=== PATIENT | female | born 1940 | race Caucasian/White ===

== ENCOUNTER 2017-08-14 06:21 | Emergency (ER) | payer MEDICARE, BC ==
[2017-08-14] MEDS ORDERED: Sodium Chloride 0.9% 10 ML Syringe FLUSH PRN (06:28)
[2017-08-14] MEDS ORDERED: Furosemide 40 MG/4 ML VIAL IVPUSH ONE (06:41)
[2017-08-14] MEDS ORDERED: methylPREDNISolone Sodium Succinate 125 MG/2 ML SDV IVPUSH ONE (06:59)
--- NOTE | 2017-08-14 07:00 | EDM.PDOC ---
ED HPI GENERAL MEDICAL PROBLEM - General Chief Complaint: Respiratory Problem Stated Complaint: [facility] Time Seen by Provider: 08/14/17 06:28 Source of Information: Reports: Patient, RN Notes Reviewed History Limitations: Reports: No Limitations - History of Present Illness INITIAL COMMENTS - FREE TEXT/NARRATIVE: The patient states that she was diagnosed with left lung cancer in February 2017, confirmed by a CT-guided percutaneous lung biopsy in March. The patient does not know whether it is small cell or non-small cell lung cancer, however, she underwent 3 radiation treatments over 3 days in May, and was told that it would if her about 5 years of additional life. She states that surgery was not recommended due to her underlying COPD, and that chemotherapy was not needed. The patient states that she has had shortness of breath ever since the radiation therapy, worse with exertion. This morning it was very severe, when she got up to get to go to the bathroom. She states that she thought she was going to pass out. She denies wheezing. She states that she coughed quite a bit following the radiation therapy, but that it has since diminished, and now is slight, productive of a clear sputum. No recent fever. No recent nausea, vomiting, constipation, or diarrhea. No recent chest pain or palpitations. The patient reports left lower extremity edema since she had a left total hip arthroplasty in February 2017, and right lower extremity edema for the past few weeks., The patient states that she saw her PCP, Dr. North, yesterday, and that he started her on Eliquis, metoprolol, and potassium chloride. She believes that the Eliquis and metoprolol are for atrial fibrillation, and the potassium for low potassium on a blood draw about one week ago. The patient states that she is on Lasix, to treat her Mnire's disease. The patient states that she is ordinarily on home oxygen 2 L per nasal cannula at night, but that it was increased to 3 L continuously a few weeks ago due to low oxygen saturation and increased shortness of breath. 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, IV/IO - Related Data Allergies Allergy/AdvReac Type Severity Reaction Status Date / Time morphine Allergy Intermediate Hives Verified 08/14/17 09:05 shellfish derived Allergy Intermediate Hives Verified 08/14/17 09:05 codeine AdvReac Mild Nausea Verified 11/15/17 09:05 Home Meds: Home Meds Albuterol Sulfate [Proair Hfa] 1 puff IH Q6HR PRN 06/20/16 [History] Aspirin [Halfprin] 81 mg PO DAILY 06/20/16 [History] Diltiazem HCl [Diltiazem HCl] 1 tab PO BID 06/20/16 [History] Furosemide [Furosemide] 1 tab PO DAILY 06/20/16 [History] Losartan [Cozaar] 1 tab PO DAILY 06/20/16 [History] Lutein/Minerals/Vit A,C & E [Ocuvite] 1 tab PO DAILY 06/20/16 [History] [place]-3 Fatty Acids [Fish Oil] 300 mg PO DAILY 06/20/16 [History] Omeprazole 20 mg PO DAILY 06/20/16 [History] Tiotropium [Spiriva Handihaler] 1 puff INH DAILY 06/20/16 [History] Acetaminophen 650 mg PO Q6HR 08/14/17 [History] Albuterol Sulfate 2.5 mg IH QID PRN 08/14/17 [History] Apixaban [Eliquis] 5 mg PO BID 08/14/17 [History] Meclizine [Antivert] 25 mg PO DAILY 08/14/17 [History] Metoprolol Tartrate [Lopressor] 25 mg PO Q12HR 08/14/17 [History] Potassium Chloride 20 meq PO BID 08/14/17 [History] Pravastatin Sodium 10 mg PO DAILY 08/14/17 [History] Past Medical History HEENT History: Reports: Hard of Hearing (Mnire disease), Impaired Vision Cardiovascular History: Reports: Afib, High Cholesterol, Hypertension, PVD Respiratory History: Reports: COPD (home O2 3L continuously) Gastrointestinal History: Reports: GERD Genitourinary History: Reports: Urinary Incontinence Musculoskeletal History: Reports: Osteoarthritis Oncologic (Cancer) History: Reports: Lung (left, s/p 3 RTs May 2017) - Past Surgical History HEENT Surgical History: Reports: Cataract Surgery (bilateral), Tonsillectomy Cardiovascular Surgical History: Reports: Vascular Surgery (bilateral iliac arteries) GI Surgical History: Reports: Cholecystectomy Musculoskeletal Surgical History: Reports: Hip Replacement (left) Social & Family History - Family History Family Medical History: Noncontributory - Tobacco Use Smoking Status *Q: Former Smoker Years of Tobacco use: 57 Packs/Tins Daily: 0.5 Month Tobacco Last Used: Quit 2014 Second Hand Smoke Exposure: No - Caffeine Use Caffeine Use: Reports: None - Alcohol Use Alcohol Use History: Yes Alcohol Use Frequency: Rarely - Recreational Drug Use Recreational Drug Use: No - Living Situation & Occupation Living situation: Reports: , Alone Occupation: Retired ED ROS GENERAL - Review of Systems Review Of Systems: See Below Constitutional: Reports: No Symptoms HEENT: Reports: No Symptoms Respiratory: Reports: Shortness of Breath (as per the HPI), Cough (as per the HPI), Sputum (clear, as per the HPI) Cardiovascular: Reports: Dyspnea on Exertion (as per the HPI), Edema (BLE, as per the HPI) Endocrine: Reports: No Symptoms GI/Abdominal: Reports: No Symptoms : Reports: No Symptoms Musculoskeletal: Reports: No Symptoms Skin: Reports: No Symptoms Neurological: Reports: No Symptoms Psychiatric: Reports: No Symptoms Hematologic/Lymphatic: Reports: No Symptoms Immunologic: Reports: No Symptoms ED EXAM, GENERAL - Physical Exam Exam: See Below Exam Limited By: No Limitations General Appearance: Alert, WD/WN, No Apparent Distress Eye Exam: Bilateral Eye: Normal Inspection Ears: Normal External Exam, Hearing Loss Nose: Normal Inspection, No Blood Throat/Mouth: Normal Inspection, Normal Lips, Normal Voice, No Airway Compromise Head: Atraumatic, Normocephalic Neck: Normal Inspection, Full Range of Motion Respiratory/Chest: Decreased Breath Sounds, Wheezing (faint throughout), Prolonged Expiration. No: Crackles, Rhonchi Cardiovascular: Normal Peripheral Pulses, Regular Rate, Rhythm, No Gallop, No JVD, No Murmur, No Rub Peripheral Pulses: 4+: Radial (L), Radial (R) GI/Abdominal: Normal Bowel Sounds, Soft, Non-Tender, No Organomegaly, No Distention, No Abnormal Bruit, No Mass (Female) Exam: Deferred Rectal (Female) Exam: Deferred Back Exam: Normal Inspection, Full Range of Motion, NT Extremities: Normal Inspection, Normal Range of Motion, Normal Capillary Refill , Other (2+ pitting edema bilaterally) Neurological: Alert, Oriented, Normal Cognition, No Motor/Sensory Deficits Psychiatric: Normal Affect Skin Exam: Warm, Dry, Intact, Normal Color, No Rash EKG INTERPRETATION EKG Date: 08/14/17 Time: 06:44 Rhythm: A-Fib Rate (Beats/Min): 130 [place]: Normal P-Wave: Absent QRS: LBBB QT: Prolonged (QTc 509 ms) Comparison: NA - No Prior EKG Course - Vital Signs Last Recorded V/S: Last Vital Signs Temp 36.4 C 08/14/17 06:25 Pulse 67 08/14/17 06:25 Resp 24 H 08/14/17 06:25 BP 118/104 H 08/14/17 06:25 Pulse Ox 78 L 08/14/17 07:55 - Orders/Labs/Meds Orders: Active Orders 24 hr Category Date Time Status EKG 12 Lead [EKG Documentation Completion] [RC] STAT Care 08/14/17 06:29 Active Oxygen Therapy [RC] ASDIRECTED Care 08/14/17 06:29 Active Peripheral IV Care [RC] . DIRECTED Care 08/14/17 06:30 Active RT Aerosol Therapy [RC] ASDIRECTED Care 08/14/17 07:30 Active MAGNESIUM [CHEM] Stat Lab 08/14/17 06:45 Received Diltiazem 125 mg Med 08/14/17 07:45 Active Sodium Chloride 0.9% [Normal Saline] 100 ml IV TITRATE Sodium Chloride 0.9% [Normal Saline] 1,000 ml Med 08/14/17 08:30 Active IV ASDIRECTED Sodium Chloride 0.9% [Normal Saline] 100 ml Med 08/14/17 08:30 Active IV ASDIRECTED Sodium Chloride 0.9% [Saline Flush] Med 08/14/17 06:28 Active 10 ml FLUSH ASDIRECTED PRN Sodium Chloride 0.9% [Saline Flush] Med 08/14/17 08:26 Active 10 ml FLUSH ONETIME PRN Peripheral IV Insertion Adult [OM.PC] Stat Oth 08/14/17 06:29 Ordered Medication Orders Diltiazem HCl 125 mg/ Sodium (Chloride) 125 mls @ 10 mls/hr IV TITRATE JACKIE; 10 MG/HR PRN Reason: Protocol Last Titration: 08/14/17 08:55 Dose: 20 mg/hr, 20 mls/hr Titration: 08/14/17 08:48 Dose: 15 mg/hr, 15 mls/hr Admin: 08/14/17 08:11 Dose: 10 mg/hr, 10 mls/hr Sodium Chloride (Normal Saline) 1,000 mls @ 100 mls/hr IV ASDIRECTED JACKIE Last Admin: 08/14/17 08:58 Dose: 100 mls/hr Sodium Chloride (Normal Saline) 100 mls @ 80 mls/hr IV ASDIRECTED JACKIE Last Admin: 08/14/17 09:14 Dose: 80 mls/hr Sodium Chloride (Saline Flush) 10 ml FLUSH ASDIRECTED PRN PRN Reason: Keep Vein Open Last Admin: 08/14/17 08:52 Dose: 10 ml Sodium Chloride (Saline Flush) 10 ml FLUSH ONETIME PRN PRN Reason: IV FLUSH Last Admin: 08/14/17 09:13 Dose: 10 ml Admin: 08/14/17 08:52 Dose: 10 ml Labs: Laboratory Tests 08/14/17 08/14/17 08/14/17 Range/Units 06:45 06:45 06:45 WBC 7.65 (3.98-10.04) K/mm3 RBC 3.99 (3.98-5.22) M/mm3 Hgb 11.5 (11.2-15.7) gm/L Hct 36.9 (34.1-44.9) % MCV 92.5 (79.4-94.8) fl MCH 28.8 (25.6-32.2) pg MCHC 31.2 L (32.2-35.5) g/dl RDW Std Deviation 52.1 H (36.4-46.3) fL Plt Count 284 (182-369) K/mm3 MPV 10.7 (9.4-12.3) fl Neut % (Auto) 82.1 H (34.0-71.1) % Lymph % (Auto) 10.1 L (19.3-51.7) % Ashley % (Auto) 6.3 (4.7-12.5) % Eos % (Auto) 1.0 (0.7-5.8) Baso % (Auto) 0.4 (0.1-1.2) % Neut # (Auto) 6.28 H (1.56-6.13) K/mm3 Lymph # (Auto) 0.77 L (1.18-3.74) K/mm3 Ashley # (Auto) 0.48 H (0.24-0.36) K/mm3 Eos # (Auto) 0.08 (0.04-0.36) K/mm3 Baso # (Auto) 0.03 (0.01-0.08) K/mm3 PT (8.0-13.0) SECONDS INR APTT (22-36) SECONDS D-Dimer, Quantitative (0.19-0.59) mg/L Puncture Site ABG pH (7.35-7.45) ABG pCO2 (35.0-45.0) mmHg ABG pO2 (80.0-100.0) mmHg ABG HCO3 (22.0-26.0) meq/L ABG O2 Saturation (96.0-97.0) % ABG Base Excess (-2-2.0) Zeferino Test A-a Gradient mmHg O2 Delivery Device FiO2 (21.00-100.00) % Sodium 144 (136-145) mEq/L Potassium 3.2 L (3.5-5.1) mEq/L Chloride 99 (98-107) mEq/L Carbon Dioxide 37 H (21-32) mEq/L Anion Gap 11.2 (5-15) BUN 15 (7-18) mg/dL Creatinine 0.8 (0.55-1.02) mg/dL Est Cr Clr Drug Dosing TNP Estimated GFR (MDRD) > 60 (>60) mL/min BUN/Creatinine Ratio 18.8 H (14-18) Glucose 134 H (83-115) mg/dL Calcium 9.0 (8.5-10.1) mg/dL Total Bilirubin 0.4 (0.2-1.0) mg/dL AST 20 (15-37) U/L ALT 26 (14-59) U/L Alkaline Phosphatase 108 (46-116) U/L Troponin I < 0.017 (0.00-0.056) ng/mL C-Reactive Protein 0.9 (<1.0) mg/dL NT-Pro-B Natriuret Pep 5126 H (0-450) pg/mL Total Protein 6.9 (6.4-8.2) g/dl Albumin 3.5 (3.4-5.0) g/dl Globulin 3.4 gm/dL Albumin/Globulin Ratio 1.0 (1-2) 08/14/17 08/14/17 Range/Units 06:45 07:58 WBC (3.98-10.04) K/mm3 RBC (3.98-5.22) M/mm3 Hgb (11.2-15.7) gm/L Hct (34.1-44.9) % MCV (79.4-94.8) fl MCH (25.6-32.2) pg MCHC (32.2-35.5) g/dl RDW Std Deviation (36.4-46.3) fL Plt Count (182-369) K/mm3 MPV (9.4-12.3) fl Neut % (Auto) (34.0-71.1) % Lymph % (Auto) (19.3-51.7) % Ashley % (Auto) (4.7-12.5) % Eos % (Auto) (0.7-5.8) Baso % (Auto) (0.1-1.2) % Neut # (Auto) (1.56-6.13) K/mm3 Lymph # (Auto) (1.18-3.74) K/mm3 Ashley # (Auto) (0.24-0.36) K/mm3 Eos # (Auto) (0.04-0.36) K/mm3 Baso # (Auto) (0.01-0.08) K/mm3 PT 11.2 (8.0-13.0) SECONDS INR 1.03 APTT 34 (22-36) SECONDS D-Dimer, Quantitative 1.66 H (0.19-0.59) mg/L Puncture Site Lt radial ABG pH 7.44 (7.35-7.45) ABG pCO2 56.0 H (35.0-45.0) mmHg ABG pO2 44.0 L (80.0-100.0) mmHg ABG HCO3 37.2 H (22.0-26.0) meq/L ABG O2 Saturation 74.8 L (96.0-97.0) % ABG Base Excess 11.4 H (-2-2.0) Zeferino Test Positive A-a Gradient 21 mmHg O2 Delivery Device Room air FiO2 21.00 (21.00-100.00) % Sodium (136-145) mEq/L Potassium (3.5-5.1) mEq/L Chloride (98-107) mEq/L Carbon Dioxide (21-32) mEq/L Anion Gap (5-15) BUN (7-18) mg/dL Creatinine (0.55-1.02) mg/dL Est Cr Clr Drug Dosing Estimated GFR (MDRD) (>60) mL/min BUN/Creatinine Ratio (14-18) Glucose (83-115) mg/dL Calcium (8.5-10.1) mg/dL Total Bilirubin (0.2-1.0) mg/dL AST (15-37) U/L ALT (14-59) U/L Alkaline Phosphatase (46-116) U/L Troponin I (0.00-0.056) ng/mL C-Reactive Protein (<1.0) mg/dL NT-Pro-B Natriuret Pep (0-450) pg/mL Total Protein (6.4-8.2) g/dl Albumin (3.4-5.0) g/dl Globulin gm/dL Albumin/Globulin Ratio (1-2) Meds: Medications Generic Name Dose Route Start Last Admin Trade Name Freq PRN Reason Stop Dose Admin Diltiazem HCl 125 mg/ Sodium 125 mls @ 10 mls/hr 08/14/17 07:45 08/14/17 08: 55 Chloride IV 20 mg/hr TITRATE JACKIE 20 mls/hr Protocol Titration 10 MG/HR Sodium Chloride 1,000 mls @ 100 mls/hr 08/14/17 08:30 08/14/17 08:58 Normal Saline IV 100 mls/hr ASDIRECTED JACKIE Administration Sodium Chloride 100 mls @ 80 mls/hr 08/14/17 08:30 08/14/17 09:14 Normal Saline IV 80 mls/hr ASDIRECTED JACKIE Administration Sodium Chloride 10 ml 08/14/17 06:28 08/14/17 08:52 Saline Flush FLUSH 10 ml ASDIRECTED PRN Administration Keep Vein Open Sodium Chloride 10 ml 08/14/17 08:26 08/14/17 09:13 Saline Flush FLUSH 10 ml ONETIME PRN Administration IV FLUSH Discontinued Medications Generic Name Dose Route Start Last Admin Trade Name Freq PRN Reason Stop Dose Admin Albuterol/Ipratropium 3 ml 08/14/17 07:30 08/14/17 07:55 Duoneb 3.0-0.5 Mg/3 Ml NEB 08/14/17 07:31 3 ml ONETIME ONE Administration Diltiazem HCl 10 mg 08/14/17 07:36 08/14/17 07:58 Diltiazem IVPUSH 08/14/17 07:37 10 mg ONETIME STA Administration Diltiazem HCl Confirm 08/14/17 08:02 08/14/17 08:13 Diltiazem Administered 08/14/17 08:03 Not Given Dose 25 mg .ROUTE .STK-MED ONE Diphenhydramine HCl 50 mg 08/14/17 08:40 08/14/17 08:51 Benadryl IVPUSH 08/14/17 08:41 50 mg ONETIME ONE Administration Furosemide 40 mg 08/14/17 06:41 08/14/17 07:29 Lasix IVPUSH 08/14/17 06:42 40 mg NOW ONE Administration Iopamidol 100 ml 08/14/17 08:26 08/14/17 09:13 Isovue-370 (76%) IVPUSH 08/14/17 08:27 100 ml ONETIME ONE Administration Methylprednisolone Sodium Succinate 125 mg 08/14/17 06:59 08/14/17 07:29 Solu-Medrol IVPUSH 08/14/17 07:00 125 mg ONETIME ONE Administration Potassium Chloride 40 meq 08/14/17 12:17 Klor-Con M20 PO 08/14/17 12:18 ONETIME ONE - Re-Assessments/Exams Free Text/Narrative Re-Assessment/Exam: 08/14/17 07:32 Portable chest radiograph is read by Dr. Sue as: Heart size and mediastinum are within normal limits. Lung markings are mildly increased which are most likely chronic. Blunting of the costophrenic angles are seen which I suspect is most likely chronic. Bony structures are osteopenic. 08/14/17 07:40 I am interpreting the patient's ECG as atrial fibrillation with an underlying bundle branch block. Unfortunately, we do not have a prior ECG for comparative purposes. I have ordered a Cardizem bolus and Cardizem drip. Dr. Mata ordered IV Lasix and IV Solu-Medrol - I believe he was unaware that the patient takes Lasix not for CHF, but for Mnire disease. The Solu-Medrol was ordered to treat a presumed COPD exacerbation. Based on the patient's physical examination, I suspect that she is in fact suffering a COPD exacerbation, and have therefore ordered a DuoNeb. 08/14/17 08:03 The ABG, obtained on room air, indicates a mixed respiratory acidosis and metabolic alkalosis, along with hypoxemia. The patient's oxygen was returned to 2 L per nasal cannula after the ABG was obtained. 08/14/17 08:19 The patient's D-dimer has returned elevated at 1.66. Along with her lower extremity edema, I'm concerned about a pulmonary embolus as the possible cause of her atrial fibrillation. Unfortunately, we do not have any information on the patient's atrial fibrillation, and she has not been to this facility previously. The patient is not certain that she has atrial fibrillation, but believes that's why she was prescribed Eliquis and metoprolol yesterday. My interpretation of her ECG is atrial fibrillation superimposed on a left bundle branch block, however, the computer interprets it as a rapid wide complex tachycardia. The patient has taken only one dose of Eliquis - yesterday - none today. Should the patient have a pulmonary embolus, this would be the treatment , however, I believe it would be valuable to know the underlying cause. I have therefore ordered a CT angiogram of the chest to evaluate for a PE. The patient's BNP has returned elevated at 5126, however, her chest radiograph does not show pulmonary vascular congestion, and she does not have a known history of CHF - again, she takes Lasix for her Mnire disease, not CHF. I have therefore also ordered normal saline 100 mL per hour to accompany the CT angiogram. 08/14/17 08:41 The patient states that she developed whole-body redness and hives after she had the angiogram for her iliac artery surgery, however, she underwent a CT scan of the chest with IV contrast just a few months ago, for which she was pretreated with Benadryl and prednisone, and she had no problem whatsoever. The patient received IV Solu-Medrol earlier today. I have ordered IV Benadryl, and then we will proceed with the CT angiogram. 08/14/17 10:30 CT angiogram of the chest is read by Dr. Sue as: 1. 1.7 cm mass within the left upper chest suspicious for neoplasm. 2. Emphysematous change is seen. 3. Small bilateral pleural effusions with bibasilar atelectasis. 4. No findings of pulmonary embolism. Other incidental findings. 08/14/17 10:46 Test results discussed with the patient. No adverse reaction to the iodinated contrast. She states that she feels somewhat better following the Solu-Medrol DuoNeb, and reduction of her heart rate with the Cardizem drip, early at 20 mg/ hr, with a heart rate just below 100 bpm. I do not feel that the patient is fit for discharge home, as she still has significant dyspnea, and we have not determined the cause. Since her heart rate is under 100, and she still has some dyspnea, the elevated heart rate is not likely the cause. I believe the patient would be better served if she were to be evaluated by a automotive worker to evaluate her atrial fibrillation, and a paper testing supervisor to evaluate her dyspnea. Neither of those services are available at this facility, therefore I am recommending that we transfer her to [place]. The patient is strongly against that. She would reluctantly be admitted to this facility, but does not want to be transferred to [place]. I explained we do not seem to have much of a choice , however. She would like to call her sister to discuss this before making a decision. 08/14/17 11:29 The patient has still not made a decision about transferring to [place]. 08/14/17 11:58 The patient has decided on [facility]. 08/14/17 12:[address] Hardwick, Hospitalist at [facility], at 12:10. He accepts the patient for transfer to their facility. Departure - Departure Time of Disposition: 12:17 Disposition: DC/Tfer to Acute Hospital 02 Condition: Fair Clinical Impression: Atrial fibrillation with rapid ventricular response, Hypoxemia, Dyspnea - Discharge Information Referrals: Ismael North MD [Primary Care Provider] - Forms: ED Department Discharge - My Orders Last 24 Hours: My Active Orders 08/14/17 06:45 MAGNESIUM [CHEM] Stat 08/14/17 07:30 RT Aerosol Therapy [RC] ASDIRECTED 08/14/17 07:45 Diltiazem 125 mg Sodium Chloride 0.9% [Normal Saline] 100 ml IV TITRATE 08/14/17 08:26 Sodium Chloride 0.9% [Saline Flush] 10 ml FLUSH ONETIME PRN 08/14/17 08:30 Sodium Chloride 0.9% [Normal Saline] 1,000 ml IV ASDIRECTED Sodium Chloride 0.9% [Normal Saline] 100 ml IV ASDIRECTED - Assessment/Plan Last 24 Hours: My Active Orders 08/14/17 06:45 MAGNESIUM [CHEM] Stat 08/14/17 07:30 RT Aerosol Therapy [RC] ASDIRECTED 08/14/17 07:45 Diltiazem 125 mg Sodium Chloride 0.9% [Normal Saline] 100 ml IV TITRATE 08/14/17 08:26 Sodium Chloride 0.9% [Saline Flush] 10 ml FLUSH ONETIME PRN 08/14/17 08:30 Sodium Chloride 0.9% [Normal Saline] 1,000 ml IV ASDIRECTED Sodium Chloride 0.9% [Normal Saline] 100 ml IV ASDIRECTED
--- NOTE | 2017-08-14 07:27 | CR ---
Chest: Portable view of the chest was obtained. Comparison: No prior chest x-ray. Heart size and mediastinum are within normal limits. Lung markings are mildly increased which are most likely chronic. Blunting of the costophrenic angles are seen which I suspect is most likely chronic. Bony structures are osteopenic. Impression: 1. Findings as noted above which I suspect are mostly chronic, although old chest x-ray would be needed to confirm. Diagnostic code #2
[2017-08-14] MEDS ORDERED: Albuterol/Ipratropium 3.0-0.5 MG/3 ML Neb Soln NEB ONE (07:30)
[2017-08-14] MEDS ORDERED: Diltiazem 25 MG/5 ML SDV IVPUSH STA (07:36)
[2017-08-14] MEDS ORDERED: Diltiazem 125 MG in Sodium Chloride 0.9% 100 ML IV SCH (07:45)
[2017-08-14] MEDS ORDERED: Diltiazem 25 MG/5 ML SDV ONE (08:02)
[2017-08-14] MEDS ORDERED: Iopamidol 755 Mg/ML 100 ML Bottle IVPUSH ONE (08:26)
[2017-08-14] MEDS ORDERED: Sodium Chloride 0.9% 1,000 ML IV SCH (08:30)
[2017-08-14] MEDS ORDERED: Sodium Chloride 0.9% 100 ML IV SCH (08:30)
[2017-08-14] MEDS ORDERED: diphenhydrAMINE 50 MG/ML SDV IVPUSH ONE (08:40)
[2017-08-14] MEDS: Sodium Chloride 0.9% 10 ML Syringe FLUSH PRN ×2 (08:52→09:13)
--- NOTE | 2017-08-14 11:43 | CT ---
CT chest Technique: Multiple axial sections through the chest were obtained. Intravenous contrast was utilized. Comparison: Previous chest x-ray of 08/14/17. Findings: Small bilateral pleural effusions are seen. Mild bibasilar atelectasis is noted. Emphysematous changes are seen. Incidental azygos lobe is noted. There is a mass lesion within the left upper chest showing irregular margins. This finding measures approximately 1.7 cm. Neoplasm is a strong possibility. Heart is mildly enlarged. Atherosclerotic calcification is seen within the thoracic aorta as well as coronary artery calcification. Mediastinum and hilar regions show no adenopathy or mass. No pulmonary emboli are seen. Bone window settings show scattered degenerative change within the spine. Impression: 1. 1.7 cm mass within the left upper chest suspicious for neoplasm. 2. Emphysematous change is seen. 3. Small bilateral pleural effusions with bibasilar atelectasis. 4. No findings of pulmonary embolism. Other incidental findings. Diagnostic code #9
[2017-08-14] MEDS ORDERED: Potassium Chloride 20 MEQ Tab.ER PO ONE (12:17)
[2017-08-14 14:25] VITALS: BP 149/71
== END 2017-08-14 13:39 ==
LOC: JD.ED 06:21
DX: I48.91 Unspecified atrial fibrillation (principal); R09.02 Hypoxemia; R06.00 Dyspnea, unspecified; I10 Essential (primary) hypertension; Z88.5 Allergy status to narcotic agent; Z91.013 Allergy to seafood; Z79.82 Long term (current) use of aspirin; Z79.899 Other long term (current) drug therapy; Z87.891 Personal history of nicotine dependence
CPT/HCPCS: 36415; 36600; 71010; 71275; 80053; 82803; 83735; 83880; 84484; 85025; 85379; 85610; 85730; 86140; 93005; 94640; 96365; 96366; 96375; 96376; 99285; A9270; J1200; J1940; J2930; J3490; J7030; J7040; J7050; Q9967; 93010

== ENCOUNTER 2018-01-07 08:28 | Day surgery (SDC) | payer MEDICARE, BC ==
[~2018-01-07 08:28] MED LIST: Lactated Ringers 1,000 ML IV SCH; Lidocaine 1% 4 ML ONE; Lidocaine 1%/Sod Bicarbonate in NS 8.4% 1 ML Syringe IDERM PRN; Propofol 200 MG/20 ML SDV ONE; Sodium Chloride 0.9% 10 ML Syringe FLUSH PRN; fentaNYL 100 MCG/2 ML SDV ONE
--- NOTE | 2018-01-07 08:52 | PCM.PREANE ---
Preanesthetic Assessment - Procedure Proposed Procedure: Diagnostic EGD/ Colonoscopy - Anesthesia/Transfusion/Family Hx Anesthesia History: Prior Anesthesia Without Reaction Type of Anesthesia Reaction: Excessive Somnolence Family History of Anesthesia Reaction: No Transfusion History: No Prior Transfusion(s) Type of Transfusion Reactions: Reports: Unknown - Review of Systems Pulmonary: Shortness of Breath, Other (COPD, lung CA- radiation, 2L O2 at night) Cardiovascular: Dyspnea on Exertion, Other (htn, afib (eliquis), carotid artery stenosis, ) Gastrointestinal: Other (GERD) Neurological: No Symptoms Other: Reports: Easy Bleeding (on eliquis), Easy Bruising, Depression - Physical Assessment NPO Status Date: 01/06/18 NPO Status Time: 22:30 Pulse: 80 O2 Sat by Pulse Oximetry: 94 Respiratory Rate: 18 Blood Pressure: 133/40 Temperature: 37.7 C Height: 1.63 m Weight: 62.596 kg ASA Class: 3 Mental Status: Alert & Oriented x3 Airway Class: Mallampati = 2 Dentition: Reports: Dentures (upper and lower ) Thyro-Mental Finger Breadths: 3 Mouth Opening Finger Breadths: 3 ROM/Head Extension: Full Lungs: Clear to Auscultation, Normal Respiratory Effort Cardiovascular: Regular Rate, Regular Rhythm - Allergies Allergies/Adverse Reactions: Allergies Allergy/AdvReac Type Severity Reaction Status Date / Time morphine Allergy Intermediate Hives Verified 01/06/18 15:08 shellfish derived Allergy Intermediate Hives Verified 01/06/18 15:08 codeine AdvReac Mild Nausea Verified 01/06/18 15:08 - Blood Blood Available: No Product(s) Available: None - Anesthesia Plan Pre-Op Medication Ordered: None - Acknowledgements Anesthesia Type Planned: MAC Pt an Appropriate Candidate for the Planned Anesthesia: Yes Alternatives and Risks of Anesthesia Discussed w Pt/Guardian: Yes Pt/Guardian Understands and Agrees with Anesthesia Plan: Yes PreAnesthesia Questionnaire HEENT History: Reports: Hard of Hearing, Impaired Vision, Other (See Below) Other HEENT History: meniere's disease, glasses, hearing aids, dentures Cardiovascular History: Reports: Afib, High Cholesterol, Hypertension, PVD Other Cardiovascular History: edema, carotid artery stenosis, Left bundle branch block, mitral valve regurgitation Respiratory History: Reports: Bronchitis, Recurrent, COPD, SOB Other Respiratory History: chronic oxygen use, lung cancer, bronchitits, acute on chronic respiratory failure with hypoxia Gastrointestinal History: Reports: GERD, Hemorrhoids Genitourinary History: Reports: Urinary Incontinence BUSINESS BROKER History: Reports: None Musculoskeletal History: Reports: Osteoarthritis Neurological History: Reports: Other (See Below) Other Neuro History: lumbar degenerative disc disease, lumbar facet arthropathy , radicular lumbar pain Psychiatric History: Reports: None Endocrine/Metabolic History: Reports: None, Other (See Below) Other Endocrine/Metabolic History: Meniere's disease Hematologic History: Reports: Anemia Immunologic History: Reports: Immunosuppression, Other (See Below) Other Immunologic History: hx radiation in may 2017 Oncologic (Cancer) History: Reports: Lung Dermatologic History: Reports: None - Past Surgical History HEENT Surgical History: Reports: Cataract Surgery, Tonsillectomy Cardiovascular Surgical History: Reports: Vascular Surgery Respiratory Surgical History: Reports: None GI Surgical History: Reports: Cholecystectomy, Colonoscopy, Small Bowel Female Surgical History: Reports: None Male Surgical History: Reports: None Endocrine Surgical History: Reports: None Musculoskeletal Surgical History: Reports: Hip Replacement Oncologic Surgical History: Reports: None Dermatological Surgical History: Reports: None - SUBSTANCE USE Smoking Status *Q: Former Smoker Tobacco Use Within Last Twelve Months: Cigarettes Second Hand Smoke Exposure: No Recreational Drug Use History: No - HOME MEDS Home Medications: Home Meds Furosemide 40 mg PO DAILY 06/20/16 [History] Losartan [Cozaar] 1 tab PO DAILY 06/20/16 [History] Lutein/Minerals/Vit A,C & E [Ocuvite] 1 tab PO DAILY 06/20/16 [History] [place]-3 Fatty Acids [Fish Oil] 300 mg PO DAILY 06/20/16 [History] Omeprazole 20 mg PO DAILY 06/20/16 [History] Meclizine [Antivert] 25 mg PO DAILY 08/14/17 [History] Potassium Chloride 20 meq PO DAILY 08/14/17 [History] Pravastatin Sodium 10 mg PO DAILY 08/14/17 [History] Acetaminophen [Tylenol Arthritis] 650 mg PO QID PRN 01/06/18 [History] Albuterol [Proventil Neb Soln] 1 dose INH BID 01/06/18 [History] Apixaban [Eliquis] 2.5 mg PO BID 01/06/18 [History] Digoxin [Digox] 125 mcg PO Q48H PRN 01/06/18 [History] Digoxin [Lanoxin] 250 mcg PO Q48H 01/06/18 [History] Diltiazem HCl [Cardizem Cd] 240 mg PO DAILY 01/06/18 [History] Sertraline [Zoloft] 25 mg PO DAILY 01/06/18 [History] traMADol HCl [Ultram] 50 mg PO QID PRN 01/06/18 [History] - CURRENT (IN HOUSE) MEDS Current Meds: Current Medications Lactated Ringer's (Ringers, Lactated) 1,000 mls @ 125 mls/hr IV ASDIRECTED JACKIE Stop: 01/07/18 23:00 Lidocaine/Sodium Bicarbonate (Buffered Lidocaine 1% In Ns 8.4%) 0.25 ml IDERM ONETIME PRN PRN Reason: Prior to IV Start Stop: 01/07/18 18:00 Sodium Chloride (Saline Flush) 10 ml FLUSH ASDIRECTED PRN PRN Reason: Keep Vein Open Stop: 01/07/18 18:00 Discontinued Medications Fentanyl (Sublimaze) Confirm Administered Dose 100 mcg .ROUTE .STK-MED ONE Stop: 01/07/18 07:05 Lidocaine HCl (Xylocaine-Mpf 1%) Confirm Administered Dose 4 mls @ as directed .ROUTE .STK-MED ONE Stop: 01/07/18 07:06 Propofol (Diprivan 20 Ml) Confirm Administered Dose 200 mg .ROUTE .STK-MED ONE Stop: 01/07/18 07:05
[2018-01-07] MEDS ORDERED: Propofol 200 MG/20 ML SDV ONE (11:02)
--- NOTE | 2018-01-07 11:26 | PCM48HPAN ---
Post Anesthesia Note - EVALUATION WITHIN 48HRS OF ANESTHETIC Vital Signs in Normal Range: Yes Patient Participated in Evaluation: Yes Respiratory Function Stable: Yes Airway Patent: Yes Cardiovascular Function Stable: Yes Hydration Status Stable: Yes Pain Control Satisfactory: Yes Nausea and Vomiting Control Satisfactory: Yes Mental Status Recovered: Yes
[2018-01-07 13:21] VITALS: BP 102/55
--- NOTE | 2018-01-08 08:05 | OR ---
DATE OF OPERATION: 01/07/2018 SURGEON: Jerman Chun MD PREOPERATIVE DIAGNOSIS: Anemia. POSTOPERATIVE DIAGNOSIS: Anemia. OPERATION PERFORMED: Colonoscopy to cecum with biopsy. FINDINGS: Flat lesion, unknown type, in the ascending colon, which measured approximately 1 cm across. Narrow-band imaging did not suggest any undue abnormality, it was only biopsied. There was also occasional diverticulum in the sigmoid colon and enlarged internal hemorrhoids. There were no large tumor masses, ulcerations, or obvious polyps noted. ANESTHESIA: Done under IV sedation. DESCRIPTION OF PROCEDURE: The patient having been taken to the endoscopy room and connected to monitoring equipment for upper GI endoscopy, and having IV sedation for this, this was continued for colonoscopy. She was placed in left lateral position. Perianal area was inspected and it was normal. Rectal exam showed good sphincter tone. A video Olympus colonoscope was then introduced into the rectum and threaded up without problem to the cecum, where the pills were covering the appendicular orifice, but the ileocecal valve was noted. Prep was excellent. [place] cleansing score grade A. The scope was slowly withdrawn showing the cecum, ascending colon, transverse colon, descending colon, sigmoid colon, and rectum. Retroflexed view was done. Flat lesion was noted in the ascending colon and narrow-band imaging was inconclusive. It was biopsied only. This specimen was sent to pathology in a labeled container. The patient tolerated the procedure, was sent to recovery room in a stable condition, and will be followed up in the clinic. ESTIMATED BLOOD LOSS: MMODAL /[id number]
--- NOTE | 2018-01-08 08:05 | OR ---
DATE OF OPERATION: 01/07/2018 SURGEON: Jerman Chun MD PREOPERATIVE DIAGNOSIS: Anemia. POSTOPERATIVE DIAGNOSIS: Anemia. OPERATION PERFORMED: EGD with biopsy. 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 The second portion of the duodenum, duodenal bulb, pyloric channel, antrum, body, and cardia of the stomach were unremarkable. J-maneuver showed us intact hiatus with a small sliding hiatal hernia. The rest of the esophagus did not show any pathology or acute pathology. ANESTHESIA: Done under IV sedation. DESCRIPTION OF PROCEDURE: The patient was taken to the endoscopy room, placed in a supine position, connected to monitoring equipment, and given IV sedation. She was placed in the left lateral position. Bite block was inserted. Video Olympus gastroscope was placed in the posterior oropharynx, under direct vision, threaded past the cricopharyngeus, down the esophagus, and into the stomach. The stomach was insufflated, and the scope passed through the pylorus to the second portion of the duodenum. It was slowly withdrawn showing normal second portion of the duodenum, duodenal bulb, and pyloric channel. Antrum, body, and cardia of the stomach were reviewed and J-maneuver was done showing no acute pathology. GE junction showed a small sliding hiatal hernia, otherwise intact. Scope was withdrawn to the GE junction, showed some advancement of the gastric mucosa for a very short distance, probably about 2 cm beyond the GE junction, and this was biopsied. Rest of the esophagus was viewed as the scope withdrawn was unremarkable. The patient tolerated the procedure and IV sedation continued for further endoscopy and colonoscopy. ESTIMATED BLOOD LOSS: MMODAL /[id number]
== END 2018-01-07 12:45 | disposition home or self-care (01) ==
LOC: JD.SDS 08:28
PROVIDERS: ATTEND Surgery
DX: D12.2 Benign neoplasm of ascending colon (principal); K57.30 Diverticulosis of large intestine without perforation or abscess without bleeding; K64.8 Other hemorrhoids; K20.9 Esophagitis, unspecified; K44.9 Diaphragmatic hernia without obstruction or gangrene; D64.9 Anemia, unspecified; K21.9 Gastro-esophageal reflux disease without esophagitis; I48.1 Persistent atrial fibrillation; I48.0 Paroxysmal atrial fibrillation; I34.0 Nonrheumatic mitral (valve) insufficiency; I07.1 Rheumatic tricuspid insufficiency; I65.29 Occlusion and stenosis of unspecified carotid artery; I10 Essential (primary) hypertension; I44.7 Left bundle-branch block, unspecified; M16.10 Unilateral primary osteoarthritis, unspecified hip; M51.36 Other intervertebral disc degeneration, lumbar region; J44.1 Chronic obstructive pulmonary disease with (acute) exacerbation; J96.21 Acute and chronic respiratory failure with hypoxia; Z79.899 Other long term (current) drug therapy; Z88.5 Allergy status to narcotic agent; Z91.013 Allergy to seafood; Z90.49 Acquired absence of other specified parts of digestive tract; Z90.89 Acquired absence of other organs; Z96.642 Presence of left artificial hip joint; Z98.41 Cataract extraction status, right eye; Z98.42 Cataract extraction status, left eye; Z98.890 Other specified postprocedural states; Z92.3 Personal history of irradiation; Z85.01 Personal history of malignant neoplasm of esophagus; Z87.891 Personal history of nicotine dependence; Z80.0 Family history of malignant neoplasm of digestive organs
CPT/HCPCS: 43239; 45380; J3010; J7120; 00813; 88305; J2704

== ENCOUNTER 2019-11-25 12:17 | Emergency (ER) | payer MEDICARE, BC ==
[2019-11-25 12:32] VITALS: BP 123/87; PULSE 91
[2019-11-25] MEDS ORDERED: Sodium Chloride 0.9% 10 ML Syringe FLUSH PRN (13:03)
[2019-11-25] MEDS ORDERED: Albuterol/Ipratropium 3.0-0.5 MG/3 ML Neb Soln NEB ONE ×2 (13:04→15:06)
[2019-11-25] MEDS ORDERED: methylPREDNISolone Sodium Succinate 125 MG/2 ML SDV IVPUSH ONE (13:05)
--- NOTE | 2019-11-25 13:40 | CR ---
Chest: Two views of the chest were obtained. Comparison: Prior chest x-ray of 08/14/17. Thick area of increased density within left upper chest is seen. This may represent change from previously treated lung cancer. Please correlate. Azygos lobe seen within the right upper chest. Lung markings are increased on the right side suspicious for diffuse bronchitis. No alveolar type densities are seen. Lungs are hyperinflated compatible with emphysematous change. Heart size is normal. Tortuous thoracic aorta is seen. Impression: 1. Thick area of increased density of left upper chest possibility representing change from previously treated lung cancer. Please correlate if this is correct by clinical history. 2. Increased lung markings on the right side raising the possibility of bronchitis. 3. Emphysematous change. Diagnostic code #3 This report was dictated in [place] Standard Time
--- NOTE | 2019-11-25 15:16 | EDM.PDOC ---
ED HPI GENERAL MEDICAL PROBLEM - General Chief Complaint: Respiratory Problem Stated Complaint: ON OXYGEN AND SOB LUNG CANCER PT Time Seen by Provider: 11/25/19 12:57 Source of Information: Reports: Patient History Limitations: Reports: No Limitations - History of Present Illness INITIAL COMMENTS - FREE TEXT/NARRATIVE: The patient presents with shortness of breath and cough. She currently has lung cancer. Treatments are on hold right now because her renal function is not good. She has a history of COPD and she is on oxygen at home. She had to increase her home oxygen. She says she cannot cough up anything. She does not think she has any fever. She has no chest pain. She has no abdominal pain, nausea or vomiting. Onset: Gradual Duration: Day(s): Severity: Mild Improves with: Reports: None Worsens with: Reports: None Associated Symptoms: Reports: Cough, Shortness of Breath. Denies: Chest Pain, Fever/Chills, Headaches, Nausea/Vomiting - Related Data Allergies Allergy/AdvReac Type Severity Reaction Status Date / Time morphine Allergy Intermediate Hives Verified 11/25/19 12:32 shellfish derived Allergy Intermediate Hives Verified 11/25/19 12:32 codeine AdvReac Mild Nausea Verified 11/25/19 12:32 Home Meds: Home Meds Furosemide 40 mg PO DAILY 06/20/16 [History] Losartan [Cozaar] 1 tab PO DAILY 06/20/16 [History] Lutein/Minerals/Vit A,C & E [Ocuvite] 1 tab PO DAILY 06/20/16 [History] Omeprazole 20 mg PO DAILY 06/20/16 [History] Meclizine [Antivert] 25 mg PO DAILY 08/14/17 [History] Pravastatin Sodium 10 mg PO DAILY 08/14/17 [History] Albuterol [Proventil Neb Soln] 1 dose INH BID 01/06/18 [History] Digoxin [Digox] 125 mcg PO DAILY 01/06/18 [History] Diltiazem HCl [Cardizem Cd] 240 mg PO BID 01/06/18 [History] Albuterol [Ventolin HFA] 1 puff INH DAILY 11/25/19 [History] Aspirin 325 mg PO DAILY 11/25/19 [History] Azithromycin [Zithromax] 250 mg PO DAILY #6 tab 11/25/19 [Rx] Benzonatate [Tessalon Perle] 100 mg PO TID PRN #20 capsule 11/25/19 [Rx] Past Medical History HEENT History: Reports: Hard of Hearing, Impaired Vision, Other (See Below) Other HEENT History: meniere's disease, glasses, hearing aids, dentures Cardiovascular History: Reports: Afib, High Cholesterol, Hypertension, PVD Other Cardiovascular History: edema, carotid artery stenosis, Left bundle branch block, mitral valve regurgitation Respiratory History: Reports: Bronchitis, Recurrent, COPD, SOB Other Respiratory History: chronic oxygen use, lung cancer, bronchitits, acute on chronic respiratory failure with hypoxia Gastrointestinal History: Reports: GERD, Hemorrhoids Genitourinary History: Reports: Urinary Incontinence [employer] SE[employer]ENDER History: Reports: None Musculoskeletal History: Reports: Osteoarthritis Neurological History: Reports: Other (See Below) Other Neuro History: lumbar degenerative disc disease, lumbar facet arthropathy , radicular lumbar pain Psychiatric History: Reports: None Endocrine/Metabolic History: Reports: None, Other (See Below) Other Endocrine/Metabolic History: Meniere's disease Hematologic History: Reports: Anemia Immunologic History: Reports: Immunosuppression, Other (See Below) Other Immunologic History: hx radiation in may 2017 Oncologic (Cancer) History: Reports: Lung Dermatologic History: Reports: None - Infectious Disease History Infectious Disease History: Reports: None - Past Surgical History HEENT Surgical History: Reports: Cataract Surgery, Tonsillectomy Cardiovascular Surgical History: Reports: Vascular Surgery Respiratory Surgical History: Reports: None GI Surgical History: Reports: Cholecystectomy, Colonoscopy, Small Bowel Female Surgical History: Reports: None Endocrine Surgical History: Reports: None Musculoskeletal Surgical History: Reports: Hip Replacement Oncologic Surgical History: Reports: None Dermatological Surgical History: Reports: None Social & Family History - Family History Family Medical History: Noncontributory - Tobacco Use Smoking Status *Q: Former Smoker Used Tobacco, but Quit: Yes Month/Year Tobacco Last Used: 2016 - Caffeine Use Caffeine Use: Reports: Coffee - Recreational Drug Use Recreational Drug Use: No - Living Situation & Occupation Living situation: Reports: , Alone Occupation: Retired ED ROS GENERAL - Review of Systems Review Of Systems: See Below Constitutional: Reports: No Symptoms HEENT: Reports: No Symptoms Respiratory: Reports: Shortness of Breath, Cough Cardiovascular: Reports: No Symptoms Endocrine: Reports: No Symptoms GI/Abdominal: Reports: No Symptoms : Reports: No Symptoms Musculoskeletal: Reports: No Symptoms ED EXAM, GENERAL - Physical Exam Exam: See Below Exam Limited By: No Limitations General Appearance: Alert, No Apparent Distress Ears: Normal External Exam Nose: Normal Inspection Head: Atraumatic, Normocephalic Neck: Normal Inspection Respiratory/Chest: No Respiratory Distress, Decreased Breath Sounds Cardiovascular: Regular Rate, Rhythm, No Edema, No Murmur GI/Abdominal: Soft, Non-Tender, No Organomegaly, No Mass Back Exam: Normal Inspection Extremities: Normal Inspection Neurological: Alert, Oriented, No Motor/Sensory Deficits Course - Vital Signs Last Recorded V/S: Last Vital Signs Temp 97.3 F 11/25/19 12:28 Pulse 91 11/25/19 12:28 Resp 20 11/25/19 12:28 BP 123/87 11/25/19 12:28 Pulse Ox 88 L 11/25/19 13:04 - Orders/Labs/Meds Orders: Active Orders 24 hr Category Date Time Status Cardiac Monitoring [RC] . DIRECTED Care 11/25/19 13:03 Active Oxygen Therapy [RC] PRN Care 11/25/19 13:03 Active Peripheral IV Care [RC] . DIRECTED Care 11/25/19 13:04 Active RT Aerosol Therapy [RC] ASDIRECTED Care 11/25/19 13:04 Active RT Aerosol Therapy [RC] ASDIRECTED Care 11/25/19 15:07 Active Sodium Chloride 0.9% [Saline Flush] Med 11/25/19 13:03 Active 10 ml FLUSH ASDIRECTED PRN Peripheral IV Insertion Adult [OM.PC] Stat Oth 11/25/19 13:03 Ordered Medication Orders Sodium Chloride (Saline Flush) 10 ml FLUSH ASDIRECTED PRN PRN Reason: Keep Vein Open Last Admin: 11/25/19 13:49 Dose: 10 ml Labs: Laboratory Tests 11/25/19 11/25/19 Range/Units 13:24 13:24 WBC 8.14 (3.98-10.04) K/mm3 RBC 4.08 (3.98-5.22) M/mm3 Hgb 11.7 (11.2-15.7) gm/dl Hct 37.0 (34.1-44.9) % MCV 90.7 (79.4-94.8) fl MCH 28.7 (25.6-32.2) pg MCHC 31.6 L (32.2-35.5) g/dl RDW Std Deviation 58.3 H (36.4-46.3) fL Plt Count 283 (182-369) K/mm3 MPV 10.0 (9.4-12.3) fl Neut % (Auto) 91.4 H (34.0-71.1) % Lymph % (Auto) 4.7 L (19.3-51.7) % Cobb % (Auto) 2.8 L (4.7-12.5) % Eos % (Auto) 0 L (0.7-5.8) Baso % (Auto) 0.1 (0.1-1.2) % Neut # (Auto) 7.44 H (1.56-6.13) K/mm3 Lymph # (Auto) 0.38 L (1.18-3.74) K/mm3 Cobb # (Auto) 0.23 L (0.24-0.36) K/mm3 Eos # (Auto) 0.00 L (0.04-0.36) K/mm3 Baso # (Auto) 0.01 (0.01-0.08) K/mm3 Manual Slide Review Abnormal smear Sodium 140 (136-145) mEq/L Potassium 4.5 (3.5-5.1) mEq/L Chloride 100 (98-107) mEq/L Carbon Dioxide 32 (21-32) mEq/L Anion Gap 12.5 (5-15) BUN 24 H (7-18) mg/dL Creatinine 1.2 H (0.55-1.02) mg/dL Est Cr Clr Drug Dosing 30.41 mL/min Estimated GFR (MDRD) 43 (>60) mL/min BUN/Creatinine Ratio 20.0 H (14-18) Glucose 148 H (83-115) mg/dL Calcium 8.2 L (8.5-10.1) mg/dL Total Bilirubin 0.5 (0.2-1.0) mg/dL AST 22 (15-37) U/L ALT 23 (14-59) U/L Alkaline Phosphatase 61 (46-116) U/L Total Protein 6.7 (6.4-8.2) g/dl Albumin 3.1 L (3.4-5.0) g/dl Globulin 3.6 gm/dL Albumin/Globulin Ratio 0.9 L (1-2) Meds: Medications Generic Name Dose Route Start Last Admin Trade Name Freq PRN Reason Stop Dose Admin Sodium Chloride 10 ml 11/25/19 13:03 11/25/19 13:49 Saline Flush FLUSH 10 ml ASDIRECTED PRN Administration Keep Vein Open Discontinued Medications Generic Name Dose Route Start Last Admin Trade Name Freq PRN Reason Stop Dose Admin Albuterol/Ipratropium 3 ml 11/25/19 13:04 11/25/19 13:53 Duoneb 3.0-0.5 Mg/3 Ml NEB 11/25/19 13:05 3 ml ONETIME ONE Administration Albuterol/Ipratropium 3 ml 11/25/19 15:06 Duoneb 3.0-0.5 Mg/3 Ml NEB 11/25/19 15:07 ONETIME ONE Methylprednisolone Sodium Succinate 125 mg 11/25/19 13:05 11/25/19 13:49 Solu-Medrol IVPUSH 11/25/19 13:06 125 mg ONETIME ONE Administration - Re-Assessments/Exams Free Text/Narrative Re-Assessment/Exam: 11/25/19 15:12 I ordered an IV saline lock, CXR, labs, duo-neb and solu-medrol 125mg IV. Her CBC looks good. Her creatinine is elevated at 1.2. Her CXR was read by Dr Sue and it shows thick area of increased density of left upper chest possibility representing change from previously treated lung cancer. Please correlate if this is correct by clinical history. Increased lung markings on the right side raising the possibility of bronchitis. Emphysematous change. She is moving more air. I will give her another duoneb and then get her on zithromax and phenergan with codeine. Departure - Departure Time of Disposition: 15:30 Disposition: Home, Self-Care 01 Condition: Good Clinical Impression: Bronchitis - Discharge Information *PRESCRIPTION DRUG MONITORING PROGRAM REVIEWED*: Not Applicable *COPY OF PRESCRIPTION DRUG MONITORING REPORT IN PATIENT APPLE: Not Applicable Prescriptions: Azithromycin [Zithromax] 250 mg PO DAILY #6 tab Benzonatate [Tessalon Perle] 100 mg PO TID PRN #20 capsule PRN Reason: Cough Referrals: Ismael North MD [Primary Care Provider] - Additional Instructions: Take your medication as prescribed. Take the zithromax 2 pills on day 1 and 1 pill on day 2 through 5. Use the tessalon pearles every 8 hours as needed for cough. Keep taking your albuterol. Please return if you are worse. Sepsis Event Note - Evaluation Sepsis Screening Result: No Definite Risk - Focused Exam Vital Signs: Vital Signs Temp Pulse Resp BP Pulse Ox Pulse Ox 11/25/19 13:04 88 L 11/25/19 12:28 97.3 F 91 20 123/87 89 L Date Exam was Performed: 11/25/19 Time Exam was Performed: 15:08 - My Orders Last 24 Hours: My Active Orders 11/25/19 13:03 Cardiac Monitoring [RC] . DIRECTED Oxygen Therapy [RC] PRN Sodium Chloride 0.9% [Saline Flush] 10 ml FLUSH ASDIRECTED PRN Peripheral IV Insertion Adult [OM.PC] Stat 11/25/19 13:04 Peripheral IV Care [RC] . DIRECTED RT Aerosol Therapy [RC] ASDIRECTED 11/25/19 15:07 RT Aerosol Therapy [RC] ASDIRECTED - Assessment/Plan Last 24 Hours: My Active Orders 11/25/19 13:03 Cardiac Monitoring [RC] . DIRECTED Oxygen Therapy [RC] PRN Sodium Chloride 0.9% [Saline Flush] 10 ml FLUSH ASDIRECTED PRN Peripheral IV Insertion Adult [OM.PC] Stat 11/25/19 13:04 Peripheral IV Care [RC] . DIRECTED RT Aerosol Therapy [RC] ASDIRECTED 11/25/19 15:07 RT Aerosol Therapy [RC] ASDIRECTED
== END 2019-11-25 15:34 | disposition home or self-care (01) ==
LOC: JD.ED 12:17
DX: J40 Bronchitis, not specified as acute or chronic (principal); I10 Essential (primary) hypertension; I48.91 Unspecified atrial fibrillation; K21.9 Gastro-esophageal reflux disease without esophagitis; E78.00 Pure hypercholesterolemia, unspecified; J44.9 Chronic obstructive pulmonary disease, unspecified; Z87.891 Personal history of nicotine dependence; Z88.5 Allergy status to narcotic agent; Z91.013 Allergy to seafood; Z79.899 Other long term (current) drug therapy
CPT/HCPCS: 36415; 71046; 80053; 85025; 94640; 96374; 99285; J2930; 99283; J7620-GY

== ENCOUNTER 2020-08-22 11:35 | Inpatient (IN) | payer MEDICARE, BC ==
[2020-08-22] MEDS ORDERED: Sodium Chloride 0.9% 10 ML Syringe FLUSH PRN ×4 (11:55→17:03)
[2020-08-22] MEDS ORDERED: Sodium Chloride 0.9% 1,000 ML IV SCH (12:00)
[2020-08-22] MEDS ORDERED: Diltiazem 50 MG/10 ML SDV IVPUSH ONE (12:16)
[2020-08-22] MEDS ORDERED: Diltiazem 100 MG in Sodium Chloride 0.9% 100 ML IV SCH (12:30)
--- NOTE | 2020-08-22 12:40 | CR ---
PROCEDURE INFORMATION: Exam: XR Chest, 1 View Exam date and time: 08/22/2020 11:52 AM Age: 80 years old Clinical indication: Chest pain TECHNIQUE: Imaging protocol: XR of the chest Views: 1 view. COMPARISON: OT Chest 2V 11/25/2019 1:08 PM FINDINGS: Lungs: Progression of coarse interstitial pattern in the bilateral lower lungs with focal atelectasis or consolidation in lower lung laterally. Findings could be due to progression of fibrosis, edema or new infiltrate. Stable focal scarring in the both upper lungs. Pleural space: Unremarkable. No pleural effusion. No pneumothorax. Heart/Mediastinum: Unremarkable. No cardiomegaly. Vasculature: Aortic calcifications. Bones/joints: Unremarkable. IMPRESSION: Coarse interstitial prominence in both lung bases could be new infiltrate or edema or progression of fibrosis. Thank you for allowing us to participate in the care of your patient. Dictated and Authenticated by: Nikole De Leon MD 08/22/2020 1:33 PM Central Time ([place] & [place]) [place]
[2020-08-22] MEDS ORDERED: Iopamidol 755 Mg/ML 100 ML Bottle IVPUSH ONE ×2 (13:35→14:03)
[2020-08-22] MEDS ORDERED: Sodium Chloride 0.9% 45 ML IV SCH (13:45)
--- NOTE | 2020-08-22 14:38 | CT ---
PROCEDURE INFORMATION: Exam: CT Angiography Chest With Contrast Exam date and time: 08/22/2020 1:34 PM Age: 80 years old Clinical indication: Abnormal findings; Abnormal diagnostic tests; Elevated d- dimer TECHNIQUE: Imaging protocol: Computed tomographic angiography of the chest with intravenous contrast. 3D rendering (Not supervised by radiologist): MIP and/or 3D reconstructed images were created by the technologist. Contrast material: [id number]; Contrast volume: 80 ml; Contrast route: INTRAVENOUS (IV); COMPARISON: CT Ang Chest 08/14/2017 9:10 AM FINDINGS: Pulmonary arteries: Excellent opacification of pulmonary arteries. No filling defects are identified in the pulmonary arteries to suggest the presence a pulmonary embolism. Aorta: Unremarkable. No aortic aneurysm. No aortic dissection. Lungs: Marked changes of emphysema appear progressed. Focal scarring and volume loss in left upper lobe anteriorly. Azygos lobe. Peripheral fibrosis in lung bases, worse on the right. This appears progressed since 08/14/2017. There are areas of honeycombing in both lung bases, right worse than. Progression of interstitial thickening and ground-glass attenuation in both lower lungs, right worse than left could be due to a edema or worsening of interstitial fibrosis. The presence of the small right effusion suggests there is an edematous or infectious component to this likely in the setting worsening fibrosis. Focal area of peripheral ground-glass and interstitial thickening in the right middle lobe anteriorly. No discrete pulmonary nodules are identified. Pleural space: Tiny right pleural effusion. Heart: Diffuse vascular calcifications including very dense aortic and coronary artery calcifications. Mild cardiac enlargement. Lymph nodes: Unremarkable. No enlarged lymph nodes. Bones/joints: Degenerate arthritis in the spine. No worrisome bone lesions are identified. Bones are demineralized. Soft tissues: Unremarkable. IMPRESSION: 1. No pulmonary embolism identified. 2. Progression of pulmonary interstitial fibrosis and emphysema since 08/14/2017 3. Findings suggestive of new or progression of interstitial edema versus infiltrate in the lung bases. Imaging features can be seen with COVID-19 pneumonia, though are nonspecific and can occur with a variety of infectious and noninfectious processes. (Reference: August) References: anabell Randolph al., [employer] Society of [place] Expert Consensus Statement on Reporting Chest CT Findings Related to COVID-19. Endorsed by the Society of Thoracic Radiology, the [employer] [place] [employer], and RSNA. Published December 23, 2019. Thank you for allowing us to participate in the care of your patient. Dictated and Authenticated by: Nikole De Leon MD 08/22/2020 3:33 PM Central Time ([place] & [place]) MARQUITA
[2020-08-22] MEDS ORDERED: Dexamethasone 4 MG/ML SDV IVPUSH ONE (14:48)
--- NOTE | 2020-08-22 15:08 | EDM.PDOC ---
ED HPI GENERAL MEDICAL PROBLEM - General Chief Complaint: Cardiovascular Problem Stated Complaint: ABNORMAL HEART RATE Time Seen by Provider: 08/22/20 11:50 Source of Information: Reports: Patient, Provider History Limitations: Reports: No Limitations - History of Present Illness INITIAL COMMENTS - FREE TEXT/NARRATIVE: The patient presents from the clinic. She was seeing her doctor Dr North. She has been short of breath and weak. She also has a cough. She has no fever, chills, chest pain, nausea, vomiting, abdominal pain or diarrhea. She has a history of COPD and she is on home oxygen. She is using more oxygen the past couple of days. She also has a history of A-fib and she is in RVR at 150 at times. Onset: Gradual Duration: Day(s): Severity: Moderate Improves with: Reports: None Worsens with: Reports: None Associated Symptoms: Reports: Cough, Shortness of Breath. Denies: Chest Pain, Fever/Chills, Headaches, Nausea/Vomiting - Related Data Allergies Allergy/AdvReac Type Severity Reaction Status Date / Time morphine Allergy Intermediate Hives Verified 08/22/20 11:51 shellfish derived Allergy Intermediate Hives Verified 08/22/20 11:51 codeine AdvReac Mild Nausea Verified 08/22/20 11:51 Home Meds: Home Meds Furosemide 40 mg PO DAILY 06/20/16 [History] Losartan [Cozaar] 1 tab PO DAILY 06/20/16 [History] Lutein/Minerals/Vit A,C & E [Ocuvite] 1 tab PO DAILY 06/20/16 [History] Omeprazole 20 mg PO DAILY 06/20/16 [History] Meclizine [Antivert] 25 mg PO DAILY 08/14/17 [History] Pravastatin Sodium 10 mg PO DAILY 08/14/17 [History] Albuterol [Proventil Neb Soln] 1 dose INH BID 01/06/18 [History] Digoxin [Digox] 125 mcg PO DAILY 01/06/18 [History] dilTIAZem HCL [Cardizem Cd] 500 mg PO BID 01/06/18 [History] Albuterol [Ventolin HFA] 1 puff INH DAILY 11/25/19 [History] Aspirin 325 mg PO DAILY 11/25/19 [History] predniSONE [Prednisone] 2 tab PO DAILY 08/22/20 [History] Past Medical History HEENT History: Reports: Hard of Hearing, Impaired Vision, Other (See Below) Other HEENT History: meniere's disease, glasses, hearing aids, dentures Cardiovascular History: Reports: Afib, High Cholesterol, Hypertension, PVD Other Cardiovascular History: edema, carotid artery stenosis, Left bundle branch block, mitral valve regurgitation Respiratory History: Reports: Bronchitis, Recurrent, COPD, SOB Other Respiratory History: chronic oxygen use, lung cancer, bronchitits, acute on chronic respiratory failure with hypoxia Gastrointestinal History: Reports: GERD, Hemorrhoids Genitourinary History: Reports: Urinary Incontinence GRADES 1 THRU 6 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: Reports: None Musculoskeletal History: Reports: Osteoarthritis Neurological History: Reports: Other (See Below) Other Neuro History: lumbar degenerative disc disease, lumbar facet arthropathy, radicular lumbar pain Psychiatric History: Reports: None Endocrine/Metabolic History: Reports: Other (See Below) Other Endocrine/Metabolic History: Meniere's disease Hematologic History: Reports: Anemia Immunologic History: Reports: Immunosuppression, Other (See Below) Other Immunologic History: hx radiation in may 2017 Oncologic (Cancer) History: Reports: Lung Dermatologic History: Reports: None - Infectious Disease History Infectious Disease History: Reports: Novel Coronavirus - Past Surgical History HEENT Surgical History: Reports: Cataract Surgery, Tonsillectomy Cardiovascular Surgical History: Reports: Vascular Surgery Respiratory Surgical History: Reports: None GI Surgical History: Reports: Cholecystectomy, Colonoscopy, Small Bowel Female Surgical History: Reports: None Endocrine Surgical History: Reports: None Musculoskeletal Surgical History: Reports: Hip Replacement Oncologic Surgical History: Reports: None Dermatological Surgical History: Reports: None Social & Family History - Family History Family Medical History: No Pertinent Family History - Tobacco Use Tobacco Use Status *Q: Former Tobacco User Used Tobacco, but Quit: Yes Month/Year Tobacco Last Used: 2014 - Caffeine Use Caffeine Use: Reports: Coffee - Recreational Drug Use Recreational Drug Use: No - Living Situation & Occupation Living situation: Reports: , Alone Occupation: Retired ED ROS GENERAL - Review of Systems Review Of Systems: See Below Constitutional: Reports: Malaise, Weakness, Fatigue. Denies: Fever, Chills HEENT: Reports: No Symptoms Respiratory: Reports: Shortness of Breath, Cough Cardiovascular: Reports: No Symptoms Endocrine: Reports: No Symptoms GI/Abdominal: Reports: No Symptoms : Reports: No Symptoms Musculoskeletal: Reports: No Symptoms ED EXAM, GENERAL - Physical Exam Exam: See Below Exam Limited By: No Limitations General Appearance: Alert, No Apparent Distress Ears: Normal External Exam Nose: Normal Inspection Head: Atraumatic, Normocephalic Neck: Normal Inspection, Supple, Non-Tender Respiratory/Chest: No Respiratory Distress, Lungs Clear, Normal Breath Sounds Cardiovascular: No Edema, No Murmur, Tachycardia GI/Abdominal: Soft, Non-Tender, No Organomegaly, No Mass Back Exam: Normal Inspection Extremities: Normal Inspection #1 Interpretation EKG Date: 08/22/20 Time: 11:57 Rhythm: A-Fib Rate (Beats/Min): 123 [place]: Normal QRS: LBBB ST-T: Normal QT: Normal Course - Vital Signs Last Recorded V/S: Last Vital Signs Temp 97.9 F 08/22/20 11:48 Pulse 143 H 08/22/20 11:48 Resp 18 08/22/20 11:48 BP 138/89 08/22/20 11:48 Pulse Ox 96 08/22/20 12:10 - Orders/Labs/Meds Orders: Active Orders 24 hr Category Date Time Status Cardiac Monitoring [RC] . DIRECTED Care 08/22/20 11:55 Active EKG Documentation Completion [RC] STAT Care 08/22/20 11:58 Active Oxygen Therapy [RC] PRN Care 08/22/20 11:55 Active Peripheral IV Care [RC] . DIRECTED Care 08/22/20 11:58 Active Diltiazem [Cardizem] 100 mg Med 08/22/20 12:30 Active Sodium Chloride 0.9% [Normal Saline] 100 ml IV TITRATE Sodium Chloride 0.9% [Normal Saline] 1,000 ml Med 08/22/20 12:00 Active IV ASDIRECTED Sodium Chloride 0.9% [Normal Saline] 45 ml Med 08/22/20 13:45 Active IV ASDIRECTED Sodium Chloride 0.9% [Saline Flush] Med 08/22/20 11:55 Active 10 ml FLUSH ASDIRECTED PRN Sodium Chloride 0.9% [Saline Flush] Med 08/22/20 13:35 Active 10 ml FLUSH ONETIME PRN Sodium Chloride 0.9% [Saline Flush] Med 08/22/20 14:03 Active 10 ml FLUSH ONETIME PRN Peripheral IV Insertion Adult [OM.PC] Stat Oth 08/22/20 11:55 Ordered Medication Orders Sodium Chloride (Normal Saline) 1,000 mls @ 125 mls/hr IV ASDIRECTED JACKIE Last Admin: 08/22/20 12:42 Dose: 125 mls/hr Documented by: ELVIS Diltiazem HCl 100 mg/ Sodium (Chloride) 100 mls @ 10 mls/hr IV TITRATE JACKIE; Protocol Last Admin: 08/22/20 12:42 Dose: 10 mg/hr, 10 mls/hr Documented by: ELVIS Sodium Chloride (Normal Saline) 45 mls @ 40 mls/hr IV ASDIRECTED JACKIE Sodium Chloride (Saline Flush) 10 ml FLUSH ASDIRECTED PRN PRN Reason: Keep Vein Open Last Admin: 08/22/20 12:45 Dose: 10 ml Documented by: ELVIS Sodium Chloride (Saline Flush) 10 ml FLUSH ONETIME PRN PRN Reason: Keep Vein Open Sodium Chloride (Saline Flush) 10 ml FLUSH ONETIME PRN PRN Reason: Keep Vein Open Labs: Laboratory Tests 08/22/20 08/22/20 08/22/20 Range/Units 12:25 12:25 12:25 WBC 5.71 (3.98-10.04) K/mm3 RBC 3.87 L (3.98-5.22) M/mm3 Hgb 10.7 L (11.2-15.7) gm/dl Hct 35.0 (34.1-44.9) % MCV 90.4 (79.4-94.8) fl MCH 27.6 (25.6-32.2) pg MCHC 30.6 L (32.2-35.5) g/dl RDW Std Deviation 47.3 H (36.4-46.3) fL Plt Count 212 (182-369) K/mm3 MPV 11.8 (9.4-12.3) fl Neut % (Auto) 80.6 H (34.0-71.1) % Lymph % (Auto) 11.9 L (19.3-51.7) % [place] % (Auto) 6.8 (4.7-12.5) % Eos % (Auto) 0 L (0.7-5.8) Baso % (Auto) 0.2 (0.1-1.2) % Neut # (Auto) 4.60 (1.56-6.13) K/mm3 Lymph # (Auto) 0.68 L (1.18-3.74) K/mm3 [place] # (Auto) 0.39 H (0.24-0.36) K/mm3 Eos # (Auto) 0.00 L (0.04-0.36) K/mm3 Baso # (Auto) 0.01 (0.01-0.08) K/mm3 PT 10.6 (9.7-12.0) SECONDS INR 0.99 APTT 32.5 H (21.7-31.4) SECONDS D-Dimer, Quantitative 2.52 H (0.19-0.50) mg/L Sodium 133 L (136-145) mEq/L Potassium 3.7 (3.5-5.1) mEq/L Chloride 96 L (98-107) mEq/L Carbon Dioxide 30 (21-32) mEq/L Anion Gap 10.7 (5-15) BUN 31 H (7-18) mg/dL Creatinine 1.4 H (0.55-1.02) mg/dL Est Cr Clr Drug Dosing 26.75 mL/min Estimated GFR (MDRD) 36 (>60) mL/min BUN/Creatinine Ratio 22.1 H (14-18) Glucose 115 (83-115) mg/dL Lactic Acid (0.4-2.0) mmol/L Calcium 8.5 (8.5-10.1) mg/dL Magnesium 2.3 (1.8-2.4) mg/dl Total Bilirubin 0.4 (0.2-1.0) mg/dL AST 28 (15-37) U/L ALT 24 (14-59) U/L Alkaline Phosphatase 76 (46-116) U/L Troponin I 0.044 (0.00-0.056) ng/mL C-Reactive Protein 22.4 H* (<1.0) mg/dL Total Protein 6.9 (6.4-8.2) g/dl Albumin 2.9 L (3.4-5.0) g/dl Globulin 4.0 gm/dL Albumin/Globulin Ratio 0.7 L (1-2) TSH 3rd Generation 1.406 (0.358-3.74) uIU/mL SARS-CoV-2 RNA (JUANA) (NEGATIVE) 08/22/20 08/22/20 Range/Units 12:25 12:25 WBC (3.98-10.04) K/mm3 RBC (3.98-5.22) M/mm3 Hgb (11.2-15.7) gm/dl Hct (34.1-44.9) % MCV (79.4-94.8) fl MCH (25.6-32.2) pg MCHC (32.2-35.5) g/dl RDW Std Deviation (36.4-46.3) fL Plt Count (182-369) K/mm3 MPV (9.4-12.3) fl Neut % (Auto) (34.0-71.1) % Lymph % (Auto) (19.3-51.7) % [place] % (Auto) (4.7-12.5) % Eos % (Auto) (0.7-5.8) Baso % (Auto) (0.1-1.2) % Neut # (Auto) (1.56-6.13) K/mm3 Lymph # (Auto) (1.18-3.74) K/mm3 [place] # (Auto) (0.24-0.36) K/mm3 Eos # (Auto) (0.04-0.36) K/mm3 Baso # (Auto) (0.01-0.08) K/mm3 PT (9.7-12.0) SECONDS INR APTT (21.7-31.4) SECONDS D-Dimer, Quantitative (0.19-0.50) mg/L Sodium (136-145) mEq/L Potassium (3.5-5.1) mEq/L Chloride (98-107) mEq/L Carbon Dioxide (21-32) mEq/L Anion Gap (5-15) BUN (7-18) mg/dL Creatinine (0.55-1.02) mg/dL Est Cr Clr Drug Dosing mL/min Estimated GFR (MDRD) (>60) mL/min BUN/Creatinine Ratio (14-18) Glucose (83-115) mg/dL Lactic Acid 1.2 (0.4-2.0) mmol/L Calcium (8.5-10.1) mg/dL Magnesium (1.8-2.4) mg/dl Total Bilirubin (0.2-1.0) mg/dL AST (15-37) U/L ALT (14-59) U/L Alkaline Phosphatase (46-116) U/L Troponin I (0.00-0.056) ng/mL C-Reactive Protein (<1.0) mg/dL Total Protein (6.4-8.2) g/dl Albumin (3.4-5.0) g/dl Globulin gm/dL Albumin/Globulin Ratio (1-2) TSH 3rd Generation (0.358-3.74) uIU/mL SARS-CoV-2 RNA (JUANA) Positive H (NEGATIVE) Meds: Medications Generic Name Dose Route Start Last Admin Trade Name Freq PRN Reason Stop Dose Admin Sodium Chloride 1,000 mls @ 125 mls/hr 08/22/20 12:00 08/22/20 12:42 Normal Saline IV 125 mls/hr ASDIRECTED JACKIE Administration Diltiazem HCl 100 mg/ Sodium 100 mls @ 10 mls/hr 08/22/20 12:30 08/22/20 12:42 Chloride IV 10 mg/hr TITRATE JACKEI 10 mls/hr Administration Protocol 10 MG/HR Sodium Chloride 45 mls @ 40 mls/hr 08/22/20 13:45 Normal Saline IV ASDIRECTED JACKIE Sodium Chloride 10 ml 08/22/20 11:55 08/22/20 12:45 Saline Flush FLUSH 10 ml ASDIRECTED PRN Administration Keep Vein Open Sodium Chloride 10 ml 08/22/20 13:35 Saline Flush FLUSH ONETIME PRN Keep Vein Open Sodium Chloride 10 ml 08/22/20 14:03 Saline Flush FLUSH ONETIME PRN Keep Vein Open Discontinued Medications Generic Name Dose Route Start Last Admin Trade Name Freq PRN Reason Stop Dose Admin Dexamethasone 6 mg 08/22/20 14:48 Decadron IVPUSH 08/22/20 14:49 ONETIME ONE Diltiazem HCl 10 mg 08/22/20 12:16 08/22/20 12:42 Cardizem IVPUSH 08/22/20 12:17 10 mg ONETIME ONE Administration Iopamidol 100 ml 08/22/20 13:35 Isovue-370 (76%) IVPUSH 08/22/20 13:36 ONETIME ONE Iopamidol 100 ml 08/22/20 14:03 Isovue-370 (76%) IVPUSH 08/22/20 14:04 ONETIME ONE - Re-Assessments/Exams Free Text/Narrative Re-Assessment/Exam: 08/22/20 15:02 I ordered an IV NS at 125ml/hr, oxygen, cardizem 10mg IV bolus and a cardizem drip at 10mg/hr, EKG, labs, and CXR. Her EKG shows atrial fibrillation with RVR. Her CXR shows coarse interstitial prominence in both lung bases could be new infiltrate or edema or progression of fibrosis. Her CBC looks good. Her D- dimer is elevated at 2.52. Her Na is low at 133. Her creatinine is elevated at 1.4. Her lactic acid is normal. Her troponin is negative. Her CRP is elevated at 22.4. Her TSH is normal. Her COVID 19 is positive. Her D-dimer was more elevated than what I would expect from COVID so I ordered a CT angio and that showed no PE. Progression of pulmonary interstitial fibrosis and emphysema since 08/14/17. Findings suggestive of new or progression of interstitial edema versus infiltrate in the lung bases. She has COVID pneumonia and A-fib with RVR. I called Dr Kennedy and he agreed to the admission. Departure - Departure Time of Disposition: 15:10 Disposition: Admitted As Inpatient 64 Condition: Serious Clinical Impression: Hypoxemia, Atrial fibrillation with rapid ventricular response, COVID-19, Pneumonia due to COVID-19 virus COPD (chronic obstructive pulmonary disease) Qualifiers: COPD type: unspecified COPD Qualified Code(s): J44.9 - Chronic obstructive pulmonary disease, unspecified Referrals: Ismael North MD [Primary Care Provider] - Sepsis Event Note (ED) - Evaluation Sepsis Screening Result: No Definite Risk - Focused Exam Vital Signs: Vital Signs Temp Pulse Resp BP Pulse Ox Pulse Ox 08/22/20 12:10 96 08/22/20 11:48 97.9 F 143 H 18 138/89 94 L - My Orders Last 24 Hours: My Active Orders 08/22/20 11:55 Cardiac Monitoring [RC] . DIRECTED Oxygen Therapy [RC] PRN Sodium Chloride 0.9% [Saline Flush] 10 ml FLUSH ASDIRECTED PRN Peripheral IV Insertion Adult [OM.PC] Stat 08/22/20 11:58 EKG Documentation Completion [RC] STAT Peripheral IV Care [RC] . DIRECTED 08/22/20 12:00 Sodium Chloride 0.9% [Normal Saline] 1,000 ml IV ASDIRECTED 08/22/20 12:30 Diltiazem [Cardizem] 100 mg Sodium Chloride 0.9% [Normal Saline] 100 ml IV TITRATE 08/22/20 13:35 Sodium Chloride 0.9% [Saline Flush] 10 ml FLUSH ONETIME PRN 08/22/20 13:45 Sodium Chloride 0.9% [Normal Saline] 45 ml IV ASDIRECTED 08/22/20 14:03 Sodium Chloride 0.9% [Saline Flush] 10 ml FLUSH ONETIME PRN - Assessment/Plan Last 24 Hours: My Active Orders 08/22/20 11:55 Cardiac Monitoring [RC] . DIRECTED Oxygen Therapy [RC] PRN Sodium Chloride 0.9% [Saline Flush] 10 ml FLUSH ASDIRECTED PRN Peripheral IV Insertion Adult [OM.PC] Stat 08/22/20 11:58 EKG Documentation Completion [RC] STAT Peripheral IV Care [RC] . DIRECTED 08/22/20 12:00 Sodium Chloride 0.9% [Normal Saline] 1,000 ml IV ASDIRECTED 08/22/20 12:30 Diltiazem [Cardizem] 100 mg Sodium Chloride 0.9% [Normal Saline] 100 ml IV TITRATE 08/22/20 13:35 Sodium Chloride 0.9% [Saline Flush] 10 ml FLUSH ONETIME PRN 08/22/20 13:45 Sodium Chloride 0.9% [Normal Saline] 45 ml IV ASDIRECTED 08/22/20 14:03 Sodium Chloride 0.9% [Saline Flush] 10 ml FLUSH ONETIME PRN
[2020-08-22] MEDS ORDERED: Zolpidem 5 MG Tab PO PRN (17:03)
[2020-08-22] MEDS ORDERED: Ondansetron 4 MG Tab.DIS PO PRN (17:03)
[2020-08-22] MEDS ORDERED: Acetaminophen 325 MG Tab PO PRN (17:03)
[2020-08-22] MEDS ORDERED: Docusate Sodium 100 MG Cap PO PRN (17:03)
[2020-08-22] MEDS ORDERED: Enoxaparin 30 MG/0.3 ML Syringe SUBCUT SCH (17:15)
[2020-08-22] MEDS ORDERED: REMDESIVIR 200 MG in Sodium Chloride 0.9% 250 ML IV ONE (17:16)
[2020-08-22] MEDS ORDERED: Albuterol 6.7 GM Inhaler INH SCH (17:30)
[2020-08-22] MEDS: Aspirin 325 MG Tab.EC PO SCH (18:44)
[2020-08-22] MEDS: Albuterol 6.7 GM Inhaler INH SCH ×2 (19:55→20:01)
[2020-08-22] MEDS: Diltiazem 240 MG Cap.ER PO SCH (21:06)
[2020-08-22] MEDS: Azithromycin 500 MG in Sodium Chloride 0.9% 250 ML IV SCH (21:11)
[2020-08-22] MEDS ORDERED: cefTRIAXone 1 GM in Sodium Chloride 0.9% 100 ML IV SCH (22:00)
[2020-08-22] MEDS ORDERED: cefTRIAXone 2 GM in Sodium Chloride 0.9% 100 ML IV SCH (22:00)
[2020-08-22] MEDS: cefTRIAXone 1 GM in Sodium Chloride 0.9% 100 ML IV SCH (23:22)
[2020-08-23] MEDS: Albuterol 6.7 GM Inhaler INH SCH ×4 (03:27→20:53)
[2020-08-23] MEDS: Pantoprazole 40 MG Tab.CR PO SCH (05:54)
[2020-08-23] MEDS: Aspirin 325 MG Tab.EC PO SCH (08:47)
[2020-08-23] MEDS: Multivitamins with Minerals/Folic Acid/Lutein/Zeaxanth Tab PO SCH (08:47)
[2020-08-23] MEDS: Simvastatin 10 MG Tab PO SCH (08:47)
[2020-08-23] MEDS: Diltiazem 240 MG Cap.ER PO SCH ×2 (08:47→21:07)
[2020-08-23] MEDS: Furosemide 20 MG Tab PO SCH (08:47)
[2020-08-23] MEDS ORDERED: REMDESIVIR 200 MG in Sodium Chloride 0.9% 250 ML IV ONE (09:00)
[2020-08-23] MEDS ORDERED: Furosemide 40 MG/4 ML VIAL IVPUSH ONE (12:00)
[2020-08-23] MEDS ORDERED: Sodium Chloride 0.9% 250 ML IV SCH (12:30)
[2020-08-23] MEDS ORDERED: Sodium Chloride 0.9% 250 ML ONE (12:31)
[2020-08-23] MEDS: Digoxin 125 MCG Tab PO SCH (12:48)
--- NOTE | 2020-08-23 13:06 | PCM.HP.2 ---
H&P History of Present Illness - General Date of Service: 08/22/20 Admit Problem/Dx: Admission Diagnosis/Problem Admission Diagnosis/Problem Atrial fibrillation Source of Information: Provider History Limitations: Reports: No Limitations - History of Present Illness Initial Comments - Free Text/Narative: The patient presents from the clinic. She was seeing her doctor Dr [place]. She has been short of breath and weak. She also has a cough. She has no fever, chills, chest pain, nausea, vomiting, abdominal pain or diarrhea. She has a history of COPD and she is on home oxygen. She is using more oxygen the past couple of days. She also has a history of A-fib and she is in RVR at 150 at times. Patient reports that she started feeling short of breath on Saturday, and she was needing to wear her home oxygen at 2 L continuously. Prior to that she has only worn her oxygen for sleep. She also states over the course of the last week she has developed a cough, fatigue, and general malaise. She also has noted some diarrhea. Onset of Symptoms: Reports: Gradual - Related Data Allergies/Adverse Reactions: Allergies Allergy/AdvReac Type Severity Reaction Status Date / Time morphine Allergy Intermediate Hives Verified 08/22/20 16:46 shellfish derived Allergy Intermediate Hives Verified 08/22/20 16:46 codeine AdvReac Mild Nausea Verified 08/22/20 16:46 Home Medications: Home Meds Furosemide 40 mg PO DAILY 06/20/16 [History] Losartan [Cozaar] 50 mg PO DAILY 06/20/16 [History] Lutein/Minerals/Vit A,C & E [Ocuvite] 1 tab PO DAILY 06/20/16 [History] Omeprazole 20 mg PO DAILY 06/20/16 [History] Meclizine [Antivert] 25 mg PO DAILY 08/14/17 [History] Pravastatin Sodium 10 mg PO DAILY 08/14/17 [History] Albuterol [Proventil Neb Soln] 1 dose INH BID 01/06/18 [History] Digoxin [Digox] 125 mcg PO DAILY 01/06/18 [History] dilTIAZem HCL [Cardizem Cd] 240 mg PO BID 01/06/18 [History] Albuterol [Ventolin HFA] 1 puff INH DAILY 11/25/19 [History] Aspirin 325 mg PO DAILY 11/25/19 [History] Cyanocobalamin (Vitamin B-12) [B-12] 500 mcg PO ASDIRECTED 08/22/20 [History] Non-Formulary Medication [NF Drug] 1 inh INH DAILY 08/22/20 [History] predniSONE [Prednisone] 40 mg PO DAILY 08/22/20 [History] Past Medical History HEENT History: Reports: Cataract, Hard of Hearing, Impaired Vision, Other (See Below) Other HEENT History: meniere's disease, glasses, hearing aids, upper/lower dentu res Cardiovascular History: Reports: Afib, High Cholesterol, Hypertension, PVD Other Cardiovascular History: edema, carotid artery stenosis, Left bundle branch block, mitral valve regurgitation Respiratory History: Reports: Bronchitis, Recurrent, COPD, SOB Other Respiratory History: chronic oxygen use, lung cancer, bronchitits, acute on chronic respiratory failure with hypoxia-wears 2L O2 via [place] all the time at home Gastrointestinal History: Reports: GERD, Hemorrhoids Genitourinary History: Reports: Urinary Incontinence 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: Musculoskeletal History: Reports: Osteoarthritis Neurological History: Reports: Other (See Below) Other Neuro History: lumbar degenerative disc disease, lumbar facet arthropathy, radicular lumbar pain Psychiatric History: Reports: None Endocrine/Metabolic History: Reports: Other (See Below) Other Endocrine/Metabolic History: Meniere's disease Hematologic History: Reports: Anemia, Other (See Below) Other Hematologic History: pt doesn't state she has history of anemia Immunologic History: Reports: Immunosuppression, Other (See Below) Other Immunologic History: hx radiation in may 2017 Oncologic (Cancer) History: Reports: Lung Dermatologic History: Reports: None - Infectious Disease History Infectious Disease History: Reports: Chicken Pox, Measles, Mumps, Novel Coronavirus - Past Surgical History HEENT Surgical History: Reports: Cataract Surgery, Tonsillectomy Cardiovascular Surgical History: Reports: Vascular Surgery Respiratory Surgical History: Reports: None GI Surgical History: Reports: Cholecystectomy, Colonoscopy, EGD Female Surgical History: Reports: None Endocrine Surgical History: Reports: None Musculoskeletal Surgical History: Reports: Hip Replacement Oncologic Surgical History: Reports: None Dermatological Surgical History: Reports: None Social & Family History - Family History Family Medical History: No Pertinent Family History - Tobacco Use Tobacco Use Status *Q: Former Tobacco User Used Tobacco, but Quit: Yes Month/Year Tobacco Last Used: 2016 - Caffeine Use Caffeine Use: Reports: Coffee - Recreational Drug Use Recreational Drug Use: No - Living Situation & Occupation Living situation: Reports: , Alone Occupation: Retired H&P Review of Systems - Review of Systems: Review Of Systems: See Below General: Reports: Malaise, Fatigue HEENT: Reports: No Symptoms Pulmonary: Reports: Shortness of Breath, Cough. Denies: Sputum Cardiovascular: Reports: Dyspnea on Exertion. Denies: Edema Gastrointestinal: Reports: Diarrhea. Denies: Nausea, Vomiting Genitourinary: Reports: No Symptoms Musculoskeletal: Reports: No Symptoms Skin: Reports: No Symptoms Psychiatric: Reports: No Symptoms Neurological: Reports: No Symptoms Hematologic/Lymphatic: Reports: No Symptoms Immunologic: Reports: No Symptoms Exam - Exam Exam: See Below - Vital Signs Vital Signs: Last Vital Signs Temp 97.5 F 08/23/20 11:57 Pulse 81 08/23/20 12:48 Resp 18 08/23/20 11:57 BP 133/75 08/23/20 11:57 Pulse Ox 94 L 08/23/20 11:57 Weight: 135 lb 6.4 oz - Exam Quality Assessment: Supplemental Oxygen (6 L per nasal cannula.), DVT Prophylaxis (Lovenox) General: Alert, Oriented, Cooperative, Mild Distress HEENT: Conjunctiva Clear, EACs Clear, Pupils Equal, Pupils Reactive Neck: Supple, Trachea Midline. No: Lymphadenopathy Lungs: Normal Respiratory Effort, Decreased Breath Sounds, Crackles Cardiovascular: Regular Rate, Irregular Rhythm GI/Abdominal Exam: Normal Bowel Sounds, Soft, Non-Tender, No Distention (Female) Exam: Deferred Rectal (Female) Exam: Deferred Back Exam: Normal Inspection, Full Range of Motion Extremities: Normal Inspection, Normal Range of Motion, Non-Tender, No Pedal Edema, Normal Capillary Refill Peripheral Pulses: 2+: Radial (L), Radial (R), Dorsalis Pedis (L), Dorsalis Pedis (R) Skin: Warm, Dry, Intact Neuro Extensive - Mental Status: Alert, Oriented x3, Normal Mood/Affect, Normal Cognition, Memory Intact Psychiatric: Alert, Normal Affect, Normal Mood - Patient Data Lab Results Last 24 hrs: Laboratory Results - last 24 hr 08/22/20 08/22/20 08/22/20 Range/Units 12:25 12:25 12:25 WBC (3.98-10.04) K/mm3 RBC (3.98-5.22) M/mm3 Hgb (11.2-15.7) gm/dl Hct (34.1-44.9) % MCV (79.4-94.8) fl MCH (25.6-32.2) pg MCHC (32.2-35.5) g/dl RDW Std Deviation (36.4-46.3) fL Plt Count (182-369) K/mm3 MPV (9.4-12.3) fl Neut % (Auto) (34.0-71.1) % Lymph % (Auto) (19.3-51.7) % Esmeralda % (Auto) (4.7-12.5) % Eos % (Auto) (0.7-5.8) Baso % (Auto) (0.1-1.2) % Neut # (Auto) (1.56-6.13) K/mm3 Lymph # (Auto) (1.18-3.74) K/mm3 Esmeralda # (Auto) (0.24-0.36) K/mm3 Eos # (Auto) (0.04-0.36) K/mm3 Baso # (Auto) (0.01-0.08) K/mm3 PT 10.6 (9.7-12.0) SECONDS INR 0.99 APTT 32.5 H (21.7-31.4) SECONDS D-Dimer, Quantitative 2.52 H (0.19-0.50) mg/L Sodium 133 L (136-145) mEq/L Potassium 3.7 (3.5-5.1) mEq/L Chloride 96 L (98-107) mEq/L Carbon Dioxide 30 (21-32) mEq/L Anion Gap 10.7 (5-15) BUN 31 H (7-18) mg/dL Creatinine 1.4 H (0.55-1.02) mg/dL Est Cr Clr Drug Dosing 26.75 mL/min Estimated GFR (MDRD) 36 (>60) mL/min BUN/Creatinine Ratio 22.1 H (14-18) Glucose 115 (83-115) mg/dL POC Glucose (83-110) mg/dL Lactic Acid 1.2 (0.4-2.0) mmol/L Calcium 8.5 (8.5-10.1) mg/dL Magnesium 2.3 (1.8-2.4) mg/dl Iron (50-170) ug/dL Total Bilirubin 0.4 (0.2-1.0) mg/dL Direct Bilirubin (0.0-0.2) mg/dl Indirect Bilirubin (0.1-1.0) mg/dL AST 28 (15-37) U/L ALT 24 (14-59) U/L Alkaline Phosphatase 76 (46-116) U/L Troponin I 0.044 (0.00-0.056) ng/mL C-Reactive Protein 22.4 H* (<1.0) mg/dL NT-Pro-B Natriuret Pep (0-450) pg/mL Total Protein 6.9 (6.4-8.2) g/dl Albumin 2.9 L (3.4-5.0) g/dl Globulin 4.0 gm/dL Albumin/Globulin Ratio 0.7 L (1-2) TSH 3rd Generation 1.406 (0.358-3.74) uIU/mL Digoxin (0.9-2.0) ng/mL SARS-CoV-2 RNA (JUANA) (NEGATIVE) Blood Type 08/22/20 08/22/20 08/22/20 Range/Units 12:25 12:25 23:12 WBC (3.98-10.04) K/mm3 RBC (3.98-5.22) M/mm3 Hgb (11.2-15.7) gm/dl Hct (34.1-44.9) % MCV (79.4-94.8) fl MCH (25.6-32.2) pg MCHC (32.2-35.5) g/dl RDW Std Deviation (36.4-46.3) fL Plt Count (182-369) K/mm3 MPV (9.4-12.3) fl Neut % (Auto) (34.0-71.1) % Lymph % (Auto) (19.3-51.7) % Esmeralda % (Auto) (4.7-12.5) % Eos % (Auto) (0.7-5.8) Baso % (Auto) (0.1-1.2) % Neut # (Auto) (1.56-6.13) K/mm3 Lymph # (Auto) (1.18-3.74) K/mm3 Esmeralda # (Auto) (0.24-0.36) K/mm3 Eos # (Auto) (0.04-0.36) K/mm3 Baso # (Auto) (0.01-0.08) K/mm3 PT (9.7-12.0) SECONDS INR APTT (21.7-31.4) SECONDS D-Dimer, Quantitative (0.19-0.50) mg/L Sodium (136-145) mEq/L Potassium (3.5-5.1) mEq/L Chloride (98-107) mEq/L Carbon Dioxide (21-32) mEq/L Anion Gap (5-15) BUN (7-18) mg/dL Creatinine (0.55-1.02) mg/dL Est Cr Clr Drug Dosing mL/min Estimated GFR (MDRD) (>60) mL/min BUN/Creatinine Ratio (14-18) Glucose (83-115) mg/dL POC Glucose 159 H (83-110) mg/dL Lactic Acid (0.4-2.0) mmol/L Calcium (8.5-10.1) mg/dL Magnesium (1.8-2.4) mg/dl Iron (50-170) ug/dL Total Bilirubin (0.2-1.0) mg/dL Direct Bilirubin (0.0-0.2) mg/dl Indirect Bilirubin (0.1-1.0) mg/dL AST (15-37) U/L ALT (14-59) U/L Alkaline Phosphatase (46-116) U/L Troponin I (0.00-0.056) ng/mL C-Reactive Protein (<1.0) mg/dL NT-Pro-B Natriuret Pep (0-450) pg/mL Total Protein (6.4-8.2) g/dl Albumin (3.4-5.0) g/dl Globulin gm/dL Albumin/Globulin Ratio (1-2) TSH 3rd Generation (0.358-3.74) uIU/mL Digoxin (0.9-2.0) ng/mL SARS-CoV-2 RNA (JUANA) Positive H (NEGATIVE) Blood Type O POSITIVE 11/08/23/20 08/23/20 Range/Units 04:10 04:10 04:10 WBC 3.59 L (3.98-10.04) K/mm3 RBC 3.53 L (3.98-5.22) M/mm3 Hgb 10.0 L (11.2-15.7) gm/dl Hct 31.9 L (34.1-44.9) % MCV 90.4 (79.4-94.8) fl MCH 28.3 (25.6-32.2) pg MCHC 31.3 L (32.2-35.5) g/dl RDW Std Deviation 47.2 H (36.4-46.3) fL Plt Count 201 (182-369) K/mm3 MPV 12.5 H (9.4-12.3) fl Neut % (Auto) 83.8 H (34.0-71.1) % Lymph % (Auto) 12.0 L (19.3-51.7) % Esmeralda % (Auto) 4.2 L (4.7-12.5) % Eos % (Auto) 0 L (0.7-5.8) Baso % (Auto) 0.0 L (0.1-1.2) % Neut # (Auto) 3.01 (1.56-6.13) K/mm3 Lymph # (Auto) 0.43 L (1.18-3.74) K/mm3 Esmeralda # (Auto) 0.15 L (0.24-0.36) K/mm3 Eos # (Auto) 0.00 L (0.04-0.36) K/mm3 Baso # (Auto) 0.00 L (0.01-0.08) K/mm3 PT (9.7-12.0) SECONDS INR APTT (21.7-31.4) SECONDS D-Dimer, Quantitative 2.24 H (0.19-0.50) mg/L Sodium (136-145) mEq/L Potassium (3.5-5.1) mEq/L Chloride (98-107) mEq/L Carbon Dioxide (21-32) mEq/L Anion Gap (5-15) BUN (7-18) mg/dL Creatinine (0.55-1.02) mg/dL Est Cr Clr Drug Dosing mL/min Estimated GFR (MDRD) (>60) mL/min BUN/Creatinine Ratio (14-18) Glucose (83-115) mg/dL POC Glucose (83-110) mg/dL Lactic Acid (0.4-2.0) mmol/L Calcium (8.5-10.1) mg/dL Magnesium 2.3 (1.8-2.4) mg/dl Iron (50-170) ug/dL Total Bilirubin 0.2 (0.2-1.0) mg/dL Direct Bilirubin 0.10 (0.0-0.2) mg/dl Indirect Bilirubin 0.1 (0.1-1.0) mg/dL AST 22 (15-37) U/L ALT 22 (14-59) U/L Alkaline Phosphatase 62 (46-116) U/L Troponin I 0.052 (0.00-0.056) ng/mL C-Reactive Protein 17.5 H* (<1.0) mg/dL NT-Pro-B Natriuret Pep (0-450) pg/mL Total Protein 6.0 L (6.4-8.2) g/dl Albumin 2.4 L (3.4-5.0) g/dl Globulin 3.6 gm/dL Albumin/Globulin Ratio 0.7 L (1-2) TSH 3rd Generation (0.358-3.74) uIU/mL Digoxin 0.7 L (0.9-2.0) ng/mL SARS-CoV-2 RNA (JUANA) (NEGATIVE) Blood Type 08/23/20 08/23/20 Range/Units 04:10 08:06 WBC (3.98-10.04) K/mm3 RBC (3.98-5.22) M/mm3 Hgb (11.2-15.7) gm/dl Hct (34.1-44.9) % MCV (79.4-94.8) fl MCH (25.6-32.2) pg MCHC (32.2-35.5) g/dl RDW Std Deviation (36.4-46.3) fL Plt Count (182-369) K/mm3 MPV (9.4-12.3) fl Neut % (Auto) (34.0-71.1) % Lymph % (Auto) (19.3-51.7) % Esmeralda % (Auto) (4.7-12.5) % Eos % (Auto) (0.7-5.8) Baso % (Auto) (0.1-1.2) % Neut # (Auto) (1.56-6.13) K/mm3 Lymph # (Auto) (1.18-3.74) K/mm3 Esmeralda # (Auto) (0.24-0.36) K/mm3 Eos # (Auto) (0.04-0.36) K/mm3 Baso # (Auto) (0.01-0.08) K/mm3 PT (9.7-12.0) SECONDS INR APTT (21.7-31.4) SECONDS D-Dimer, Quantitative (0.19-0.50) mg/L Sodium (136-145) mEq/L Potassium (3.5-5.1) mEq/L Chloride (98-107) mEq/L Carbon Dioxide (21-32) mEq/L Anion Gap (5-15) BUN (7-18) mg/dL Creatinine (0.55-1.02) mg/dL Est Cr Clr Drug Dosing mL/min Estimated GFR (MDRD) (>60) mL/min BUN/Creatinine Ratio (14-18) Glucose (83-115) mg/dL POC Glucose (83-110) mg/dL Lactic Acid (0.4-2.0) mmol/L Calcium (8.5-10.1) mg/dL Magnesium (1.8-2.4) mg/dl Iron 17 L (50-170) ug/dL Total Bilirubin (0.2-1.0) mg/dL Direct Bilirubin (0.0-0.2) mg/dl Indirect Bilirubin (0.1-1.0) mg/dL AST (15-37) U/L ALT (14-59) U/L Alkaline Phosphatase (46-116) U/L Troponin I (0.00-0.056) ng/mL C-Reactive Protein (<1.0) mg/dL NT-Pro-B Natriuret Pep 8231 H (0-450) pg/mL Total Protein (6.4-8.2) g/dl Albumin (3.4-5.0) g/dl Globulin gm/dL Albumin/Globulin Ratio (1-2) TSH 3rd Generation (0.358-3.74) uIU/mL Digoxin (0.9-2.0) ng/mL SARS-CoV-2 RNA (JUANA) (NEGATIVE) Blood Type Result Diagrams: 08/23/20 04:10 08/22/20 12:25 Sepsis Event Note - Evaluation Sepsis Screening Result: No Definite Risk - Focused Exam Vital Signs: Vital Signs Temp Pulse Resp BP Pulse Ox Pulse Ox 08/23/20 12:48 81 08/23/20 11:57 97.5 F 66 18 133/75 94 L 08/23/20 08:15 93 L 08/23/20 07:15 76 22 H 115/78 98 08/23/20 06:20 94 L 08/23/20 05:52 86 22 H 127/55 L 96 08/23/20 03:27 99 - Problem List (1) Atrial fibrillation with rapid ventricular response SNOMED Code(s): 075049626287385 ICD Code: I48.91 - UNSPECIFIED ATRIAL FIBRILLATION Status: Acute Priority: High Current Visit: Yes (2) COPD (chronic obstructive pulmonary disease) SNOMED Code(s): 71610943 ICD Code: J44.9 - CHRONIC OBSTRUCTIVE PULMONARY DISEASE, UNSPECIFIED Status: Chronic Priority: High Current Visit: Yes Qualifiers: COPD type: unspecified COPD Qualified Code(s): J44.9 - Chronic obstructive pulmonary disease, unspecified (3) COVID-19 SNOMED Code(s): 066919125 ICD Code: U07.1 - COVID-19 Status: Acute Priority: High Current Visit: Yes (4) Dyspnea SNOMED Code(s): 091816186 ICD Code: R06.00 - DYSPNEA, UNSPECIFIED Status: Acute Priority: High Current Visit: Yes Qualifiers: Dyspnea type: unspecified Qualified Code(s): R06.00 - Dyspnea, unspecified (5) Hypoxemia SNOMED Code(s): 536215754 ICD Code: R09.02 - HYPOXEMIA Status: Acute Priority: High Current Visit: Yes (6) Pneumonia due to COVID-19 virus SNOMED Code(s): 337136815427146589 ICD Code: U07.1 - COVID-19; J12.89 - OTHER VIRAL PNEUMONIA Status: Acute Priority: High Current Visit: Yes Problem List Initiated/Reviewed/Updated: Yes Orders Last 24hrs: Active Orders 24 hr Category Date Time Status Patient Status [ADT] Routine ADT 08/22/20 15:29 Active Blood Glucose Check, Bedside [RC] 11,17 Care 08/22/20 17:03 Active Cardiac Monitoring [RC] CONTINUOUS Care 08/22/20 17:04 Active Height and Weight [RC] 04 Care 08/22/20 17:03 Active Intake and Output [RC] 04,16 Care 08/22/20 17:04 Active Oxygen Therapy [RC] PRN Care 08/22/20 17:03 Active Pulse Oximetry [RC] CONTINUOUS Care 08/22/20 17:04 Active RT Chest Physiotherapy [RC] ASDIRECTED Care 08/22/20 18:53 Active RT Incentive Spirometry [RC] Q1HWA Care 08/22/20 18:54 Active RT Post Treatment Assessment [RC] Click to Edit Care 08/22/20 17:25 Active RT Pre-Treatment Assessment [RC] Click to Edit Care 08/22/20 17:25 Active Up With Assistance [RC] ASDIRECTED Care 08/22/20 17:03 Active Up to Chair [RC] ASDIRECTED Care 08/22/20 17:03 Active VTE/DVT Education [RC] PER UNIT ROUTINE Care 08/22/20 17:03 Active Verify Patient Consent Obtain [RC] ASDIRECTED Care 08/22/20 17:19 Active Vital Signs [RC] Q4HR Care 08/22/20 17:03 Active Consult to Spiritual Care [CONS] Routine Cons 08/23/20 07:34 Active OT Evaluation and Treatment [CONS] Routine Cons 08/23/20 07:34 Active PT Evaluation and Treatment [CONS] Routine Cons 08/23/20 07:34 Active Regular Diet [DIET] Diet 08/22/20 Dinner Active ABO/RH TYPE [BBK] Routine Lab 08/22/20 12:25 Results CBC WITH AUTO DIFF [HEME] DAILY Lab 08/24/20 05:11 Ordered CBC WITH AUTO DIFF [HEME] DAILY Lab 08/25/20 05:11 Ordered CBC WITH AUTO DIFF [HEME] DAILY Lab 08/26/20 05:11 Ordered CBC WITH AUTO DIFF [HEME] DAILY Lab 08/27/20 05:11 Ordered CBC WITH AUTO DIFF [HEME] DAILY Lab 08/28/20 05:11 Ordered COMPREHENSIVE METABOLIC PN,CMP [CHEM] DAILY Lab 08/24/20 05:11 Ordered COMPREHENSIVE METABOLIC PN,CMP [CHEM] DAILY Lab 08/25/20 05:11 Ordered COMPREHENSIVE METABOLIC PN,CMP [CHEM] DAILY Lab 08/26/20 05:11 Ordered COMPREHENSIVE METABOLIC PN,CMP [CHEM] DAILY Lab 08/27/20 05:11 Ordered COMPREHENSIVE METABOLIC PN,CMP [CHEM] DAILY Lab 08/28/20 05:11 Ordered CRP [C-REACTIVE PROTEIN] [CHEM] Q48H Lab 08/24/20 05:11 Ordered CRP [C-REACTIVE PROTEIN] [CHEM] Q48H Lab 08/26/20 05:11 Ordered CRP [C-REACTIVE PROTEIN] [CHEM] Q48H Lab 08/28/20 05:11 Ordered CRP [C-REACTIVE PROTEIN] [CHEM] Q48H Lab 08/30/20 05:11 Ordered CRP [C-REACTIVE PROTEIN] [CHEM] Q48H Lab 09/01/20 05:11 Ordered D-DIMER QUANTITATIVE [COAG] Q48H Lab 08/24/20 05:11 Ordered D-DIMER QUANTITATIVE [COAG] Q48H Lab 08/26/20 05:11 Ordered D-DIMER QUANTITATIVE [COAG] Q48H Lab 08/28/20 05:11 Ordered D-DIMER QUANTITATIVE [COAG] Q48H Lab 08/30/20 05:11 Ordered D-DIMER QUANTITATIVE [COAG] Q48H Lab 09/01/20 05:11 Ordered FRESH FROZEN PLASMA [BBK] Routine Lab 08/22/20 12:25 Results MAGNESIUM [CHEM] DAILY Lab 08/24/20 05:11 Ordered MAGNESIUM [CHEM] DAILY Lab 08/25/20 05:11 Ordered MAGNESIUM [CHEM] DAILY Lab 08/26/20 05:11 Ordered MAGNESIUM [CHEM] DAILY Lab 08/27/20 05:11 Ordered MAGNESIUM [CHEM] DAILY Lab 08/28/20 05:11 Ordered PHOSPHORUS [CHEM] DAILY Lab 08/24/20 05:11 Ordered PHOSPHORUS [CHEM] DAILY Lab 08/25/20 05:11 Ordered PHOSPHORUS [CHEM] DAILY Lab 08/26/20 05:11 Ordered PHOSPHORUS [CHEM] DAILY Lab 08/27/20 05:11 Ordered PHOSPHORUS [CHEM] DAILY Lab 08/28/20 05:11 Ordered Acetaminophen [TylenoL] Med 08/22/20 17:03 Active 650 mg PO Q4H PRN Albuterol [Proventil HFA] Med 08/22/20 21:00 Active See Dose Instructions INH Q6H Aspirin [Ecotrin] Med 08/22/20 17:15 Active 325 mg PO DAILY Azithromycin [Zithromax] 500 mg Med 08/22/20 21:00 Active Sodium Chloride 0.9% [Normal Saline (AdvBag)] 250 ml IV Q24H Digoxin [Lanoxin] Med 08/23/20 12:00 Active 125 mcg PO DAILY@1200 Diltiazem [Dilacor XR] Med 08/22/20 21:00 Active 240 mg PO BID Docusate Sodium [Colace] Med 08/22/20 17:03 Active 100 mg PO BID PRN Enoxaparin [Lovenox] Med 08/23/20 21:00 Active 30 mg SUBCUT Q24H Furosemide [Lasix] Med 08/23/20 09:00 Active 20 mg PO DAILY Multivitamins/Min/FA/Lut/Zeax [ICaps MV] Med 08/23/20 09:00 Active 1 tab PO DAILY Ondansetron [Zofran ODT] Med 08/22/20 17:03 Active 8 mg PO Q6H PRN Pantoprazole [ProTONIX] Med 08/23/20 06:00 Active 40 mg PO ACBRK Remdesivir 100 mg Med 08/24/20 09:00 Active Sodium Chloride 0.9% [Normal Saline] 100 ml IV Q24H Simvastatin [Zocor] Med 08/23/20 09:00 Active 5 mg PO DAILY Sodium Chloride 0.9% [Normal Saline] 250 ml Med 08/23/20 12:30 Active IV ASDIRECTED Sodium Chloride 0.9% [Saline Flush] Med 08/22/20 17:03 Active 10 ml FLUSH ASDIRECTED PRN Zolpidem [Ambien] Med 08/22/20 17:03 Active 5 mg PO BEDTIME PRN cefTRIAXone [Rocephin] 1 gm Med 08/22/20 23:30 Active Sodium Chloride 0.9% [Normal Saline] 100 ml IV Q24H dexAMETHasone Med 08/23/20 21:00 Active 6 mg PO Q24H Convert IV to Saline Lock [OM.PC] Routine Oth 08/22/20 17:03 Ordered Transfuse Fresh Frozen Plasma [COMM] Routine Oth 08/22/20 17:19 Ordered Resuscitation Status Routine Resus Stat 08/22/20 17:03 Ordered Medication Orders Acetaminophen (Tylenol) 650 mg PO Q4H PRN PRN Reason: Pain (Mild 1-3)/fever Albuterol (Proventil Hfa) 0 gm INH Q6H [facility] Last Admin: 08/23/20 08:15 Dose: 2 inhalation Documented by: Admin: 08/23/20 03:27 Dose: 2 inhalation Documented by: Admin: 08/22/20 20:01 Dose: Not Given Documented by: Admin: 08/22/20 19:55 Dose: 2 inhalation Documented by: JOSELINE Aspirin (Ecotrin) 325 mg PO DAILY [facility] Last Admin: 08/23/20 08:47 Dose: 325 mg Documented by: Admin: 08/22/20 18:44 Dose: 325 mg Documented by: SHREYSA Dexamethasone (Dexamethasone) 6 mg PO Q24H [facility] Stop: 08/31/20 21:01 Digoxin (Lanoxin) 125 mcg PO DAILY@1200 [facility] Last Admin: 08/23/20 12:48 Dose: 125 mcg Documented by: ELSY Diltiazem HCl (Dilacor Xr) 240 mg PO BID [facility] Last Admin: 08/23/20 08:47 Dose: 240 mg Documented by: Admin: 08/22/20 21:06 Dose: 240 mg Documented by: AUREA Docusate Sodium (Colace) 100 mg PO BID PRN PRN Reason: Constipation Enoxaparin Sodium (Lovenox) 30 mg SUBCUT Q24H [facility] Furosemide (Lasix) 20 mg PO DAILY [facility] Last Admin: 08/23/20 08:47 Dose: 20 mg Documented by: ELSY Azithromycin 500 mg/ Sodium (Chloride) 250 mls @ 250 mls/hr IV Q24H [facility] Stop: 08/24/20 21:59 Last Admin: 08/22/20 21:11 Dose: 250 mls/hr Documented by: AUREA Remdesivir 100 mg/ Sodium (Chloride) 100 mls @ 100 mls/hr IV Q24H [facility] Stop: 08/27/20 09:59 Ceftriaxone Sodium 1 gm/ (Sodium Chloride) 100 mls @ 200 mls/hr IV Q24H [facility] Stop: 08/26/20 23:59 Last Admin: 08/22/20 23:22 Dose: 200 mls/hr Documented by: AUREA Sodium Chloride (Normal Saline) 250 mls @ 25 mls/hr IV ASDIRECTED [facility] Ondansetron HCl (Zofran Odt) 8 mg PO Q6H PRN PRN Reason: Nausea/Vomiting Pantoprazole Sodium (Protonix) 40 mg PO ACBRK [facility] Last Admin: 08/23/20 05:54 Dose: 40 mg Documented by: AUREA Simvastatin (Zocor) 5 mg PO DAILY [facility] Last Admin: 08/23/20 08:47 Dose: 5 mg Documented by: PROEACHANTELLE Sodium Chloride (Saline Flush) 10 ml FLUSH ASDIRECTED PRN PRN Reason: Keep Vein Open Vit A/Vit C/Vit E/Selen/Cu/Zn/Lutei (Icaps Mv) 1 tab PO DAILY [facility] Last Admin: 08/23/20 08:47 Dose: 1 tab Documented by: PROEAMA Zolpidem Tartrate (Ambien) 5 mg PO BEDTIME PRN PRN Reason: Sleep Assessment/Plan Comment:: 08/23/20 * 80-year-old female with a history of COPD and atrial fib with a gradual onset of increased shortness of breath and cough over the course of the past 7 days. * Patient does have home O2 however she only wears this at nighttime for sleep. Over the past 7 days she has required O2 at 2 L per nasal cannula 22/04. * Vitals in the ED reveal a temp of 97.9, pulse 143, respiratory rate 18, blood pressure 138/89, pulse ox 96% on 2 L of oxygen per nasal cannula * In the emergency room the patient did receive Cardizem 10 mg IV bolus and was started on a Cardizem drip at 10 mg/h. * Her chest x-ray showed coarse interstitial prominence in both lung bases could be new infiltrate or edema or progression of fibrosis. * Labs in the ED reveal a CBC which is unremarkable, D-dimer 2.52, sodium 133, creatinine 1.4, lactic acid unremarkable, troponin unremarkable, CRP 22.4, TSH normal, her Covid is positive. * CT angiogram showed no PE. Progression of pulmonary interstitial fibrosis and emphysema since 08/14/2017. Findings suggestive of new or progression of interstitial edema versus infiltrate in the lung bases. PLAN: * [facility]metry and continuous pulse oximetry Atrial fibrillation with rapid ventricular response * Telemetry * Resume oral Cardizem, digoxin * Resume aspirin COPD (chronic obstructive pulmonary disease), Pneumonia due to COVID-19 virus, Dyspnea, Hypoxemia * Remdesivir and convalescent plasma have been ordered on this patient, however she is not willing to receive this treatment until we are able to certify that her insurance will cover this treatment 100%. * Dexamethasone 6 mg daily x10 days * Albuterol nebulizers every 2 hours as needed for shortness of breath or wheezing * Incentive spirometer and flutter valve every 1 hour while awake * Respiratory therapy to consult regarding titration of oxygen * Rocephin 2 g IV daily x5 days, azithromycin 500 mg daily x3 days * Continuous pulse oximetry * Strict intake and output, and daily weights * Recheck lab work in the a.m. * Obtain old echocardiogram * PT/OT to eval and treat * Spiritual care consult * Dietitian to consult regarding caloric needs * dining services director and case management for discharge planning Patient is a DNR/DNI Lovenox for DVT prophylaxis Patient will be here greater than 96 hours due to the standard treatment of Covid. - Mortality Measure Prognosis:: Good
[2020-08-23] MEDS: Cyanocobalamin (Vitamin B12) 1,000 MCG Tab PO SCH (17:16)
[2020-08-23] MEDS ORDERED: Dexamethasone 4 MG/ML 5 ML MDV IV SCH (17:30)
[2020-08-23] MEDS ORDERED: REMDESIVIR 100 MG in Sodium Chloride 0.9% 100 ML IV SCH (17:30)
[2020-08-23] MEDS ORDERED: Dexamethasone 10 MG/ML SDV IV SCH (21:00)
[2020-08-23] MEDS: Dexamethasone 4 MG Tab PO SCH (21:07)
[2020-08-23] MEDS: Azithromycin 500 MG in Sodium Chloride 0.9% 250 ML IV SCH (21:08)
[2020-08-23] MEDS: Enoxaparin 30 MG/0.3 ML Syringe SUBCUT SCH (21:08)
[2020-08-23] MEDS: cefTRIAXone 1 GM in Sodium Chloride 0.9% 100 ML IV SCH (22:54)
[2020-08-24] MEDS: Albuterol 6.7 GM Inhaler INH SCH ×4 (02:40→20:38)
[2020-08-24] MEDS: Pantoprazole 40 MG Tab.CR PO SCH (06:28)
--- NOTE | 2020-08-24 08:56 | CR ---
PROCEDURE INFORMATION: Exam: XR Chest, 1 View Exam date and time: 08/24/2020 8:22 AM Age: 80 years old Clinical indication: Shortness of breath TECHNIQUE: Imaging protocol: XR of the chest Views: 1 view. COMPARISON: CR Chest 1V Frontal 08/22/2020 11:52 AM FINDINGS: Lungs: Stable coarse interstitial infiltrates in the lower lungs, right worse than left. Bilateral apically scarring Stable focal scarring in lung laterally. Emphysema. Pleural space: Unremarkable. No pleural effusion. No pneumothorax. Heart/Mediastinum: Unremarkable. No cardiomegaly. Vasculature: Aortic calcifications. Bones/joints: Unremarkable. IMPRESSION: 1. No change since 08/22/2020. 2. Coarse interstitial infiltrates in the lower lungs, right worse than left and scarring and emphysema in the lung apices Thank you for allowing us to participate in the care of your patient. Dictated and Authenticated by: Nikole De Leon MD 08/24/2020 9:55 AM Central Time ([place] & [place]) MARQUITA
[2020-08-24] MEDS: REMDESIVIR 100 MG in Sodium Chloride 0.9% 100 ML IV SCH (09:18)
[2020-08-24] MEDS: Multivitamins with Minerals/Folic Acid/Lutein/Zeaxanth Tab PO SCH (09:20)
[2020-08-24] MEDS: Aspirin 325 MG Tab.EC PO SCH (09:21)
[2020-08-24] MEDS: Furosemide 20 MG Tab PO SCH (09:21)
[2020-08-24] MEDS: Diltiazem 240 MG Cap.ER PO SCH ×2 (09:21→22:49)
[2020-08-24] MEDS: Simvastatin 10 MG Tab PO SCH (09:21)
[2020-08-24] MEDS ORDERED: Furosemide 40 MG/4 ML VIAL IVPUSH ONE (09:57)
[2020-08-24] MEDS: Tiotropium Bromide 4 GM Inhalation Spray (2.5mcg/1 dose; 10 doses) INH SCH (10:37)
[2020-08-24] MEDS: Digoxin 125 MCG Tab PO SCH (13:17)
--- NOTE | 2020-08-24 14:27 | PCM.PN ---
- General Info Date of Service: 08/24/20 Admission Dx/Problem (Free Text): Admission Diagnosis/Problem Admission Diagnosis/Problem Atrial fibrillation Subjective Update: Feeling better today. Continues on 4 L of oxygen per nasal cannula. Functional Status: Reports: Pain Controlled, Tolerating Diet, Ambulating (With physical therapy), Incentive Spirometry - Review of Systems General: Reports: No Symptoms HEENT: Reports: Glasses Pulmonary: Reports: Shortness of Breath, Cough. Denies: Pleuritic Chest Pain, Sputum, Wheezing Cardiovascular: Reports: Dyspnea on Exertion. Denies: Chest Pain, Palpitations, Edema Gastrointestinal: Reports: No Symptoms Genitourinary: Reports: No Symptoms Musculoskeletal: Reports: No Symptoms Skin: Reports: No Symptoms Neurological: Reports: No Symptoms Psychiatric: Reports: No Symptoms - Patient Data Vitals - Most Recent: Last Vital Signs Temp 98.8 F 08/24/20 10:51 Pulse 77 08/24/20 13:17 Resp 16 08/24/20 10:51 BP 136/55 L 08/24/20 10:51 Pulse Ox 94 L 08/24/20 10:51 Weight - Most Recent: 137 lb 1.6 oz I&O - Last 24 Hours: Intake & Output 08/23/20 08/24/20 08/24/20 22:59 06:59 14:59 Intake Total 1510 1050 920 Output Total 500 400 Balance 1010 650 920 Lab Results Last 24 Hours: Laboratory Results - last 24 hr 08/22/20 08/23/20 08/23/20 Range/Units 12:25 17:15 21:13 WBC (3.98-10.04) K/mm3 RBC (3.98-5.22) M/mm3 Hgb (11.2-15.7) gm/dl Hct (34.1-44.9) % MCV (79.4-94.8) fl MCH (25.6-32.2) pg MCHC (32.2-35.5) g/dl RDW Std Deviation (36.4-46.3) fL Plt Count (182-369) K/mm3 MPV (9.4-12.3) fl Neut % (Auto) (34.0-71.1) % Lymph % (Auto) (19.3-51.7) % [place] % (Auto) (4.7-12.5) % Eos % (Auto) (0.7-5.8) Baso % (Auto) (0.1-1.2) % Neut # (Auto) (1.56-6.13) K/mm3 Lymph # (Auto) (1.18-3.74) K/mm3 [place] # (Auto) (0.24-0.36) K/mm3 Eos # (Auto) (0.04-0.36) K/mm3 Baso # (Auto) (0.01-0.08) K/mm3 Manual Slide Review D-Dimer, Quantitative (0.19-0.50) mg/L Sodium (136-145) mEq/L Potassium (3.5-5.1) mEq/L Chloride (98-107) mEq/L Carbon Dioxide (21-32) mEq/L Anion Gap (5-15) BUN (7-18) mg/dL Creatinine (0.55-1.02) mg/dL Est Cr Clr Drug Dosing mL/min Estimated GFR (MDRD) (>60) mL/min BUN/Creatinine Ratio (14-18) Glucose (83-115) mg/dL POC Glucose 128 H 132 H (83-110) mg/dL Calcium (8.5-10.1) mg/dL Phosphorus (2.6-4.7) mg/dL Magnesium (1.8-2.4) mg/dl Total Bilirubin (0.2-1.0) mg/dL AST (15-37) U/L ALT (14-59) U/L Alkaline Phosphatase (46-116) U/L C-Reactive Protein (<1.0) mg/dL NT-Pro-B Natriuret Pep (0-450) pg/mL Total Protein (6.4-8.2) g/dl Albumin (3.4-5.0) g/dl Globulin gm/dL Albumin/Globulin Ratio (1-2) Blood Type O POSITIVE 08/24/20 08/24/20 08/24/20 Range/Units 05:19 05:19 05:19 WBC 4.43 (3.98-10.04) K/mm3 RBC 3.21 L (3.98-5.22) M/mm3 Hgb 9.1 L (11.2-15.7) gm/dl Hct 28.3 L (34.1-44.9) % MCV 88.2 (79.4-94.8) fl MCH 28.3 (25.6-32.2) pg MCHC 32.2 (32.2-35.5) g/dl RDW Std Deviation 46.6 H (36.4-46.3) fL Plt Count 250 (182-369) K/mm3 MPV 12.2 (9.4-12.3) fl Neut % (Auto) 90.3 H (34.0-71.1) % Lymph % (Auto) 8.1 L (19.3-51.7) % Catron % (Auto) 1.4 L (4.7-12.5) % Eos % (Auto) 0 L (0.7-5.8) Baso % (Auto) 0.2 (0.1-1.2) % Neut # (Auto) 4.00 (1.56-6.13) K/mm3 Lymph # (Auto) 0.36 L (1.18-3.74) K/mm3 Catron # (Auto) 0.06 L (0.24-0.36) K/mm3 Eos # (Auto) 0.00 L (0.04-0.36) K/mm3 Baso # (Auto) 0.01 (0.01-0.08) K/mm3 Manual Slide Review Normal smear D-Dimer, Quantitative 2.02 H (0.19-0.50) mg/L Sodium 137 (136-145) mEq/L Potassium 4.1 (3.5-5.1) mEq/L Chloride 102 (98-107) mEq/L Carbon Dioxide 29 (21-32) mEq/L Anion Gap 10.1 (5-15) BUN 40 H (7-18) mg/dL Creatinine 1.3 H (0.55-1.02) mg/dL Est Cr Clr Drug Dosing 27.60 mL/min Estimated GFR (MDRD) 39 (>60) mL/min BUN/Creatinine Ratio 30.8 H (14-18) Glucose 218 H (83-115) mg/dL POC Glucose (83-110) mg/dL Calcium 7.5 L (8.5-10.1) mg/dL Phosphorus 3.6 (2.6-4.7) mg/dL Magnesium 2.2 (1.8-2.4) mg/dl Total Bilirubin 0.2 (0.2-1.0) mg/dL AST 17 (15-37) U/L ALT 20 (14-59) U/L Alkaline Phosphatase 64 (46-116) U/L C-Reactive Protein 9.3 H* (<1.0) mg/dL NT-Pro-B Natriuret Pep (0-450) pg/mL Total Protein 5.9 L (6.4-8.2) g/dl Albumin 2.5 L (3.4-5.0) g/dl Globulin 3.4 gm/dL Albumin/Globulin Ratio 0.7 L (1-2) Blood Type 08/24/20 08/24/20 Range/Units 09:10 10:48 WBC (3.98-10.04) K/mm3 RBC (3.98-5.22) M/mm3 Hgb (11.2-15.7) gm/dl Hct (34.1-44.9) % MCV (79.4-94.8) fl MCH (25.6-32.2) pg MCHC (32.2-35.5) g/dl RDW Std Deviation (36.4-46.3) fL Plt Count (182-369) K/mm3 MPV (9.4-12.3) fl Neut % (Auto) (34.0-71.1) % Lymph % (Auto) (19.3-51.7) % Catron % (Auto) (4.7-12.5) % Eos % (Auto) (0.7-5.8) Baso % (Auto) (0.1-1.2) % Neut # (Auto) (1.56-6.13) K/mm3 Lymph # (Auto) (1.18-3.74) K/mm3 [place] # (Auto) (0.24-0.36) K/mm3 Eos # (Auto) (0.04-0.36) K/mm3 Baso # (Auto) (0.01-0.08) K/mm3 Manual Slide Review D-Dimer, Quantitative (0.19-0.50) mg/L Sodium (136-145) mEq/L Potassium (3.5-5.1) mEq/L Chloride (98-107) mEq/L Carbon Dioxide (21-32) mEq/L Anion Gap (5-15) BUN (7-18) mg/dL Creatinine (0.55-1.02) mg/dL Est Cr Clr Drug Dosing mL/min Estimated GFR (MDRD) (>60) mL/min BUN/Creatinine Ratio (14-18) Glucose (83-115) mg/dL POC Glucose 139 H (83-110) mg/dL Calcium (8.5-10.1) mg/dL Phosphorus (2.6-4.7) mg/dL Magnesium (1.8-2.4) mg/dl Total Bilirubin (0.2-1.0) mg/dL AST (15-37) U/L ALT (14-59) U/L Alkaline Phosphatase (46-116) U/L C-Reactive Protein (<1.0) mg/dL NT-Pro-B Natriuret Pep 4220 H (0-450) pg/mL Total Protein (6.4-8.2) g/dl Albumin (3.4-5.0) g/dl Globulin gm/dL Albumin/Globulin Ratio (1-2) Blood Type Med Orders - Current: Current Medications Acetaminophen (Tylenol) 650 mg PO Q4H PRN PRN Reason: Pain (Mild 1-3)/fever Albuterol (Proventil Hfa) 0 gm INH Q6H [facility] Last Admin: 08/24/20 08:07 Dose: 2 inhalation Documented by: Aspirin (Ecotrin) 325 mg PO DAILY [facility] Last Admin: 08/24/20 09:21 Dose: 325 mg Documented by: Cyanocobalamin (Vitamin B12) 500 mcg PO TuFr@0900 [facility] Last Admin: 08/23/20 17:16 Dose: 500 mcg Documented by: Dexamethasone (Dexamethasone) 6 mg PO Q24H [facility] Stop: 08/31/20 21:01 Last Admin: 08/23/20 21:07 Dose: 6 mg Documented by: Digoxin (Lanoxin) 125 mcg PO DAILY@1200 [facility] Last Admin: 08/24/20 13:17 Dose: 125 mcg Documented by: Diltiazem HCl (Dilacor Xr) 240 mg PO BID [facility] Last Admin: 08/24/20 09:21 Dose: 240 mg Documented by: Docusate Sodium (Colace) 100 mg PO BID PRN PRN Reason: Constipation Enoxaparin Sodium (Lovenox) 30 mg SUBCUT Q24H [facility] Last Admin: 08/23/20 21:08 Dose: 30 mg Documented by: Furosemide (Lasix) 20 mg PO DAILY [facility] Last Admin: 08/24/20 09:21 Dose: 20 mg Documented by: Azithromycin 500 mg/ Sodium (Chloride) 250 mls @ 250 mls/hr IV Q24H [facility] Stop: 08/24/20 21:59 Last Admin: 08/23/20 21:08 Dose: 250 mls/hr Documented by: Remdesivir 100 mg/ Sodium (Chloride) 100 mls @ 100 mls/hr IV Q24H [facility] Stop: 08/27/20 09:59 Last Admin: 08/24/20 09:18 Dose: 100 mls/hr Documented by: Ceftriaxone Sodium 1 gm/ (Sodium Chloride) 100 mls @ 200 mls/hr IV Q24H [facility] Stop: 08/26/20 23:59 Last Admin: 08/23/20 22:54 Dose: 200 mls/hr Documented by: Ondansetron HCl (Zofran Odt) 8 mg PO Q6H PRN PRN Reason: Nausea/Vomiting Pantoprazole Sodium (Protonix) 40 mg PO ACBRK [facility] Last Admin: 08/24/20 06:28 Dose: 40 mg Documented by: Simvastatin (Zocor) 5 mg PO DAILY [facility] Last Admin: 08/24/20 09:21 Dose: 5 mg Documented by: Sodium Chloride (Saline Flush) 10 ml FLUSH ASDIRECTED PRN PRN Reason: Keep Vein Open Tiotropium [place] (Spiriva Respimat) 0 gm INH DAILY [facility] Last Admin: 08/24/20 10:37 Dose: Not Given Documented by: Vit A/Vit C/Vit E/Selen/Cu/Zn/Lutei (Icaps Mv) 1 tab PO DAILY [facility] Last Admin: 08/24/20 09:20 Dose: 1 tab Documented by: Zolpidem Tartrate (Ambien) 5 mg PO BEDTIME PRN PRN Reason: Sleep Discontinued Medications Albuterol (Proventil Hfa) 0 gm INH Q6H [facility] Last Admin: 08/22/20 20:10 Dose: Not Given Documented by: Dexamethasone (Decadron) 6 mg IVPUSH ONETIME ONE Stop: 08/22/20 14:49 Last Admin: 08/22/20 15:15 Dose: 6 mg Documented by: Dexamethasone (Dexamethasone) 6 mg IV Q24H [facility] Dexamethasone (Decadron) 6 mg IV Q24H [facility] Stop: 08/31/20 21:01 Diltiazem HCl (Cardizem) 10 mg IVPUSH ONETIME ONE Stop: 08/22/20 12:17 Last Admin: 08/22/20 12:42 Dose: 10 mg Documented by: Enoxaparin Sodium (Lovenox) 30 mg SUBCUT DAILY [facility] Last Admin: 08/22/20 18:44 Dose: 30 mg Documented by: Furosemide (Lasix) 40 mg IVPUSH NOW ONE Stop: 08/23/20 12:01 Last Admin: 08/23/20 12:45 Dose: 40 mg Documented by: Furosemide (Lasix) 20 mg IVPUSH NOW ONE Stop: 08/24/20 09:58 Last Admin: 08/24/20 10:28 Dose: 20 mg Documented by: Sodium Chloride (Normal Saline) 1,000 mls @ 125 mls/hr IV ASDIRECTED [facility] Last Admin: 08/22/20 12:42 Dose: 125 mls/hr Documented by: Diltiazem HCl 100 mg/ Sodium (Chloride) 100 mls @ 10 mls/hr IV TITRATE [facility]; Protocol Last Titration: 08/22/20 15:15 Dose: 0 mg/hr, 0 mls/hr Documented by: Sodium Chloride (Normal Saline) 45 mls @ 40 mls/hr IV ASDIRECTED [facility] Remdesivir 200 mg/ Sodium (Chloride) 250 mls @ 250 mls/hr IV ONETIME ONE Stop: 08/22/20 17:17 Last Admin: 08/22/20 20:02 Dose: Not Given Documented by: Remdesivir 100 mg/ Sodium (Chloride) 100 mls @ 100 mls/hr IV Q24H [facility] Stop: 08/26/20 18:29 Ceftriaxone Sodium 2 gm/ (Sodium Chloride) 100 mls @ 200 mls/hr IV Q24H [facility] Stop: 08/26/20 22:29 Remdesivir 200 mg/ Sodium (Chloride) 250 mls @ 250 mls/hr IV ONETIME ONE Stop: 08/23/20 09:59 Last Admin: 08/23/20 08:47 Dose: 250 mls/hr Documented by: Sodium Chloride (Normal Saline) 250 mls @ 25 mls/hr IV ASDIRECTED [facility] Sodium Chloride (Normal Saline) Confirm Administered Dose 250 mls @ as directed .ROUTE .STK-MED ONE Stop: 08/23/20 12:32 Last Admin: 08/23/20 13:26 Dose: 100 mls/hr Documented by: Ferric Sodium Gluconate Complex 125 mg/ Sodium Chloride 110 mls @ 100 mls/hr IV ONETIME ONE Stop: 08/24/20 12:20 Last Admin: 08/24/20 11:17 Dose: 100 mls/hr Documented by: Iopamidol (Isovue-370 (76%)) 100 ml IVPUSH ONETIME ONE Stop: 08/22/20 13:36 Last Admin: 08/22/20 20:01 Dose: Not Given Documented by: Iopamidol (Isovue-370 (76%)) 100 ml IVPUSH ONETIME ONE Stop: 08/22/20 14:04 Last Admin: 08/22/20 20:01 Dose: Not Given Documented by: Sodium Chloride (Saline Flush) 10 ml FLUSH ASDIRECTED PRN PRN Reason: Keep Vein Open Last Admin: 08/22/20 12:45 Dose: 10 ml Documented by: Sodium Chloride (Saline Flush) 10 ml FLUSH ONETIME PRN PRN Reason: Keep Vein Open Sodium Chloride (Saline Flush) 10 ml FLUSH ONETIME PRN PRN Reason: Keep Vein Open - Exam Quality Assessment: Supplemental Oxygen (4 L per nasal cannula), DVT Prophylaxis (Lovenox) General: Alert, Oriented, Cooperative, No Acute Distress HEENT: Pupils Equal, Pupils Reactive, Mucous Membr. Moist/[place] Neck: Supple, Trachea Midline. No: Lymphadenopathy Lungs: Normal Respiratory Effort, Decreased Breath Sounds, Crackles (Right middle and bilateral lower lobes). No: Wheezing Cardiovascular: Regular Rate, Irregular Rhythm, Murmurs (Grade 2 diastolic murmur) GI/Abdominal Exam: Normal Bowel Sounds, Soft, Non-Tender, No Distention (Female) Exam: Deferred Back Exam: Normal Inspection, Full Range of Motion Extremities: Normal Inspection, Normal Range of Motion, Non-Tender, No Pedal Edema, Normal Capillary Refill Peripheral Pulses: 2+: Radial (L), Radial (R), Dorsalis Pedis (L), Dorsalis Pedis (R) Skin: Warm, Dry, Intact Neurological: No New Focal Deficit Psy/Mental Status: Alert, Normal Affect, Normal Mood Sepsis Event Note - Evaluation Sepsis Screening Result: No Definite Risk - Focused Exam Vital Signs: Vital Signs Temp Pulse Resp BP Pulse Ox Pulse Ox 08/24/20 13:17 77 08/24/20 10:51 98.8 F 77 16 136/55 L 94 L 08/24/20 08:01 97.5 F 57 L 18 128/44 L 95 08/24/20 03:17 98.2 F 70 22 H 127/49 L 93 L 08/24/20 02:40 93 L - Problem List & Annotations (1) Atrial fibrillation with rapid ventricular response SNOMED Code(s): 807106665183536 Code(s): I48.91 - UNSPECIFIED ATRIAL FIBRILLATION Status: Acute Priority: High Current Visit: Yes (2) COPD (chronic obstructive pulmonary disease) SNOMED Code(s): 65528611 Code(s): J44.9 - CHRONIC OBSTRUCTIVE PULMONARY DISEASE, UNSPECIFIED Status: Chronic Priority: High Current Visit: Yes Qualifiers: COPD type: unspecified COPD Qualified Code(s): J44.9 - Chronic obstructive pulmonary disease, unspecified (3) COVID-19 SNOMED Code(s): 696108288 Code(s): U07.1 - COVID-19 Status: Acute Priority: High Current Visit: Yes (4) Dyspnea SNOMED Code(s): 803366961 Code(s): R06.00 - DYSPNEA, UNSPECIFIED Status: Acute Priority: High Current Visit: Yes Qualifiers: Dyspnea type: unspecified Qualified Code(s): R06.00 - Dyspnea, unspecified (5) Hypoxemia SNOMED Code(s): 417342008 Code(s): R09.02 - HYPOXEMIA Status: Acute Priority: High Current Visit: Yes (6) Pneumonia due to COVID-19 virus SNOMED Code(s): 799869010187837402 Code(s): U07.1 - COVID-19; J12.89 - OTHER VIRAL PNEUMONIA Status: Acute Priority: High Current Visit: Yes (7) Anemia SNOMED Code(s): 169361082 Code(s): D64.9 - ANEMIA, UNSPECIFIED Status: Acute Current Visit: Yes Qualifiers: Anemia type: iron deficiency Iron deficiency anemia type: unspecified iron deficiency Qualified Code(s): D50.9 - Iron deficiency anemia, unspecified - Problem List Review Problem List Initiated/Reviewed/Updated: Yes - My Orders Last 24 Hours: My Active Orders 08/23/20 21:00 Enoxaparin [Lovenox] 30 mg SUBCUT Q24H 08/25/20 05:11 CBC WITH AUTO DIFF [HEME] DAILY COMPREHENSIVE METABOLIC PN,CMP [CHEM] DAILY MAGNESIUM [CHEM] DAILY PHOSPHORUS [CHEM] DAILY 08/26/20 05:11 CBC WITH AUTO DIFF [HEME] DAILY COMPREHENSIVE METABOLIC PN,CMP [CHEM] DAILY CRP [C-REACTIVE PROTEIN] [CHEM] Q48H D-DIMER QUANTITATIVE [COAG] Q48H MAGNESIUM [CHEM] DAILY PHOSPHORUS [CHEM] DAILY 08/27/20 05:11 CBC WITH AUTO DIFF [HEME] DAILY COMPREHENSIVE METABOLIC PN,CMP [CHEM] DAILY MAGNESIUM [CHEM] DAILY PHOSPHORUS [CHEM] DAILY 08/28/20 05:11 CBC WITH AUTO DIFF [HEME] DAILY COMPREHENSIVE METABOLIC PN,CMP [CHEM] DAILY CRP [C-REACTIVE PROTEIN] [CHEM] Q48H D-DIMER QUANTITATIVE [COAG] Q48H MAGNESIUM [CHEM] DAILY PHOSPHORUS [CHEM] DAILY 08/30/20 05:11 CRP [C-REACTIVE PROTEIN] [CHEM] Q48H D-DIMER QUANTITATIVE [COAG] Q48H 09/01/20 05:11 CRP [C-REACTIVE PROTEIN] [CHEM] Q48H D-DIMER QUANTITATIVE [COAG] Q48H - Assessment Assessment:: 08/23/20 * 80-year-old female with a history of COPD and atrial fib with a gradual onset of increased shortness of breath and cough over the course of the past 7 days. * Patient does have home O2 however she only wears this at nighttime for sleep. Over the past 7 days she has required O2 at 2 L per nasal cannula 22/04. * Vitals in the ED reveal a temp of 97.9, pulse 143, respiratory rate 18, blood pressure 138/89, pulse ox 96% on 2 L of oxygen per nasal cannula * In the emergency room the patient did receive Cardizem 10 mg IV bolus and was started on a Cardizem drip at 10 mg/h. * Her chest x-ray showed coarse interstitial prominence in both lung bases could be new infiltrate or edema or progression of fibrosis. * Labs in the ED reveal a CBC which is unremarkable, D-dimer 2.52, sodium 133, creatinine 1.4, lactic acid unremarkable, troponin unremarkable, CRP 22.4, TSH normal, her Covid is positive. * CT angiogram showed no PE. Progression of pulmonary interstitial fibrosis and emphysema since 08/14/2017. Findings suggestive of new or progression of interstitial edema versus infiltrate in the lung bases. 08/24/20 * Chest x-ray from 08/24/2020: No change since 08/22/2020. Coarse interstitial infiltrates in the lower lungs, right worse than left and scarring and emphysema in the lung apices * Labs reveal: WBC 9.1 down from 10.0, D-dimer 2.02, BUN 40, creatinine 1.3, GFR 39, C-reactive protein 9.3, D-dimer 4220, iron level is 17 * Patient does have some swelling to her left upper inner arm due to an IV that had been infiltrated while receiving convalescent plasma last evening. * Vital signs remained stable and patient has been afebrile the past 24 hours. * Day 2 of remdesivir * Day 3 of dexamethasone * Day 3 of Rocephin and Zithromax * She has received 2 units of convalescent plasma - Plan Plan:: 08/23/20 * 80-year-old female with a history of COPD and atrial fib with a gradual onset of increased shortness of breath and cough over the course of the past 7 days. * Patient does have home O2 however she only wears this at nighttime for sleep. Over the past 7 days she has required O2 at 2 L per nasal cannula 22/04. * Vitals in the ED reveal a temp of 97.9, pulse 143, respiratory rate 18, blood pressure 138/89, pulse ox 96% on 2 L of oxygen per nasal cannula * In the emergency room the patient did receive Cardizem 10 mg IV bolus and was started on a Cardizem drip at 10 mg/h. * Her chest x-ray showed coarse interstitial prominence in both lung bases could be new infiltrate or edema or progression of fibrosis. * Labs in the ED reveal a CBC which is unremarkable, D-dimer 2.52, sodium 133, creatinine 1.4, lactic acid unremarkable, troponin unremarkable, CRP 22.4, TSH normal, her Covid is positive. * CT angiogram showed no PE. Progression of pulmonary interstitial fibrosis and emphysema since 08/14/2017. Findings suggestive of new or progression of interstitial edema versus infiltrate in the lung bases. PLAN: * Admit to [facility] with telemetry and continuous pulse oximetry Atrial fibrillation with rapid ventricular response * Telemetry * Resume oral Cardizem, digoxin * Resume aspirin COPD (chronic obstructive pulmonary disease), Pneumonia due to COVID-19 virus, Dyspnea, Hypoxemia * Remdesivir and convalescent plasma have been ordered on this patient, however she is not willing to receive this treatment until we are able to certify that her insurance will cover this treatment 100%. * Dexamethasone 6 mg daily x10 days * Albuterol nebulizers every 2 hours as needed for shortness of breath or wheezing * Incentive spirometer and flutter valve every 1 hour while awake * Respiratory therapy to consult regarding titration of oxygen * Rocephin 2 g IV daily x5 days, azithromycin 500 mg daily x3 days * Continuous pulse oximetry * Strict intake and output, and daily weights * Recheck lab work in the a.m. * Obtain old echocardiogram * PT/OT to eval and treat * Spiritual care consult * Dietitian to consult regarding caloric needs * manager creative services and case management for discharge planning Patient is a DNR/DNI Lovenox for DVT prophylaxis Patient will be here greater than 96 hours due to the standard treatment of Covid. 08/24/20 * Patient will receive 20 mg of IV Lasix today in addition to her oral dose. * Renally dose medications * Incentive spirometer and flutter valve every 1 hour while awake * Respiratory therapy to titrate oxygen to keep sats greater than 90% * PT/OT * Repeat labs in the a.m. * Iron infusion today * Continue Rocephin and Zithromax * Continue remdesivir and dexamethasone * Lovenox for DVT prophylaxis * Ander wrap left upper arm
[2020-08-24] MEDS ORDERED: diphenhydrAMINE 50 MG/ML SDV IVPUSH ONE (14:39)
[2020-08-24] MEDS ORDERED: Famotidine 20 MG/2 ML SDV IVPUSH ONE (14:44)
[2020-08-24] MEDS: cefTRIAXone 1 GM in Sodium Chloride 0.9% 100 ML IV SCH (22:43)
[2020-08-24] MEDS: Dexamethasone 4 MG Tab PO SCH (22:49)
[2020-08-24] MEDS: Enoxaparin 30 MG/0.3 ML Syringe SUBCUT SCH (22:49)
[2020-08-25] MEDS: Albuterol 6.7 GM Inhaler INH SCH ×4 (02:32→20:52)
[2020-08-25] MEDS: Pantoprazole 40 MG Tab.CR PO SCH (05:21)
[2020-08-25] MEDS: REMDESIVIR 100 MG in Sodium Chloride 0.9% 100 ML IV SCH (08:33)
[2020-08-25] MEDS: Aspirin 325 MG Tab.EC PO SCH (08:36)
[2020-08-25] MEDS: Diltiazem 240 MG Cap.ER PO SCH ×2 (08:36→21:17)
[2020-08-25] MEDS: Simvastatin 10 MG Tab PO SCH (08:36)
[2020-08-25] MEDS: Multivitamins with Minerals/Folic Acid/Lutein/Zeaxanth Tab PO SCH (08:37)
[2020-08-25] MEDS: Furosemide 20 MG Tab PO SCH (08:37)
[2020-08-25] MEDS: Tiotropium Bromide 4 GM Inhalation Spray (2.5mcg/1 dose; 10 doses) INH SCH (09:01)
--- NOTE | 2020-08-25 12:33 | PCM.PN ---
- General Info Date of Service: 08/25/20 Admission Dx/Problem (Free Text): Admission Diagnosis/Problem Admission Diagnosis/Problem Atrial fibrillation Subjective Update: Patient is doing well. No runs of rapid ventricular response. She is currently on 4 L nasal cannula. Functional Status: Reports: Pain Controlled - Review of Systems General: Reports: No Symptoms HEENT: Reports: No Symptoms Pulmonary: Reports: Shortness of Breath Cardiovascular: Reports: No Symptoms Gastrointestinal: Reports: No Symptoms Musculoskeletal: Reports: No Symptoms Skin: Reports: No Symptoms Psychiatric: Reports: No Symptoms - Patient Data Vitals - Most Recent: Last Vital Signs Temp 97.7 F 08/25/20 11:31 Pulse 77 08/25/20 11:31 Resp 16 08/25/20 11:31 BP 148/43 H 08/25/20 11:31 Pulse Ox 90 L 08/25/20 11:31 Weight - Most Recent: 136 lb I&O - Last 24 Hours: Intake & Output 08/24/20 08/25/20 08/25/20 22:59 06:59 14:59 Intake Total 860 400 320 Output Total 950 900 Balance -90 -500 320 Lab Results Last 24 Hours: Laboratory Results - last 24 hr 08/24/20 08/25/20 08/25/20 Range/Units 16:24 04:10 04:10 WBC 6.19 (3.98-10.04) K/mm3 RBC 3.19 L (3.98-5.22) M/mm3 Hgb 9.1 L (11.2-15.7) gm/dl Hct 28.5 L (34.1-44.9) % MCV 89.3 (79.4-94.8) fl MCH 28.5 (25.6-32.2) pg MCHC 31.9 L (32.2-35.5) g/dl RDW Std Deviation 46.9 H (36.4-46.3) fL Plt Count 255 (182-369) K/mm3 MPV 12.5 H (9.4-12.3) fl Neut % (Auto) 91.9 H (34.0-71.1) % Lymph % (Auto) 6.3 L (19.3-51.7) % [place] % (Auto) 1.6 L (4.7-12.5) % Eos % (Auto) 0 L (0.7-5.8) Baso % (Auto) 0.2 (0.1-1.2) % Neut # (Auto) 5.69 (1.56-6.13) K/mm3 Lymph # (Auto) 0.39 L (1.18-3.74) K/mm3 [place] # (Auto) 0.10 L (0.24-0.36) K/mm3 Eos # (Auto) 0.00 L (0.04-0.36) K/mm3 Baso # (Auto) 0.01 (0.01-0.08) K/mm3 Manual Slide Review Abnormal smear Sodium 139 (136-145) mEq/L Potassium 3.6 (3.5-5.1) mEq/L Chloride 102 (98-107) mEq/L Carbon Dioxide 31 (21-32) mEq/L Anion Gap 9.6 (5-15) BUN 39 H (7-18) mg/dL Creatinine 1.1 H (0.55-1.02) mg/dL Est Cr Clr Drug Dosing 32.62 mL/min Estimated GFR (MDRD) 48 (>60) mL/min BUN/Creatinine Ratio 35.5 H (14-18) Glucose 156 H (83-115) mg/dL POC Glucose 145 H (83-110) mg/dL Calcium 8.0 L (8.5-10.1) mg/dL Phosphorus 3.3 (2.6-4.7) mg/dL Magnesium 2.2 (1.8-2.4) mg/dl Total Bilirubin 0.2 (0.2-1.0) mg/dL AST 13 L (15-37) U/L ALT 19 (14-59) U/L Alkaline Phosphatase 62 (46-116) U/L Total Protein 5.9 L (6.4-8.2) g/dl Albumin 2.6 L (3.4-5.0) g/dl Globulin 3.3 gm/dL Albumin/Globulin Ratio 0.8 L (1-2) 08/25/20 Range/Units 11:29 WBC (3.98-10.04) K/mm3 RBC (3.98-5.22) M/mm3 Hgb (11.2-15.7) gm/dl Hct (34.1-44.9) % MCV (79.4-94.8) fl MCH (25.6-32.2) pg MCHC (32.2-35.5) g/dl RDW Std Deviation (36.4-46.3) fL Plt Count (182-369) K/mm3 MPV (9.4-12.3) fl Neut % (Auto) (34.0-71.1) % Lymph % (Auto) (19.3-51.7) % [place] % (Auto) (4.7-12.5) % Eos % (Auto) (0.7-5.8) Baso % (Auto) (0.1-1.2) % Neut # (Auto) (1.56-6.13) K/mm3 Lymph # (Auto) (1.18-3.74) K/mm3 [place] # (Auto) (0.24-0.36) K/mm3 Eos # (Auto) (0.04-0.36) K/mm3 Baso # (Auto) (0.01-0.08) K/mm3 Manual Slide Review Sodium (136-145) mEq/L Potassium (3.5-5.1) mEq/L Chloride (98-107) mEq/L Carbon Dioxide (21-32) mEq/L Anion Gap (5-15) BUN (7-18) mg/dL Creatinine (0.55-1.02) mg/dL Est Cr Clr Drug Dosing mL/min Estimated GFR (MDRD) (>60) mL/min BUN/Creatinine Ratio (14-18) Glucose (83-115) mg/dL POC Glucose 192 H (83-110) mg/dL Calcium (8.5-10.1) mg/dL Phosphorus (2.6-4.7) mg/dL Magnesium (1.8-2.4) mg/dl Total Bilirubin (0.2-1.0) mg/dL AST (15-37) U/L ALT (14-59) U/L Alkaline Phosphatase (46-116) U/L Total Protein (6.4-8.2) g/dl Albumin (3.4-5.0) g/dl Globulin gm/dL Albumin/Globulin Ratio (1-2) Med Orders - Current: Current Medications Acetaminophen (Tylenol) 650 mg PO Q4H PRN PRN Reason: Pain (Mild 1-3)/fever Albuterol (Proventil Hfa) 0 gm INH Q6H [facility] Last Admin: 08/25/20 09:00 Dose: 2 inhalation Documented by: Aspirin (Ecotrin) 325 mg PO DAILY [facility] Last Admin: 08/25/20 08:36 Dose: 325 mg Documented by: Cyanocobalamin (Vitamin B12) 500 mcg PO TuFr@0900 [facility] Last Admin: 08/23/20 17:16 Dose: 500 mcg Documented by: Dexamethasone (Dexamethasone) 6 mg PO Q24H [facility] Stop: 08/31/20 21:01 Last Admin: 08/24/20 22:49 Dose: 6 mg Documented by: Digoxin (Lanoxin) 125 mcg PO DAILY@1200 [facility] Last Admin: 08/24/20 13:17 Dose: 125 mcg Documented by: Diltiazem HCl (Dilacor Xr) 240 mg PO BID [facility] Last Admin: 08/25/20 08:36 Dose: 240 mg Documented by: Docusate Sodium (Colace) 100 mg PO BID PRN PRN Reason: Constipation Enoxaparin Sodium (Lovenox) 30 mg SUBCUT Q24H [facility] Last Admin: 08/24/20 22:49 Dose: 30 mg Documented by: Furosemide (Lasix) 20 mg PO DAILY [facility] Last Admin: 08/25/20 08:37 Dose: 20 mg Documented by: Remdesivir 100 mg/ Sodium (Chloride) 100 mls @ 100 mls/hr IV Q24H [facility] Stop: 08/27/20 09:59 Last Admin: 08/25/20 08:33 Dose: 100 mls/hr Documented by: Ceftriaxone Sodium 1 gm/ (Sodium Chloride) 100 mls @ 200 mls/hr IV Q24H [facility] Stop: 08/26/20 23:59 Last Admin: 08/24/20 22:43 Dose: 200 mls/hr Documented by: Ondansetron HCl (Zofran Odt) 8 mg PO Q6H PRN PRN Reason: Nausea/Vomiting Pantoprazole Sodium (Protonix) 40 mg PO ACBRK [facility] Last Admin: 08/25/20 05:21 Dose: 40 mg Documented by: Simvastatin (Zocor) 5 mg PO DAILY [facility] Last Admin: 08/25/20 08:36 Dose: 5 mg Documented by: Sodium Chloride (Saline Flush) 10 ml FLUSH ASDIRECTED PRN PRN Reason: Keep Vein Open Tiotropium [place] (Spiriva Respimat) 0 gm INH DAILY [facility] Last Admin: 08/25/20 09:01 Dose: 4 gm Documented by: Vit A/Vit C/Vit E/Selen/Cu/Zn/Lutei (Icaps Mv) 1 tab PO DAILY [facility] Last Admin: 08/25/20 08:37 Dose: 1 tab Documented by: Zolpidem Tartrate (Ambien) 5 mg PO BEDTIME PRN PRN Reason: Sleep Discontinued Medications Albuterol (Proventil Hfa) 0 gm INH Q6H [facility] Last Admin: 08/22/20 20:10 Dose: Not Given Documented by: Dexamethasone (Decadron) 6 mg IVPUSH ONETIME ONE Stop: 08/22/20 14:49 Last Admin: 08/22/20 15:15 Dose: 6 mg Documented by: Dexamethasone (Dexamethasone) 6 mg IV Q24H [facility] Dexamethasone (Decadron) 6 mg IV Q24H [facility] Stop: 08/31/20 21:01 Diltiazem HCl (Cardizem) 10 mg IVPUSH ONETIME ONE Stop: 08/22/20 12:17 Last Admin: 08/22/20 12:42 Dose: 10 mg Documented by: Diphenhydramine HCl (Benadryl) 25 mg IVPUSH ONETIME ONE Stop: 08/24/20 14:40 Last Admin: 08/24/20 15:54 Dose: Not Given Documented by: Enoxaparin Sodium (Lovenox) 30 mg SUBCUT DAILY [facility] Last Admin: 08/22/20 18:44 Dose: 30 mg Documented by: Famotidine (Pepcid) 20 mg IVPUSH ONETIME ONE Stop: 08/24/20 14:45 Last Admin: 08/24/20 15:54 Dose: Not Given Documented by: Furosemide (Lasix) 40 mg IVPUSH NOW ONE Stop: 08/23/20 12:01 Last Admin: 08/23/20 12:45 Dose: 40 mg Documented by: Furosemide (Lasix) 20 mg IVPUSH NOW ONE Stop: 08/24/20 09:58 Last Admin: 08/24/20 10:28 Dose: 20 mg Documented by: Sodium Chloride (Normal Saline) 1,000 mls @ 125 mls/hr IV ASDIRECTED [facility] Last Admin: 08/22/20 12:42 Dose: 125 mls/hr Documented by: Diltiazem HCl 100 mg/ Sodium (Chloride) 100 mls @ 10 mls/hr IV TITRATE JACKIE; Protocol Last Titration: 08/22/20 15:15 Dose: 0 mg/hr, 0 mls/hr Documented by: Sodium Chloride (Normal Saline) 45 mls @ 40 mls/hr IV ASDIRECTED [facility] Remdesivir 200 mg/ Sodium (Chloride) 250 mls @ 250 mls/hr IV ONETIME ONE Stop: 08/22/20 17:17 Last Admin: 08/22/20 20:02 Dose: Not Given Documented by: Remdesivir 100 mg/ Sodium (Chloride) 100 mls @ 100 mls/hr IV Q24H [facility] Stop: 08/26/20 18:29 Azithromycin 500 mg/ Sodium (Chloride) 250 mls @ 250 mls/hr IV Q24H [facility] Stop: 08/24/20 21:59 Last Admin: 08/23/20 21:08 Dose: 250 mls/hr Documented by: Ceftriaxone Sodium 2 gm/ (Sodium Chloride) 100 mls @ 200 mls/hr IV Q24H [facility] Stop: 08/26/20 22:29 Remdesivir 200 mg/ Sodium (Chloride) 250 mls @ 250 mls/hr IV ONETIME ONE Stop: 08/23/20 09:59 Last Admin: 08/23/20 08:47 Dose: 250 mls/hr Documented by: Sodium Chloride (Normal Saline) 250 mls @ 25 mls/hr IV ASDIRECTED [facility] Sodium Chloride (Normal Saline) Confirm Administered Dose 250 mls @ as directed .ROUTE .STK-MED ONE Stop: 08/23/20 12:32 Last Admin: 08/23/20 13:26 Dose: 100 mls/hr Documented by: Ferric Sodium Gluconate Complex 125 mg/ Sodium Chloride 110 mls @ 100 mls/hr IV ONETIME ONE Stop: 08/24/20 12:20 Last Admin: 08/24/20 11:17 Dose: 100 mls/hr Documented by: Iopamidol (Isovue-370 (76%)) 100 ml IVPUSH ONETIME ONE Stop: 08/22/20 13:36 Last Admin: 08/22/20 20:01 Dose: Not Given Documented by: Iopamidol (Isovue-370 (76%)) 100 ml IVPUSH ONETIME ONE Stop: 08/22/20 14:04 Last Admin: 08/22/20 20:01 Dose: Not Given Documented by: Sodium Chloride (Saline Flush) 10 ml FLUSH ASDIRECTED PRN PRN Reason: Keep Vein Open Last Admin: 08/22/20 12:45 Dose: 10 ml Documented by: Sodium Chloride (Saline Flush) 10 ml FLUSH ONETIME PRN PRN Reason: Keep Vein Open Sodium Chloride (Saline Flush) 10 ml FLUSH ONETIME PRN PRN Reason: Keep Vein Open - Exam Quality Assessment: Supplemental Oxygen General: Alert, Oriented HEENT: Pupils Equal, Mucous Membr. Moist/[place] Neck: Supple Lungs: Rales (Bibasilar). No: Normal Respiratory Effort (Mildly increased respiratory rate) Cardiovascular: Irregular Rhythm GI/Abdominal Exam: Normal Bowel Sounds, Soft, Non-Tender, No Distention, No Abnormal Bruit Extremities: Normal Inspection, Normal Capillary Refill Skin: Warm, Dry, Intact Psy/Mental Status: Alert, Normal Affect, Normal Mood Sepsis Event Note - Evaluation Sepsis Screening Result: No Definite Risk - Focused Exam Vital Signs: Vital Signs Temp Temp Pulse Pulse Resp BP BP 08/25/20 11:31 97.7 F 77 16 148/43 H 08/25/20 09:04 08/25/20 07:20 97.5 F 79 16 127/88 08/25/20 06:00 08/25/20 05:26 97.5 F 76 16 127/65 08/25/20 02:32 Pulse Ox Pulse Ox 08/25/20 11:31 90 L 08/25/20 09:04 93 L 08/25/20 07:20 93 L 08/25/20 06:00 95 08/25/20 05:26 95 08/25/20 02:32 94 L - Problem List & Annotations (1) Atrial fibrillation with rapid ventricular response SNOMED Code(s): 962674066408590 Code(s): I48.91 - UNSPECIFIED ATRIAL FIBRILLATION Status: Acute Priority: High Current Visit: Yes (2) COVID-19 SNOMED Code(s): 112735389 Code(s): U07.1 - COVID-19 Status: Acute Priority: High Current Visit: Yes (3) Hypoxemia SNOMED Code(s): 304830075 Code(s): R09.02 - HYPOXEMIA Status: Acute Priority: High Current Visit: Yes (4) Pneumonia due to COVID-19 virus SNOMED Code(s): 481202775476653198 Code(s): U07.1 - COVID-19; J12.89 - OTHER VIRAL PNEUMONIA Status: Acute Priority: High Current Visit: Yes (5) COPD (chronic obstructive pulmonary disease) SNOMED Code(s): 69604700 Code(s): J44.9 - CHRONIC OBSTRUCTIVE PULMONARY DISEASE, UNSPECIFIED Status: Chronic Priority: High Current Visit: Yes Qualifiers: COPD type: unspecified COPD Qualified Code(s): J44.9 - Chronic obstructive pulmonary disease, unspecified - Problem List Review Problem List Initiated/Reviewed/Updated: Yes - Assessment Assessment:: 08/23/20 * 80-year-old female with a history of COPD and atrial fib with a gradual onset of increased shortness of breath and cough over the course of the past 7 days. * Patient does have home O2 however she only wears this at nighttime for sleep. Over the past 7 days she has required O2 at 2 L per nasal cannula 22/04. * Vitals in the ED reveal a temp of 97.9, pulse 143, respiratory rate 18, blood pressure 138/89, pulse ox 96% on 2 L of oxygen per nasal cannula * In the emergency room the patient did receive Cardizem 10 mg IV bolus and was started on a Cardizem drip at 10 mg/h. * Her chest x-ray showed coarse interstitial prominence in both lung bases could be new infiltrate or edema or progression of fibrosis. * Labs in the ED reveal a CBC which is unremarkable, D-dimer 2.52, sodium 133, creatinine 1.4, lactic acid unremarkable, troponin unremarkable, CRP 22.4, TSH normal, her Covid is positive. * CT angiogram showed no PE. Progression of pulmonary interstitial fibrosis and emphysema since 08/14/2017. Findings suggestive of new or progression of interstitial edema versus infiltrate in the lung bases. 08/24/20 * Chest x-ray from 08/24/2020: No change since 08/22/2020. Coarse interstitial infiltrates in the lower lungs, right worse than left and scarring and emphysema in the lung apices * Labs reveal: WBC 9.1 down from 10.0, D-dimer 2.02, BUN 40, creatinine 1.3, GFR 39, C-reactive protein 9.3, D-dimer 4220, iron level is 17 * Patient does have some swelling to her left upper inner arm due to an IV that had been infiltrated while receiving convalescent plasma last evening. * Vital signs remained stable and patient has been afebrile the past 24 hours. * Day 2 of remdesivir * Day 3 of dexamethasone * Day 3 of Rocephin and Zithromax * She has received 2 units of convalescent plasma 08/25/2020 * Continued and stable on 4 L nasal cannula. * Labs are stable without any significant change. * Day 3 of remdesivir, day 4 of dexamethasone, day 4 of Rocephin, completed Zithromax * Received 2 units of convalescent plasma. - Plan Plan:: 08/23/20 * 80-year-old female with a history of COPD and atrial fib with a gradual onset of increased shortness of breath and cough over the course of the past 7 days. * Patient does have home O2 however she only wears this at nighttime for sleep. Over the past 7 days she has required O2 at 2 L per nasal cannula 22/04. * Vitals in the ED reveal a temp of 97.9, pulse 143, respiratory rate 18, blood pressure 138/89, pulse ox 96% on 2 L of oxygen per nasal cannula * In the emergency room the patient did receive Cardizem 10 mg IV bolus and was started on a Cardizem drip at 10 mg/h. * Her chest x-ray showed coarse interstitial prominence in both lung bases could be new infiltrate or edema or progression of fibrosis. * Labs in the ED reveal a CBC which is unremarkable, D-dimer 2.52, sodium 133, creatinine 1.4, lactic acid unremarkable, troponin unremarkable, CRP 22.4, TSH normal, her Covid is positive. * CT angiogram showed no PE. Progression of pulmonary interstitial fibrosis and emphysema since 08/14/2017. Findings suggestive of new or progression of interstitial edema versus infiltrate in the lung bases. PLAN: * Admit to [facility] with telemetry and continuous pulse oximetry Atrial fibrillation with rapid ventricular response * Telemetry * Resume oral Cardizem, digoxin * Resume aspirin COPD (chronic obstructive pulmonary disease), Pneumonia due to COVID-19 virus, Dyspnea, Hypoxemia * Remdesivir and convalescent plasma have been ordered on this patient, however she is not willing to receive this treatment until we are able to certify that her insurance will cover this treatment 100%. * Dexamethasone 6 mg daily x10 days * Albuterol nebulizers every 2 hours as needed for shortness of breath or wheezing * Incentive spirometer and flutter valve every 1 hour while awake * Respiratory therapy to consult regarding titration of oxygen * Rocephin 2 g IV daily x5 days, azithromycin 500 mg daily x3 days * Continuous pulse oximetry * Strict intake and output, and daily weights * Recheck lab work in the a.m. * Obtain old echocardiogram * PT/OT to eval and treat * Spiritual care consult * Dietitian to consult regarding caloric needs * clinical services consultant and case management for discharge planning Patient is a DNR/DNI Lovenox for DVT prophylaxis Patient will be here greater than 96 hours due to the standard treatment of Covid. 08/24/20 * Patient will receive 20 mg of IV Lasix today in addition to her oral dose. * Renally dose medications * Incentive spirometer and flutter valve every 1 hour while awake * Respiratory therapy to titrate oxygen to keep sats greater than 90% * PT/OT * Repeat labs in the a.m. * Iron infusion today * Continue Rocephin and Zithromax * Continue remdesivir and dexamethasone * Lovenox for DVT prophylaxis * Ander wrap left upper arm 08/25/2020 * Continue incentive spirometer and flutter valve * Titrate FiO2 to keep SPO2 between 88 and 94% * Continue Rocephin, remdesivir, and dexamethasone * Follow labs in the morning
[2020-08-25] MEDS: Digoxin 125 MCG Tab PO SCH (13:34)
[2020-08-25] MEDS: Dexamethasone 4 MG Tab PO SCH (21:16)
[2020-08-25] MEDS: Enoxaparin 30 MG/0.3 ML Syringe SUBCUT SCH (21:18)
[2020-08-25] MEDS: cefTRIAXone 1 GM in Sodium Chloride 0.9% 100 ML IV SCH (22:34)
[2020-08-26] MEDS: Albuterol 6.7 GM Inhaler INH SCH ×4 (01:59→20:40)
[2020-08-26] MEDS: Pantoprazole 40 MG Tab.CR PO SCH (05:16)
[2020-08-26] MEDS: Tiotropium Bromide 4 GM Inhalation Spray (2.5mcg/1 dose; 10 doses) INH SCH (09:00)
[2020-08-26] MEDS: Furosemide 20 MG Tab PO SCH (09:18)
[2020-08-26] MEDS: Cyanocobalamin (Vitamin B12) 1,000 MCG Tab PO SCH (09:19)
[2020-08-26] MEDS: Multivitamins with Minerals/Folic Acid/Lutein/Zeaxanth Tab PO SCH (09:19)
[2020-08-26] MEDS: Aspirin 325 MG Tab.EC PO SCH (09:19)
[2020-08-26] MEDS: Diltiazem 240 MG Cap.ER PO SCH ×2 (09:20→23:24)
[2020-08-26] MEDS: Simvastatin 10 MG Tab PO SCH (09:20)
[2020-08-26] MEDS: REMDESIVIR 100 MG in Sodium Chloride 0.9% 100 ML IV SCH (09:23)
--- NOTE | 2020-08-26 10:29 | PCM.PN ---
- General Info Date of Service: 08/26/20 Admission Dx/Problem (Free Text): Admission Diagnosis/Problem Admission Diagnosis/Problem Atrial fibrillation Subjective Update: States that she feels well. O2 still at 6 liters per nasal cannula. Eating well. Functional Status: Reports: Pain Controlled, Tolerating Diet, Ambulating, Urinating, Incentive Spirometry - Review of Systems General: Reports: No Symptoms HEENT: Reports: Glasses Pulmonary: Reports: Cough. Denies: Sputum Cardiovascular: Reports: Dyspnea on Exertion. Denies: Chest Pain, Palpitations, Edema Gastrointestinal: Reports: No Symptoms. Denies: Diarrhea, Nausea Genitourinary: Reports: No Symptoms Musculoskeletal: Reports: No Symptoms Skin: Reports: No Symptoms Neurological: Reports: No Symptoms Psychiatric: Reports: No Symptoms - Patient Data Vitals - Most Recent: Last Vital Signs Temp 97.7 F 08/26/20 07:51 Pulse 75 08/26/20 07:51 Resp 22 H 08/26/20 07:51 BP 150/54 H 08/26/20 07:51 Pulse Ox 91 L 08/26/20 09:02 Weight - Most Recent: 142 lb 3.2 oz I&O - Last 24 Hours: Intake & Output 08/25/20 08/26/20 08/26/20 22:59 06:59 14:59 Intake Total 920 900 360 Output Total 750 400 Balance 170 500 360 Lab Results Last 24 Hours: Laboratory Results - last 24 hr 08/25/20 08/25/20 08/26/20 Range/Units 11:29 16:22 06:00 WBC 9.60 (3.98-10.04) K/mm3 RBC 3.39 L (3.98-5.22) M/mm3 Hgb 9.7 L (11.2-15.7) gm/dl Hct 30.2 L (34.1-44.9) % MCV 89.1 (79.4-94.8) fl MCH 28.6 (25.6-32.2) pg MCHC 32.1 L (32.2-35.5) g/dl RDW Std Deviation 47.2 H (36.4-46.3) fL Plt Count 333 D (182-369) K/mm3 MPV 11.7 (9.4-12.3) fl Neut % (Auto) 90.7 H (34.0-71.1) % Lymph % (Auto) 7.3 L (19.3-51.7) % Hale % (Auto) 1.8 L (4.7-12.5) % Eos % (Auto) 0 L (0.7-5.8) Baso % (Auto) 0.2 (0.1-1.2) % Neut # (Auto) 8.71 H (1.56-6.13) K/mm3 Lymph # (Auto) 0.70 L (1.18-3.74) K/mm3 Hale # (Auto) 0.17 L (0.24-0.36) K/mm3 Eos # (Auto) 0.00 L (0.04-0.36) K/mm3 Baso # (Auto) 0.02 (0.01-0.08) K/mm3 Manual Slide Review Abnormal smear D-Dimer, Quantitative (0.19-0.50) mg/L Sodium (136-145) mEq/L Potassium (3.5-5.1) mEq/L Chloride (98-107) mEq/L Carbon Dioxide (21-32) mEq/L Anion Gap (5-15) BUN (7-18) mg/dL Creatinine (0.55-1.02) mg/dL Est Cr Clr Drug Dosing mL/min Estimated GFR (MDRD) (>60) mL/min BUN/Creatinine Ratio (14-18) Glucose (83-115) mg/dL POC Glucose 192 H 214 H (83-110) mg/dL Calcium (8.5-10.1) mg/dL Phosphorus (2.6-4.7) mg/dL Magnesium (1.8-2.4) mg/dl Total Bilirubin (0.2-1.0) mg/dL AST (15-37) U/L ALT (14-59) U/L Alkaline Phosphatase (46-116) U/L C-Reactive Protein (<1.0) mg/dL Total Protein (6.4-8.2) g/dl Albumin (3.4-5.0) g/dl Globulin gm/dL Albumin/Globulin Ratio (1-2) 08/26/20 08/26/20 Range/Units 06:00 06:00 WBC (3.98-10.04) K/mm3 RBC (3.98-5.22) M/mm3 Hgb (11.2-15.7) gm/dl Hct (34.1-44.9) % MCV (79.4-94.8) fl MCH (25.6-32.2) pg MCHC (32.2-35.5) g/dl RDW Std Deviation (36.4-46.3) fL Plt Count (182-369) K/mm3 MPV (9.4-12.3) fl Neut % (Auto) (34.0-71.1) % Lymph % (Auto) (19.3-51.7) % Hale % (Auto) (4.7-12.5) % Eos % (Auto) (0.7-5.8) Baso % (Auto) (0.1-1.2) % Neut # (Auto) (1.56-6.13) K/mm3 Lymph # (Auto) (1.18-3.74) K/mm3 Hale # (Auto) (0.24-0.36) K/mm3 Eos # (Auto) (0.04-0.36) K/mm3 Baso # (Auto) (0.01-0.08) K/mm3 Manual Slide Review D-Dimer, Quantitative 4.40 H (0.19-0.50) mg/L Sodium 138 (136-145) mEq/L Potassium 3.8 (3.5-5.1) mEq/L Chloride 102 (98-107) mEq/L Carbon Dioxide 31 (21-32) mEq/L Anion Gap 8.8 (5-15) BUN 36 H (7-18) mg/dL Creatinine 1.0 (0.55-1.02) mg/dL Est Cr Clr Drug Dosing 35.88 mL/min Estimated GFR (MDRD) 53 (>60) mL/min BUN/Creatinine Ratio 36.0 H (14-18) Glucose 168 H (83-115) mg/dL POC Glucose (83-110) mg/dL Calcium 8.4 L (8.5-10.1) mg/dL Phosphorus 3.7 (2.6-4.7) mg/dL Magnesium 2.1 (1.8-2.4) mg/dl Total Bilirubin 0.2 (0.2-1.0) mg/dL AST 19 (15-37) U/L ALT 22 (14-59) U/L Alkaline Phosphatase 66 (46-116) U/L C-Reactive Protein 3.8 H* (<1.0) mg/dL Total Protein 5.9 L (6.4-8.2) g/dl Albumin 2.6 L (3.4-5.0) g/dl Globulin 3.3 gm/dL Albumin/Globulin Ratio 0.8 L (1-2) Med Orders - Current: Current Medications Acetaminophen (Tylenol) 650 mg PO Q4H PRN PRN Reason: Pain (Mild 1-3)/fever Albuterol (Proventil Hfa) 0 gm INH Q6H [facility] Last Admin: 08/26/20 09:00 Dose: 2 inhalation Documented by: Aspirin (Ecotrin) 325 mg PO DAILY [facility] Last Admin: 08/26/20 09:19 Dose: 325 mg Documented by: Cyanocobalamin (Vitamin B12) 500 mcg PO TuFr@0900 [facility] Last Admin: 08/26/20 09:19 Dose: 500 mcg Documented by: Dexamethasone (Dexamethasone) 6 mg PO Q24H [facility] Stop: 08/31/20 21:01 Last Admin: 08/25/20 21:16 Dose: 6 mg Documented by: Digoxin (Lanoxin) 125 mcg PO DAILY@1200 [facility] Last Admin: 08/25/20 13:34 Dose: 125 mcg Documented by: Diltiazem HCl (Dilacor Xr) 240 mg PO BID [facility] Last Admin: 08/26/20 09:20 Dose: 240 mg Documented by: Docusate Sodium (Colace) 100 mg PO BID PRN PRN Reason: Constipation Enoxaparin Sodium (Lovenox) 30 mg SUBCUT Q24H [facility] Last Admin: 08/25/20 21:18 Dose: 30 mg Documented by: Furosemide (Lasix) 20 mg PO DAILY [facility] Last Admin: 08/26/20 09:18 Dose: 20 mg Documented by: Remdesivir 100 mg/ Sodium (Chloride) 100 mls @ 100 mls/hr IV Q24H [facility] Stop: 08/27/20 09:59 Last Admin: 08/26/20 09:23 Dose: 100 mls/hr Documented by: Ceftriaxone Sodium 1 gm/ (Sodium Chloride) 100 mls @ 200 mls/hr IV Q24H [facility] Stop: 08/26/20 23:59 Last Admin: 08/25/20 22:34 Dose: 200 mls/hr Documented by: Ondansetron HCl (Zofran Odt) 8 mg PO Q6H PRN PRN Reason: Nausea/Vomiting Pantoprazole Sodium (Protonix) 40 mg PO ACBRK [facility] Last Admin: 08/26/20 05:16 Dose: 40 mg Documented by: Simvastatin (Zocor) 5 mg PO DAILY [facility] Last Admin: 08/26/20 09:20 Dose: 5 mg Documented by: Sodium Chloride (Saline Flush) 10 ml FLUSH ASDIRECTED PRN PRN Reason: Keep Vein Open Tiotropium [place] (Spiriva Respimat) 0 gm INH DAILY [facility] Last Admin: 08/26/20 09:00 Dose: 4 gm Documented by: Vit A/Vit C/Vit E/Selen/Cu/Zn/Lutei (Icaps Mv) 1 tab PO DAILY [facility] Last Admin: 08/26/20 09:19 Dose: 1 tab Documented by: Zolpidem Tartrate (Ambien) 5 mg PO BEDTIME PRN PRN Reason: Sleep Discontinued Medications Albuterol (Proventil Hfa) 0 gm INH Q6H [facility] Last Admin: 08/22/20 20:10 Dose: Not Given Documented by: Dexamethasone (Decadron) 6 mg IVPUSH ONETIME ONE Stop: 08/22/20 14:49 Last Admin: 08/22/20 15:15 Dose: 6 mg Documented by: Dexamethasone (Dexamethasone) 6 mg IV Q24H [facility] Dexamethasone (Decadron) 6 mg IV Q24H [facility] Stop: 08/31/20 21:01 Diltiazem HCl (Cardizem) 10 mg IVPUSH ONETIME ONE Stop: 08/22/20 12:17 Last Admin: 08/22/20 12:42 Dose: 10 mg Documented by: Diphenhydramine HCl (Benadryl) 25 mg IVPUSH ONETIME ONE Stop: 08/24/20 14:40 Last Admin: 08/24/20 15:54 Dose: Not Given Documented by: Enoxaparin Sodium (Lovenox) 30 mg SUBCUT DAILY [facility] Last Admin: 08/22/20 18:44 Dose: 30 mg Documented by: Famotidine (Pepcid) 20 mg IVPUSH ONETIME ONE Stop: 08/24/20 14:45 Last Admin: 08/24/20 15:54 Dose: Not Given Documented by: Furosemide (Lasix) 40 mg IVPUSH NOW ONE Stop: 08/23/20 12:01 Last Admin: 08/23/20 12:45 Dose: 40 mg Documented by: Furosemide (Lasix) 20 mg IVPUSH NOW ONE Stop: 08/24/20 09:58 Last Admin: 08/24/20 10:28 Dose: 20 mg Documented by: Sodium Chloride (Normal Saline) 1,000 mls @ 125 mls/hr IV ASDIRECTED [facility] Last Admin: 08/22/20 12:42 Dose: 125 mls/hr Documented by: Diltiazem HCl 100 mg/ Sodium (Chloride) 100 mls @ 10 mls/hr IV TITRATE [facility]ACK[facility]; Protocol Last Titration: 08/22/20 15:15 Dose: 0 mg/hr, 0 mls/hr Documented by: Sodium Chloride (Normal Saline) 45 mls @ 40 mls/hr IV ASDIRECTED [facility]ACKIE Remdesivir 200 mg/ Sodium (Chloride) 250 mls @ 250 mls/hr IV ONETIME ONE Stop: 08/22/20 17:17 Last Admin: 08/22/20 20:02 Dose: Not Given Documented by: Remdesivir 100 mg/ Sodium (Chloride) 100 mls @ 100 mls/hr IV Q24H [facility] Stop: 08/26/20 18:29 Azithromycin 500 mg/ Sodium (Chloride) 250 mls @ 250 mls/hr IV Q24H [facility] Stop: 08/24/20 21:59 Last Admin: 08/23/20 21:08 Dose: 250 mls/hr Documented by: Ceftriaxone Sodium 2 gm/ (Sodium Chloride) 100 mls @ 200 mls/hr IV Q24H [facility] Stop: 08/26/20 22:29 Remdesivir 200 mg/ Sodium (Chloride) 250 mls @ 250 mls/hr IV ONETIME ONE Stop: 08/23/20 09:59 Last Admin: 08/23/20 08:47 Dose: 250 mls/hr Documented by: Sodium Chloride (Normal Saline) 250 mls @ 25 mls/hr IV ASDIRECTED [facility] Sodium Chloride (Normal Saline) Confirm Administered Dose 250 mls @ as directed .ROUTE .STK-MED ONE Stop: 08/23/20 12:32 Last Admin: 08/23/20 13:26 Dose: 100 mls/hr Documented by: Ferric Sodium Gluconate Complex 125 mg/ Sodium Chloride 110 mls @ 100 mls/hr IV ONETIME ONE Stop: 08/24/20 12:20 Last Admin: 08/24/20 11:17 Dose: 100 mls/hr Documented by: Iopamidol (Isovue-370 (76%)) 100 ml IVPUSH ONETIME ONE Stop: 08/22/20 13:36 Last Admin: 08/22/20 20:01 Dose: Not Given Documented by: Iopamidol (Isovue-370 (76%)) 100 ml IVPUSH ONETIME ONE Stop: 08/22/20 14:04 Last Admin: 08/22/20 20:01 Dose: Not Given Documented by: Sodium Chloride (Saline Flush) 10 ml FLUSH ASDIRECTED PRN PRN Reason: Keep Vein Open Last Admin: 08/22/20 12:45 Dose: 10 ml Documented by: Sodium Chloride (Saline Flush) 10 ml FLUSH ONETIME PRN PRN Reason: Keep Vein Open Sodium Chloride (Saline Flush) 10 ml FLUSH ONETIME PRN PRN Reason: Keep Vein Open - Exam Quality Assessment: Supplemental Oxygen (5 L per nasal cannula), DVT Prophylaxis (5 L per nasal cannula) General: Alert, Oriented, Cooperative, Mild Distress HEENT: Pupils Equal, Pupils Reactive, Mucous Membr. Moist/[place] Neck: Supple, Trachea Midline. No: Lymphadenopathy Lungs: Decreased Breath Sounds, Crackles Cardiovascular: Regular Rate. No: No Murmurs (5 L per nasal cannula) GI/Abdominal Exam: Normal Bowel Sounds, Soft, Non-Tender, No Distention (Female) Exam: Deferred Back Exam: Normal Inspection, Full Range of Motion Extremities: Normal Inspection, Normal Range of Motion, Non-Tender, No Pedal Edema, Normal Capillary Refill Peripheral Pulses: 2+: Radial (L), Radial (R), Dorsalis Pedis (L), Dorsalis Pedis (R) Skin: Warm, Dry, Intact Neurological: No New Focal Deficit Psy/Mental Status: Alert, Normal Affect, Normal Mood Sepsis Event Note - Evaluation Sepsis Screening Result: No Definite Risk - Focused Exam Vital Signs: Vital Signs Temp Pulse Resp BP Pulse Ox Pulse Ox 08/26/20 09:02 91 L 08/26/20 07:51 97.7 F 75 22 H 150/54 H 95 08/26/20 05:20 97.7 F 64 18 142/64 H 92 L 08/26/20 02:00 90 L 08/26/20 01:41 97.5 F 74 20 144/49 H 92 L - Problem List & Annotations (1) Atrial fibrillation with rapid ventricular response SNOMED Code(s): 677456486105553 Code(s): I48.91 - UNSPECIFIED ATRIAL FIBRILLATION Status: Acute Priority: High Current Visit: Yes (2) COPD (chronic obstructive pulmonary disease) SNOMED Code(s): 93688293 Code(s): J44.9 - CHRONIC OBSTRUCTIVE PULMONARY DISEASE, UNSPECIFIED Status: Chronic Priority: High Current Visit: Yes Qualifiers: COPD type: unspecified COPD Qualified Code(s): J44.9 - Chronic obstructive pulmonary disease, unspecified (3) COVID-19 SNOMED Code(s): 632560146 Code(s): U07.1 - COVID-19 Status: Acute Priority: High Current Visit: Yes (4) Dyspnea SNOMED Code(s): 138425652 Code(s): R06.00 - DYSPNEA, UNSPECIFIED Status: Acute Priority: High Current Visit: Yes Qualifiers: Dyspnea type: unspecified Qualified Code(s): R06.00 - Dyspnea, unspecified (5) Hypoxemia SNOMED Code(s): 173380858 Code(s): R09.02 - HYPOXEMIA Status: Acute Priority: High Current Visit: Yes (6) Pneumonia due to COVID-19 virus SNOMED Code(s): 467560071619962985 Code(s): U07.1 - COVID-19; J12.89 - OTHER VIRAL PNEUMONIA Status: Acute Priority: High Current Visit: Yes (7) Anemia SNOMED Code(s): 128760921 Code(s): D64.9 - ANEMIA, UNSPECIFIED Status: Acute Current Visit: Yes Qualifiers: Anemia type: iron deficiency Iron deficiency anemia type: unspecified iron deficiency Qualified Code(s): D50.9 - Iron deficiency anemia, unspecified - Problem List Review Problem List Initiated/Reviewed/Updated: Yes - My Orders Last 24 Hours: My Active Orders 08/27/20 05:11 CBC WITH AUTO DIFF [HEME] DAILY COMPREHENSIVE METABOLIC PN,CMP [CHEM] DAILY MAGNESIUM [CHEM] DAILY PHOSPHORUS [CHEM] DAILY 08/28/20 05:11 CBC WITH AUTO DIFF [HEME] DAILY COMPREHENSIVE METABOLIC PN,CMP [CHEM] DAILY CRP [C-REACTIVE PROTEIN] [CHEM] Q48H D-DIMER QUANTITATIVE [COAG] Q48H MAGNESIUM [CHEM] DAILY PHOSPHORUS [CHEM] DAILY 08/30/20 05:11 CRP [C-REACTIVE PROTEIN] [CHEM] Q48H D-DIMER QUANTITATIVE [COAG] Q48H 09/01/20 05:11 CRP [C-REACTIVE PROTEIN] [CHEM] Q48H D-DIMER QUANTITATIVE [COAG] Q48H - Assessment Assessment:: 08/23/20 * 80-year-old female with a history of COPD and atrial fib with a gradual onset of increased shortness of breath and cough over the course of the past 7 days. * Patient does have home O2 however she only wears this at nighttime for sleep. Over the past 7 days she has required O2 at 2 L per nasal cannula 22/04. * Vitals in the ED reveal a temp of 97.9, pulse 143, respiratory rate 18, blood pressure 138/89, pulse ox 96% on 2 L of oxygen per nasal cannula * In the emergency room the patient did receive Cardizem 10 mg IV bolus and was started on a Cardizem drip at 10 mg/h. * Her chest x-ray showed coarse interstitial prominence in both lung bases could be new infiltrate or edema or progression of fibrosis. * Labs in the ED reveal a CBC which is unremarkable, D-dimer 2.52, sodium 133, creatinine 1.4, lactic acid unremarkable, troponin unremarkable, CRP 22.4, TSH normal, her Covid is positive. * CT angiogram showed no PE. Progression of pulmonary interstitial fibrosis and emphysema since 08/14/2017. Findings suggestive of new or progression of interstitial edema versus infiltrate in the lung bases. 08/24/20 * Chest x-ray from 08/24/2020: No change since 08/22/2020. Coarse interstitial infiltrates in the lower lungs, right worse than left and scarring and emphysema in the lung apices * Labs reveal: WBC 9.1 down from 10.0, D-dimer 2.02, BUN 40, creatinine 1.3, GFR 39, C-reactive protein 9.3, D-dimer 4220, iron level is 17 * Patient does have some swelling to her left upper inner arm due to an IV that had been infiltrated while receiving convalescent plasma last evening. * Vital signs remained stable and patient has been afebrile the past 24 hours. * Day 2 of remdesivir * Day 3 of dexamethasone * Day 3 of Rocephin and Zithromax * She has received 2 units of convalescent plasma 08/25/2020 * Continued and stable on 4 L nasal cannula. * Labs are stable without any significant change. * Day 3 of remdesivir, day 4 of dexamethasone, day 4 of Rocephin, completed Zithromax * Received 2 units of convalescent plasma. 08/26/20 * 5 L per nasal cannula * Vital signs remained stable and patient has been afebrile in the past 24 hours. * Continues on remdesivir, Rocephin, and dexamethasone. * Labs remained stable without significant change * Patient reports that she plans on going to the long term, [facility] upon discharge. - Plan Plan:: 08/23/20 * 80-year-old female with a history of COPD and atrial fib with a gradual onset of increased shortness of breath and cough over the course of the past 7 days. * Patient does have home O2 however she only wears this at nighttime for sleep. Over the past 7 days she has required O2 at 2 L per nasal cannula 22/04. * Vitals in the ED reveal a temp of 97.9, pulse 143, respiratory rate 18, blood pressure 138/89, pulse ox 96% on 2 L of oxygen per nasal cannula * In the emergency room the patient did receive Cardizem 10 mg IV bolus and was started on a Cardizem drip at 10 mg/h. * Her chest x-ray showed coarse interstitial prominence in both lung bases could be new infiltrate or edema or progression of fibrosis. * Labs in the ED reveal a CBC which is unremarkable, D-dimer 2.52, sodium 133, creatinine 1.4, lactic acid unremarkable, troponin unremarkable, CRP 22.4, TSH normal, her Covid is positive. * CT angiogram showed no PE. Progression of pulmonary interstitial fibrosis and emphysema since 08/14/2017. Findings suggestive of new or progression of interstitial edema versus infiltrate in the lung bases. PLAN: * Admit to [facility] with telemetry and continuous pulse oximetry Atrial fibrillation with rapid ventricular response * Telemetry * Resume oral Cardizem, digoxin * Resume aspirin COPD (chronic obstructive pulmonary disease), Pneumonia due to COVID-19 virus, Dyspnea, Hypoxemia * Remdesivir and convalescent plasma have been ordered on this patient, however she is not willing to receive this treatment until we are able to certify that her insurance will cover this treatment 100%. * Dexamethasone 6 mg daily x10 days * Albuterol nebulizers every 2 hours as needed for shortness of breath or wheezing * Incentive spirometer and flutter valve every 1 hour while awake * Respiratory therapy to consult regarding titration of oxygen * Rocephin 2 g IV daily x5 days, azithromycin 500 mg daily x3 days * Continuous pulse oximetry * Strict intake and output, and daily weights * Recheck lab work in the a.m. * Obtain old echocardiogram * PT/OT to eval and treat * Spiritual care consult * Dietitian to consult regarding caloric needs * equipment services associate and case management for discharge planning Patient is a DNR/DNI Lovenox for DVT prophylaxis Patient will be here greater than 96 hours due to the standard treatment of Covid. 08/24/20 * Patient will receive 20 mg of IV Lasix today in addition to her oral dose. * Renally dose medications * Incentive spirometer and flutter valve every 1 hour while awake * Respiratory therapy to titrate oxygen to keep sats greater than 90% * PT/OT * Repeat labs in the a.m. * Iron infusion today * Continue Rocephin and Zithromax * Continue remdesivir and dexamethasone * Lovenox for DVT prophylaxis * Ander wrap left upper arm 08/25/2020 * Continue incentive spirometer and flutter valve * Titrate FiO2 to keep SPO2 between 88 and 94% * Continue Rocephin, remdesivir, and dexamethasone * Follow labs in the morning 08/26/20 * Continue Rocephin, remdesivir, and dexamethasone. * Respiratory therapy to continue titrating oxygen for sats greater than 88%. Patient does wear oxygen 2 L per nasal cannula at home at nighttime. * Continue incentive spirometer and flutter valve * Repeat labs in the a.m. * Lovenox for DVT prophylaxis * equipment services associate to assist with discharge planning as patient requests to go to the long term upon discharge. * Plan for discharge to long term on August 29 * Patient will be here greater than 96 hours due to treatment of Covid and long term placement.
[2020-08-26] MEDS ORDERED: Magnesium Hydroxide 400 MG/5 ML Susp 30 ML Cup PO PRN (10:54)
[2020-08-26 12:02] LABS: HEMOGLOBIN A1C 6.2 % (4.50-6.20)
[2020-08-26] MEDS: Digoxin 125 MCG Tab PO SCH (13:05)
[2020-08-26] MEDS: Insulin Lispro 100 Units/ML 3 ML Vial SUBCUT SCH ×2 (17:11→23:24)
[2020-08-26] MEDS: cefTRIAXone 1 GM in Sodium Chloride 0.9% 100 ML IV SCH (23:16)
[2020-08-26] MEDS: Dexamethasone 4 MG Tab PO SCH (23:23)
[2020-08-26] MEDS: Enoxaparin 40 MG/0.4 ML Syringe SUBCUT SCH (23:24)
[2020-08-27] MEDS: Albuterol 6.7 GM Inhaler INH SCH ×4 (03:34→20:26)
[2020-08-27] MEDS: Insulin Lispro 100 Units/ML 3 ML Vial SUBCUT SCH ×2 (06:42→13:35)
[2020-08-27] MEDS: Pantoprazole 40 MG Tab.CR PO SCH (06:44)
[2020-08-27] MEDS: Tiotropium Bromide 4 GM Inhalation Spray (2.5mcg/1 dose; 10 doses) INH SCH (10:16)
[2020-08-27] MEDS: Simvastatin 10 MG Tab PO SCH (10:23)
[2020-08-27] MEDS: REMDESIVIR 100 MG in Sodium Chloride 0.9% 100 ML IV SCH (10:23)
[2020-08-27] MEDS: Furosemide 20 MG Tab PO SCH (10:24)
[2020-08-27] MEDS: Multivitamins with Minerals/Folic Acid/Lutein/Zeaxanth Tab PO SCH (10:24)
[2020-08-27] MEDS: Diltiazem 240 MG Cap.ER PO SCH ×2 (10:24→20:39)
[2020-08-27] MEDS: Aspirin 325 MG Tab.EC PO SCH (10:24)
[2020-08-27] MEDS: Digoxin 125 MCG Tab PO SCH (11:31)
[2020-08-27] MEDS ORDERED: Bisacodyl 10 MG Supp RECTAL ONE (13:40)
--- NOTE | 2020-08-27 15:23 | PCM.PN ---
- General Info Date of Service: 08/27/20 Admission Dx/Problem (Free Text): Admission Diagnosis/Problem Admission Diagnosis/Problem Atrial fibrillation Subjective Update: No overnight or acute issues. She feels better this morning. She has refused insulin because she is not diabetic. She is eating and drinking fine. Still short of breath with exertion and hypoxic with activities. She is now on 2L NC. Functional Status: Reports: Pain Controlled - Review of Systems General: Denies: Fever, Chills HEENT: Denies: Headaches Pulmonary: Reports: Shortness of Breath, Cough Cardiovascular: Denies: Chest Pain Gastrointestinal: Denies: Abdominal Pain, Nausea, Vomiting Genitourinary: Reports: Retention. Denies: Burning Musculoskeletal: Denies: Joint Pain Skin: Denies: Rash Neurological: Denies: Weakness Psychiatric: Denies: Depression, Anxiety - Patient Data Vitals - Most Recent: Last Vital Signs Temp 36.7 C 08/27/20 11:31 Pulse 64 08/27/20 11:31 Resp 18 08/27/20 11:31 BP 147/54 H 08/27/20 11:31 Pulse Ox 92 L 08/27/20 15:11 Weight - Most Recent: 62.868 kg I&O - Last 24 Hours: Intake & Output 08/27/20 08/27/20 08/27/20 06:59 14:59 22:59 Intake Total 700 300 Output Total 825 Balance -125 300 Lab Results Last 24 Hours: Laboratory Results - last 24 hr 08/26/20 08/26/20 08/27/20 Range/Units 17:07 23:22 06:17 WBC 10.44 H (3.98-10.04) K/mm3 RBC 3.39 L (3.98-5.22) M/mm3 Hgb 9.7 L (11.2-15.7) gm/dl Hct 30.6 L (34.1-44.9) % MCV 90.3 (79.4-94.8) fl MCH 28.6 (25.6-32.2) pg MCHC 31.7 L (32.2-35.5) g/dl RDW Std Deviation 47.3 H (36.4-46.3) fL Plt Count 327 (182-369) K/mm3 MPV 11.5 (9.4-12.3) fl Neut % (Auto) 91.3 H (34.0-71.1) % Lymph % (Auto) 5.5 L (19.3-51.7) % Donley % (Auto) 2.9 L (4.7-12.5) % Eos % (Auto) 0.1 L (0.7-5.8) Baso % (Auto) 0.2 (0.1-1.2) % Neut # (Auto) 9.54 H (1.56-6.13) K/mm3 Lymph # (Auto) 0.57 L (1.18-3.74) K/mm3 Donley # (Auto) 0.30 (0.24-0.36) K/mm3 Eos # (Auto) 0.01 L (0.04-0.36) K/mm3 Baso # (Auto) 0.02 (0.01-0.08) K/mm3 Manual Slide Review Abnormal smear Sodium (136-145) mEq/L Potassium (3.5-5.1) mEq/L Chloride (98-107) mEq/L Carbon Dioxide (21-32) mEq/L Anion Gap (5-15) BUN (7-18) mg/dL Creatinine (0.55-1.02) mg/dL Est Cr Clr Drug Dosing mL/min Estimated GFR (MDRD) (>60) mL/min BUN/Creatinine Ratio (14-18) Glucose (83-115) mg/dL POC Glucose 165 H 144 H (83-110) mg/dL Calcium (8.5-10.1) mg/dL Phosphorus (2.6-4.7) mg/dL Magnesium (1.8-2.4) mg/dl Total Bilirubin (0.2-1.0) mg/dL AST (15-37) U/L ALT (14-59) U/L Alkaline Phosphatase (46-116) U/L Total Protein (6.4-8.2) g/dl Albumin (3.4-5.0) g/dl Globulin gm/dL Albumin/Globulin Ratio (1-2) 08/27/20 08/27/20 Range/Units 06:17 06:40 WBC (3.98-10.04) K/mm3 RBC (3.98-5.22) M/mm3 Hgb (11.2-15.7) gm/dl Hct (34.1-44.9) % MCV (79.4-94.8) fl MCH (25.6-32.2) pg MCHC (32.2-35.5) g/dl RDW Std Deviation (36.4-46.3) fL Plt Count (182-369) K/mm3 MPV (9.4-12.3) fl Neut % (Auto) (34.0-71.1) % Lymph % (Auto) (19.3-51.7) % Donley % (Auto) (4.7-12.5) % Eos % (Auto) (0.7-5.8) Baso % (Auto) (0.1-1.2) % Neut # (Auto) (1.56-6.13) K/mm3 Lymph # (Auto) (1.18-3.74) K/mm3 Donley # (Auto) (0.24-0.36) K/mm3 Eos # (Auto) (0.04-0.36) K/mm3 Baso # (Auto) (0.01-0.08) K/mm3 Manual Slide Review Sodium 138 (136-145) mEq/L Potassium 4.9 (3.5-5.1) mEq/L Chloride 102 (98-107) mEq/L Carbon Dioxide 33 H (21-32) mEq/L Anion Gap 7.9 (5-15) BUN 38 H (7-18) mg/dL Creatinine 1.1 H (0.55-1.02) mg/dL Est Cr Clr Drug Dosing 32.62 mL/min Estimated GFR (MDRD) 48 (>60) mL/min BUN/Creatinine Ratio 34.5 H (14-18) Glucose 170 H (83-115) mg/dL POC Glucose 154 H (83-110) mg/dL Calcium 8.3 L (8.5-10.1) mg/dL Phosphorus 3.7 (2.6-4.7) mg/dL Magnesium 2.3 (1.8-2.4) mg/dl Total Bilirubin 0.3 (0.2-1.0) mg/dL AST 16 (15-37) U/L ALT 25 (14-59) U/L Alkaline Phosphatase 64 (46-116) U/L Total Protein 5.6 L (6.4-8.2) g/dl Albumin 2.5 L (3.4-5.0) g/dl Globulin 3.1 gm/dL Albumin/Globulin Ratio 0.8 L (1-2) Med Orders - Current: Current Medications Acetaminophen (Tylenol) 650 mg PO Q4H PRN PRN Reason: Pain (Mild 1-3)/fever Albuterol (Proventil Hfa) 0 gm INH Q6H [facility] Last Admin: 08/27/20 15:10 Dose: 2 inhalation Documented by: Aspirin (Ecotrin) 325 mg PO DAILY [facility] Last Admin: 08/27/20 10:24 Dose: 325 mg Documented by: Cyanocobalamin (Vitamin B12) 500 mcg PO TuFr@0900 [facility] Last Admin: 08/26/20 09:19 Dose: 500 mcg Documented by: Dexamethasone (Dexamethasone) 6 mg PO Q24H [facility] Stop: 08/31/20 21:01 Last Admin: 08/26/20 23:23 Dose: 6 mg Documented by: Digoxin (Lanoxin) 125 mcg PO DAILY@1200 [facility] Last Admin: 08/27/20 11:31 Dose: 125 mcg Documented by: Diltiazem HCl (Dilacor Xr) 240 mg PO BID [facility] Last Admin: 08/27/20 10:24 Dose: 240 mg Documented by: Docusate Sodium (Colace) 100 mg PO BID PRN PRN Reason: Constipation Enoxaparin Sodium (Lovenox) 40 mg SUBCUT Q24H [facility] Last Admin: 08/26/20 23:24 Dose: 40 mg Documented by: Furosemide (Lasix) 20 mg PO DAILY [facility] Last Admin: 08/27/20 10:24 Dose: 20 mg Documented by: Magnesium Hydroxide (Milk Of Magnesia) 30 ml PO Q4H PRN PRN Reason: Constipation Last Admin: 08/26/20 13:05 Dose: 30 ml Documented by: Ondansetron HCl (Zofran Odt) 8 mg PO Q6H PRN PRN Reason: Nausea/Vomiting Pantoprazole Sodium (Protonix) 40 mg PO ACBRK [facility] Last Admin: 08/27/20 06:44 Dose: 40 mg Documented by: Simvastatin (Zocor) 5 mg PO DAILY [facility] Last Admin: 08/27/20 10:23 Dose: 5 mg Documented by: Sodium Chloride (Saline Flush) 10 ml FLUSH ASDIRECTED PRN PRN Reason: Keep Vein Open Tiotropium [place] (Spiriva Respimat) 0 gm INH DAILY [facility] Last Admin: 08/27/20 10:16 Dose: 4 gm Documented by: Vit A/Vit C/Vit E/Selen/Cu/Zn/Lutei (Icaps Mv) 1 tab PO DAILY [facility] Last Admin: 08/27/20 10:24 Dose: 1 tab Documented by: Zolpidem Tartrate (Ambien) 5 mg PO BEDTIME PRN PRN Reason: Sleep Discontinued Medications Albuterol (Proventil Hfa) 0 gm INH Q6H [facility] Last Admin: 08/22/20 20:10 Dose: Not Given Documented by: Bisacodyl (Dulcolax) 10 mg RECTAL ONETIME ONE Stop: 08/27/20 13:41 Last Admin: 08/27/20 13:55 Dose: 10 mg Documented by: Dexamethasone (Decadron) 6 mg IVPUSH ONETIME ONE Stop: 08/22/20 14:49 Last Admin: 08/22/20 15:15 Dose: 6 mg Documented by: Dexamethasone (Dexamethasone) 6 mg IV Q24H [facility] Dexamethasone (Decadron) 6 mg IV Q24H [facility] Stop: 08/31/20 21:01 Diltiazem HCl (Cardizem) 10 mg IVPUSH ONETIME ONE Stop: 08/22/20 12:17 Last Admin: 08/22/20 12:42 Dose: 10 mg Documented by: Diphenhydramine HCl (Benadryl) 25 mg IVPUSH ONETIME ONE Stop: 08/24/20 14:40 Last Admin: 08/24/20 15:54 Dose: Not Given Documented by: Enoxaparin Sodium (Lovenox) 30 mg SUBCUT DAILY [facility] Last Admin: 08/22/20 18:44 Dose: 30 mg Documented by: Enoxaparin Sodium (Lovenox) 30 mg SUBCUT Q24H [facility] Last Admin: 08/25/20 21:18 Dose: 30 mg Documented by: Famotidine (Pepcid) 20 mg IVPUSH ONETIME ONE Stop: 08/24/20 14:45 Last Admin: 08/24/20 15:54 Dose: Not Given Documented by: Furosemide (Lasix) 40 mg IVPUSH NOW ONE Stop: 08/23/20 12:01 Last Admin: 08/23/20 12:45 Dose: 40 mg Documented by: Furosemide (Lasix) 20 mg IVPUSH NOW ONE Stop: 08/24/20 09:58 Last Admin: 08/24/20 10:28 Dose: 20 mg Documented by: Sodium Chloride (Normal Saline) 1,000 mls @ 125 mls/hr IV ASDIRECTED [facility] Last Admin: 08/22/20 12:42 Dose: 125 mls/hr Documented by: Diltiazem HCl 100 mg/ Sodium (Chloride) 100 mls @ 10 mls/hr IV TITRATE [facility]; Protocol Last Titration: 08/22/20 15:15 Dose: 0 mg/hr, 0 mls/hr Documented by: Sodium Chloride (Normal Saline) 45 mls @ 40 mls/hr IV ASDIRECTED [facility] Remdesivir 200 mg/ Sodium (Chloride) 250 mls @ 250 mls/hr IV ONETIME ONE Stop: 08/22/20 17:17 Last Admin: 08/22/20 20:02 Dose: Not Given Documented by: Remdesivir 100 mg/ Sodium (Chloride) 100 mls @ 100 mls/hr IV Q24H [facility] Stop: 08/26/20 18:29 Azithromycin 500 mg/ Sodium (Chloride) 250 mls @ 250 mls/hr IV Q24H [facility] Stop: 08/24/20 21:59 Last Admin: 08/23/20 21:08 Dose: 250 mls/hr Documented by: Ceftriaxone Sodium 2 gm/ (Sodium Chloride) 100 mls @ 200 mls/hr IV Q24H [facility] Stop: 08/26/20 22:29 Remdesivir 200 mg/ Sodium (Chloride) 250 mls @ 250 mls/hr IV ONETIME ONE Stop: 08/23/20 09:59 Last Admin: 08/23/20 08:47 Dose: 250 mls/hr Documented by: Remdesivir 100 mg/ Sodium (Chloride) 100 mls @ 100 mls/hr IV Q24H [facility] Stop: 08/27/20 09:59 Last Admin: 08/27/20 10:23 Dose: 100 mls/hr Documented by: Ceftriaxone Sodium 1 gm/ (Sodium Chloride) 100 mls @ 200 mls/hr IV Q24H [facility] Stop: 08/26/20 23:59 Last Admin: 08/26/20 23:16 Dose: 200 mls/hr Documented by: Sodium Chloride (Normal Saline) 250 mls @ 25 mls/hr IV ASDIRECTED [facility] Sodium Chloride (Normal Saline) Confirm Administered Dose 250 mls @ as directed .ROUTE .STK-MED ONE Stop: 08/23/20 12:32 Last Admin: 08/23/20 13:26 Dose: 100 mls/hr Documented by: Ferric Sodium Gluconate Complex 125 mg/ Sodium Chloride 110 mls @ 100 mls/hr IV ONETIME ONE Stop: 08/24/20 12:20 Last Admin: 08/24/20 11:17 Dose: 100 mls/hr Documented by: Insulin Human Lispro (Humalog) 0 unit SUBCUT QIDACANDBED [facility]; Protocol Last Admin: 08/27/20 13:35 Dose: Not Given Documented by: Iopamidol (Isovue-370 (76%)) 100 ml IVPUSH ONETIME ONE Stop: 08/22/20 13:36 Last Admin: 08/22/20 20:01 Dose: Not Given Documented by: Iopamidol (Isovue-370 (76%)) 100 ml IVPUSH ONETIME ONE Stop: 08/22/20 14:04 Last Admin: 08/22/20 20:01 Dose: Not Given Documented by: Sodium Chloride (Saline Flush) 10 ml FLUSH ASDIRECTED PRN PRN Reason: Keep Vein Open Last Admin: 08/22/20 12:45 Dose: 10 ml Documented by: Sodium Chloride (Saline Flush) 10 ml FLUSH ONETIME PRN PRN Reason: Keep Vein Open Sodium Chloride (Saline Flush) 10 ml FLUSH ONETIME PRN PRN Reason: Keep Vein Open - Exam Quality Assessment: Supplemental Oxygen General: Alert, Oriented, Cooperative, No Acute Distress HEENT: Pupils Equal, Pupils Reactive, EOMI, Mucous Membr. Moist/Panther Burn Neck: Supple Lungs: Normal Respiratory Effort, Decreased Breath Sounds Cardiovascular: Regular Rate, Regular Rhythm GI/Abdominal Exam: Normal Bowel Sounds, Soft, Non-Tender, No Organomegaly, No Distention, No Abnormal Bruit (Female) Exam: Deferred Back Exam: Normal Inspection, Decreased Range of Motion Extremities: Normal Inspection, Normal Range of Motion, Non-Tender, No Pedal Edema, Normal Capillary Refill Peripheral Pulses: 1+: Dorsalis Pedis (L), Dorsalis Pedis (R) Skin: Warm, Dry, Intact Neurological: No New Focal Deficit Psy/Mental Status: Alert, Normal Affect, Normal Mood Sepsis Event Note - Evaluation Sepsis Screening Result: No Definite Risk - Focused Exam Vital Signs: Vital Signs Temp Pulse Resp BP Pulse Ox Pulse Ox 08/27/20 15:11 92 L 08/27/20 11:31 36.7 C 64 18 147/54 H 97 08/27/20 10:21 67 139/84 96 08/27/20 10:18 91 L 08/27/20 08:44 36.7 C 69 16 149/51 H 94 L 08/27/20 06:38 95 08/27/20 04:29 37.2 C 87 16 129/52 L 92 L - Problem List Review Problem List Initiated/Reviewed/Updated: Yes - Assessment Assessment:: Acute: COVID 19 infection Viral Pneumonitis/Atypical Pneumonia Acute on chronic respiratory failure Normocytic hypochromic Anemia with hgb of 9.7 Acute Kidney Injury Hyperglycemia Leukocytosis Hypoalbuminemia with Albumin of 2.5 Chronic: Impaired Hearing HTN HLD PVD Afib Carotid Stenosis LB3 COPD/SOB Pulmonary Fibrosis Chronic Respiratory Failure Hx/o Lung CA GERD Hemorrhoids Urinary Incontinence OA DDD Meniere's Disease Anemia Immunosuppression - Plan Plan:: 08/23/20 * 80-year-old female with a history of COPD and atrial fib with a gradual onset of increased shortness of breath and cough over the course of the past 7 days. * Patient does have home O2 however she only wears this at nighttime for sleep. Over the past 7 days she has required O2 at 2 L per nasal cannula 22/04. * Vitals in the ED reveal a temp of 97.9, pulse 143, respiratory rate 18, blood pressure 138/89, pulse ox 96% on 2 L of oxygen per nasal cannula * In the emergency room the patient did receive Cardizem 10 mg IV bolus and was started on a Cardizem drip at 10 mg/h. * Her chest x-ray showed coarse interstitial prominence in both lung bases could be new infiltrate or edema or progression of fibrosis. * Labs in the ED reveal a CBC which is unremarkable, D-dimer 2.52, sodium 133, creatinine 1.4, lactic acid unremarkable, troponin unremarkable, CRP 22.4, TSH normal, her Covid is positive. * CT angiogram showed no PE. Progression of pulmonary interstitial fibrosis and emphysema since 08/14/2017. Findings suggestive of new or progression of interstitial edema versus infiltrate in the lung bases. PLAN: * Admit to [facility] with telemetry and continuous pulse oximetry Atrial fibrillation with rapid ventricular response * Telemetry * Resume oral Cardizem, digoxin * Resume aspirin COPD (chronic obstructive pulmonary disease), Pneumonia due to COVID-19 virus, Dyspnea, Hypoxemia * Remdesivir and convalescent plasma have been ordered on this patient, however she is not willing to receive this treatment until we are able to certify that her insurance will cover this treatment 100%. * Dexamethasone 6 mg daily x10 days * Albuterol nebulizers every 2 hours as needed for shortness of breath or wheezing * Incentive spirometer and flutter valve every 1 hour while awake * Respiratory therapy to consult regarding titration of oxygen * Rocephin 2 g IV daily x5 days, azithromycin 500 mg daily x3 days * Continuous pulse oximetry * Strict intake and output, and daily weights * Recheck lab work in the a.m. * Obtain old echocardiogram * PT/OT to eval and treat * Spiritual care consult * Dietitian to consult regarding caloric needs * convention services manager and case management for discharge planning Patient is a DNR/DNI Lovenox for DVT prophylaxis Patient will be here greater than 96 hours due to the standard treatment of Covid. 08/24/20 * Patient will receive 20 mg of IV Lasix today in addition to her oral dose. * Renally dose medications * Incentive spirometer and flutter valve every 1 hour while awake * Respiratory therapy to titrate oxygen to keep sats greater than 90% * PT/OT * Repeat labs in the a.m. * Iron infusion today * Continue Rocephin and Zithromax * Continue remdesivir and dexamethasone * Lovenox for DVT prophylaxis * Ander wrap left upper arm 08/25/2020 * Continue incentive spirometer and flutter valve * Titrate FiO2 to keep SPO2 between 88 and 94% * Continue Rocephin, remdesivir, and dexamethasone * Follow labs in the morning 08/26/20 * Continue Rocephin, remdesivir, and dexamethasone. * Respiratory therapy to continue titrating oxygen for sats greater than 88%. Patient does wear oxygen 2 L per nasal cannula at home at nighttime. * Continue incentive spirometer and flutter valve * Repeat labs in the a.m. * Lovenox for DVT prophylaxis * convention services manager to assist with discharge planning as patient requests to go to the penitentiary upon discharge. * Plan for discharge to penitentiary on August 29 * Patient will be here greater than 96 hours due to treatment of Covid and penitentiary placement. 08/27/20 * Continue current treatment * Received 2 units of convalescent plasma * Rocephin and remdesivir completed * Dexa on 01/06 treatment day * IS and FV as directed * Resume insulin regimen * She is agreeable to it after explaining it to her why we need to control her sugar * Lovenox 40 mg SubQ for DVT prophylaxis * convention services manager to assist with discharge planning as patient requests to go to the penitentiary upon discharge * Plan for discharge to penitentiary on August 29 * Patient will be here greater than 96 hours due to treatment of Covid and penitentiary placement
[2020-08-27] MEDS: Insulin Glarg,Human.Rec.Analog 100 Unit/ML SUBCUT SCH (17:37)
[2020-08-27] MEDS: Insuln Aspart Prot/Insulin Aspart 100 Units/ML 3 ML FlexPen SUBCUT SCH (17:37)
[2020-08-27] MEDS: Dexamethasone 4 MG Tab PO SCH (20:38)
[2020-08-27] MEDS: Enoxaparin 40 MG/0.4 ML Syringe SUBCUT SCH (20:39)
[2020-08-28] MEDS: Albuterol 6.7 GM Inhaler INH SCH ×4 (03:10→20:26)
[2020-08-28] MEDS: Insulin Glarg,Human.Rec.Analog 100 Unit/ML SUBCUT SCH ×2 (06:29→17:05)
[2020-08-28] MEDS: Pantoprazole 40 MG Tab.CR PO SCH (06:30)
[2020-08-28] MEDS: Insuln Aspart Prot/Insulin Aspart 100 Units/ML 3 ML FlexPen SUBCUT SCH (07:41)
--- NOTE | 2020-08-28 07:42 | PCM.PN ---
- General Info Date of Service: 08/28/20 Admission Dx/Problem (Free Text): Admission Diagnosis/Problem Admission Diagnosis/Problem Atrial fibrillation Subjective Update: No overnight or acute issues. She feels better this morning. She is eating and drinking okay. Has loose stool. No fever or chills. No shortness of breath or chest pain. She is now back to her baseline of 2L NC. Repeat chest x-ray today shows chronic lung changes. Functional Status: Reports: Pain Controlled - Review of Systems General: Denies: Fever, Chills HEENT: Denies: Contact Lenses Pulmonary: Denies: Shortness of Breath Cardiovascular: Denies: Palpitations Gastrointestinal: Reports: Other (loose stools). Denies: Abdominal Pain, Nausea, Vomiting Genitourinary: Denies: Incontinence Musculoskeletal: Denies: Joint Pain Skin: Denies: Rash Neurological: Denies: Confusion, Seizure, Weakness Psychiatric: Denies: Depression, Anxiety - Patient Data Vitals - Most Recent: Last Vital Signs Temp 36.4 C 08/28/20 07:29 Pulse 63 08/28/20 07:29 Resp 16 08/28/20 07:29 BP 143/53 H 08/28/20 07:29 Pulse Ox 94 L 08/28/20 07:29 Weight - Most Recent: 63.14 kg I&O - Last 24 Hours: Intake & Output 08/27/20 08/28/20 08/28/20 22:59 06:59 14:59 Intake Total 620 600 Output Total 850 750 Balance -230 -150 Lab Results Last 24 Hours: Laboratory Results - last 24 hr 08/27/20 08/27/20 08/28/20 Range/Units 06:17 17:16 05:38 WBC 12.73 H (3.98-10.04) K/mm3 RBC 3.63 L (3.98-5.22) M/mm3 Hgb 10.2 L (11.2-15.7) gm/dl Hct 32.6 L (34.1-44.9) % MCV 89.8 (79.4-94.8) fl MCH 28.1 (25.6-32.2) pg MCHC 31.3 L (32.2-35.5) g/dl RDW Std Deviation 47.7 H (36.4-46.3) fL Plt Count 345 (182-369) K/mm3 MPV 11.6 (9.4-12.3) fl Neut % (Auto) 91.0 H (34.0-71.1) % Lymph % (Auto) 5.7 L (19.3-51.7) % [place] % (Auto) 3.1 L (4.7-12.5) % Eos % (Auto) 0 L (0.7-5.8) Baso % (Auto) 0.2 (0.1-1.2) % Neut # (Auto) 11.58 H (1.56-6.13) K/mm3 Lymph # (Auto) 0.72 L (1.18-3.74) K/mm3 [place] # (Auto) 0.40 H (0.24-0.36) K/mm3 Eos # (Auto) 0.00 L (0.04-0.36) K/mm3 Baso # (Auto) 0.03 (0.01-0.08) K/mm3 Manual Slide Review Abnormal smear D-Dimer, Quantitative (0.19-0.50) mg/L Sodium (136-145) mEq/L Potassium (3.5-5.1) mEq/L Chloride (98-107) mEq/L Carbon Dioxide (21-32) mEq/L Anion Gap (5-15) BUN (7-18) mg/dL Creatinine (0.55-1.02) mg/dL Est Cr Clr Drug Dosing mL/min Estimated GFR (MDRD) (>60) mL/min BUN/Creatinine Ratio (14-18) Glucose (83-115) mg/dL POC Glucose 159 H (83-110) mg/dL Calcium (8.5-10.1) mg/dL Phosphorus (2.6-4.7) mg/dL Magnesium (1.8-2.4) mg/dl Total Bilirubin (0.2-1.0) mg/dL AST (15-37) U/L ALT (14-59) U/L Alkaline Phosphatase (46-116) U/L C-Reactive Protein (<1.0) mg/dL Total Protein (6.4-8.2) g/dl Albumin (3.4-5.0) g/dl Globulin gm/dL Albumin/Globulin Ratio (1-2) 08/28/20 08/28/20 08/28/20 Range/Units 05:38 05:38 06:27 WBC (3.98-10.04) K/mm3 RBC (3.98-5.22) M/mm3 Hgb (11.2-15.7) gm/dl Hct (34.1-44.9) % MCV (79.4-94.8) fl MCH (25.6-32.2) pg MCHC (32.2-35.5) g/dl RDW Std Deviation (36.4-46.3) fL Plt Count (182-369) K/mm3 MPV (9.4-12.3) fl Neut % (Auto) (34.0-71.1) % Lymph % (Auto) (19.3-51.7) % [place] % (Auto) (4.7-12.5) % Eos % (Auto) (0.7-5.8) Baso % (Auto) (0.1-1.2) % Neut # (Auto) (1.56-6.13) K/mm3 Lymph # (Auto) (1.18-3.74) K/mm3 [place] # (Auto) (0.24-0.36) K/mm3 Eos # (Auto) (0.04-0.36) K/mm3 Baso # (Auto) (0.01-0.08) K/mm3 Manual Slide Review D-Dimer, Quantitative 5.86 H (0.19-0.50) mg/L Sodium 137 (136-145) mEq/L Potassium 4.3 (3.5-5.1) mEq/L Chloride 100 (98-107) mEq/L Carbon Dioxide 33 H (21-32) mEq/L Anion Gap 8.3 (5-15) BUN 41 H (7-18) mg/dL Creatinine 0.9 (0.55-1.02) mg/dL Est Cr Clr Drug Dosing 39.87 mL/min Estimated GFR (MDRD) 60 (>60) mL/min BUN/Creatinine Ratio 45.6 H (14-18) Glucose 165 H (83-115) mg/dL POC Glucose 158 H (83-110) mg/dL Calcium 8.4 L (8.5-10.1) mg/dL Phosphorus 4.5 (2.6-4.7) mg/dL Magnesium 2.1 (1.8-2.4) mg/dl Total Bilirubin 0.3 (0.2-1.0) mg/dL AST 13 L (15-37) U/L ALT 26 (14-59) U/L Alkaline Phosphatase 73 (46-116) U/L C-Reactive Protein 2.1 H* (<1.0) mg/dL Total Protein 5.7 L (6.4-8.2) g/dl Albumin 2.6 L (3.4-5.0) g/dl Globulin 3.1 gm/dL Albumin/Globulin Ratio 0.8 L (1-2) Med Orders - Current: Current Medications Acetaminophen (Tylenol) 650 mg PO Q4H PRN PRN Reason: Pain (Mild 1-3)/fever Albuterol (Proventil Hfa) 0 gm INH Q6H [facility] Last Admin: 08/28/20 03:10 Dose: 2 inhalation Documented by: Aspirin (Ecotrin) 325 mg PO DAILY [facility] Last Admin: 08/27/20 10:24 Dose: 325 mg Documented by: Cyanocobalamin (Vitamin B12) 500 mcg PO TuFr@0900 [facility] Last Admin: 08/26/20 09:19 Dose: 500 mcg Documented by: Dexamethasone (Dexamethasone) 6 mg PO Q24H [facility] Stop: 08/31/20 21:01 Last Admin: 08/27/20 20:38 Dose: 6 mg Documented by: Digoxin (Lanoxin) 125 mcg PO DAILY@1200 [facility] Last Admin: 08/27/20 11:31 Dose: 125 mcg Documented by: Diltiazem HCl (Dilacor Xr) 240 mg PO BID [facility] Last Admin: 08/27/20 20:39 Dose: 240 mg Documented by: Docusate Sodium (Colace) 100 mg PO BID PRN PRN Reason: Constipation Enoxaparin Sodium (Lovenox) 40 mg SUBCUT BID [facility] Furosemide (Lasix) 20 mg PO DAILY [facility] Insulin Glargine (Lantus) 5 unit SUBCUT BIDAC [facility] Last Admin: 08/28/20 06:29 Dose: 5 units Documented by: Insulin Human Lispro (Humalog) 0 unit SUBCUT TIDPC [facility]; Protocol Magnesium Hydroxide (Milk Of Magnesia) 30 ml PO Q4H PRN PRN Reason: Constipation Last Admin: 08/26/20 13:05 Dose: 30 ml Documented by: Ondansetron HCl (Zofran Odt) 8 mg PO Q6H PRN PRN Reason: Nausea/Vomiting Pantoprazole Sodium (Protonix) 40 mg PO ACBRK [facility] Last Admin: 08/28/20 06:30 Dose: 40 mg Documented by: Simvastatin (Zocor) 5 mg PO DAILY [facility] Last Admin: 08/27/20 10:23 Dose: 5 mg Documented by: Sodium Chloride (Saline Flush) 10 ml FLUSH ASDIRECTED PRN PRN Reason: Keep Vein Open Tiotropium Alta (Spiriva Respimat) 0 gm INH DAILY [facility] Last Admin: 08/27/20 10:16 Dose: 4 gm Documented by: Vit A/Vit C/Vit E/Selen/Cu/Zn/Lutei (Icaps Mv) 1 tab PO DAILY [facility] Last Admin: 08/27/20 10:24 Dose: 1 tab Documented by: Zinc Sulfate (Zincate) 220 mg PO DAILY [facility] Zolpidem Tartrate (Ambien) 5 mg PO BEDTIME PRN PRN Reason: Sleep Discontinued Medications Albuterol (Proventil Hfa) 0 gm INH Q6H [facility] Last Admin: 08/22/20 20:10 Dose: Not Given Documented by: Bisacodyl (Dulcolax) 10 mg RECTAL ONETIME ONE Stop: 08/27/20 13:41 Last Admin: 08/27/20 13:55 Dose: 10 mg Documented by: Dexamethasone (Decadron) 6 mg IVPUSH ONETIME ONE Stop: 08/22/20 14:49 Last Admin: 08/22/20 15:15 Dose: 6 mg Documented by: Dexamethasone (Dexamethasone) 6 mg IV Q24H [facility] Dexamethasone (Decadron) 6 mg IV Q24H [facility] Stop: 08/31/20 21:01 Diltiazem HCl (Cardizem) 10 mg IVPUSH ONETIME ONE Stop: 08/22/20 12:17 Last Admin: 08/22/20 12:42 Dose: 10 mg Documented by: Diphenhydramine HCl (Benadryl) 25 mg IVPUSH ONETIME ONE Stop: 08/24/20 14:40 Last Admin: 08/24/20 15:54 Dose: Not Given Documented by: Enoxaparin Sodium (Lovenox) 30 mg SUBCUT DAILY [facility] Last Admin: 08/22/20 18:44 Dose: 30 mg Documented by: Enoxaparin Sodium (Lovenox) 30 mg SUBCUT Q24H [facility]ACK[facility] Last Admin: 08/25/20 21:18 Dose: 30 mg Documented by: Enoxaparin Sodium (Lovenox) 40 mg SUBCUT Q24H JACKIE Last Admin: 08/27/20 20:39 Dose: 40 mg Documented by: Famotidine (Pepcid) 20 mg IVPUSH ONETIME ONE Stop: 08/24/20 14:45 Last Admin: 08/24/20 15:54 Dose: Not Given Documented by: Furosemide (Lasix) 20 mg PO DAILY [facility] Last Admin: 08/27/20 10:24 Dose: 20 mg Documented by: Furosemide (Lasix) 40 mg IVPUSH NOW ONE Stop: 08/23/20 12:01 Last Admin: 08/23/20 12:45 Dose: 40 mg Documented by: Furosemide (Lasix) 20 mg IVPUSH NOW ONE Stop: 08/24/20 09:58 Last Admin: 08/24/20 10:28 Dose: 20 mg Documented by: Sodium Chloride (Normal Saline) 1,000 mls @ 125 mls/hr IV ASDIRECTED [facility] Last Admin: 08/22/20 12:42 Dose: 125 mls/hr Documented by: Diltiazem HCl 100 mg/ Sodium (Chloride) 100 mls @ 10 mls/hr IV TITRATE JACKIE; Protocol Last Titration: 08/22/20 15:15 Dose: 0 mg/hr, 0 mls/hr Documented by: Sodium Chloride (Normal Saline) 45 mls @ 40 mls/hr IV ASDIRECTED JACKIE Remdesivir 200 mg/ Sodium (Chloride) 250 mls @ 250 mls/hr IV ONETIME ONE Stop: 08/22/20 17:17 Last Admin: 08/22/20 20:02 Dose: Not Given Documented by: Remdesivir 100 mg/ Sodium (Chloride) 100 mls @ 100 mls/hr IV Q24H JACKIE Stop: 08/26/20 18:29 Azithromycin 500 mg/ Sodium (Chloride) 250 mls @ 250 mls/hr IV Q24H JACKIE Stop: 08/24/20 21:59 Last Admin: 08/23/20 21:08 Dose: 250 mls/hr Documented by: Ceftriaxone Sodium 2 gm/ (Sodium Chloride) 100 mls @ 200 mls/hr IV Q24H [facility] Stop: 08/26/20 22:29 Remdesivir 200 mg/ Sodium (Chloride) 250 mls @ 250 mls/hr IV ONETIME ONE Stop: 08/23/20 09:59 Last Admin: 08/23/20 08:47 Dose: 250 mls/hr Documented by: Remdesivir 100 mg/ Sodium (Chloride) 100 mls @ 100 mls/hr IV Q24H JACKIE Stop: 08/27/20 09:59 Last Admin: 08/27/20 10:23 Dose: 100 mls/hr Documented by: Ceftriaxone Sodium 1 gm/ (Sodium Chloride) 100 mls @ 200 mls/hr IV Q24H [facility] Stop: 08/26/20 23:59 Last Admin: 08/26/20 23:16 Dose: 200 mls/hr Documented by: Sodium Chloride (Normal Saline) 250 mls @ 25 mls/hr IV ASDIRECTED [facility] Sodium Chloride (Normal Saline) Confirm Administered Dose 250 mls @ as directed .ROUTE .STK-MED ONE Stop: 08/23/20 12:32 Last Admin: 08/23/20 13:26 Dose: 100 mls/hr Documented by: Ferric Sodium Gluconate Complex 125 mg/ Sodium Chloride 110 mls @ 100 mls/hr IV ONETIME ONE Stop: 08/24/20 12:20 Last Admin: 08/24/20 11:17 Dose: 100 mls/hr Documented by: Insulin Aspart (Novolog Mix 70-30) 0 unit SUBCUT TIDMEALS [facility]; Protocol Last Admin: 08/28/20 07:41 Dose: Not Given Documented by: Insulin Human Lispro (Humalog) 0 unit SUBCUT QIDACANDBED [facility]; Protocol Last Admin: 08/27/20 13:35 Dose: Not Given Documented by: Iopamidol (Isovue-370 (76%)) 100 ml IVPUSH ONETIME ONE Stop: 08/22/20 13:36 Last Admin: 08/22/20 20:01 Dose: Not Given Documented by: Iopamidol (Isovue-370 (76%)) 100 ml IVPUSH ONETIME ONE Stop: 08/22/20 14:04 Last Admin: 08/22/20 20:01 Dose: Not Given Documented by: Sodium Chloride (Saline Flush) 10 ml FLUSH ASDIRECTED PRN PRN Reason: Keep Vein Open Last Admin: 08/22/20 12:45 Dose: 10 ml Documented by: Sodium Chloride (Saline Flush) 10 ml FLUSH ONETIME PRN PRN Reason: Keep Vein Open Sodium Chloride (Saline Flush) 10 ml FLUSH ONETIME PRN PRN Reason: Keep Vein Open - Exam Quality Assessment: Supplemental Oxygen General: Alert, Oriented, Cooperative, No Acute Distress HEENT: Pupils Equal, Pupils Reactive, EOMI, Mucous Membr. Moist/[place] Neck: Supple Lungs: Normal Respiratory Effort, Decreased Breath Sounds Cardiovascular: Regular Rate, Regular Rhythm GI/Abdominal Exam: Normal Bowel Sounds, Soft, Non-Tender, No Organomegaly, No Distention, No Abnormal Bruit (Female) Exam: Deferred Back Exam: Normal Inspection, Decreased Range of Motion Extremities: Normal Inspection, Normal Range of Motion, Non-Tender, No Pedal Edema, Normal Capillary Refill Peripheral Pulses: 2+: Dorsalis Pedis (L), Dorsalis Pedis (R) Skin: Warm, Dry, Intact Neurological: No New Focal Deficit Psy/Mental Status: Alert, Normal Affect, Normal Mood Sepsis Event Note - Evaluation Sepsis Screening Result: No Definite Risk - Focused Exam Vital Signs: Vital Signs Temp Pulse Resp BP Pulse Ox Pulse Ox 08/28/20 07:29 36.4 C 63 16 143/53 H 94 L 08/28/20 06:17 94 L 08/28/20 04:49 36.6 C 67 14 136/59 L 93 L 08/28/20 03:11 95 08/28/20 00:00 95 08/27/20 20:35 36.4 C 69 13 146/59 H 94 L 08/27/20 20:27 94 L - Problem List Review Problem List Initiated/Reviewed/Updated: Yes - My Orders Last 24 Hours: My Active Orders 08/27/20 15:50 Accu Check [Blood Glucose Check, Bedside] [RC] TIDAC 08/27/20 16:00 Insulin Glarg,Human.Rec.Analog [LantUS] 5 unit SUBCUT BIDAC 08/28/20 06:00 Chest 1V Frontal [CR] Routine 08/28/20 09:00 Enoxaparin [Lovenox] 40 mg SUBCUT BID Insulin Lispro [HumaLOG] See Protocol SUBCUT TIDPC Zinc Sulfate [Zincate] 220 mg PO DAILY 08/29/20 09:00 Furosemide [Lasix] 20 mg PO DAILY - Assessment Assessment:: Acute: COVID 19 infection Viral Pneumonitis/Atypical Pneumonia Acute on chronic respiratory failure, resolved back to baseline 2L NC Normocytic hypochromic Anemia with hgb of 9.7 Acute Kidney Injury, resolved CO2 Retention Hyperglycemia Leukocytosis Hypoalbuminemia with Albumin of 2.5 Chronic: Impaired Hearing HTN HLD PVD Afib Carotid Stenosis LB3 COPD/SOB Pulmonary Fibrosis Chronic Respiratory Failure Hx/o Lung CA GERD Hemorrhoids Urinary Incontinence OA DDD Meniere's Disease Anemia Immunosuppression - Plan Plan:: 08/23/20 * 80-year-old female with a history of COPD and atrial fib with a gradual onset of increased shortness of breath and cough over the course of the past 7 days. * Patient does have home O2 however she only wears this at nighttime for sleep. Over the past 7 days she has required O2 at 2 L per nasal cannula 22/04. * Vitals in the ED reveal a temp of 97.9, pulse 143, respiratory rate 18, blood pressure 138/89, pulse ox 96% on 2 L of oxygen per nasal cannula * In the emergency room the patient did receive Cardizem 10 mg IV bolus and was started on a Cardizem drip at 10 mg/h. * Her chest x-ray showed coarse interstitial prominence in both lung bases could be new infiltrate or edema or progression of fibrosis. * Labs in the ED reveal a CBC which is unremarkable, D-dimer 2.52, sodium 133, creatinine 1.4, lactic acid unremarkable, troponin unremarkable, CRP 22.4, TSH normal, her Covid is positive. * CT angiogram showed no PE. Progression of pulmonary interstitial fibrosis and emphysema since 08/14/2017. Findings suggestive of new or progression of interstitial edema versus infiltrate in the lung bases. PLAN: * Admit to [facility] with telemetry and continuous pulse oximetry Atrial fibrillation with rapid ventricular response * Telemetry * Resume oral Cardizem, digoxin * Resume aspirin COPD (chronic obstructive pulmonary disease), Pneumonia due to COVID-19 virus, Dyspnea, Hypoxemia * Remdesivir and convalescent plasma have been ordered on this patient, however she is not willing to receive this treatment until we are able to certify that her insurance will cover this treatment 100%. * Dexamethasone 6 mg daily x10 days * Albuterol nebulizers every 2 hours as needed for shortness of breath or wheezing * Incentive spirometer and flutter valve every 1 hour while awake * Respiratory therapy to consult regarding titration of oxygen * Rocephin 2 g IV daily x5 days, azithromycin 500 mg daily x3 days * Continuous pulse oximetry * Strict intake and output, and daily weights * Recheck lab work in the a.m. * Obtain old echocardiogram * PT/OT to eval and treat * Spiritual care consult * Dietitian to consult regarding caloric needs * director of women's services and case management for discharge planning Patient is a DNR/DNI Lovenox for DVT prophylaxis Patient will be here greater than 96 hours due to the standard treatment of Covid. 08/24/20 * Patient will receive 20 mg of IV Lasix today in addition to her oral dose. * Renally dose medications * Incentive spirometer and flutter valve every 1 hour while awake * Respiratory therapy to titrate oxygen to keep sats greater than 90% * PT/OT * Repeat labs in the a.m. * Iron infusion today * Continue Rocephin and Zithromax * Continue remdesivir and dexamethasone * Lovenox for DVT prophylaxis * Ander wrap left upper arm 08/25/2020 * Continue incentive spirometer and flutter valve * Titrate FiO2 to keep SPO2 between 88 and 94% * Continue Rocephin, remdesivir, and dexamethasone * Follow labs in the morning 08/26/20 * Continue Rocephin, remdesivir, and dexamethasone. * Respiratory therapy to continue titrating oxygen for sats greater than 88%. Patient does wear oxygen 2 L per nasal cannula at home at nighttime. * Continue incentive spirometer and flutter valve * Repeat labs in the a.m. * Lovenox for DVT prophylaxis * director of women's services to assist with discharge planning as [facility]. * [facility] * Patient will be here greater than 96 hours due to treatment of Covid and [facility] placement. 08/27/20 * Continue current treatment * Received 2 units of convalescent plasma * Rocephin and remdesivir completed * Dexa on 01/06 treatment day * IS and FV as directed * Resume insulin regimen * She is agreeable to it after explaining it to her why we need to control her sugar * Lovenox 40 mg SubQ for DVT prophylaxis * director of women's services to assist with discharge planning as patient requests to go to [facility] upon discharge * [facility] for [facility] to [facility] on August 29 * Patient will be here greater than 96 hours due to treatment of Covid and [facility] placement 08/28/20 * She is doing relatively well * No complaints except for loose stool * Now back to her baseline 2L NC * Now on 02/05 of Dexa * Lovenox 40 mg SubQ for DVT prophylaxis * director of women's services to assist with discharge planning as patient requests to go to [facility] upon discharge * Plan for [facility] to [facility] on August 29 * Patient will be here greater than 96 hours due to treatment of Covid and [facility] placement
[2020-08-28] MEDS: Simvastatin 10 MG Tab PO SCH (08:17)
[2020-08-28] MEDS: Zinc Sulfate 220 MG Cap PO SCH (08:17)
[2020-08-28] MEDS: Enoxaparin 40 MG/0.4 ML Syringe SUBCUT SCH ×2 (08:17→22:20)
[2020-08-28] MEDS: Multivitamins with Minerals/Folic Acid/Lutein/Zeaxanth Tab PO SCH (08:18)
[2020-08-28] MEDS: Aspirin 325 MG Tab.EC PO SCH (08:18)
[2020-08-28] MEDS: Diltiazem 240 MG Cap.ER PO SCH ×2 (08:18→22:20)
[2020-08-28] MEDS ORDERED: Insulin Lispro 100 Units/ML 3 ML Vial SUBCUT PRN (08:30)
[2020-08-28] MEDS ORDERED: Insulin Lispro 100 Units/ML 3 ML Vial SUBCUT SCH (09:00)
[2020-08-28] MEDS: Tiotropium Bromide 4 GM Inhalation Spray (2.5mcg/1 dose; 10 doses) INH SCH (09:34)
[2020-08-28] MEDS: Digoxin 125 MCG Tab PO SCH (11:13)
[2020-08-28] MEDS: Insulin Lispro 100 Units/ML 3 ML Vial SUBCUT SCH ×2 (11:16→17:04)
[2020-08-28] MEDS: Dexamethasone 4 MG Tab PO SCH (22:19)
[2020-08-29] MEDS: Albuterol 6.7 GM Inhaler INH SCH ×4 (06:52→20:18)
[2020-08-29] MEDS: Insulin Glarg,Human.Rec.Analog 100 Unit/ML SUBCUT SCH ×2 (07:31→18:30)
[2020-08-29] MEDS: Insulin Lispro 100 Units/ML 3 ML Vial SUBCUT SCH ×3 (07:32→18:32)
[2020-08-29] MEDS: Pantoprazole 40 MG Tab.CR PO SCH (07:34)
[2020-08-29] MEDS: Tiotropium Bromide 4 GM Inhalation Spray (2.5mcg/1 dose; 10 doses) INH SCH (08:11)
[2020-08-29] MEDS: Diltiazem 240 MG Cap.ER PO SCH ×2 (08:16→20:45)
[2020-08-29] MEDS: Zinc Sulfate 220 MG Cap PO SCH (08:16)
[2020-08-29] MEDS: Simvastatin 10 MG Tab PO SCH (08:16)
[2020-08-29] MEDS: Multivitamins with Minerals/Folic Acid/Lutein/Zeaxanth Tab PO SCH (08:16)
[2020-08-29] MEDS: Enoxaparin 40 MG/0.4 ML Syringe SUBCUT SCH ×2 (08:16→20:44)
[2020-08-29] MEDS: Aspirin 325 MG Tab.EC PO SCH (08:16)
[2020-08-29] MEDS: Furosemide 20 MG Tab PO SCH (08:17)
[2020-08-29] MEDS: Digoxin 125 MCG Tab PO SCH (11:47)
--- NOTE | 2020-08-29 12:18 | PCM.PN ---
- General Info Date of Service: 08/29/20 Admission Dx/Problem (Free Text): Admission Diagnosis/Problem Admission Diagnosis/Problem Atrial fibrillation Subjective Update: Patient states she feels well. Currently on 2 L of oxygen per nasal cannula which is what she uses at home. She has finished her 5-day course of remdesivir for the treatment of Covid. Awaiting correction placement. Functional Status: Reports: Pain Controlled, Tolerating Diet, Ambulating, Urinating, Incentive Spirometry - Review of Systems General: Reports: No Symptoms HEENT: Reports: Glasses Pulmonary: Reports: No Symptoms Cardiovascular: Reports: No Symptoms Gastrointestinal: Reports: No Symptoms Genitourinary: Reports: No Symptoms Musculoskeletal: Reports: No Symptoms Skin: Reports: No Symptoms Neurological: Reports: No Symptoms Psychiatric: Reports: No Symptoms - Patient Data Vitals - Most Recent: Last Vital Signs Temp 98.2 F 08/29/20 07:20 Pulse 71 08/29/20 11:47 Resp 20 08/29/20 07:20 BP 153/53 H 08/29/20 07:20 Pulse Ox 94 L 08/29/20 07:20 Weight - Most Recent: 138 lb 14.4 oz I&O - Last 24 Hours: Intake & Output 08/28/20 08/29/20 08/29/20 22:59 06:59 14:59 Intake Total 1120 500 300 Output Total 500 975 Balance 620 -475 300 Lab Results Last 24 Hours: Laboratory Results - last 24 hr 08/28/20 08/29/20 08/29/20 Range/Units 16:54 06:34 07:55 WBC 14.11 H (3.98-10.04) K/mm3 RBC 3.81 L (3.98-5.22) M/mm3 Hgb 11.0 L (11.2-15.7) gm/dl Hct 34.1 (34.1-44.9) % MCV 89.5 (79.4-94.8) fl MCH 28.9 (25.6-32.2) pg MCHC 32.3 (32.2-35.5) g/dl RDW Std Deviation 48.5 H (36.4-46.3) fL Plt Count 398 H (182-369) K/mm3 MPV 11.2 (9.4-12.3) fl Neut % (Auto) 89.0 H (34.0-71.1) % Lymph % (Auto) 8.0 L (19.3-51.7) % [place] % (Auto) 2.6 L (4.7-12.5) % Eos % (Auto) 0 L (0.7-5.8) Baso % (Auto) 0.4 (0.1-1.2) % Neut # (Auto) 12.56 H (1.56-6.13) K/mm3 Lymph # (Auto) 1.13 L (1.18-3.74) K/mm3 [place] # (Auto) 0.37 H (0.24-0.36) K/mm3 Eos # (Auto) 0.00 L (0.04-0.36) K/mm3 Baso # (Auto) 0.05 (0.01-0.08) K/mm3 Manual Slide Review Abnormal smear D-Dimer, Quantitative (0.19-0.50) mg/L Sodium (136-145) mEq/L Potassium (3.5-5.1) mEq/L Chloride (98-107) mEq/L Carbon Dioxide (21-32) mEq/L Anion Gap (5-15) BUN (7-18) mg/dL Creatinine (0.55-1.02) mg/dL Est Cr Clr Drug Dosing mL/min Estimated GFR (MDRD) (>60) mL/min BUN/Creatinine Ratio (14-18) Glucose (83-115) mg/dL POC Glucose 184 H 136 H (83-110) mg/dL Calcium (8.5-10.1) mg/dL Magnesium (1.8-2.4) mg/dl Total Bilirubin (0.2-1.0) mg/dL AST (15-37) U/L ALT (14-59) U/L Alkaline Phosphatase (46-116) U/L Total Protein (6.4-8.2) g/dl Albumin (3.4-5.0) g/dl Globulin gm/dL Albumin/Globulin Ratio (1-2) 08/29/20 08/29/20 08/29/20 Range/Units 07:55 07:55 10:50 WBC (3.98-10.04) K/mm3 RBC (3.98-5.22) M/mm3 Hgb (11.2-15.7) gm/dl Hct (34.1-44.9) % MCV (79.4-94.8) fl MCH (25.6-32.2) pg MCHC (32.2-35.5) g/dl RDW Std Deviation (36.4-46.3) fL Plt Count (182-369) K/mm3 MPV (9.4-12.3) fl Neut % (Auto) (34.0-71.1) % Lymph % (Auto) (19.3-51.7) % [place] % (Auto) (4.7-12.5) % Eos % (Auto) (0.7-5.8) Baso % (Auto) (0.1-1.2) % Neut # (Auto) (1.56-6.13) K/mm3 Lymph # (Auto) (1.18-3.74) K/mm3 [place] # (Auto) (0.24-0.36) K/mm3 Eos # (Auto) (0.04-0.36) K/mm3 Baso # (Auto) (0.01-0.08) K/mm3 Manual Slide Review D-Dimer, Quantitative 5.77 H (0.19-0.50) mg/L Sodium 137 (136-145) mEq/L Potassium 4.6 (3.5-5.1) mEq/L Chloride 100 (98-107) mEq/L Carbon Dioxide 32 (21-32) mEq/L Anion Gap 9.6 (5-15) BUN 42 H (7-18) mg/dL Creatinine 1.0 (0.55-1.02) mg/dL Est Cr Clr Drug Dosing 35.88 mL/min Estimated GFR (MDRD) 53 (>60) mL/min BUN/Creatinine Ratio 42.0 H (14-18) Glucose 138 H (83-115) mg/dL POC Glucose 224 H (83-110) mg/dL Calcium 8.6 (8.5-10.1) mg/dL Magnesium 2.1 (1.8-2.4) mg/dl Total Bilirubin 0.4 (0.2-1.0) mg/dL AST 12 L (15-37) U/L ALT 23 (14-59) U/L Alkaline Phosphatase 71 (46-116) U/L Total Protein 5.7 L (6.4-8.2) g/dl Albumin 2.7 L (3.4-5.0) g/dl Globulin 3.0 gm/dL Albumin/Globulin Ratio 0.9 L (1-2) Med Orders - Current: Current Medications Acetaminophen (Tylenol) 650 mg PO Q4H PRN PRN Reason: Pain (Mild 1-3)/fever Albuterol (Proventil Hfa) 0 gm INH Q6H [facility] Last Admin: 08/29/20 08:11 Dose: 2 inhalation Documented by: Aspirin (Ecotrin) 325 mg PO DAILY [facility] Last Admin: 08/29/20 08:16 Dose: 325 mg Documented by: Cyanocobalamin (Vitamin B12) 500 mcg PO TuFr@0900 [facility] Last Admin: 08/26/20 09:19 Dose: 500 mcg Documented by: Dexamethasone (Dexamethasone) 6 mg PO Q24H [facility] Stop: 08/31/20 21:01 Last Admin: 08/28/20 22:19 Dose: 6 mg Documented by: Digoxin (Lanoxin) 125 mcg PO DAILY@1200 [facility] Last Admin: 08/29/20 11:47 Dose: 125 mcg Documented by: Diltiazem HCl (Dilacor Xr) 240 mg PO BID [facility] Last Admin: 08/29/20 08:16 Dose: 240 mg Documented by: Docusate Sodium (Colace) 100 mg PO BID PRN PRN Reason: Constipation Enoxaparin Sodium (Lovenox) 40 mg SUBCUT BID [facility] Last Admin: 08/29/20 08:16 Dose: 40 mg Documented by: Furosemide (Lasix) 20 mg PO DAILY [facility] Last Admin: 08/29/20 08:17 Dose: 20 mg Documented by: Insulin Glargine (Lantus) 5 unit SUBCUT BIDAC [facility] Last Admin: 08/29/20 07:31 Dose: Not Given Documented by: Insulin Human Lispro (Humalog) 0 unit SUBCUT TIDAC [facility]; Protocol Last Admin: 08/29/20 11:47 Dose: 2 unit Documented by: Magnesium Hydroxide (Milk Of Magnesia) 30 ml PO Q4H PRN PRN Reason: Constipation Last Admin: 08/26/20 13:05 Dose: 30 ml Documented by: Ondansetron HCl (Zofran Odt) 8 mg PO Q6H PRN PRN Reason: Nausea/Vomiting Pantoprazole Sodium (Protonix) 40 mg PO ACBRK [facility] Last Admin: 08/29/20 07:34 Dose: 40 mg Documented by: Simvastatin (Zocor) 5 mg PO DAILY [facility] Last Admin: 08/29/20 08:16 Dose: 5 mg Documented by: Sodium Chloride (Saline Flush) 10 ml FLUSH ASDIRECTED PRN PRN Reason: Keep Vein Open Tiotropium [place] (Spiriva Respimat) 0 gm INH DAILY [facility] Last Admin: 08/29/20 08:11 Dose: 4 gm Documented by: Vit A/Vit C/Vit E/Selen/Cu/Zn/Lutei (Icaps Mv) 1 tab PO DAILY [facility] Last Admin: 08/29/20 08:16 Dose: 1 tab Documented by: Zinc Sulfate (Zincate) 220 mg PO DAILY [facility] Last Admin: 08/29/20 08:16 Dose: 220 mg Documented by: Zolpidem Tartrate (Ambien) 5 mg PO BEDTIME PRN PRN Reason: Sleep Discontinued Medications Albuterol (Proventil Hfa) 0 gm INH Q6H [facility] Last Admin: 08/22/20 20:10 Dose: Not Given Documented by: Bisacodyl (Dulcolax) 10 mg RECTAL ONETIME ONE Stop: 08/27/20 13:41 Last Admin: 08/27/20 13:55 Dose: 10 mg Documented by: Dexamethasone (Decadron) 6 mg IVPUSH ONETIME ONE Stop: 08/22/20 14:49 Last Admin: 08/22/20 15:15 Dose: 6 mg Documented by: Dexamethasone (Dexamethasone) 6 mg IV Q24H [facility] Dexamethasone (Decadron) 6 mg IV Q24H [facility] Stop: 08/31/20 21:01 Diltiazem HCl (Cardizem) 10 mg IVPUSH ONETIME ONE Stop: 08/22/20 12:17 Last Admin: 08/22/20 12:42 Dose: 10 mg Documented by: Diphenhydramine HCl (Benadryl) 25 mg IVPUSH ONETIME ONE Stop: 08/24/20 14:40 Last Admin: 08/24/20 15:54 Dose: Not Given Documented by: Enoxaparin Sodium (Lovenox) 30 mg SUBCUT DAILY [facility] Last Admin: 08/22/20 18:44 Dose: 30 mg Documented by: Enoxaparin Sodium (Lovenox) 30 mg SUBCUT Q24H [facility] Last Admin: 08/25/20 21:18 Dose: 30 mg Documented by: Enoxaparin Sodium (Lovenox) 40 mg SUBCUT Q24H [facility] Last Admin: 08/27/20 20:39 Dose: 40 mg Documented by: Famotidine (Pepcid) 20 mg IVPUSH ONETIME ONE Stop: 08/24/20 14:45 Last Admin: 08/24/20 15:54 Dose: Not Given Documented by: Furosemide (Lasix) 20 mg PO DAILY [facility] Last Admin: 08/27/20 10:24 Dose: 20 mg Documented by: Furosemide (Lasix) 40 mg IVPUSH NOW ONE Stop: 08/23/20 12:01 Last Admin: 08/23/20 12:45 Dose: 40 mg Documented by: Furosemide (Lasix) 20 mg IVPUSH NOW ONE Stop: 08/24/20 09:58 Last Admin: 08/24/20 10:28 Dose: 20 mg Documented by: Sodium Chloride (Normal Saline) 1,000 mls @ 125 mls/hr IV ASDIRECTED [facility] Last Admin: 08/22/20 12:42 Dose: 125 mls/hr Documented by: Diltiazem HCl 100 mg/ Sodium (Chloride) 100 mls @ 10 mls/hr IV TITRATE [facility]; Protocol Last Titration: 08/22/20 15:15 Dose: 0 mg/hr, 0 mls/hr Documented by: Sodium Chloride (Normal Saline) 45 mls @ 40 mls/hr IV ASDIRECTED [facility] Remdesivir 200 mg/ Sodium (Chloride) 250 mls @ 250 mls/hr IV ONETIME ONE Stop: 08/22/20 17:17 Last Admin: 08/22/20 20:02 Dose: Not Given Documented by: Remdesivir 100 mg/ Sodium (Chloride) 100 mls @ 100 mls/hr IV Q24H [facility] Stop: 08/26/20 18:29 Azithromycin 500 mg/ Sodium (Chloride) 250 mls @ 250 mls/hr IV Q24H [facility] Stop: 08/24/20 21:59 Last Admin: 08/23/20 21:08 Dose: 250 mls/hr Documented by: Ceftriaxone Sodium 2 gm/ (Sodium Chloride) 100 mls @ 200 mls/hr IV Q24H JACKIE Stop: 08/26/20 22:29 Remdesivir 200 mg/ Sodium (Chloride) 250 mls @ 250 mls/hr IV ONETIME ONE Stop: 08/23/20 09:59 Last Admin: 08/23/20 08:47 Dose: 250 mls/hr Documented by: Remdesivir 100 mg/ Sodium (Chloride) 100 mls @ 100 mls/hr IV Q24H JACKIE Stop: 08/27/20 09:59 Last Admin: 08/27/20 10:23 Dose: 100 mls/hr Documented by: Ceftriaxone Sodium 1 gm/ (Sodium Chloride) 100 mls @ 200 mls/hr IV Q24H JACKIE Stop: 08/26/20 23:59 Last Admin: 08/26/20 23:16 Dose: 200 mls/hr Documented by: Sodium Chloride (Normal Saline) 250 mls @ 25 mls/hr IV ASDIRECTED [facility] Sodium Chloride (Normal Saline) Confirm Administered Dose 250 mls @ as directed .ROUTE .STK-MED ONE Stop: 08/23/20 12:32 Last Admin: 08/23/20 13:26 Dose: 100 mls/hr Documented by: Ferric Sodium Gluconate Complex 125 mg/ Sodium Chloride 110 mls @ 100 mls/hr IV ONETIME ONE Stop: 08/24/20 12:20 Last Admin: 08/24/20 11:17 Dose: 100 mls/hr Documented by: Insulin Aspart (Novolog Mix 70-30) 0 unit SUBCUT TIDMEALS [facility]; Protocol Last Admin: 08/28/20 07:41 Dose: Not Given Documented by: Insulin Human Lispro (Humalog) 0 unit SUBCUT QIDACANDBED [facility]; Protocol Last Admin: 08/27/20 13:35 Dose: Not Given Documented by: Insulin Human Lispro (Humalog) 0 unit SUBCUT TIDPC [facility]; Protocol Last Admin: 08/28/20 08:16 Dose: 1 unit Documented by: Insulin Human Lispro (Humalog) 0 unit SUBCUT TIDPC PRN; Protocol PRN Reason: Hyperglycemia Iopamidol (Isovue-370 (76%)) 100 ml IVPUSH ONETIME ONE Stop: 08/22/20 13:36 Last Admin: 08/22/20 20:01 Dose: Not Given Documented by: Iopamidol (Isovue-370 (76%)) 100 ml IVPUSH ONETIME ONE Stop: 08/22/20 14:04 Last Admin: 08/22/20 20:01 Dose: Not Given Documented by: Sodium Chloride (Saline Flush) 10 ml FLUSH ASDIRECTED PRN PRN Reason: Keep Vein Open Last Admin: 08/22/20 12:45 Dose: 10 ml Documented by: Sodium Chloride (Saline Flush) 10 ml FLUSH ONETIME PRN PRN Reason: Keep Vein Open Sodium Chloride (Saline Flush) 10 ml FLUSH ONETIME PRN PRN Reason: Keep Vein Open - Exam Quality Assessment: Supplemental Oxygen General: Alert, Oriented, Cooperative HEENT: Pupils Equal, Pupils Reactive, Mucous Membr. Moist/[place] Neck: Supple, Trachea Midline. No: Lymphadenopathy Lungs: Decreased Breath Sounds, Crackles Cardiovascular: Regular Rate, Irregular Rhythm, Murmurs (Grade 2 systolic murmur). No: Regular Rhythm GI/Abdominal Exam: Normal Bowel Sounds, Soft, Non-Tender, No Distention (Female) Exam: Deferred Back Exam: Normal Inspection, Full Range of Motion Extremities: Normal Inspection, Normal Range of Motion, Non-Tender, No Pedal Edema, Normal Capillary Refill Peripheral Pulses: 2+: Radial (L), Radial (R), Dorsalis Pedis (L), Dorsalis Pedis (R) Skin: Warm, Dry, Intact Neurological: No New Focal Deficit Psy/Mental Status: Alert, Normal Affect, Normal Mood Sepsis Event Note - Evaluation Sepsis Screening Result: No Definite Risk - Focused Exam Vital Signs: Vital Signs Temp Pulse Resp BP Pulse Ox 08/29/20 11:47 71 08/29/20 07:20 98.2 F 64 20 153/53 H 94 L 08/29/20 05:16 97.7 F 65 16 142/74 H 92 L 08/29/20 00:16 98.2 F 83 24 H 146/71 H 91 L - Problem List & Annotations (1) Atrial fibrillation with rapid ventricular response SNOMED Code(s): 116640844616490 Code(s): I48.91 - UNSPECIFIED ATRIAL FIBRILLATION Status: Acute Priority: High Current Visit: Yes (2) COPD (chronic obstructive pulmonary disease) SNOMED Code(s): 15121373 Code(s): J44.9 - CHRONIC OBSTRUCTIVE PULMONARY DISEASE, UNSPECIFIED Status: Chronic Priority: High Current Visit: Yes Qualifiers: COPD type: unspecified COPD Qualified Code(s): J44.9 - Chronic obstructive pulmonary disease, unspecified (3) COVID-19 SNOMED Code(s): 171311978 Code(s): U07.1 - COVID-19 Status: Acute Priority: High Current Visit: Yes (4) Dyspnea SNOMED Code(s): 917826279 Code(s): R06.00 - DYSPNEA, UNSPECIFIED Status: Acute Priority: High Current Visit: Yes Qualifiers: Dyspnea type: unspecified Qualified Code(s): R06.00 - Dyspnea, unspecified (5) Hypoxemia SNOMED Code(s): 957974335 Code(s): R09.02 - HYPOXEMIA Status: Acute Priority: High Current Visit: Yes (6) Pneumonia due to COVID-19 virus SNOMED Code(s): 190236083102197448 Code(s): U07.1 - COVID-19; J12.89 - OTHER VIRAL PNEUMONIA Status: Acute Priority: High Current Visit: Yes (7) Anemia SNOMED Code(s): 723372092 Code(s): D64.9 - ANEMIA, UNSPECIFIED Status: Acute Current Visit: Yes Qualifiers: Anemia type: iron deficiency Iron deficiency anemia type: unspecified iron deficiency Qualified Code(s): D50.9 - Iron deficiency anemia, unspecified - Problem List Review Problem List Initiated/Reviewed/Updated: Yes - My Orders Last 24 Hours: My Active Orders 08/29/20 09:57 Chest 1V Frontal [CR] Routine 08/30/20 05:11 CRP [C-REACTIVE PROTEIN] [CHEM] Q48H D-DIMER QUANTITATIVE [COAG] Q48H 09/01/20 05:11 CRP [C-REACTIVE PROTEIN] [CHEM] Q48H D-DIMER QUANTITATIVE [COAG] Q48H - Assessment Assessment:: Acute: COVID 19 infection-resolving; has received 5 days of remdesivir and dexamethasone Viral Pneumonitis/Atypical Pneumonia-resolving; has received Rocephin and Azithromycin Acute on chronic respiratory failure, resolved back to baseline 2L NC Normocytic hypochromic Anemia with hgb of 9.7; received iron transfusion. Hemoglobin up to 11.0 Acute Kidney Injury, resolved CO2 Retention Hyperglycemia Leukocytosis WBC 14.11 Hypoalbuminemia with Albumin of 2.5 Chronic: Impaired Hearing HTN HLD PVD Afib Carotid Stenosis LB3 COPD/SOB Pulmonary Fibrosis Chronic Respiratory Failure Hx/o Lung CA GERD Hemorrhoids Urinary Incontinence OA DDD Meniere's Disease Anemia Immunosuppression - Plan Plan:: 08/23/20 * 80-year-old female with a history of COPD and atrial fib with a gradual onset of increased shortness of breath and cough over the course of the past 7 days. * Patient does have home O2 however she only wears this at nighttime for sleep. Over the past 7 days she has required O2 at 2 L per nasal cannula 22/04. * Vitals in the ED reveal a temp of 97.9, pulse 143, respiratory rate 18, blood pressure 138/89, pulse ox 96% on 2 L of oxygen per nasal cannula * In the emergency room the patient did receive Cardizem 10 mg IV bolus and was started on a Cardizem drip at 10 mg/h. * Her chest x-ray showed coarse interstitial prominence in both lung bases could be new infiltrate or edema or progression of fibrosis. * Labs in the ED reveal a CBC which is unremarkable, D-dimer 2.52, sodium 133, creatinine 1.4, lactic acid unremarkable, troponin unremarkable, CRP 22.4, TSH normal, her Covid is positive. * CT angiogram showed no PE. Progression of pulmonary interstitial fibrosis and emphysema since 08/14/2017. Findings suggestive of new or progression of interstitial edema versus infiltrate in the lung bases. PLAN: * Admit to [facility] with telemetry and continuous pulse oximetry Atrial fibrillation with rapid ventricular response * Telemetry * Resume oral Cardizem, digoxin * Resume aspirin COPD (chronic obstructive pulmonary disease), Pneumonia due to COVID-19 virus, Dyspnea, Hypoxemia * Remdesivir and convalescent plasma have been ordered on this patient, however she is not willing to receive this treatment until we are able to certify that her insurance will cover this treatment 100%. * Dexamethasone 6 mg daily x10 days * Albuterol nebulizers every 2 hours as needed for shortness of breath or wheezing * Incentive spirometer and flutter valve every 1 hour while awake * Respiratory therapy to consult regarding titration of oxygen * Rocephin 2 g IV daily x5 days, azithromycin 500 mg daily x3 days * Continuous pulse oximetry * Strict intake and output, and daily weights * Recheck lab work in the a.m. * Obtain old echocardiogram * PT/OT to eval and treat * Spiritual care consult * Dietitian to consult regarding caloric needs * marketing services coordinator and case management for discharge planning Patient is a DNR/DNI Lovenox for DVT prophylaxis Patient will be here greater than 96 hours due to the standard treatment of Covid. 08/24/20 * Patient will receive 20 mg of IV Lasix today in addition to her oral dose. * Renally dose medications * Incentive spirometer and flutter valve every 1 hour while awake * Respiratory therapy to titrate oxygen to keep sats greater than 90% * PT/OT * Repeat labs in the a.m. * Iron infusion today * Continue Rocephin and Zithromax * Continue remdesivir and dexamethasone * Lovenox for DVT prophylaxis * Ander wrap left upper arm 08/25/2020 * Continue incentive spirometer and flutter valve * Titrate FiO2 to keep SPO2 between 88 and 94% * Continue Rocephin, remdesivir, and dexamethasone * Follow labs in the morning 08/26/20 * Continue Rocephin, remdesivir, and dexamethasone. * Respiratory therapy to continue titrating oxygen for sats greater than 88%. Patient does wear oxygen 2 L per nasal cannula at home at nighttime. * Continue incentive spirometer and flutter valve * Repeat labs in the a.m. * Lovenox for DVT prophylaxis * marketing services coordinator to assist with discharge planning as patient requests to go to the correction upon discharge. * Plan for discharge to correction on August 29 * Patient will be here greater than 96 hours due to treatment of Covid and correction placement. 08/27/20 * Continue current treatment * Received 2 units of convalescent plasma * Rocephin and remdesivir completed * Dexa on 01/06 treatment day * IS and FV as directed * Resume insulin regimen * She is agreeable to it after explaining it to her why we need to control her sugar * Lovenox 40 mg SubQ for DVT prophylaxis * marketing services coordinator to assist with discharge planning as patient requests to go to the correction upon discharge * Plan for discharge to correction on August 29 * Patient will be here greater than 96 hours due to treatment of Covid and correction placement 08/28/20 * She is doing relatively well * No complaints except for loose stool * Now back to her baseline 2L NC * Now on 02/05 of Dexa * Lovenox 40 mg SubQ for DVT prophylaxis * marketing services coordinator to assist with discharge planning as patient requests to go to the correction upon discharge * Plan for discharge to correction on August 29 * Patient will be here greater than 96 hours due to treatment of Covid and correction placement 08/29/20 * White count is elevated to 14.11 today. Patient has been afebrile. And vital signs have otherwise been stable. * Repeat chest x-ray today * Currently on 2 L of oxygen per nasal cannula which is at her baseline. * Day 6 of dexamethasone * Lovenox for DVT prophylaxis * Plan for discharge to [facility] once a bed is available and they have accepted her.
--- NOTE | 2020-08-29 12:41 | CR ---
PROCEDURE INFORMATION: Exam: XR Chest, 1 View Exam date and time: 08/28/2020 6:55 AM Age: 80 years old Clinical indication: Other: Covid-19 positive TECHNIQUE: Imaging protocol: XR of the chest Views: 1 view. COMPARISON: CR Chest 1V Frontal 08/24/2020 8:22 AM FINDINGS: Lungs: There is mild increase in interstitial markings within the lungs. Scarring and/or atelectasis noted in the left upper lobe. This is nonspecific. No pneumonia or pulmonary edema is present. Pleural space: Unremarkable. No pleural effusion. No pneumothorax. Heart/Mediastinum: Unremarkable. No cardiomegaly. Bones/joints: Unremarkable. IMPRESSION: Chronic appearing interstitial change appears to be stable when compared to the previous examination. No definite pneumonia currently identified. Thank you for allowing us to participate in the care of your patient. Dictated and Authenticated by: Rashaun Alarcon MD 08/28/2020 10:08 AM Central Time ([place] & [place]) MARQUITA
--- NOTE | 2020-08-29 13:53 | CR ---
PROCEDURE INFORMATION: Exam: XR Chest, 1 View Exam date and time: 08/29/2020 9:51 AM Age: 80 years old Clinical indication: Shortness of breath; Patient HX: SOB TECHNIQUE: Imaging protocol: XR of the chest Views: 1 view. COMPARISON: CR Chest 1V Frontal 08/28/2020 6:55 AM FINDINGS: Lungs: There is mild increase in interstitial markings within the lungs. This is nonspecific. No pneumonia or pulmonary edema is present. Nodular scarring is present within the left upper lobe which appears to be stable. Pleural space: Unremarkable. No pleural effusion. No pneumothorax. Heart/Mediastinum: Unremarkable. No cardiomegaly. Bones/joints: Unremarkable. IMPRESSION: 1. Chronic appearing interstitial change with nodular scarring in the left upper lobe which appears to be stable. No acute cardiopulmonary disease identified. Thank you for allowing us to participate in the care of your patient. Dictated and Authenticated by: Rashaun Alarcon MD 08/29/2020 11:45 AM Central Time ([place] & [place]) MAR[place]ITA
[2020-08-29] MEDS: Dexamethasone 4 MG Tab PO SCH (20:44)
[2020-08-30] MEDS: Albuterol 6.7 GM Inhaler INH SCH ×2 (03:52→08:30)
[2020-08-30] MEDS: Insulin Glarg,Human.Rec.Analog 100 Unit/ML SUBCUT SCH (05:37)
[2020-08-30] MEDS: Pantoprazole 40 MG Tab.CR PO SCH (05:38)
[2020-08-30] MEDS: Insulin Lispro 100 Units/ML 3 ML Vial SUBCUT SCH ×2 (06:44→12:45)
[2020-08-30] MEDS: Cyanocobalamin (Vitamin B12) 1,000 MCG Tab PO SCH (08:30)
[2020-08-30] MEDS: Multivitamins with Minerals/Folic Acid/Lutein/Zeaxanth Tab PO SCH (08:30)
[2020-08-30] MEDS: Enoxaparin 40 MG/0.4 ML Syringe SUBCUT SCH (08:30)
[2020-08-30] MEDS: Tiotropium Bromide 4 GM Inhalation Spray (2.5mcg/1 dose; 10 doses) INH SCH (08:30)
[2020-08-30] MEDS: Diltiazem 240 MG Cap.ER PO SCH (08:32)
[2020-08-30] MEDS: Simvastatin 10 MG Tab PO SCH (08:32)
[2020-08-30] MEDS: Aspirin 325 MG Tab.EC PO SCH (08:32)
[2020-08-30] MEDS: Furosemide 20 MG Tab PO SCH (08:33)
[2020-08-30] MEDS: Zinc Sulfate 220 MG Cap PO SCH (08:33)
[2020-08-30 12:12] VITALS: BP 146/49; PULSE 64
[2020-08-30] MEDS: Digoxin 125 MCG Tab PO SCH (12:47)
--- NOTE | 2020-08-30 14:06 | PCM.DCSUM1 ---
Discharge Summary - Hospital Course HPI Initial Comments: The patient presents from the clinic. She was seeing her doctor Dr North. She has been short of breath and weak. She also has a cough. She has no fever, chills, chest pain, nausea, vomiting, abdominal pain or diarrhea. She has a history of COPD and she is on home oxygen. She is using more oxygen the past couple of days. She also has a history of A-fib and she is in RVR at 150 at times. Patient reports that she started feeling short of breath on Saturday, August 15 and she was needing to wear her home oxygen at 2 L continuously. Prior to that she has only worn her oxygen for sleep. She also states over the course of the last week she has developed a cough, fatigue, and general malaise. She also has noted some diarrhea. Diagnosis: Stroke: No - Discharge Data Discharge Date: 08/30/20 (Admit date: 08/22/20) Discharge Disposition: DC/Tfer to SNF 03 Condition: Good - Referral to Home Health Primary Care Physician: Ismael North MD - Discharge Diagnosis/Problem(s) (1) Atrial fibrillation with rapid ventricular response SNOMED Code(s): 206984572803377 ICD Code: I48.91 - UNSPECIFIED ATRIAL FIBRILLATION Status: Acute Priority: High (2) COPD (chronic obstructive pulmonary disease) SNOMED Code(s): 64128107 ICD Code: J44.9 - CHRONIC OBSTRUCTIVE PULMONARY DISEASE, UNSPECIFIED Status: Chronic Priority: High Qualifiers: COPD type: unspecified COPD Qualified Code(s): J44.9 - Chronic obstructive pulmonary disease, unspecified (3) COVID-19 SNOMED Code(s): 990274806 ICD Code: U07.1 - COVID-19 Status: Acute Priority: High (4) Dyspnea SNOMED Code(s): 176119156 ICD Code: R06.00 - DYSPNEA, UNSPECIFIED Status: Acute Priority: High Qualifiers: Dyspnea type: unspecified Qualified Code(s): R06.00 - Dyspnea, unspecified (5) Hypoxemia SNOMED Code(s): 928795689 ICD Code: R09.02 - HYPOXEMIA Status: Acute Priority: High (6) Pneumonia due to COVID-19 virus SNOMED Code(s): 777350726717836971 ICD Code: U07.1 - COVID-19; J12.89 - OTHER VIRAL PNEUMONIA Status: Acute Priority: High (7) Anemia SNOMED Code(s): 259014105 ICD Code: D64.9 - ANEMIA, UNSPECIFIED Status: Acute Qualifiers: Anemia type: iron deficiency Iron deficiency anemia type: unspecified iron deficiency Qualified Code(s): D50.9 - Iron deficiency anemia, unspecified - Patient Summary/Data Consults: Consultations 08/23/20 07:34 Consult to Spiritual Care [CONS] Routine OT Evaluation and Treatment [CONS] Routine PT Evaluation and Treatment [CONS] Routine Hospital Course: 08/23/20 * 80-year-old female with a history of COPD and atrial fib with a gradual onset of increased shortness of breath and cough over the course of the past 7 days. * Patient does have home O2 however she only wears this at nighttime for sleep. Over the past 7 days she has required O2 at 2 L per nasal cannula 22/04. * Vitals in the ED reveal a temp of 97.9, pulse 143, respiratory rate 18, blood pressure 138/89, pulse ox 96% on 2 L of oxygen per nasal cannula * In the emergency room the patient did receive Cardizem 10 mg IV bolus and was started on a Cardizem drip at 10 mg/h. * Her chest x-ray showed coarse interstitial prominence in both lung bases could be new infiltrate or edema or progression of fibrosis. * Labs in the ED reveal a CBC which is unremarkable, D-dimer 2.52, sodium 133, creatinine 1.4, lactic acid unremarkable, troponin unremarkable, CRP 22.4, TSH normal, her Covid is positive. * CT angiogram showed no PE. Progression of pulmonary interstitial fibrosis and emphysema since 08/14/2017. Findings suggestive of new or progression of interstitial edema versus infiltrate in the lung bases. PLAN: * Admit to [facility] with telemetry and continuous pulse oximetry Atrial fibrillation with rapid ventricular response * Telemetry * Resume oral Cardizem, digoxin * Resume aspirin COPD (chronic obstructive pulmonary disease), Pneumonia due to COVID-19 virus, Dyspnea, Hypoxemia * Remdesivir and convalescent plasma have been ordered on this patient, however she is not willing to receive this treatment until we are able to certify that her insurance will cover this treatment 100%. * Dexamethasone 6 mg daily x10 days * Albuterol nebulizers every 2 hours as needed for shortness of breath or wheezing * Incentive spirometer and flutter valve every 1 hour while awake * Respiratory therapy to consult regarding titration of oxygen * Rocephin 2 g IV daily x5 days, azithromycin 500 mg daily x3 days * Continuous pulse oximetry * Strict intake and output, and daily weights * Recheck lab work in the a.m. * Obtain old echocardiogram * PT/OT to eval and treat * Spiritual care consult * Dietitian to consult regarding caloric needs * donor services specialist and case management for discharge planning Patient is a DNR/DNI Lovenox for DVT prophylaxis Patient will be here greater than 96 hours due to the standard treatment of Covid. 08/24/20 * Chest x-ray from 08/24/2020: No change since 08/22/2020. Coarse interstitial infiltrates in the lower lungs, right worse than left and scarring and emphysema in the lung apices * Labs reveal: WBC 9.1 down from 10.0, D-dimer 2.02, BUN 40, creatinine 1.3, GFR 39, C-reactive protein 9.3, D-dimer 4220, iron level is 17 * Patient does have some swelling to her left upper inner arm due to an IV that had been infiltrated while receiving convalescent plasma last evening. * Vital signs remained stable and patient has been afebrile the past 24 hours. * Day 2 of remdesivir * Day 3 of dexamethasone * Day 3 of Rocephin and Zithromax * She has received 2 units of convalescent plasma 08/24/20 * Patient will receive 20 mg of IV Lasix today in addition to her oral dose. * Renally dose medications * Incentive spirometer and flutter valve every 1 hour while awake * Respiratory therapy to titrate oxygen to keep sats greater than 90% * PT/OT * Repeat labs in the a.m. * Iron infusion today * Continue Rocephin and Zithromax * Continue remdesivir and dexamethasone * Lovenox for DVT prophylaxis * Ander wrap left upper arm 08/25/2020 * Continued and stable on 4 L nasal cannula. * Labs are stable without any significant change. * Day 3 of remdesivir, day 4 of dexamethasone, day 4 of Rocephin, completed Zithromax * Received 2 units of convalescent plasma. 08/25/2020 * Continue incentive spirometer and flutter valve * Titrate FiO2 to keep SPO2 between 88 and 94% * Continue Rocephin, remdesivir, and dexamethasone * Follow labs in the morning 08/26/20 * 5 L per nasal cannula * Vital signs remained stable and patient has been afebrile in the past 24 hours. * Continues on remdesivir, Rocephin, and dexamethasone. * Labs remained stable without significant change * Patient reports that she plans on going to the custodial, [facility] upon discharge. 08/26/20 * Continue Rocephin, remdesivir, and dexamethasone. * Respiratory therapy to continue titrating oxygen for sats greater than 88%. Patient does wear oxygen 2 L per nasal cannula at home at nighttime. * Continue incentive spirometer and flutter valve * Repeat labs in the a.m. * Lovenox for DVT prophylaxis * donor services specialist to assist with discharge planning as patient requests to go to the custodial upon discharge. * Plan for discharge to custodial on August 29 * Patient will be here greater than 96 hours due to treatment of Covid and custodial placement. 08/27/20 Assessment:: Acute: COVID 19 infection Viral Pneumonitis/Atypical Pneumonia Acute on chronic respiratory failure Normocytic hypochromic Anemia with hgb of 9.7 Acute Kidney Injury Hyperglycemia Leukocytosis Hypoalbuminemia with Albumin of 2.5 Chronic: Impaired Hearing HTN HLD PVD Afib Carotid Stenosis LB3 COPD/SOB Pulmonary Fibrosis Chronic Respiratory Failure Hx/o Lung CA GERD Hemorrhoids Urinary Incontinence OA DDD Meniere's Disease Anemia Immunosuppression 08/27/20 * Continue current treatment * Received 2 units of convalescent plasma * Rocephin and remdesivir completed * Dexa on 01/06 treatment day * IS and FV as directed * Resume insulin regimen * She is agreeable to it after explaining it to her why we need to control her sugar * Lovenox 40 mg SubQ for DVT prophylaxis * donor services specialist to assist with discharge planning as patient requests to go to the custodial upon discharge * Plan for discharge to custodial on August 29 * Patient will be here greater than 96 hours due to treatment of Covid and custodial placement 08/28/20 Assessment:: Acute: COVID 19 infection Viral Pneumonitis/Atypical Pneumonia Acute on chronic respiratory failure, resolved back to baseline 2L NC Normocytic hypochromic Anemia with hgb of 9.7 Acute Kidney Injury, resolved CO2 Retention Hyperglycemia Leukocytosis Hypoalbuminemia with Albumin of 2.5 Chronic: Impaired Hearing HTN HLD PVD Afib Carotid Stenosis LB3 COPD/SOB Pulmonary Fibrosis Chronic Respiratory Failure Hx/o Lung CA GERD Hemorrhoids Urinary Incontinence OA DDD Meniere's Disease Anemia Immunosuppression 08/28/20 * She is doing relatively well * No complaints except for loose stool * Now back to her baseline 2L NC * Now on 02/05 of Dexa * Lovenox 40 mg SubQ for DVT prophylaxis * donor services specialist to assist with discharge planning as patient requests to go to the custodial upon discharge * Plan for discharge to custodial on August 29 * Patient will be here greater than 96 hours due to treatment of Covid and custodial placement 08/29/20 * White count is elevated to 14.11 today. Patient has been afebrile. And vital signs have otherwise been stable. * Repeat chest x-ray today * Currently on 2 L of oxygen per nasal cannula which is at her baseline. * Day 6 of dexamethasone * Lovenox for DVT prophylaxis * Plan for discharge to [facility] once a bed is available and they have accepted her. 08/30/20 * WBC down to 12.5 today * UA is obtained and it was unremarkable for infection. * Patient will remain on 2 L of oxygen per nasal cannula. * Patient will resume home medications. * I suspect elevation in white count is due to the dexamethasone that the patient has been taking. * D-dimer remains elevated due to Covid at 4.47. Patient will be discharged on Xarelto 10 mg daily for 14 days for anticoagulation due to Covid. Her aspirin 325 mg will be stopped at this time and resumed once 14-day course of Xarelto has been completed. * She is to follow-up with Dr. North in 1 week. - Patient Instructions Diet: Usual Diet as Tolerated Activity: As Tolerated Other/Special Instructions: Discharge to [facility]. O2 @ 2 liters per nasal cannula. Xarelto 10 mg per day for two weeks then resume aspirin. Hold aspirin while taking Xarelto. Follow up with Dr. North in two weeks. If your condition worsens or changes, follow up with Dr. North or return to the emergency department. - Discharge Plan *PRESCRIPTION DRUG MONITORING PROGRAM REVIEWED*: Not Applicable *COPY OF PRESCRIPTION DRUG MONITORING REPORT IN PATIENT APPLE: Not Applicable Prescriptions/Med Rec: Rivaroxaban [Xarelto] 10 mg PO DAILY #14 tab Home Medications: Home Meds Furosemide 40 mg PO DAILY 06/20/16 [History] Losartan [Cozaar] 50 mg PO DAILY 06/20/16 [History] Lutein/Minerals/Vit A,C & E [Ocuvite] 1 tab PO DAILY 06/20/16 [History] Omeprazole 20 mg PO DAILY 06/20/16 [History] Meclizine [Antivert] 25 mg PO DAILY 08/14/17 [History] Pravastatin Sodium 10 mg PO DAILY 08/14/17 [History] Albuterol [Proventil Neb Soln] 1 dose INH BID 01/06/18 [History] Digoxin [Digox] 125 mcg PO DAILY 01/06/18 [History] dilTIAZem HCL [Cardizem Cd] 240 mg PO BID 01/06/18 [History] Albuterol [Ventolin HFA] 1 puff INH DAILY 11/25/19 [History] Cyanocobalamin (Vitamin B-12) [B-12] 500 mcg PO ASDIRECTED 08/22/20 [History] Non-Formulary Medication [NF Drug] 1 inh INH DAILY 08/22/20 [History] predniSONE [Prednisone] 40 mg PO DAILY 08/22/20 [History] Rivaroxaban [Xarelto] 10 mg PO DAILY #14 tab 08/30/20 [Rx] Oxygen Therapy Mode: Nasal Cannula Oxygen Flow Rate (L/min): 2 Patient Handouts: COVID-19, Sepsis, Diagnosis, Adult, Home Oxygen Use, Adult, Atrial Fibrillation, [id number] Forms: ED Department Discharge Referrals: Ismael North MD [Primary Care Provider] - 09/07/20 8:30 am (please attend the scheduled follow up appointment as listed) - Discharge Summary/Plan Comment DC Time >30 min.: No - General Info Date of Service: 08/30/20 Admission Dx/Problem (Free Text: Admission Diagnosis/Problem Admission Diagnosis/Problem Atrial fibrillation Functional Status: Reports: Pain Controlled, Tolerating Diet, Ambulating, Urinating, Incentive Spirometry - Review of Systems General: Reports: No Symptoms HEENT: Reports: No Symptoms, Glasses Pulmonary: Reports: No Symptoms. Denies: Cough, Sputum, Wheezing Cardiovascular: Reports: No Symptoms Gastrointestinal: Reports: Diarrhea. Denies: Nausea, Vomiting Genitourinary: Reports: No Symptoms Musculoskeletal: Reports: No Symptoms Skin: Reports: No Symptoms Neurological: Reports: No Symptoms Psychiatric: Reports: No Symptoms - Patient Data Vitals - Most Recent: Last Vital Signs Temp 97.5 F 08/30/20 11:14 Pulse 64 08/30/20 12:47 Resp 20 08/30/20 11:14 BP 146/49 H 08/30/20 11:14 Pulse Ox 97 08/30/20 11:14 Weight - Most Recent: 138 lb I&O - Last 24 hours: Intake & Output 08/29/20 08/30/20 08/30/20 22:59 06:59 14:59 Intake Total 1360 500 Output Total 950 550 Balance 410 -50 Lab Results - Last 24 hrs: Laboratory Results - last 24 hr 08/29/20 08/29/20 08/30/20 Range/Units 16:20 20:48 04:37 WBC (3.98-10.04) K/mm3 RBC (3.98-5.22) M/mm3 Hgb (11.2-15.7) gm/dl Hct (34.1-44.9) % MCV (79.4-94.8) fl MCH (25.6-32.2) pg MCHC (32.2-35.5) g/dl RDW Std Deviation (36.4-46.3) fL Plt Count (182-369) K/mm3 MPV (9.4-12.3) fl Neut % (Auto) (34.0-71.1) % Lymph % (Auto) (19.3-51.7) % Williamson % (Auto) (4.7-12.5) % Eos % (Auto) (0.7-5.8) Baso % (Auto) (0.1-1.2) % Neut # (Auto) (1.56-6.13) K/mm3 Lymph # (Auto) (1.18-3.74) K/mm3 Williamson # (Auto) (0.24-0.36) K/mm3 Eos # (Auto) (0.04-0.36) K/mm3 Baso # (Auto) (0.01-0.08) K/mm3 Manual Slide Review D-Dimer, Quantitative 4.47 H (0.19-0.50) mg/L Sodium (136-145) mEq/L Potassium (3.5-5.1) mEq/L Chloride (98-107) mEq/L Carbon Dioxide (21-32) mEq/L Anion Gap (5-15) BUN (7-18) mg/dL Creatinine (0.55-1.02) mg/dL Est Cr Clr Drug Dosing mL/min Estimated GFR (MDRD) (>60) mL/min BUN/Creatinine Ratio (14-18) Glucose (83-115) mg/dL POC Glucose 122 H 128 H (83-110) mg/dL Calcium (8.5-10.1) mg/dL Magnesium (1.8-2.4) mg/dl C-Reactive Protein (<1.0) mg/dL Urine Color (Yellow) Urine Appearance (Clear) Urine pH (5.0-8.0) Ur Specific [place] (1.005-1.030) Urine Protein (Negative) Urine Glucose (UA) (Negative) Urine Ketones (Negative) Urine Occult Blood (Negative) Urine Nitrite (Negative) Urine Bilirubin (Negative) Urine Urobilinogen (0.2-1.0) Ur Leukocyte Esterase (Negative) 08/30/20 08/30/20 08/30/20 Range/Units 04:37 04:37 04:37 WBC 12.50 H (3.98-10.04) K/mm3 RBC 3.73 L (3.98-5.22) M/mm3 Hgb 10.6 L (11.2-15.7) gm/dl Hct 34.1 (34.1-44.9) % MCV 91.4 (79.4-94.8) fl MCH 28.4 (25.6-32.2) pg MCHC 31.1 L (32.2-35.5) g/dl RDW Std Deviation 49.9 H (36.4-46.3) fL Plt Count 372 H (182-369) K/mm3 MPV 11.8 (9.4-12.3) fl Neut % (Auto) 85.2 H (34.0-71.1) % Lymph % (Auto) 7.8 L (19.3-51.7) % Williamson % (Auto) 4.3 L (4.7-12.5) % Eos % (Auto) 0.6 L (0.7-5.8) Baso % (Auto) 0.2 (0.1-1.2) % Neut # (Auto) 10.63 H (1.56-6.13) K/mm3 Lymph # (Auto) 0.98 L (1.18-3.74) K/mm3 Williamson # (Auto) 0.54 H (0.24-0.36) K/mm3 Eos # (Auto) 0.08 (0.04-0.36) K/mm3 Baso # (Auto) 0.03 (0.01-0.08) K/mm3 Manual Slide Review Abnormal smear D-Dimer, Quantitative (0.19-0.50) mg/L Sodium 136 (136-145) mEq/L Potassium 4.4 (3.5-5.1) mEq/L Chloride 98 (98-107) mEq/L Carbon Dioxide 31 (21-32) mEq/L Anion Gap 11.4 (5-15) BUN 46 H (7-18) mg/dL Creatinine 1.2 H (0.55-1.02) mg/dL Est Cr Clr Drug Dosing 29.90 mL/min Estimated GFR (MDRD) 43 (>60) mL/min BUN/Creatinine Ratio 38.3 H (14-18) Glucose 140 H (83-115) mg/dL POC Glucose (83-110) mg/dL Calcium 8.7 (8.5-10.1) mg/dL Magnesium (1.8-2.4) mg/dl C-Reactive Protein 1.1 H* (<1.0) mg/dL Urine Color (Yellow) Urine Appearance (Clear) Urine pH (5.0-8.0) Ur Specific [place] (1.005-1.030) Urine Protein (Negative) Urine Glucose (UA) (Negative) Urine Ketones (Negative) Urine Occult Blood (Negative) Urine Nitrite (Negative) Urine Bilirubin (Negative) Urine Urobilinogen (0.2-1.0) Ur Leukocyte Esterase (Negative) 08/30/20 08/30/20 08/30/20 Range/Units 04:37 06:26 09:50 WBC (3.98-10.04) K/mm3 RBC (3.98-5.22) M/mm3 Hgb (11.2-15.7) gm/dl Hct (34.1-44.9) % MCV (79.4-94.8) fl MCH (25.6-32.2) pg MCHC (32.2-35.5) g/dl RDW Std Deviation (36.4-46.3) fL Plt Count (182-369) K/mm3 MPV (9.4-12.3) fl Neut % (Auto) (34.0-71.1) % Lymph % (Auto) (19.3-51.7) % Williamson % (Auto) (4.7-12.5) % Eos % (Auto) (0.7-5.8) Baso % (Auto) (0.1-1.2) % Neut # (Auto) (1.56-6.13) K/mm3 Lymph # (Auto) (1.18-3.74) K/mm3 Williamson # (Auto) (0.24-0.36) K/mm3 Eos # (Auto) (0.04-0.36) K/mm3 Baso # (Auto) (0.01-0.08) K/mm3 Manual Slide Review D-Dimer, Quantitative (0.19-0.50) mg/L Sodium (136-145) mEq/L Potassium (3.5-5.1) mEq/L Chloride (98-107) mEq/L Carbon Dioxide (21-32) mEq/L Anion Gap (5-15) BUN (7-18) mg/dL Creatinine (0.55-1.02) mg/dL Est Cr Clr Drug Dosing mL/min Estimated GFR (MDRD) (>60) mL/min BUN/Creatinine Ratio (14-18) Glucose (83-115) mg/dL POC Glucose 136 H (83-110) mg/dL Calcium (8.5-10.1) mg/dL Magnesium 2.1 (1.8-2.4) mg/dl C-Reactive Protein (<1.0) mg/dL Urine Color Yellow (Yellow) Urine Appearance Clear (Clear) Urine pH 7.0 (5.0-8.0) Ur Specific [place] 1.020 (1.005-1.030) Urine Protein Negative (Negative) Urine Glucose (UA) Negative (Negative) Urine Ketones Negative (Negative) Urine Occult Blood Negative (Negative) Urine Nitrite Negative (Negative) Urine Bilirubin Negative (Negative) Urine Urobilinogen 0.2 (0.2-1.0) Ur Leukocyte Esterase Negative (Negative) 08/30/20 Range/Units 11:11 WBC (3.98-10.04) K/mm3 RBC (3.98-5.22) M/mm3 Hgb (11.2-15.7) gm/dl Hct (34.1-44.9) % MCV (79.4-94.8) fl MCH (25.6-32.2) pg MCHC (32.2-35.5) g/dl RDW Std Deviation (36.4-46.3) fL Plt Count (182-369) K/mm3 MPV (9.4-12.3) fl Neut % (Auto) (34.0-71.1) % Lymph % (Auto) (19.3-51.7) % Williamson % (Auto) (4.7-12.5) % Eos % (Auto) (0.7-5.8) Baso % (Auto) (0.1-1.2) % Neut # (Auto) (1.56-6.13) K/mm3 Lymph # (Auto) (1.18-3.74) K/mm3 Williamson # (Auto) (0.24-0.36) K/mm3 Eos # (Auto) (0.04-0.36) K/mm3 Baso # (Auto) (0.01-0.08) K/mm3 Manual Slide Review D-Dimer, Quantitative (0.19-0.50) mg/L Sodium (136-145) mEq/L Potassium (3.5-5.1) mEq/L Chloride (98-107) mEq/L Carbon Dioxide (21-32) mEq/L Anion Gap (5-15) BUN (7-18) mg/dL Creatinine (0.55-1.02) mg/dL Est Cr Clr Drug Dosing mL/min Estimated GFR (MDRD) (>60) mL/min BUN/Creatinine Ratio (14-18) Glucose (83-115) mg/dL POC Glucose 194 H (83-110) mg/dL Calcium (8.5-10.1) mg/dL Magnesium (1.8-2.4) mg/dl C-Reactive Protein (<1.0) mg/dL Urine Color (Yellow) Urine Appearance (Clear) Urine pH (5.0-8.0) Ur Specific [place] (1.005-1.030) Urine Protein (Negative) Urine Glucose (UA) (Negative) Urine Ketones (Negative) Urine Occult Blood (Negative) Urine Nitrite (Negative) Urine Bilirubin (Negative) Urine Urobilinogen (0.2-1.0) Ur Leukocyte Esterase (Negative) Med Orders - Current: Current Medications Acetaminophen (Tylenol) 650 mg PO Q4H PRN PRN Reason: Pain (Mild 1-3)/fever Albuterol (Proventil Hfa) 0 gm INH Q6H [facility] Last Admin: 08/30/20 08:30 Dose: 2 inhalation Documented by: Aspirin (Ecotrin) 325 mg PO DAILY [facility] Last Admin: 08/30/20 08:32 Dose: 325 mg Documented by: Cyanocobalamin (Vitamin B12) 500 mcg PO TuFr@0900 [facility] Last Admin: 08/30/20 08:30 Dose: 500 mcg Documented by: Dexamethasone (Dexamethasone) 6 mg PO Q24H [facility] Stop: 08/31/20 21:01 Last Admin: 08/29/20 20:44 Dose: 6 mg Documented by: Digoxin (Lanoxin) 125 mcg PO DAILY@1200 [facility] Last Admin: 08/30/20 12:47 Dose: 125 mcg Documented by: Diltiazem HCl (Dilacor Xr) 240 mg PO BID [facility] Last Admin: 08/30/20 08:32 Dose: 240 mg Documented by: Docusate Sodium (Colace) 100 mg PO BID PRN PRN Reason: Constipation Enoxaparin Sodium (Lovenox) 40 mg SUBCUT BID [facility] Last Admin: 08/30/20 08:30 Dose: 40 mg Documented by: Furosemide (Lasix) 20 mg PO DAILY [facility] Last Admin: 08/30/20 08:33 Dose: 20 mg Documented by: Insulin Glargine (Lantus) 5 unit SUBCUT BIDAC [facility] Last Admin: 08/30/20 05:37 Dose: 5 units Documented by: Insulin Human Lispro (Humalog) 0 unit SUBCUT TIDAC [facility]; Protocol Last Admin: 08/30/20 12:45 Dose: 1 unit Documented by: Magnesium Hydroxide (Milk Of Magnesia) 30 ml PO Q4H PRN PRN Reason: Constipation Last Admin: 08/26/20 13:05 Dose: 30 ml Documented by: Ondansetron HCl (Zofran Odt) 8 mg PO Q6H PRN PRN Reason: Nausea/Vomiting Pantoprazole Sodium (Protonix) 40 mg PO ACBRK [facility] Last Admin: 08/30/20 05:38 Dose: 40 mg Documented by: Simvastatin (Zocor) 5 mg PO DAILY [facility] Last Admin: 08/30/20 08:32 Dose: 5 mg Documented by: Sodium Chloride (Saline Flush) 10 ml FLUSH ASDIRECTED PRN PRN Reason: Keep Vein Open Tiotropium Bryson (Spiriva Respimat) 0 gm INH DAILY [facility] Last Admin: 08/30/20 08:30 Dose: 4 gm Documented by: Vit A/Vit C/Vit E/Selen/Cu/Zn/Lutei (Icaps Mv) 1 tab PO DAILY [facility] Last Admin: 08/30/20 08:30 Dose: 1 tab Documented by: Zinc Sulfate (Zincate) 220 mg PO DAILY [facility] Last Admin: 08/30/20 08:33 Dose: 220 mg Documented by: Zolpidem Tartrate (Ambien) 5 mg PO BEDTIME PRN PRN Reason: Sleep Discontinued Medications Albuterol (Proventil Hfa) 0 gm INH Q6H [facility] Last Admin: 08/22/20 20:10 Dose: Not Given Documented by: Bisacodyl (Dulcolax) 10 mg RECTAL ONETIME ONE Stop: 08/27/20 13:41 Last Admin: 08/27/20 13:55 Dose: 10 mg Documented by: Dexamethasone (Decadron) 6 mg IVPUSH ONETIME ONE Stop: 08/22/20 14:49 Last Admin: 08/22/20 15:15 Dose: 6 mg Documented by: Dexamethasone (Dexamethasone) 6 mg IV Q24H [facility] Dexamethasone (Decadron) 6 mg IV Q24H [facility] Stop: 08/31/20 21:01 Diltiazem HCl (Cardizem) 10 mg IVPUSH ONETIME ONE Stop: 08/22/20 12:17 Last Admin: 08/22/20 12:42 Dose: 10 mg Documented by: Diphenhydramine HCl (Benadryl) 25 mg IVPUSH ONETIME ONE Stop: 08/24/20 14:40 Last Admin: 08/24/20 15:54 Dose: Not Given Documented by: Enoxaparin Sodium (Lovenox) 30 mg SUBCUT DAILY [facility] Last Admin: 08/22/20 18:44 Dose: 30 mg Documented by: Enoxaparin Sodium (Lovenox) 30 mg SUBCUT Q24H [facility] Last Admin: 08/25/20 21:18 Dose: 30 mg Documented by: Enoxaparin Sodium (Lovenox) 40 mg SUBCUT Q24H [facility] Last Admin: 08/27/20 20:39 Dose: 40 mg Documented by: Famotidine (Pepcid) 20 mg IVPUSH ONETIME ONE Stop: 08/24/20 14:45 Last Admin: 08/24/20 15:54 Dose: Not Given Documented by: Furosemide (Lasix) 20 mg PO DAILY [facility] Last Admin: 08/27/20 10:24 Dose: 20 mg Documented by: Furosemide (Lasix) 40 mg IVPUSH NOW ONE Stop: 08/23/20 12:01 Last Admin: 08/23/20 12:45 Dose: 40 mg Documented by: Furosemide (Lasix) 20 mg IVPUSH NOW ONE Stop: 08/24/20 09:58 Last Admin: 08/24/20 10:28 Dose: 20 mg Documented by: Sodium Chloride (Normal Saline) 1,000 mls @ 125 mls/hr IV ASDIRECTED [facility] Last Admin: 08/22/20 12:42 Dose: 125 mls/hr Documented by: Diltiazem HCl 100 mg/ Sodium (Chloride) 100 mls @ 10 mls/hr IV TITRATE [facility]; Protocol Last Titration: 08/22/20 15:15 Dose: 0 mg/hr, 0 mls/hr Documented by: Sodium Chloride (Normal Saline) 45 mls @ 40 mls/hr IV ASDIRECTED [facility] Remdesivir 200 mg/ Sodium (Chloride) 250 mls @ 250 mls/hr IV ONETIME ONE Stop: 08/22/20 17:17 Last Admin: 08/22/20 20:02 Dose: Not Given Documented by: Remdesivir 100 mg/ Sodium (Chloride) 100 mls @ 100 mls/hr IV Q24H [facility] Stop: 08/26/20 18:29 Azithromycin 500 mg/ Sodium (Chloride) 250 mls @ 250 mls/hr IV Q24H [facility] Stop: 08/24/20 21:59 Last Admin: 08/23/20 21:08 Dose: 250 mls/hr Documented by: Ceftriaxone Sodium 2 gm/ (Sodium Chloride) 100 mls @ 200 mls/hr IV Q24H [facility] Stop: 08/26/20 22:29 Remdesivir 200 mg/ Sodium (Chloride) 250 mls @ 250 mls/hr IV ONETIME ONE Stop: 08/23/20 09:59 Last Admin: 08/23/20 08:47 Dose: 250 mls/hr Documented by: Remdesivir 100 mg/ Sodium (Chloride) 100 mls @ 100 mls/hr IV Q24H [facility] Stop: 08/27/20 09:59 Last Admin: 08/27/20 10:23 Dose: 100 mls/hr Documented by: Ceftriaxone Sodium 1 gm/ (Sodium Chloride) 100 mls @ 200 mls/hr IV Q24H [facility] Stop: 08/26/20 23:59 Last Admin: 08/26/20 23:16 Dose: 200 mls/hr Documented by: Sodium Chloride (Normal Saline) 250 mls @ 25 mls/hr IV ASDIRECTED [facility] Sodium Chloride (Normal Saline) Confirm Administered Dose 250 mls @ as directed .ROUTE .STK-MED ONE Stop: 08/23/20 12:32 Last Admin: 08/23/20 13:26 Dose: 100 mls/hr Documented by: Ferric Sodium Gluconate Complex 125 mg/ Sodium Chloride 110 mls @ 100 mls/hr IV ONETIME ONE Stop: 08/24/20 12:20 Last Admin: 08/24/20 11:17 Dose: 100 mls/hr Documented by: Insulin Aspart (Novolog Mix 70-30) 0 unit SUBCUT TIDMEALS [facility]; Protocol Last Admin: 08/28/20 07:41 Dose: Not Given Documented by: Insulin Human Lispro (Humalog) 0 unit SUBCUT QIDACANDBED [facility]; Protocol Last Admin: 08/27/20 13:35 Dose: Not Given Documented by: Insulin Human Lispro (Humalog) 0 unit SUBCUT [facility]; Protocol Last Admin: 08/28/20 08:16 Dose: 1 unit Documented by: Insulin Human Lispro (Humalog) 0 unit SUBCUT [facility] PRN; Protocol PRN Reason: Hyperglycemia Iopamidol (Isovue-370 (76%)) 100 ml IVPUSH ONETIME ONE Stop: 08/22/20 13:36 Last Admin: 08/22/20 20:01 Dose: Not Given Documented by: Iopamidol (Isovue-370 (76%)) 100 ml IVPUSH ONETIME ONE Stop: 08/22/20 14:04 Last Admin: 08/22/20 20:01 Dose: Not Given Documented by: Sodium Chloride (Saline Flush) 10 ml FLUSH ASDIRECTED PRN PRN Reason: Keep Vein Open Last Admin: 08/22/20 12:45 Dose: 10 ml Documented by: Sodium Chloride (Saline Flush) 10 ml FLUSH ONETIME PRN PRN Reason: Keep Vein Open Sodium Chloride (Saline Flush) 10 ml FLUSH ONETIME PRN PRN Reason: Keep Vein Open - Exam Quality Assessment: Reports: Supplemental Oxygen (2 L per nasal cannula), DVT Prophylaxis (Patient will be started on Xarelto due to elevated D-dimer due to Covid) General: Reports: Alert, Oriented, Cooperative, No Acute Distress HEENT: Reports: Pupils Equal, Pupils Reactive, Mucous Membr. Moist/[place] Neck: Reports: Supple, Trachea Midline. Denies: Lymphadenopathy Lungs: Reports: Decreased Breath Sounds, Crackles Cardiovascular: Reports: Regular Rate, Irregular Rhythm GI/Abdominal Exam: Normal Bowel Sounds, Soft, Non-Tender, No Distention (Female) Exam: Deferred Rectal (Female) Exam: Deferred Back Exam: Reports: Normal Inspection, Full Range of Motion Extremities: Normal Inspection, Normal Range of Motion, Non-Tender, No Pedal Edema, Normal Capillary Refill Skin: Reports: Warm, Dry, Intact Neurological: Reports: No New Focal Deficit Psy/Mental Status: Reports: Alert, Normal Affect, Normal Mood
== END 2020-08-30 13:00 | DRG 177 ==
LOC: JD.ED 11:35 → JD.MS 15:29
PROVIDERS: ADMIT Pediatrics; ATTEND Pediatrics
PROC: XW033E5 Introduction of Remdesivir Anti-infective into Peripheral Vein, Percutaneous Approach, New Technology Group 5 (ICD-10-PCS; principal; 2020-08-22)
PROC: XW033F5 Introduction of Other New Technology Therapeutic Substance into Peripheral Vein, Percutaneous Approach, New Technology Group 5 (ICD-10-PCS; 2020-08-22)
PROC: XW13325 Transfusion of Convalescent Plasma (Nonautologous) into Peripheral Vein, Percutaneous Approach, New Technology Group 5 (ICD-10-PCS; 2020-08-22)
DX: U07.1 COVID-19 (principal); J12.89 Other viral pneumonia; I48.91 Unspecified atrial fibrillation; J96.21 Acute and chronic respiratory failure with hypoxia; Z88.6 Allergy status to analgesic agent; Z88.5 Allergy status to narcotic agent; Z91.013 Allergy to seafood; Z79.82 Long term (current) use of aspirin; Z79.899 Other long term (current) drug therapy; H54.7 Unspecified visual loss; H91.93 Unspecified hearing loss, bilateral; E78.00 Pure hypercholesterolemia, unspecified; N17.9 Acute kidney failure, unspecified; J44.0 Chronic obstructive pulmonary disease with (acute) lower respiratory infection; I34.0 Nonrheumatic mitral (valve) insufficiency; Z99.81 Dependence on supplemental oxygen; R73.9 Hyperglycemia, unspecified; J96.11 Chronic respiratory failure with hypoxia; E88.09 Other disorders of plasma-protein metabolism, not elsewhere classified; I10 Essential (primary) hypertension; H91.90 Unspecified hearing loss, unspecified ear; D64.9 Anemia, unspecified; D84.9 Immunodeficiency, unspecified; C34.90 Malignant neoplasm of unspecified part of unspecified bronchus or lung; Z87.891 Personal history of nicotine dependence; I73.9 Peripheral vascular disease, unspecified; E78.5 Hyperlipidemia, unspecified; I65.29 Occlusion and stenosis of unspecified carotid artery; J84.10 Pulmonary fibrosis, unspecified; Z85.118 Personal history of other malignant neoplasm of bronchus and lung; K21.9 Gastro-esophageal reflux disease without esophagitis; M19.90 Unspecified osteoarthritis, unspecified site; H81.09 Meniere's disease, unspecified ear; D50.9 Iron deficiency anemia, unspecified; Z66 Do not resuscitate; R32 Unspecified urinary incontinence; Z98.42 Cataract extraction status, left eye; Z98.41 Cataract extraction status, right eye; Z90.49 Acquired absence of other specified parts of digestive tract; Z98.890 Other specified postprocedural states
CPT/HCPCS: 36415; 36430; 71045; 71045-26; 71275; 71275-26; 80048; 80053; 80076; 80162; 81003; 82962; 83036; 83540; 83605; 83735; 83880; 84100; 84443; 84484; 85025; 85379; 85610; 85730; 86140; 86900; 86901; 93005; 93010; 94640; 94667; 94668; 94761; 94762; 97110-GP; 97162-GP; 97165-GO; 97530-GO; 97535-GO; 99285; A9270-GY; J0456; J0696; J1100; J1650; J1815-GY; J1940; J2916; J3490; J7030; J7050; J8540; P9017; U0002

== ENCOUNTER 2021-03-23 17:07 | Inpatient (IN) | payer MEDICARE, BC ==
[2021-03-23] MEDS ORDERED: HYDROmorphone 0.5 MG/0.5 ML Syringe IVPUSH ONE (17:32)
[2021-03-23] MEDS ORDERED: Ondansetron 4 MG/2 ML SDV IVPUSH ONE (17:33)
--- NOTE | 2021-03-23 17:38 | EDM.PDOC ---
ED HPI GENERAL MEDICAL PROBLEM - General Chief Complaint: General Stated Complaint: FALL/ HURTS EVERYWHERE/EYEBROW LAC Time Seen by Provider: 03/23/21 17:30 Source of Information: Reports: Patient History Limitations: Reports: No Limitations - History of Present Illness INITIAL COMMENTS - FREE TEXT/NARRATIVE: 80-year-old female presents to the ED after fall at home this afternoon shortly after 1600 hrs. She states that she has Mnire's disease and intermittently loses her balance which can cause her to fall. She fell in her laundry room and not sure what she hit. She has suffered a linear superficial laceration superior to her left eyebrow. I do not believe this wound will require laceration repair. She has no cervical neck pain. No significant hematoma of the left forehead. Pain primarily in her right scapula and underlying ribs and mid thoracic spine on exam. Large hematoma half the size of a football over her right greater trochanteric process of hip. She has full range of motion of her hip however and unlikely to have a fracture. She states she had her son come and pick her up and help her get up from the floor. Onset: Today, Sudden Onset Date: 03/23/21 Onset Time: 16:10 Duration: Minutes: Location: Reports: Face (Above left eyebrow), Back (Left scapula and underlying ribs and mid thoracic spine), Lower Extremity, Right (Large hematoma of her right lateral hip over the greater trochanteric process) Quality: Reports: Ache, Throbbing Severity: Moderate Improves with: Reports: Rest Worsens with: Reports: Other (Back pain and pain in her right upper), Movement Context: Reports: Trauma (Fall at home.). Denies: Activity ( chest under her shoulder blade is worse with deep inspiration), Exercise, Lifting, Sick Contact Associated Symptoms: Reports: Malaise, Shortness of Breath, Weakness, Other (Off balance due to Mnire's disease.). Denies: No Other Symptoms, Confusion, Chest Pain, Cough, cough w sputum, Diaphoresis, Fever/Chills, Headaches, Loss of Appetite, Nausea/Vomiting, Rash, Seizure (Chronically), Syncope Treatments DIAMOND SIZER: Reports: Other (see below) Right Hip Pain Score (Numeric/FACES): 9 - Related Data Allergies Allergy/AdvReac Type Severity Reaction Status Date / Time morphine Allergy Severe Hives Verified 03/23/21 17:24 shellfish derived Allergy Severe Hives Verified 03/23/21 17:24 codeine AdvReac Severe Nausea Verified 03/23/21 17:24 Home Meds: Home Meds Furosemide 40 mg PO DAILY 06/20/16 [History] Losartan [Cozaar] 50 mg PO DAILY 06/20/16 [History] Lutein/Minerals/Vit A,C & E [Ocuvite] 1 tab PO DAILY 06/20/16 [History] Omeprazole 20 mg PO DAILY 06/20/16 [History] Meclizine [Antivert] 25 mg PO DAILY 08/14/17 [History] Pravastatin Sodium 10 mg PO DAILY 08/14/17 [History] Albuterol [Proventil Neb Soln] 1 dose INH BID 01/06/18 [History] Digoxin [Digox] 125 mcg PO DAILY 01/06/18 [History] dilTIAZem HCL [Cardizem Cd] 240 mg PO BID 01/06/18 [History] Albuterol [Ventolin HFA] 1 puff INH DAILY 11/25/19 [History] Cyanocobalamin (Vitamin B-12) [B-12] 500 mcg PO ASDIRECTED 08/22/20 [History] Aspirin 325 mg PO DAILY 03/23/21 [History] Past Medical History HEENT History: Reports: Cataract, Hard of Hearing, Impaired Vision, Other (See Below) Other HEENT History: meniere's disease, glasses, hearing aids, upper/lower dentures Cardiovascular History: Reports: Afib, High Cholesterol, Hypertension, PVD Other Cardiovascular History: edema, carotid artery stenosis, Left bundle branch block, mitral valve regurgitation Respiratory History: Reports: Bronchitis, Recurrent, COPD, SOB Other Respiratory History: chronic oxygen use, lung cancer, bronchitits, acute on chronic respiratory failure with hypoxia-wears 2L O2 via [place] all the time at home patient has primary lung cancer left lung diagnosed 4 years ago. Completed courses of immunotherapy for the first year and a half but had to quit due to elevated renal function. It is being watched by oncology with CT every 3 months. Gastrointestinal History: Reports: GERD, Hemorrhoids Genitourinary History: Reports: Urinary Incontinence [employer] History: Reports: Musculoskeletal History: Reports: Osteoarthritis Neurological History: Reports: Other (See Below) Other Neuro History: lumbar degenerative disc disease, lumbar facet arthropathy, radicular lumbar pain Psychiatric History: Reports: None Endocrine/Metabolic History: Reports: Other (See Below) Other Endocrine/Metabolic History: Meniere's disease Hematologic History: Reports: Anemia, Other (See Below) Other Hematologic History: pt doesn't state she has history of anemia Immunologic History: Reports: Immunosuppression, Other (See Below) Other Immunologic History: hx radiation in may 2017 Oncologic (Cancer) History: Reports: Lung Dermatologic History: Reports: None - Infectious Disease History Infectious Disease History: Reports: Chicken Pox, Measles, Mumps, Novel Coronavirus - Past Surgical History HEENT Surgical History: Reports: Cataract Surgery, Tonsillectomy Cardiovascular Surgical History: Reports: Vascular Surgery GI Surgical History: Reports: Cholecystectomy, Colonoscopy, EGD Musculoskeletal Surgical History: Reports: Hip Replacement Social & Family History - Family History Family Medical History: No Pertinent Family History - Tobacco Use Tobacco Use Status *Q: Former Tobacco User ([id number] history) Used Tobacco, but Quit: Yes Month/Year Tobacco Last Used: 09/2018 - Caffeine Use Caffeine Use: Reports: Coffee - Recreational Drug Use Recreational Drug Use: No - Living Situation & Occupation Living situation: Reports: , Alone Occupation: Retired ED ROS GENERAL - Review of Systems Review Of Systems: See Below Constitutional: Reports: Weakness, Fatigue, Decreased Appetite. Denies: Fever, Chills HEENT: Reports: Glasses Respiratory: Reports: Shortness of Breath, Cough. Denies: Wheezing, Pleuritic Chest Pain, Sputum, Hemoptysis (Mild nonproductive cough) Cardiovascular: Reports: Blood Pressure Problem, Dyspnea on Exertion, Lightheadedness, Palpitations. Denies: Chest Pain, Claudication, Edema, Orthopnea Endocrine: Reports: Fatigue GI/Abdominal: Reports: Constipation : Reports: Frequency, Incontinence (Primarily urge incontinence), Urgency Musculoskeletal: Reports: Neck Pain, Shoulder Pain, Back Pain, Joint Pain (Knees at times.), Other (Has had left total hip replacement) Skin: Reports: Bruising (Bruises easily. Is on aspirin daily) Neurological: Reports: Difficulty Walking (Loses balance easily due to Mnire's disease often uses a walker to aid her balance), Other Psychiatric: Reports: No Symptoms Hematologic/Lymphatic: Reports: No Symptoms Immunologic: Reports: No Symptoms ED EXAM, GENERAL - Physical Exam Exam: See Below Exam Limited By: No Limitations General Appearance: Alert, WD/WN, Anxious, Mild Distress, Other (Having a lot of pain right upper back under her shoulder blade. Vital signs show temperature of 35.7 degrees. Heart rate 84 and sinus. Respiratory is 20 with O2 sats of 95% room air BP is 128/73) Eye Exam: Bilateral Eye: Normal Inspection, PERRL (Minimal blepharal pallor. No scleral icterus.) Nose: Normal Inspection, Normal Mucosa Throat/Mouth: Normal Inspection, Normal Lips, Normal Oropharynx, Other (No dental or tongue injury.) Head: Atraumatic, Normocephalic (No outward signs of head trauma not identified.), Other (Linear very superficial laceration above her left eyebrow approximately 3 cm in length. It appears to be very superficial and will not need suture repair. No significant swelling in this area) Neck: Normal Inspection, Supple, Non-Tender, Full Range of Motion (Crepitus on lateral rotation. Perhaps loss of 5 degrees flexion and extension.). No: Lymphadenopathy (L), Lymphadenopathy (R) Respiratory/Chest: No Accessory Muscle Use, Respiratory Distress (Mild tachypnea.), Decreased Breath Sounds (Decreased hearing to the lower 30% on beaver bilaterally. Very occasional), Wheezing ( expiratory wheeze appreciated.). No: No Respiratory Distress, Lungs Clear, Normal Breath Sounds, Rales, Rhonchi Cardiovascular: Regular Rate, Rhythm, No Edema, No Gallop, No Rub, Systolic Murmur (Rate 2 out of 6 pansystolic ejection murmur heard best at the left lower sternal border rating up towards the right carotid artery. This is combined with aortic stenosis.) Peripheral Pulses: 1+: Posterior Tibial (L), Posterior Tibial (R), Dorsalis Pedis (L), Dorsalis Pedis (R), 2+: Carotid (L), Carotid (R) GI/Abdominal: Normal Bowel Sounds, Soft, No Organomegaly, Distended (Due to full urinary bladder), Other (The abdomen is firm. Bladder is easily palpable lower abdomen and is full.). No: Guarding, Rigid, Rebound, Tender Back Exam: Other (Examination of her back reveals no obvious hematomas abrasions or contusions. Tenderness is appreciated over the lower or inferior portion of the scapula on the right side and the surrounding ribs particularly inferior to the scapula. She also has pain on palpation of the spinous processes from th) Extremities: Arm Pain (Patient does have a hematoma over her lateral aspect of her right elbow. However she has full flexion extension and pronation supination at the elbow with no signs of bony injury.), Other (Patient has full unopposed range of motion of her left hip. She has a prosthetic left hip. On the right she can flex her hip with no problem and she has limited external and internal rotation in spite of having a very large hematoma half the size of a fo otball overlying her right greater trochante) Neurological: Alert, Oriented, CN II-XII Intact, Normal Cognition. No: Normal Gait (Not assessed) Psychiatric: Anxious Skin Exam: Warm, Dry, Intact, Normal Color, No Rash #1 Interpretation EKG Date: 03/23/21 Time: 17: Rhythm: NSR Rate (Beats/Min): 80 (Frequent PACs and occasional PVCs) [place]: Normal P-Wave: Present (Borderline first-degree AV block) QRS: Other ST-T: Other (T wave inversion in leads I and aVL) QT: Normal EKG Interpretation Comments: Abnormal ECG Course - Vital Signs Last Recorded V/S: Last Vital Signs Temp 35.7 C L 03/23/21 17:20 Pulse 78 03/23/21 19:08 Resp 24 H 03/23/21 19:08 BP 151/68 H 03/23/21 19:08 Pulse Ox 90 L 03/23/21 19:08 - Orders/Labs/Meds Orders: Active Orders 24 hr Category Date Time Status Oxygen Therapy, ED [RC] ASDIRECTED Care 03/23/21 17:30 Active Dextrose 5%-0.9% NaCl [Dextrose 5%-Normal Saline] 1,000 Med 03/23/21 17:45 Active ml IV ASDIRECTED Medication Orders Dextrose/Sodium Chloride (Dextrose 5%-Normal Saline) 1,000 mls @ 125 mls/hr IV ASDIRECTED JACKIE Last Admin: 03/23/21 17:45 Dose: 125 mls/hr Documented by: REJI Labs: Laboratory Tests 03/23/21 03/23/21 03/23/21 Range/Units 17:45 17:45 17:45 WBC 10.75 H (3.98-10.04) K/mm3 RBC 3.87 L (3.98-5.22) M/mm3 Hgb 9.4 L (11.2-15.7) gm/dl Hct 31.3 L (34.1-44.9) % MCV 80.9 D (79.4-94.8) fl MCH 24.3 L (25.6-32.2) pg MCHC 30.0 L (32.2-35.5) g/dl RDW Std Deviation 56.4 H (36.4-46.3) fL Plt Count 372 H (182-369) K/mm3 MPV 9.6 (9.4-12.3) fl Neutrophils % (Manual) 76 H (40-60) % Band Neutrophils % 2 (0-10) % Lymphocytes % (Manual) 17 L (20-40) % Atypical Lymphs % 0 % Monocytes % (Manual) 5 (2-10) % Eosinophils % (Manual) 0 L (0.7-5.8) % Basophils % (Manual) 0 L (0.1-1.2) Toxic Granulation Few Platelet Estimate Adequate Hypochromasia 1+ slight Anisocytosis 1+ slight Ovalocytes 1+ slight RBC Morph Comment Not Reportable PT 10.1 (9.7-12.0) SECONDS INR 0.94 APTT 28.5 (21.7-31.4) SECONDS Sodium 135 L (136-145) mEq/L Potassium 4.6 (3.5-5.1) mEq/L Chloride 96 L (98-107) mEq/L Carbon Dioxide 28 (21-32) mEq/L Anion Gap 15.6 H (5-15) BUN 20 H D (7-18) mg/dL Creatinine 1.4 H (0.55-1.02) mg/dL Est Cr Clr Drug Dosing 26.75 mL/min Estimated GFR (MDRD) 36 (>60) mL/min BUN/Creatinine Ratio 14.3 (14-18) Glucose 146 H (70-99) mg/dL Calcium 8.5 (8.5-10.1) mg/dL Magnesium 2.0 (1.8-2.4) mg/dL Total Bilirubin 0.2 (0.2-1.0) mg/dL AST 7 L (15-37) U/L ALT 17 (14-59) U/L Alkaline Phosphatase 78 (46-116) U/L C-Reactive Protein 1.1 H* (<1.0) mg/dL NT-Pro-B Natriuret Pep (0-450) pg/mL Total Protein 7.0 (6.4-8.2) g/dl Albumin 3.5 (3.4-5.0) g/dl Globulin 3.5 gm/dL Albumin/Globulin Ratio 1.0 (1-2) Urine Color (Yellow) Urine Appearance (Clear) Urine pH (5.0-8.0) Ur Specific [place] (1.005-1.030) Urine Protein (Negative) Urine Glucose (UA) (Negative) Urine Ketones (Negative) Urine Occult Blood (Negative) Urine Nitrite (Negative) Urine Bilirubin (Negative) Urine Urobilinogen (0.2-1.0) Ur Leukocyte Esterase (Negative) U Hyaline Cast (Auto) (0-5) /lpf Urine RBC (0-5) /hpf Urine WBC (0-5) /hpf Ur Squamous Epith Cells (0-5) /hpf Urine Bacteria (FEW) /hpf Urine Mucus (FEW) /hpf Digoxin (0.9-2.0) ng/mL 03/23/21 03/23/21 03/23/21 Range/Units 17:45 17:45 18:39 WBC (3.98-10.04) K/mm3 RBC (3.98-5.22) M/mm3 Hgb (11.2-15.7) gm/dl Hct (34.1-44.9) % MCV (79.4-94.8) fl MCH (25.6-32.2) pg MCHC (32.2-35.5) g/dl RDW Std Deviation (36.4-46.3) fL Plt Count (182-369) K/mm3 MPV (9.4-12.3) fl Neutrophils % (Manual) (40-60) % Band Neutrophils % (0-10) % Lymphocytes % (Manual) (20-40) % Atypical Lymphs % % Monocytes % (Manual) (2-10) % Eosinophils % (Manual) (0.7-5.8) % Basophils % (Manual) (0.1-1.2) Toxic Granulation Platelet Estimate Hypochromasia Anisocytosis Ovalocytes RBC Morph Comment PT (9.7-12.0) SECONDS INR APTT (21.7-31.4) SECONDS Sodium (136-145) mEq/L Potassium (3.5-5.1) mEq/L Chloride (98-107) mEq/L Carbon Dioxide (21-32) mEq/L Anion Gap (5-15) BUN (7-18) mg/dL Creatinine (0.55-1.02) mg/dL Est Cr Clr Drug Dosing mL/min Estimated GFR (MDRD) (>60) mL/min BUN/Creatinine Ratio (14-18) Glucose (70-99) mg/dL Calcium (8.5-10.1) mg/dL Magnesium (1.8-2.4) mg/dL Total Bilirubin (0.2-1.0) mg/dL AST (15-37) U/L ALT (14-59) U/L Alkaline Phosphatase (46-116) U/L C-Reactive Protein (<1.0) mg/dL NT-Pro-B Natriuret Pep 811 H (0-450) pg/mL Total Protein (6.4-8.2) g/dl Albumin (3.4-5.0) g/dl Globulin gm/dL Albumin/Globulin Ratio (1-2) Urine Color Yellow (Yellow) Urine Appearance Clear (Clear) Urine pH 6.0 (5.0-8.0) Ur Specific [place] 1.020 (1.005-1.030) Urine Protein Negative (Negative) Urine Glucose (UA) Negative (Negative) Urine Ketones Negative (Negative) Urine Occult Blood Negative (Negative) Urine Nitrite Negative (Negative) Urine Bilirubin Negative (Negative) Urine Urobilinogen 0.2 (0.2-1.0) Ur Leukocyte Esterase Negative (Negative) U Hyaline Cast (Auto) 40-50 H (0-5) /lpf Urine RBC Not seen (0-5) /hpf Urine WBC 0-5 (0-5) /hpf Ur Squamous Epith Cells Not seen (0-5) /hpf Urine Bacteria Rare (FEW) /hpf Urine Mucus Few (FEW) /hpf Digoxin 0.9 (0.9-2.0) ng/mL Meds: Medications Generic Name Dose Route Start Last Admin Trade Name Freq PRN Reason Stop Dose Admin Dextrose/Sodium Chloride 1,000 mls @ 125 mls/hr 06/24/21 17:45 03/23/21 17:45 Dextrose 5%-Normal Saline IV 125 mls/hr ASDIRECTED JACKIE Administration Discontinued Medications Generic Name Dose Route Start Last Admin Trade Name Jenny PRN Reason Stop Dose Admin Hydromorphone HCl 0.5 mg 03/23/21 17:32 03/23/21 17:46 Hydromorphone 0.5 Mg/0.5 Ml Syringe IVPUSH 03/23/21 17:33 0.5 mg ONETIME ONE Administration Ondansetron HCl 4 mg 03/23/21 17:33 03/23/21 17:45 Ondansetron 4 Mg/2 Ml Sdv IVPUSH 03/23/21 17:34 4 mg ONETIME ONE Administration - Radiology Interpretation Free Text/Narrative:: 80-year-old female presents to the ED after suffering a fall at her home shortly after 1600 hrs. today. Patient gives a history of Mnire's disease and states that she will often just lose her balance and fall. Today she fell in her laundry room and she is not sure what she struck. She has suffered a linear superficial laceration above her left eyebrow without any significant scalp hematoma. No other outward signs of head or facial trauma. No injury to the neck clinically. Pain underneath her right shoulder blade and ribs inferior to the shoulder blade and mid thoracic spine on exam. No abrasions or contusions identified. She has a very large hematoma over her right hip over the greater trochanteric process but has full range of motion of her hip with internal and external rotation being decreased due to arthritis but no pain with movement. Appears to be a hematoma only. Abdomen exam reveals bowel sounds to be active with a very full urinary bladder. Plan she will have CT chest and CT thoracic spine carried out due to inability to stand. Both will be done without contrast. She will then have 1 view of the pelvis carried out to make sure there is no problem with her pelvis or right hip - Re-Assessments/Exams Free Text/Narrative Re-Assessment/Exam: 03/23/21 18:35: CT scan of the chest performed without contrast. Findings reveal thoracic aorta and branch vessels show atherosclerotic calcification. There is minimal aneurysmal formation of the thoracic aorta. Mediastinum shows small lymph nodes which are within normal limits. No pericardial thickening is seen. Small portion of the upper abdominal structures show a small cyst within the right kidney. Several nonobstructing calculi are seen within the left and right kidneys. Mild vascular calcification is seen within both renal vessels. There is a large right-sided pneumothorax which is approximately 40 to 50%. Interstitial fibrosis is noted within the right lung base. Small nodule is noted within the right lung base presumably metastatic in nature. Several pleural-based nodules are seen within the posterior right lung base again most likely representing metastatic lung disease. Several nodules are scattered within the left lung most likely metastatic. There is increased density within the left upper chest which is slightly more prominent than on prior study due to recurrence of tumor or more focal area of increasing scarring. Bone window settings were reviewed which show scattered degenerative spurring within the spine. Rib fractures are seen within the right fifth and sixth ribs which are acute. Old partially healed fractures are seen within the left upper ribs I believe 3 4 and 5. Assessment is focal density within the left upper chest more prominent than on prior CT T of the chest which may represent worsening area of neoplasm versus worsening of area of scarring. CT of the thoracic spine reveals vertebral body heights and disc space to be fairly well-maintained. To space narrowing is noted within the lower cervical spine. Osteopenia is certainly present. Scattered endplate osteophytes are seen within the thoracic spine. No focal osteolytic or osteoblastic changes are identified. No acute fractures or subluxation identified. AP view of the pelvis was obtained. Severe joint space narrowing is noted overlying the right hip with [id number] situation. Left hip prosthesis is noted. Degenerative changes partially seen within the lumbar spine. Bony structures are very osteopenic. No discrete fracture or other bony abnormality is noted. No osteolytic or osteoblastic changes are identified. Visualized bowel gas pattern appears within normal limits. Soft tissue swelling is partially visualized overlying the right hip. 03/23/21 18:45: I have spoken with on-call surgeon Dr. Munoz and he will see the patient in the emergency room. She will require admission to the hospital. He will therefore perform thoracostomy tube drainage on the right side. Tovar catheter was left in as it is unlikely that she will be able to walk with a very large hematoma overlying her right hip. Her son was present and is aware of the rib fractures and the need for chest tube insertion due to a 40 to 50% pneumothorax on the right side. 03/23/21 19:30 White count is slightly elevated at 10.75 with 76% neutrophils and 2% bands cells reported. Hemoglobin is low at 9.4 with hematocrit of 31.3. MCV is 80.9. Platelet count 372,000. PT is 10.1 with an INR of 0.94. PTT is 28.5. Sodium 135 with a potassium of 4.6. Chloride 96 with a bicarb of 28. Anion gap is 15.6. BUN is 20 with a creatinine of 1.4 and a GFR of 36 a stage IIIb renal insufficiency. Glucose slightly elevated at 146. Calcium is 8.5. Magnesium is 2.0. Liver function is normal. C-reactive protein is 1.1. BNP is 811. Total protein 7.0 with an albumin fraction of 3.5 urinalysis is yellow with 40-50 hyaline casts present but no signs of infection. Serum digoxin level is therapeutic at 0.9 Departure - Departure Time of Disposition: 20:30 Disposition: Admitted As Inpatient 66 Condition: Poor Clinical Impression: Primary malignant neoplasm of left lung metastatic to other site Fall as cause of accidental injury at home as place of occurrence Qualifiers: Encounter type: initial encounter Qualified Code(s): W19.XXXA - Unspecified fall, initial encounter; Y92.009 - Unspecified place in unspecified non- institutional (private) residence as the place of occurrence of the external cause Rib fractures Qualifiers: Encounter type: initial encounter Fracture type: closed Laterality: right Qualified Code(s): S22.41XA - Multiple fractures of ribs, right side, initial encounter for closed fracture Traumatic hematoma of right hip Qualifiers: Encounter type: initial encounter Qualified Code(s): S70.01XA - Contusion of right hip, initial encounter - Discharge Information *PRESCRIPTION DRUG MONITORING PROGRAM REVIEWED*: Not Applicable *COPY OF PRESCRIPTION DRUG MONITORING REPORT IN PATIENT APPLE: Not Applicable Referrals: Ismael North MD [Primary Care Provider] - Forms: ED Department Discharge Sepsis Event Note (ED) - Evaluation Sepsis Screening Result: No Definite Risk - Focused Exam Vital Signs: Vital Signs Temp Pulse Resp BP Pulse Ox 03/23/21 19:08 78 24 H 151/68 H 90 L 03/23/21 17:20 35.7 C L 84 20 128/73 95 - My Orders Last 24 Hours: My Active Orders 03/23/21 17:30 Oxygen Therapy, ED [RC] ASDIRECTED 03/23/21 17:45 Dextrose 5%-0.9% NaCl [Dextrose 5%-Normal Saline] 1,000 ml IV ASDIRECTED - Assessment/Plan Last 24 Hours: My Active Orders 03/23/21 17:30 Oxygen Therapy, ED [RC] ASDIRECTED 03/23/21 17:45 Dextrose 5%-0.9% NaCl [Dextrose 5%-Normal Saline] 1,000 ml IV ASDIRECTED
[2021-03-23] MEDS ORDERED: Dextrose 5%-0.9% NaCl 1,000 ML IV SCH (17:45)
--- NOTE | 2021-03-23 18:51 | CT ---
CT chest Technique: Multiple axial sections through the chest were obtained. Intravenous contrast was not utilized. Reconstructed coronal and sagittal images were obtained. Comparison: Prior chest CT study of 08/22/20. Findings: Thoracic aorta and branch vessels show atherosclerotic calcification. No aneurysm is seen. Mediastinum shows small lymph nodes which are within normal limits. No pericardial thickening is seen. Small portion of the upper abdominal structures show a small cyst within the right kidney. Several nonobstructing calculi are seen within the left and right kidneys. Mild vascular calcification is seen within both renal vessels. Right-sided pneumothorax is seen which is moderate in size. Interstitial fibrosis is noted within the right lung base. Small nodule is noted within the right lung base presumably metastatic. Several pleural-based nodules are seen within the posterior right lung base most likely metastatic. Several nodules are scattered within the left lung most likely metastatic. There is increased density within the left upper chest which is slightly more prominent than on prior study either due to recurrence of tumor or more focal area of increased scarring. Bone window settings were reviewed which show scattered degenerative spurring within the spine. Rib fractures are seen within the fifth and sixth ribs which could possibly be acute. Old partially healed fractures are seen within the left ribs. Impression: 1. Moderate sized right-sided pneumothorax. 2. Focal density within left upper chest more prominent than on prior chest CT which may represent worsening area of neoplasm versus worsening area of scarring. Please correlate. 3. Multiple small pulmonary nodules are seen most likely metastatic. 4. Several partially healed left-sided rib fractures are noted. There may be two acute or subacute rib fractures on the right side. 5. Other findings believed to be incidental as described above. Diagnostic code #5
--- NOTE | 2021-03-23 18:53 | CR ---
Pelvis: AP view of the pelvis was obtained. Comparison: No prior pelvis exam is available. Severe joint space narrowing is noted overlying the right hip. Left hip prosthesis is noted. Degenerative change is partially seen with the lumbar spine. Bony structures are osteopenic. No discrete fracture or other bony abnormality is noted. No osteolytic or osteoblastic change is seen. Visualized bowel gas pattern appears within normal limits. Soft tissue swelling is partially visualized overlying the right hip. Impression: 1. Soft tissue swelling overlying the right hip. 2. Degenerative change and osteopenia with left hip prosthesis. 3. No acute osseous abnormality is seen. Diagnostic code #2
--- NOTE | 2021-03-23 18:53 | CT ---
CT thoracis spine Technique: Multiple axial sections through the thoracic spine were obtained. Reconstructed coronal and sagittal images were obtained. Findings: Vertebral body heights and disc spaces are fairly well preserved within the thoracic spine. Disc space narrowing is noted within the lower cervical spine. Osteopenia is present. Scattered endplate osteophytes are seen within the thoracic spine. No focal osteolytic or osteoblastic change is seen. No acute fracture or subluxation is seen. Impression: 1. Mild degenerative change. Osteopenia. 2. Nothing acute is seen on CT study of the thoracic spine. Diagnostic code #2
[2021-03-23] MEDS ORDERED: Lidocaine 1% 10 ML MDV ONE (19:25)
[2021-03-23] MEDS ORDERED: Ketamine 500 mg/10 ML MDV ONE (19:32)
--- NOTE | 2021-03-23 19:32 | PCM.PREANE ---
Preanesthetic Assessment - Procedure Proposed Procedure: chest tube - Anesthesia/Transfusion/Family Hx Anesthesia History: Prior Anesthesia Without Reaction Family History of Anesthesia Reaction: No Transfusion History: No Prior Transfusion(s) Type of Transfusion Reactions: Reports: Unknown - Review of Systems General: No Symptoms Pulmonary: Shortness of Breath Cardiovascular: Dyspnea on Exertion Gastrointestinal: No Symptoms Neurological: No Symptoms Other: Reports: None - Physical Assessment NPO Status Date: 03/23/21 NPO Status Time: 11:30 Vital Signs: Last Vital Signs Temp 96.2 F L 03/23/21 17:20 Pulse 78 03/23/21 19:08 Resp 24 H 03/23/21 19:08 BP 151/68 H 03/23/21 19:08 Pulse Ox 90 L 03/23/21 19:08 Height: 5 ft 4 in Weight: 63.957 kg ASA Class: 3E Mental Status: Alert & Oriented x3 Airway Class: Mallampati = 2 Dentition: Reports: Dentures Thyro-Mental Finger Breadths: 3 Mouth Opening Finger Breadths: 3 ROM/Head Extension: Full Lungs: Decreased Breath Sounds Cardiovascular: Irregular Rhythm - Lab Values: Laboratory Last Values WBC 10.75 K/mm3 (3.98-10.04) H 03/23/21 17:45 RBC 3.87 M/mm3 (3.98-5.22) L 03/23/21 17:45 Hgb 9.4 gm/dl (11.2-15.7) L 03/23/21 17:45 Hct 31.3 % (34.1-44.9) L 03/23/21 17:45 MCV 80.9 fl (79.4-94.8) D 03/23/21 17:45 MCH 24.3 pg (25.6-32.2) L 03/23/21 17:45 MCHC 30.0 g/dl (32.2-35.5) L 03/23/21 17:45 RDW Std Deviation 56.4 fL (36.4-46.3) H 03/23/21 17:45 Plt Count 372 K/mm3 (182-369) H 03/23/21 17:45 MPV 9.6 fl (9.4-12.3) 03/23/21 17:45 Neutrophils % (Manual) 76 % (40-60) H 03/23/21 17:45 Band Neutrophils % 2 % (0-10) 03/23/21 17:45 Lymphocytes % (Manual) 17 % (20-40) L 03/23/21 17:45 Atypical Lymphs % 0 % 03/23/21 17:45 Monocytes % (Manual) 5 % (2-10) 03/23/21 17:45 Eosinophils % (Manual) 0 % (0.7-5.8) L 03/23/21 17:45 Basophils % (Manual) 0 (0.1-1.2) L 03/23/21 17:45 Toxic Granulation Few 03/23/21 17:45 Platelet Estimate Adequate 03/23/21 17:45 Hypochromasia 1+ slight 03/23/21 17:45 Anisocytosis 1+ slight 03/23/21 17:45 Ovalocytes 1+ slight 03/23/21 17:45 RBC Morph Comment Not Reportable 03/23/21 17:45 PT 10.1 SECONDS (9.7-12.0) 03/23/21 17:45 INR 0.94 03/23/21 17:45 APTT 28.5 SECONDS (21.7-31.4) 03/23/21 17:45 Sodium 135 mEq/L (136-145) L 03/23/21 17:45 Potassium 4.6 mEq/L (3.5-5.1) 03/23/21 17:45 Chloride 96 mEq/L (98-107) L 03/23/21 17:45 Carbon Dioxide 28 mEq/L (21-32) 03/23/21 17:45 Anion Gap 15.6 (5-15) H 03/23/21 17:45 BUN 20 mg/dL (7-18) H D 03/23/21 17:45 Creatinine 1.4 mg/dL (0.55-1.02) H 03/23/21 17:45 Est Cr Clr Drug Dosing 26.75 mL/min 03/23/21 17:45 Estimated GFR (MDRD) 36 mL/min (>60) 03/23/21 17:45 BUN/Creatinine Ratio 14.3 (14-18) 03/23/21 17:45 Glucose 146 mg/dL (70-99) H 03/23/21 17:45 Calcium 8.5 mg/dL (8.5-10.1) 03/23/21 17:45 Magnesium 2.0 mg/dL (1.8-2.4) 03/23/21 17:45 Total Bilirubin 0.2 mg/dL (0.2-1.0) 03/23/21 17:45 AST 7 U/L (15-37) L 03/23/21 17:45 ALT 17 U/L (14-59) 03/23/21 17:45 Alkaline Phosphatase 78 U/L (46-116) 03/23/21 17:45 C-Reactive Protein 1.1 mg/dL (<1.0) H* 03/23/21 17:45 NT-Pro-B Natriuret Pep 811 pg/mL (0-450) H 03/23/21 17:45 Total Protein 7.0 g/dl (6.4-8.2) 03/23/21 17:45 Albumin 3.5 g/dl (3.4-5.0) 03/23/21 17:45 Globulin 3.5 gm/dL 03/23/21 17:45 Albumin/Globulin Ratio 1.0 (1-2) 03/23/21 17:45 Urine Color Yellow (Yellow) 03/23/21 18:39 Urine Appearance Clear (Clear) 03/23/21 18:39 Urine pH 6.0 (5.0-8.0) 03/23/21 18:39 Ur Specific [place] 1.020 (1.005-1.030) 03/23/21 18:39 Urine Protein Negative (Negative) 03/23/21 18:39 Urine Glucose (UA) Negative (Negative) 03/23/21 18:39 Urine Ketones Negative (Negative) 03/23/21 18:39 Urine Occult Blood Negative (Negative) 03/23/21 18:39 Urine Nitrite Negative (Negative) 03/23/21 18:39 Urine Bilirubin Negative (Negative) 03/23/21 18:39 Urine Urobilinogen 0.2 (0.2-1.0) 03/23/21 18:39 Ur Leukocyte Esterase Negative (Negative) 03/23/21 18:39 U Hyaline Cast (Auto) 40-50 /lpf (0-5) H 03/23/21 18:39 Urine RBC Not seen /hpf (0-5) 03/23/21 18:39 Urine WBC 0-5 /hpf (0-5) 03/23/21 18:39 Ur Squamous Epith Cells Not seen /hpf (0-5) 03/23/21 18:39 Urine Bacteria Rare /hpf (FEW) 03/23/21 18:39 Urine Mucus Few /hpf (FEW) 03/23/21 18:39 Digoxin 0.9 ng/mL (0.9-2.0) 03/23/21 17:45 - Allergies Allergies/Adverse Reactions: Allergies Allergy/AdvReac Type Severity Reaction Status Date / Time morphine Allergy Severe Hives Verified 03/23/21 17:24 shellfish derived Allergy Severe Hives Verified 03/23/21 17:24 codeine AdvReac Severe Nausea Verified 03/23/21 17:24 - Blood Blood Available: No - Acknowledgements Anesthesia Type Planned: MAC Pt an Appropriate Candidate for the Planned Anesthesia: Yes Alternatives and Risks of Anesthesia Discussed w Pt/Guardian: Yes Pt/Guardian Understands and Agrees with Anesthesia Plan: Yes PreAnesthesia Questionnaire HEENT History: Reports: Cataract, Hard of Hearing, Impaired Vision, Other (See Below) Other HEENT History: meniere's disease, glasses, hearing aids, upper/lower dentures Cardiovascular History: Reports: Afib, High Cholesterol, Hypertension, PVD Other Cardiovascular History: edema, carotid artery stenosis, Left bundle branch block, mitral valve regurgitation Respiratory History: Reports: Bronchitis, Recurrent, COPD, SOB Other Respiratory History: chronic oxygen use, lung cancer, bronchitits, acute on chronic respiratory failure with hypoxia-wears 2L O2 via [place] all the time at home patient has primary lung cancer left lung diagnosed 4 years ago. Completed courses of immunotherapy for the first year and a half but had to quit due to elevated renal function. It is being watched by oncology with CT every 3 months. Gastrointestinal History: Reports: GERD, Hemorrhoids Genitourinary History: Reports: Urinary Incontinence [employer] History: Reports: Musculoskeletal History: Reports: Osteoarthritis Neurological History: Reports: Other (See Below) Other Neuro History: lumbar degenerative disc disease, lumbar facet arthropathy, radicular lumbar pain Psychiatric History: Reports: None Endocrine/Metabolic History: Reports: Other (See Below) Other Endocrine/Metabolic History: Meniere's disease Hematologic History: Reports: Anemia, Other (See Below) Other Hematologic History: pt doesn't state she has history of anemia Immunologic History: Reports: Immunosuppression, Other (See Below) Other Immunologic History: hx radiation in may 2017 Oncologic (Cancer) History: Reports: Lung Dermatologic History: Reports: None - Infectious Disease History Infectious Disease History: Reports: Chicken Pox, Measles, Mumps, Novel Coronavirus - Past Surgical History HEENT Surgical History: Reports: Cataract Surgery, Tonsillectomy Cardiovascular Surgical History: Reports: Vascular Surgery GI Surgical History: Reports: Cholecystectomy, Colonoscopy, EGD Musculoskeletal Surgical History: Reports: Hip Replacement - SUBSTANCE USE Tobacco Use Status *Q: Former Tobacco User (55-xnlp-fgax history) Tobacco Use Within Last Twelve Months: No Recreational Drug Use History: No - HOME MEDS Home Medications: Home Meds Furosemide 40 mg PO DAILY 06/20/16 [History] Losartan [Cozaar] 50 mg PO DAILY 06/20/16 [History] Lutein/Minerals/Vit A,C & E [Ocuvite] 1 tab PO DAILY 06/20/16 [History] Omeprazole 20 mg PO DAILY 06/20/16 [History] Meclizine [Antivert] 25 mg PO DAILY 08/14/17 [History] Pravastatin Sodium 10 mg PO DAILY 08/14/17 [History] Albuterol [Proventil Neb Soln] 1 dose INH BID 01/06/18 [History] Digoxin [Digox] 125 mcg PO DAILY 01/06/18 [History] dilTIAZem HCL [Cardizem Cd] 240 mg PO BID 01/06/18 [History] Albuterol [Ventolin HFA] 1 puff INH DAILY 11/25/19 [History] Cyanocobalamin (Vitamin B-12) [B-12] 500 mcg PO ASDIRECTED 08/22/20 [History] Aspirin 325 mg PO DAILY 03/23/21 [History] - CURRENT (IN HOUSE) MEDS Current Meds: Current Medications Dextrose/Sodium Chloride (Dextrose 5%-Normal Saline) 1,000 mls @ 125 mls/hr IV ASDIRECTED [facility] Last Admin: 03/23/21 17:45 Dose: 125 mls/hr Documented by: Discontinued Medications Hydromorphone HCl (Hydromorphone 0.5 Mg/0.5 Ml Syringe) 0.5 mg IVPUSH ONETIME ONE Stop: 03/23/21 17:33 Last Admin: 03/23/21 17:46 Dose: 0.5 mg Documented by: Lidocaine HCl (Lidocaine 1% 10 Ml Mdv) Confirm Administered Dose 20 ml .ROUTE .STK-MED ONE Stop: 03/23/21 19:26 Ondansetron HCl (Ondansetron 4 Mg/2 Ml Sdv) 4 mg IVPUSH ONETIME ONE Stop: 03/23/21 17:34 Last Admin: 03/23/21 17:45 Dose: 4 mg Documented by:
--- NOTE | 2021-03-23 19:36 | PCM.HP.2 ---
H&P History of Present Illness - General Date of Service: 03/23/21 Source of Information: Patient History Limitations: Reports: No Limitations - History of Present Illness Initial Comments - Free Text/Narative: The patient fell from standing today around 1600 at home. She remembers the entire event. She has Meniere's disease. No LOC. She hit her right body and immediately started having acute pain on that side. has left sided lung cancer for the past 4 yrs. Has allergies to codeine and morphine as they make her "crazy". She is otherwise independent and was able to do most of her ADLs at home. Onset of Symptoms: Reports: Today Duration of Symptoms: Reports: Hour(s): (4) Location: Reports: Chest (right) Quality: Reports: Sharp Severity: Severe Improves with: Reports: Immobilization Worsens with: Reports: Breathing, Movement Context: Reports: Trauma Right Hip Pain Score (Numeric/FACES): 9 - Related Data Allergies/Adverse Reactions: Allergies Allergy/AdvReac Type Severity Reaction Status Date / Time morphine Allergy Severe Hives Verified 03/23/21 17:24 shellfish derived Allergy Severe Hives Verified 03/23/21 17:24 codeine AdvReac Severe Nausea Verified 03/23/21 17:24 Home Medications: Home Meds Furosemide 40 mg PO DAILY 06/20/16 [History] Losartan [Cozaar] 50 mg PO DAILY 06/20/16 [History] Lutein/Minerals/Vit A,C & E [Ocuvite] 1 tab PO DAILY 06/20/16 [History] Omeprazole 20 mg PO DAILY 06/20/16 [History] Meclizine [Antivert] 25 mg PO DAILY 08/14/17 [History] Pravastatin Sodium 10 mg PO DAILY 08/14/17 [History] Albuterol [Proventil Neb Soln] 1 dose INH BID 01/06/18 [History] Digoxin [Digox] 125 mcg PO DAILY 01/06/18 [History] dilTIAZem HCL [Cardizem Cd] 240 mg PO BID 01/06/18 [History] Albuterol [Ventolin HFA] 1 puff INH DAILY 11/25/19 [History] Cyanocobalamin (Vitamin B-12) [B-12] 500 mcg PO ASDIRECTED 08/22/20 [History] Aspirin 325 mg PO DAILY 03/23/21 [History] Past Medical History HEENT History: Reports: Cataract, Hard of Hearing, Impaired Vision, Other (See Below) Other HEENT History: meniere's disease, glasses, hearing aids, upper/lower dentures Cardiovascular History: Reports: Afib, High Cholesterol, Hypertension, PVD Other Cardiovascular History: edema, carotid artery stenosis, Left bundle branch block, mitral valve regurgitation Respiratory History: Reports: Bronchitis, Recurrent, COPD, SOB Other Respiratory History: chronic oxygen use, lung cancer, bronchitits, acute on chronic respiratory failure with hypoxia-wears 2L O2 via [place] all the time at home patient has primary lung cancer left lung diagnosed 4 years ago. Completed courses of immunotherapy for the first year and a half but had to quit due to elevated renal function. It is being watched by oncology with CT every 3 months. Gastrointestinal History: Reports: GERD, Hemorrhoids Genitourinary History: Reports: Urinary Incontinence [employer] HEARING History: Reports: Musculoskeletal History: Reports: Osteoarthritis Neurological History: Reports: Other (See Below) Other Neuro History: lumbar degenerative disc disease, lumbar facet arthropathy, radicular lumbar pain Psychiatric History: Reports: None Endocrine/Metabolic History: Reports: Other (See Below) Other Endocrine/Metabolic History: Meniere's disease Hematologic History: Reports: Anemia, Other (See Below) Other Hematologic History: pt doesn't state she has history of anemia Immunologic History: Reports: Immunosuppression, Other (See Below) Other Immunologic History: hx radiation in may 2017 Oncologic (Cancer) History: Reports: Lung Dermatologic History: Reports: None - Infectious Disease History Infectious Disease History: Reports: Chicken Pox, Measles, Mumps, Novel Coronavirus - Past Surgical History HEENT Surgical History: Reports: Cataract Surgery, Tonsillectomy Cardiovascular Surgical History: Reports: Vascular Surgery GI Surgical History: Reports: Cholecystectomy, Colonoscopy, EGD Musculoskeletal Surgical History: Reports: Hip Replacement Social & Family History - Family History Family Medical History: No Pertinent Family History - Tobacco Use Tobacco Use Status *Q: Former Tobacco User (40-rqbj-obim history) Used Tobacco, but Quit: Yes Month/Year Tobacco Last Used: 09/2018 - Caffeine Use Caffeine Use: Reports: Coffee - Recreational Drug Use Recreational Drug Use: No - Living Situation & Occupation Living situation: Reports: , Alone Occupation: Retired H&P Review of Systems - Review of Systems: Review Of Systems: See Below General: Reports: No Symptoms HEENT: Reports: No Symptoms Pulmonary: Reports: No Symptoms Cardiovascular: Reports: No Symptoms Gastrointestinal: Reports: No Symptoms Genitourinary: Reports: No Symptoms Musculoskeletal: Reports: No Symptoms Skin: Reports: No Symptoms Psychiatric: Reports: No Symptoms Neurological: Reports: Dizziness (due to Meniere's disease) Exam - Exam Exam: See Below - Vital Signs Vital Signs: Last Vital Signs Temp 96.2 F L 03/23/21 17:20 Pulse 78 03/23/21 19:08 Resp 24 H 03/23/21 19:08 BP 151/68 H 03/23/21 19:08 Pulse Ox 90 L 03/23/21 19:08 Weight: 63.957 kg - Exam Quality Assessment: Supplemental Oxygen General: Alert, Oriented, Cooperative HEENT: Conjunctiva Clear, EACs Clear, EOMI, Hearing Intact, Other (small bruise on the left supraorbital aspect) Neck: Supple, Trachea Midline Lungs: Normal Respiratory Effort, Decreased Breath Sounds (right) Cardiovascular: Regular Rate, Regular Rhythm, Normal S1, Normal S2 GI/Abdominal Exam: Normal Bowel Sounds, Soft, Non-Tender, No Organomegaly, No Distention Extremities: Normal Inspection, Normal Range of Motion, Non-Tender, Other (hematoma on the right hip) Peripheral Pulses: 1+: Dorsalis Pedis (L), Dorsalis Pedis (R) Skin: Warm, Dry, Intact Neurological: Cranial Nerves Intact Neuro Extensive - Mental Status: Alert, Oriented x3, Normal Mood/Affect - Patient Data Lab Results Last 24 hrs: Laboratory Results - last 24 hr 03/23/21 03/23/21 03/23/21 Range/Units 17:45 17:45 17:45 WBC 10.75 H (3.98-10.04) K/mm3 RBC 3.87 L (3.98-5.22) M/mm3 Hgb 9.4 L (11.2-15.7) gm/dl Hct 31.3 L (34.1-44.9) % MCV 80.9 D (79.4-94.8) fl MCH 24.3 L (25.6-32.2) pg MCHC 30.0 L (32.2-35.5) g/dl RDW Std Deviation 56.4 H (36.4-46.3) fL Plt Count 372 H (182-369) K/mm3 MPV 9.6 (9.4-12.3) fl Neutrophils % (Manual) 76 H (40-60) % Band Neutrophils % 2 (0-10) % Lymphocytes % (Manual) 17 L (20-40) % Atypical Lymphs % 0 % Monocytes % (Manual) 5 (2-10) % Eosinophils % (Manual) 0 L (0.7-5.8) % Basophils % (Manual) 0 L (0.1-1.2) Toxic Granulation Few Platelet Estimate Adequate Hypochromasia 1+ slight Anisocytosis 1+ slight Ovalocytes 1+ slight RBC Morph Comment Not Reportable PT 10.1 (9.7-12.0) SECONDS INR 0.94 APTT 28.5 (21.7-31.4) SECONDS Sodium 135 L (136-145) mEq/L Potassium 4.6 (3.5-5.1) mEq/L Chloride 96 L (98-107) mEq/L Carbon Dioxide 28 (21-32) mEq/L Anion Gap 15.6 H (5-15) BUN 20 H D (7-18) mg/dL Creatinine 1.4 H (0.55-1.02) mg/dL Est Cr Clr Drug Dosing 26.75 mL/min Estimated GFR (MDRD) 36 (>60) mL/min BUN/Creatinine Ratio 14.3 (14-18) Glucose 146 H (70-99) mg/dL Calcium 8.5 (8.5-10.1) mg/dL Magnesium 2.0 (1.8-2.4) mg/dL Total Bilirubin 0.2 (0.2-1.0) mg/dL AST 7 L (15-37) U/L ALT 17 (14-59) U/L Alkaline Phosphatase 78 (46-116) U/L C-Reactive Protein 1.1 H* (<1.0) mg/dL NT-Pro-B Natriuret Pep (0-450) pg/mL Total Protein 7.0 (6.4-8.2) g/dl Albumin 3.5 (3.4-5.0) g/dl Globulin 3.5 gm/dL Albumin/Globulin Ratio 1.0 (1-2) Urine Color (Yellow) Urine Appearance (Clear) Urine pH (5.0-8.0) Ur Specific [place] (1.005-1.030) Urine Protein (Negative) Urine Glucose (UA) (Negative) Urine Ketones (Negative) Urine Occult Blood (Negative) Urine Nitrite (Negative) Urine Bilirubin (Negative) Urine Urobilinogen (0.2-1.0) Ur Leukocyte Esterase (Negative) U Hyaline Cast (Auto) (0-5) /lpf Urine RBC (0-5) /hpf Urine WBC (0-5) /hpf Ur Squamous Epith Cells (0-5) /hpf Urine Bacteria (FEW) /hpf Urine Mucus (FEW) /hpf Digoxin (0.9-2.0) ng/mL 03/23/21 03/23/21 03/23/21 Range/Units 17:45 17:45 18:39 WBC (3.98-10.04) K/mm3 RBC (3.98-5.22) M/mm3 Hgb (11.2-15.7) gm/dl Hct (34.1-44.9) % MCV (79.4-94.8) fl MCH (25.6-32.2) pg MCHC (32.2-35.5) g/dl RDW Std Deviation (36.4-46.3) fL Plt Count (182-369) K/mm3 MPV (9.4-12.3) fl Neutrophils % (Manual) (40-60) % Band Neutrophils % (0-10) % Lymphocytes % (Manual) (20-40) % Atypical Lymphs % % Monocytes % (Manual) (2-10) % Eosinophils % (Manual) (0.7-5.8) % Basophils % (Manual) (0.1-1.2) Toxic Granulation Platelet Estimate Hypochromasia Anisocytosis Ovalocytes RBC Morph Comment PT (9.7-12.0) SECONDS INR APTT (21.7-31.4) SECONDS Sodium (136-145) mEq/L Potassium (3.5-5.1) mEq/L Chloride (98-107) mEq/L Carbon Dioxide (21-32) mEq/L Anion Gap (5-15) BUN (7-18) mg/dL Creatinine (0.55-1.02) mg/dL Est Cr Clr Drug Dosing mL/min Estimated GFR (MDRD) (>60) mL/min BUN/Creatinine Ratio (14-18) Glucose (70-99) mg/dL Calcium (8.5-10.1) mg/dL Magnesium (1.8-2.4) mg/dL Total Bilirubin (0.2-1.0) mg/dL AST (15-37) U/L ALT (14-59) U/L Alkaline Phosphatase (46-116) U/L C-Reactive Protein (<1.0) mg/dL NT-Pro-B Natriuret Pep 811 H (0-450) pg/mL Total Protein (6.4-8.2) g/dl Albumin (3.4-5.0) g/dl Globulin gm/dL Albumin/Globulin Ratio (1-2) Urine Color Yellow (Yellow) Urine Appearance Clear (Clear) Urine pH 6.0 (5.0-8.0) Ur Specific [place] 1.020 (1.005-1.030) Urine Protein Negative (Negative) Urine Glucose (UA) Negative (Negative) Urine Ketones Negative (Negative) Urine Occult Blood Negative (Negative) Urine Nitrite Negative (Negative) Urine Bilirubin Negative (Negative) Urine Urobilinogen 0.2 (0.2-1.0) Ur Leukocyte Esterase Negative (Negative) U Hyaline Cast (Auto) 40-50 H (0-5) /lpf Urine RBC Not seen (0-5) /hpf Urine WBC 0-5 (0-5) /hpf Ur Squamous Epith Cells Not seen (0-5) /hpf Urine Bacteria Rare (FEW) /hpf Urine Mucus Few (FEW) /hpf Digoxin 0.9 (0.9-2.0) ng/mL Result Diagrams: 03/23/21 17:45 03/23/21 17:45 Sepsis Event Note - Evaluation Sepsis Screening Result: No Definite Risk - Focused Exam Vital Signs: Vital Signs Temp Pulse Resp BP Pulse Ox 03/23/21 19:08 78 24 H 151/68 H 90 L 03/23/21 17:20 96.2 F L 84 20 128/73 95 Problem List Initiated/Reviewed/Updated: No Orders Last 24hrs: Active Orders 24 hr Category Date Time Status Insert Siegel Catheter [Insert Urinary Catheter] [OM.PC] Care 03/23/21 19:30 Ordered Q24H Oxygen Therapy, ED [RC] ASDIRECTED Care 03/23/21 17:30 Active Urinary Catheter Assessment [RC] ASDIRECTED Care 03/23/21 19:22 Active CORONAVIRUS COVID-19 JUANA [MOLEC] Stat Lab 03/23/21 18:45 Received Dextrose 5%-0.9% NaCl [Dextrose 5%-Normal Saline] 1,000 Med 03/23/21 17:45 Ac tive ml IV ASDIRECTED Medication Orders Dextrose/Sodium Chloride (Dextrose 5%-Normal Saline) 1,000 mls @ 125 mls/hr IV ASDIRECTED JACKIE Last Admin: 03/23/21 17:45 Dose: 125 mls/hr Documented by: REJI Assessment/Plan Comment:: Fall from standing. Right 5th and 6th rib fxs and right sided pneumothorax. 1. Right pneumothorax - chest tube placed - keep chest tube to suction at -20 cm H2O (continuous low wall suction) -Chest Xray in the AM 2. Right 5th and 6th rib fxs - pain control - Incentive spirometer - ambulation - PT/OT 3. Hematoma, right hip - expectant management, should resolve over time Other - clears for tonight - resume some home meds - keep siegel tonight - Mortality Measure Prognosis:: Good (no major injuries)
--- NOTE | 2021-03-23 20:04 | PCM48HPAN ---
Post Anesthesia Note - EVALUATION WITHIN 48HRS OF ANESTHETIC Vital Signs in Normal Range: Yes Patient Participated in Evaluation: Yes Respiratory Function Stable: Yes Airway Patent: Yes Cardiovascular Function Stable: Yes Hydration Status Stable: Yes Pain Control Satisfactory: Yes Nausea and Vomiting Control Satisfactory: Yes Mental Status Recovered: Yes (no complaints) Vital Signs: Last Vital Signs Temp 96.2 F L 03/23/21 17:20 Pulse 83 03/23/21 19:35 Resp 18 03/23/21 19:35 BP 149/87 H 03/23/21 19:35 Pulse Ox 88 L 03/23/21 19:35
[2021-03-23] MEDS ORDERED: Ketorolac 30 MG/ML SDV IM PRN (20:23)
[2021-03-23] MEDS ORDERED: Polyethylene Glycol 3350 Powder 17 GM Packet PO PRN (20:23)
[2021-03-23] MEDS ORDERED: Ondansetron 4 MG Tab.DIS PO PRN (20:23)
[2021-03-23] MEDS ORDERED: Lactated Ringers 1,000 ML IV SCH (20:30)
--- NOTE | 2021-03-23 20:52 | CR ---
Chest: Portable view of the chest was obtained. Comparison: Prior chest CT study performed earlier on the same day (6:01 PM) and chest x-ray of 08/22/20. Right-sided chest tube is seen. Tip lies within the right upper chest in satisfactory position. Very minimal pneumothorax is seen within the right lung apex. Patchy density is noted within the left upper chest which is slightly more dense than on prior chest x-ray but stable from chest CT. Heart size appears within normal limits for portable technique. Tortuous thoracic aorta is seen. Bony structures are grossly intact. Impression: 1. Right-sided chest tube in satisfactory position. Minimal apical pneumothorax is seen on the right side. 2. Other findings which are fairly stable from prior chest CT are noted. Diagnostic code #3
[2021-03-23] MEDS: Diltiazem 120 MG Cap.CD PO SCH (21:48)
[2021-03-23] MEDS: HYDROmorphone 0.5 MG/0.5 ML Syringe IVPUSH PRN (21:49)
[2021-03-23] MEDS: Albuterol 0.083% 2.5 MG/3 ML Neb Soln INH SCH (22:08)
[2021-03-24] MEDS: HYDROmorphone 0.5 MG/0.5 ML Syringe IVPUSH PRN ×2 (00:12→04:48)
[2021-03-24] MEDS: Sodium Chloride 0.9% 1,000 ML IV SCH ×2 (02:00→22:41)
[2021-03-24] MEDS: Ketorolac 15 MG/ML SDV IVPUSH SCH ×4 (07:38→23:43)
[2021-03-24] MEDS: Albuterol 0.083% 2.5 MG/3 ML Neb Soln INH SCH (08:07)
[2021-03-24] MEDS: Enoxaparin 40 MG/0.4 ML Syringe SUBCUT SCH (08:52)
[2021-03-24] MEDS: Pantoprazole 40 MG Tab.CR PO SCH (08:52)
[2021-03-24] MEDS: Meclizine 12.5 MG Tab PO SCH (08:53)
[2021-03-24] MEDS: Furosemide 40 MG Tab PO SCH (08:53)
[2021-03-24] MEDS: Losartan 50 MG Tab PO SCH (08:53)
[2021-03-24] MEDS: Diltiazem 120 MG Cap.CD PO SCH ×2 (08:54→20:01)
[2021-03-24] MEDS ORDERED: Albuterol 6.7 GM Inhaler INH SCH (09:00)
[2021-03-24] MEDS ORDERED: Digoxin 125 MCG Tab PO SCH (09:00)
[2021-03-24] MEDS ORDERED: Enoxaparin 30 MG/0.3 ML Syringe SUBCUT SCH (09:00)
--- NOTE | 2021-03-24 10:23 | CR ---
Chest: Portable view of the chest was obtained. Comparison: Prior chest x-ray of 03/23/21. Right-sided chest tube is seen. Very minimal apical pneumothorax is seen. Patchy density seen is seen within the left upper chest which is stable. Heart size and mediastinum are stable. No acute osseous abnormality is appreciated on this exam. Impression: 1. Right-sided chest tube with very minimal apical pleural air. 2. Other portions of the chest are stable. Diagnostic code #3
--- NOTE | 2021-03-24 12:30 | PCM.PN ---
- General Info Date of Service: 03/24/21 Admission Dx/Problem (Free Text): Trauma Subjective Update: patient still in a lot of pain. Splinting. Not asking for pain meds. not moving due to pain. Pain all located on the right lateral chest. Functional Status: Reports: Incentive Spirometry - Review of Systems General: Reports: No Symptoms HEENT: Reports: No Symptoms Pulmonary: Reports: Pleuritic Chest Pain Cardiovascular: Reports: Chest Pain (due to rib fractures) Gastrointestinal: Reports: No Symptoms Genitourinary: Reports: No Symptoms Musculoskeletal: Reports: No Symptoms Skin: Reports: No Symptoms, Bruising (right thigh, elbow) Neurological: Reports: No Symptoms Psychiatric: Reports: No Symptoms - Patient Data Vitals - Most Recent: Last Vital Signs Temp 98.1 F 03/24/21 11:29 Pulse 77 03/24/21 11:29 Resp 20 03/24/21 11:29 BP 138/92 H 03/24/21 11:29 Pulse Ox 96 03/24/21 11:29 Weight - Most Recent: 67.948 kg I&O - Last 24 Hours: Intake & Output 03/23/21 03/24/21 03/24/21 22:59 06:59 14:59 Intake Total 1024 Output Total 559 Balance 465 Lab Results Last 24 Hours: Laboratory Results - last 24 hr 03/23/21 03/23/21 03/23/21 Range/Units 17:45 17:45 17:45 WBC 10.75 H (3.98-10.04) K/mm3 RBC 3.87 L (3.98-5.22) M/mm3 Hgb 9.4 L (11.2-15.7) gm/dl Hct 31.3 L (34.1-44.9) % MCV 80.9 D (79.4-94.8) fl MCH 24.3 L (25.6-32.2) pg MCHC 30.0 L (32.2-35.5) g/dl RDW Std Deviation 56.4 H (36.4-46.3) fL Plt Count 372 H (182-369) K/mm3 MPV 9.6 (9.4-12.3) fl Neut % (Auto) (34.0-71.1) % Lymph % (Auto) (19.3-51.7) % Drew % (Auto) (4.7-12.5) % Eos % (Auto) (0.7-5.8) Baso % (Auto) (0.1-1.2) % Neut # (Auto) (1.56-6.13) K/mm3 Lymph # (Auto) (1.18-3.74) K/mm3 Drew # (Auto) (0.24-0.36) K/mm3 Eos # (Auto) (0.04-0.36) K/mm3 Baso # (Auto) (0.01-0.08) K/mm3 Neutrophils % (Manual) 76 H (40-60) % Band Neutrophils % 2 (0-10) % Lymphocytes % (Manual) 17 L (20-40) % Atypical Lymphs % 0 % Monocytes % (Manual) 5 (2-10) % Eosinophils % (Manual) 0 L (0.7-5.8) % Basophils % (Manual) 0 L (0.1-1.2) Manual Slide Review Toxic Granulation Few Platelet Estimate Adequate Hypochromasia 1+ slight Anisocytosis 1+ slight Ovalocytes 1+ slight RBC Morph Comment Not Reportable PT 10.1 (9.7-12.0) SECONDS INR 0.94 APTT 28.5 (21.7-31.4) SECONDS Sodium 135 L (136-145) mEq/L Potassium 4.6 (3.5-5.1) mEq/L Chloride 96 L (98-107) mEq/L Carbon Dioxide 28 (21-32) mEq/L Anion Gap 15.6 H (5-15) BUN 20 H D (7-18) mg/dL Creatinine 1.4 H (0.55-1.02) mg/dL Est Cr Clr Drug Dosing 26.75 mL/min Estimated GFR (MDRD) 36 (>60) mL/min BUN/Creatinine Ratio 14.3 (14-18) Glucose 146 H (70-99) mg/dL Calcium 8.5 (8.5-10.1) mg/dL Phosphorus (2.6-4.7) mg/dL Magnesium 2.0 (1.8-2.4) mg/dL Total Bilirubin 0.2 (0.2-1.0) mg/dL AST 7 L (15-37) U/L ALT 17 (14-59) U/L Alkaline Phosphatase 78 (46-116) U/L C-Reactive Protein 1.1 H* (<1.0) mg/dL NT-Pro-B Natriuret Pep (0-450) pg/mL Total Protein 7.0 (6.4-8.2) g/dl Albumin 3.5 (3.4-5.0) g/dl Globulin 3.5 gm/dL Albumin/Globulin Ratio 1.0 (1-2) Urine Color (Yellow) Urine Appearance (Clear) Urine pH (5.0-8.0) Ur Specific Rumely (1.005-1.030) Urine Protein (Negative) Urine Glucose (UA) (Negative) Urine Ketones (Negative) Urine Occult Blood (Negative) Urine Nitrite (Negative) Urine Bilirubin (Negative) Urine Urobilinogen (0.2-1.0) Ur Leukocyte Esterase (Negative) U Hyaline Cast (Auto) (0-5) /lpf Urine RBC (0-5) /hpf Urine WBC (0-5) /hpf Ur Squamous Epith Cells (0-5) /hpf Urine Bacteria (FEW) /hpf Urine Mucus (FEW) /hpf Digoxin (0.9-2.0) ng/mL SARS-CoV-2 RNA (JUANA) (NEGATIVE) 03/23/21 03/23/21 03/23/21 Range/Units 17:45 17:45 18:39 WBC (3.98-10.04) K/mm3 RBC (3.98-5.22) M/mm3 Hgb (11.2-15.7) gm/dl Hct (34.1-44.9) % MCV (79.4-94.8) fl MCH (25.6-32.2) pg MCHC (32.2-35.5) g/dl RDW Std Deviation (36.4-46.3) fL Plt Count (182-369) K/mm3 MPV (9.4-12.3) fl Neut % (Auto) (34.0-71.1) % Lymph % (Auto) (19.3-51.7) % Drew % (Auto) (4.7-12.5) % Eos % (Auto) (0.7-5.8) Baso % (Auto) (0.1-1.2) % Neut # (Auto) (1.56-6.13) K/mm3 Lymph # (Auto) (1.18-3.74) K/mm3 Drew # (Auto) (0.24-0.36) K/mm3 Eos # (Auto) (0.04-0.36) K/mm3 Baso # (Auto) (0.01-0.08) K/mm3 Neutrophils % (Manual) (40-60) % Band Neutrophils % (0-10) % Lymphocytes % (Manual) (20-40) % Atypical Lymphs % % Monocytes % (Manual) (2-10) % Eosinophils % (Manual) (0.7-5.8) % Basophils % (Manual) (0.1-1.2) Manual Slide Review Toxic Granulation Platelet Estimate Hypochromasia Anisocytosis Ovalocytes RBC Morph Comment PT (9.7-12.0) SECONDS INR APTT (21.7-31.4) SECONDS Sodium (136-145) mEq/L Potassium (3.5-5.1) mEq/L Chloride (98-107) mEq/L Carbon Dioxide (21-32) mEq/L Anion Gap (5-15) BUN (7-18) mg/dL Creatinine (0.55-1.02) mg/dL Est Cr Clr Drug Dosing mL/min Estimated GFR (MDRD) (>60) mL/min BUN/Creatinine Ratio (14-18) Glucose (70-99) mg/dL Calcium (8.5-10.1) mg/dL Phosphorus (2.6-4.7) mg/dL Magnesium (1.8-2.4) mg/dL Total Bilirubin (0.2-1.0) mg/dL AST (15-37) U/L ALT (14-59) U/L Alkaline Phosphatase (46-116) U/L C-Reactive Protein (<1.0) mg/dL NT-Pro-B Natriuret Pep 811 H (0-450) pg/mL Total Protein (6.4-8.2) g/dl Albumin (3.4-5.0) g/dl Globulin gm/dL Albumin/Globulin Ratio (1-2) Urine Color Yellow (Yellow) Urine Appearance Clear (Clear) Urine pH 6.0 (5.0-8.0) Ur Specific Rumely 1.020 (1.005-1.030) Urine Protein Negative (Negative) Urine Glucose (UA) Negative (Negative) Urine Ketones Negative (Negative) Urine Occult Blood Negative (Negative) Urine Nitrite Negative (Negative) Urine Bilirubin Negative (Negative) Urine Urobilinogen 0.2 (0.2-1.0) Ur Leukocyte Esterase Negative (Negative) U Hyaline Cast (Auto) 40-50 H (0-5) /lpf Urine RBC Not seen (0-5) /hpf Urine WBC 0-5 (0-5) /hpf Ur Squamous Epith Cells Not seen (0-5) /hpf Urine Bacteria Rare (FEW) /hpf Urine Mucus Few (FEW) /hpf Digoxin 0.9 (0.9-2.0) ng/mL SARS-CoV-2 RNA (JUANA) (NEGATIVE) 03/23/21 03/24/21 03/24/21 Range/Units 18:45 05:00 05:00 WBC 10.43 H (3.98-10.04) K/mm3 RBC 3.51 L (3.98-5.22) M/mm3 Hgb 8.5 L (11.2-15.7) gm/dl Hct 29.1 L (34.1-44.9) % MCV 82.9 (79.4-94.8) fl MCH 24.2 L (25.6-32.2) pg MCHC 29.2 L (32.2-35.5) g/dl RDW Std Deviation 56.6 H (36.4-46.3) fL Plt Count 323 (182-369) K/mm3 MPV 10.2 (9.4-12.3) fl Neut % (Auto) 85.8 H (34.0-71.1) % Lymph % (Auto) 8.7 L (19.3-51.7) % Drew % (Auto) 5.0 (4.7-12.5) % Eos % (Auto) 0 L (0.7-5.8) Baso % (Auto) 0.1 (0.1-1.2) % Neut # (Auto) 8.95 H (1.56-6.13) K/mm3 Lymph # (Auto) 0.91 L (1.18-3.74) K/mm3 Drew # (Auto) 0.52 H (0.24-0.36) K/mm3 Eos # (Auto) 0.00 L (0.04-0.36) K/mm3 Baso # (Auto) 0.01 (0.01-0.08) K/mm3 Neutrophils % (Manual) (40-60) % Band Neutrophils % (0-10) % Lymphocytes % (Manual) (20-40) % Atypical Lymphs % % Monocytes % (Manual) (2-10) % Eosinophils % (Manual) (0.7-5.8) % Basophils % (Manual) (0.1-1.2) Manual Slide Review Abnormal smear Toxic Granulation Platelet Estimate Hypochromasia Anisocytosis Ovalocytes RBC Morph Comment PT (9.7-12.0) SECONDS INR APTT (21.7-31.4) SECONDS Sodium 135 L (136-145) mEq/L Potassium 4.8 (3.5-5.1) mEq/L Chloride 100 (98-107) mEq/L Carbon Dioxide 29 (21-32) mEq/L Anion Gap 10.8 (5-15) BUN 17 (7-18) mg/dL Creatinine 1.0 (0.55-1.02) mg/dL Est Cr Clr Drug Dosing 37.45 mL/min Estimated GFR (MDRD) 53 (>60) mL/min BUN/Creatinine Ratio 17.0 (14-18) Glucose 117 H (70-99) mg/dL Calcium 8.1 L (8.5-10.1) mg/dL Phosphorus 4.6 (2.6-4.7) mg/dL Magnesium 2.1 (1.8-2.4) mg/dL Total Bilirubin (0.2-1.0) mg/dL AST (15-37) U/L ALT (14-59) U/L Alkaline Phosphatase (46-116) U/L C-Reactive Protein (<1.0) mg/dL NT-Pro-B Natriuret Pep (0-450) pg/mL Total Protein (6.4-8.2) g/dl Albumin (3.4-5.0) g/dl Globulin gm/dL Albumin/Globulin Ratio (1-2) Urine Color (Yellow) Urine Appearance (Clear) Urine pH (5.0-8.0) Ur Specific Rumely (1.005-1.030) Urine Protein (Negative) Urine Glucose (UA) (Negative) Urine Ketones (Negative) Urine Occult Blood (Negative) Urine Nitrite (Negative) Urine Bilirubin (Negative) Urine Urobilinogen (0.2-1.0) Ur Leukocyte Esterase (Negative) U Hyaline Cast (Auto) (0-5) /lpf Urine RBC (0-5) /hpf Urine WBC (0-5) /hpf Ur Squamous Epith Cells (0-5) /hpf Urine Bacteria (FEW) /hpf Urine Mucus (FEW) /hpf Digoxin (0.9-2.0) ng/mL SARS-CoV-2 RNA (JUANA) Negative (NEGATIVE) Med Orders - Current: Current Medications Hydrocodone Bitart/Acetaminophen (Acetaminophen/Hydrocodone 325-5 Mg Tab) 1 tab PO Q4H PRN PRN Reason: Pain (moderate 4-6) Albuterol (Albuterol 0.083% 2.5 Mg/3 Ml Neb Soln) 2.5 mg INH BID [facility] Last Admin: 03/24/21 08:07 Dose: 2.5 mg Documented by: Albuterol (Albuterol 6.7 Gm Inhaler) 0 gm INH DAILY [facility] Last Admin: 03/24/21 08:14 Dose: Not Given Documented by: Digoxin (Digoxin 125 Mcg Tab) 125 mcg PO DAILY [facility] Last Admin: 03/24/21 08:54 Dose: 125 mcg Documented by: Diltiazem HCl (Diltiazem 120 Mg Cap.Cd) 240 mg PO BID [facility] Last Admin: 03/24/21 08:54 Dose: 240 mg Documented by: Enoxaparin Sodium (Enoxaparin 40 Mg/0.4 Ml Syringe) 40 mg SUBCUT DAILY [facility] Last Admin: 03/24/21 08:52 Dose: 40 mg Documented by: Furosemide (Furosemide 40 Mg Tab) 40 mg PO DAILY [facility] Last Admin: 03/24/21 08:53 Dose: 40 mg Documented by: Hydromorphone HCl (Hydromorphone 0.5 Mg/0.5 Ml Syringe) 0.5 mg IVPUSH Q2H PRN PRN Reason: Pain (severe 7-10) Last Admin: 03/24/21 04:48 Dose: 0.5 mg Documented by: Sodium Chloride (Normal Saline) 1,000 mls @ 50 mls/hr IV ASDIRECTED [facility] Last Admin: 03/24/21 02:00 Dose: 50 mls/hr Documented by: Ketorolac Tromethamine (Ketorolac 15 Mg/Ml Sdv) 15 mg IVPUSH Q6H [facility] Last Admin: 03/24/21 07:38 Dose: 15 mg Documented by: Losartan Potassium (Losartan 50 Mg Tab) 50 mg PO DAILY [facility] Last Admin: 03/24/21 08:53 Dose: 50 mg Documented by: Meclizine HCl (Meclizine 12.5 Mg Tab) 25 mg PO DAILY [facility] Last Admin: 03/24/21 08:53 Dose: 25 mg Documented by: Ondansetron HCl (Ondansetron 4 Mg Tab.Dis) 4 mg PO Q4H PRN PRN Reason: nausea, able to take PO Pantoprazole Sodium (Pantoprazole 40 Mg Tab.Cr) 40 mg PO DAILY [facility] Last Admin: 03/24/21 08:52 Dose: 40 mg Documented by: Polyethylene Glycol (Polyethylene Glycol 3350 Powder 17 Gm Packet) 17 gm PO DAILY PRN PRN Reason: Constipation Discontinued Medications Enoxaparin Sodium (Enoxaparin 30 Mg/0.3 Ml Syringe) 30 mg SUBCUT DAILY [facility] Hydromorphone HCl (Hydromorphone 0.5 Mg/0.5 Ml Syringe) 0.5 mg IVPUSH ONETIME ONE Stop: 03/23/21 17:33 Last Admin: 03/23/21 17:46 Dose: 0.5 mg Documented by: Dextrose/Sodium Chloride (Dextrose 5%-Normal Saline) 1,000 mls @ 125 mls/hr IV ASDIRECTED [facility] Last Admin: 03/23/21 17:45 Dose: 125 mls/hr Documented by: Lactated Ringer's (Ringers, Lactated) 1,000 mls @ 50 mls/hr IV ASDIRECTED [facility] Ketamine HCl (Ketamine 500 Mg/10 Ml Mdv) Confirm Administered Dose 500 mg .ROUTE .STK-MED ONE Stop: 03/23/21 19:33 Ketorolac Tromethamine (Ketorolac 30 Mg/Ml Sdv) 30 mg IM Q8H PRN PRN Reason: Pain (severe 7-10) Lidocaine HCl (Lidocaine 1% 10 Ml Mdv) Confirm Administered Dose 20 ml .ROUTE .STK-MED ONE Stop: 03/23/21 19:26 Last Admin: 03/23/21 21:51 Dose: Not Given Documented by: Ondansetron HCl (Ondansetron 4 Mg/2 Ml Sdv) 4 mg IVPUSH ONETIME ONE Stop: 03/23/21 17:34 Last Admin: 03/23/21 17:45 Dose: 4 mg Documented by: - Exam Urinary Catheter Total Time: 0Days 17Hours General: Alert, Oriented, Cooperative HEENT: Pupils Equal Lungs: Normal Respiratory Effort, Other (shallow breathing) GI/Abdominal Exam: Soft, Non-Tender, No Organomegaly, No Distention Extremities: Other (hemnatoma on the right lateral thigh/hip) Skin: Warm, Dry, Intact Neurological: No New Focal Deficit - Patient Data Lab Results Last 24 hrs: Laboratory Results - last 24 hr 03/23/21 03/23/21 03/23/21 Range/Units 17:45 17:45 17:45 WBC 10.75 H (3.98-10.04) K/mm3 RBC 3.87 L (3.98-5.22) M/mm3 Hgb 9.4 L (11.2-15.7) gm/dl Hct 31.3 L (34.1-44.9) % MCV 80.9 D (79.4-94.8) fl MCH 24.3 L (25.6-32.2) pg MCHC 30.0 L (32.2-35.5) g/dl RDW Std Deviation 56.4 H (36.4-46.3) fL Plt Count 372 H (182-369) K/mm3 MPV 9.6 (9.4-12.3) fl Neut % (Auto) (34.0-71.1) % Lymph % (Auto) (19.3-51.7) % Drew % (Auto) (4.7-12.5) % Eos % (Auto) (0.7-5.8) Baso % (Auto) (0.1-1.2) % Neut # (Auto) (1.56-6.13) K/mm3 Lymph # (Auto) (1.18-3.74) K/mm3 Drew # (Auto) (0.24-0.36) K/mm3 Eos # (Auto) (0.04-0.36) K/mm3 Baso # (Auto) (0.01-0.08) K/mm3 Neutrophils % (Manual) 76 H (40-60) % Band Neutrophils % 2 (0-10) % Lymphocytes % (Manual) 17 L (20-40) % Atypical Lymphs % 0 % Monocytes % (Manual) 5 (2-10) % Eosinophils % (Manual) 0 L (0.7-5.8) % Basophils % (Manual) 0 L (0.1-1.2) Manual Slide Review Toxic Granulation Few Platelet Estimate Adequate Hypochromasia 1+ slight Anisocytosis 1+ slight Ovalocytes 1+ slight RBC Morph Comment Not Reportable PT 10.1 (9.7-12.0) SECONDS INR 0.94 APTT 28.5 (21.7-31.4) SECONDS Sodium 135 L (136-145) mEq/L Potassium 4.6 (3.5-5.1) mEq/L Chloride 96 L (98-107) mEq/L Carbon Dioxide 28 (21-32) mEq/L Anion Gap 15.6 H (5-15) BUN 20 H D (7-18) mg/dL Creatinine 1.4 H (0.55-1.02) mg/dL Est Cr Clr Drug Dosing 26.75 mL/min Estimated GFR (MDRD) 36 (>60) mL/min BUN/Creatinine Ratio 14.3 (14-18) Glucose 146 H (70-99) mg/dL Calcium 8.5 (8.5-10.1) mg/dL Phosphorus (2.6-4.7) mg/dL Magnesium 2.0 (1.8-2.4) mg/dL Total Bilirubin 0.2 (0.2-1.0) mg/dL AST 7 L (15-37) U/L ALT 17 (14-59) U/L Alkaline Phosphatase 78 (46-116) U/L C-Reactive Protein 1.1 H* (<1.0) mg/dL NT-Pro-B Natriuret Pep (0-450) pg/mL Total Protein 7.0 (6.4-8.2) g/dl Albumin 3.5 (3.4-5.0) g/dl Globulin 3.5 gm/dL Albumin/Globulin Ratio 1.0 (1-2) Urine Color (Yellow) Urine Appearance (Clear) Urine pH (5.0-8.0) Ur Specific Rumely (1.005-1.030) Urine Protein (Negative) Urine Glucose (UA) (Negative) Urine Ketones (Negative) Urine Occult Blood (Negative) Urine Nitrite (Negative) Urine Bilirubin (Negative) Urine Urobilinogen (0.2-1.0) Ur Leukocyte Esterase (Negative) U Hyaline Cast (Auto) (0-5) /lpf Urine RBC (0-5) /hpf Urine WBC (0-5) /hpf Ur Squamous Epith Cells (0-5) /hpf Urine Bacteria (FEW) /hpf Urine Mucus (FEW) /hpf Digoxin (0.9-2.0) ng/mL SARS-CoV-2 RNA (JUANA) (NEGATIVE) 03/23/21 03/23/21 03/23/21 Range/Units 17:45 17:45 18:39 WBC (3.98-10.04) K/mm3 RBC (3.98-5.22) M/mm3 Hgb (11.2-15.7) gm/dl Hct (34.1-44.9) % MCV (79.4-94.8) fl MCH (25.6-32.2) pg MCHC (32.2-35.5) g/dl RDW Std Deviation (36.4-46.3) fL Plt Count (182-369) K/mm3 MPV (9.4-12.3) fl Neut % (Auto) (34.0-71.1) % Lymph % (Auto) (19.3-51.7) % Drew % (Auto) (4.7-12.5) % Eos % (Auto) (0.7-5.8) Baso % (Auto) (0.1-1.2) % Neut # (Auto) (1.56-6.13) K/mm3 Lymph # (Auto) (1.18-3.74) K/mm3 Drew # (Auto) (0.24-0.36) K/mm3 Eos # (Auto) (0.04-0.36) K/mm3 Baso # (Auto) (0.01-0.08) K/mm3 Neutrophils % (Manual) (40-60) % Band Neutrophils % (0-10) % Lymphocytes % (Manual) (20-40) % Atypical Lymphs % % Monocytes % (Manual) (2-10) % Eosinophils % (Manual) (0.7-5.8) % Basophils % (Manual) (0.1-1.2) Manual Slide Review Toxic Granulation Platelet Estimate Hypochromasia Anisocytosis Ovalocytes RBC Morph Comment PT (9.7-12.0) SECONDS INR APTT (21.7-31.4) SECONDS Sodium (136-145) mEq/L Potassium (3.5-5.1) mEq/L Chloride (98-107) mEq/L Carbon Dioxide (21-32) mEq/L Anion Gap (5-15) BUN (7-18) mg/dL Creatinine (0.55-1.02) mg/dL Est Cr Clr Drug Dosing mL/min Estimated GFR (MDRD) (>60) mL/min BUN/Creatinine Ratio (14-18) Glucose (70-99) mg/dL Calcium (8.5-10.1) mg/dL Phosphorus (2.6-4.7) mg/dL Magnesium (1.8-2.4) mg/dL Total Bilirubin (0.2-1.0) mg/dL AST (15-37) U/L ALT (14-59) U/L Alkaline Phosphatase (46-116) U/L C-Reactive Protein (<1.0) mg/dL NT-Pro-B Natriuret Pep 811 H (0-450) pg/mL Total Protein (6.4-8.2) g/dl Albumin (3.4-5.0) g/dl Globulin gm/dL Albumin/Globulin Ratio (1-2) Urine Color Yellow (Yellow) Urine Appearance Clear (Clear) Urine pH 6.0 (5.0-8.0) Ur Specific Rumely 1.020 (1.005-1.030) Urine Protein Negative (Negative) Urine Glucose (UA) Negative (Negative) Urine Ketones Negative (Negative) Urine Occult Blood Negative (Negative) Urine Nitrite Negative (Negative) Urine Bilirubin Negative (Negative) Urine Urobilinogen 0.2 (0.2-1.0) Ur Leukocyte Esterase Negative (Negative) U Hyaline Cast (Auto) 40-50 H (0-5) /lpf Urine RBC Not seen (0-5) /hpf Urine WBC 0-5 (0-5) /hpf Ur Squamous Epith Cells Not seen (0-5) /hpf Urine Bacteria Rare (FEW) /hpf Urine Mucus Few (FEW) /hpf Digoxin 0.9 (0.9-2.0) ng/mL SARS-CoV-2 RNA (JUANA) (NEGATIVE) 03/23/21 03/24/21 03/24/21 Range/Units 18:45 05:00 05:00 WBC 10.43 H (3.98-10.04) K/mm3 RBC 3.51 L (3.98-5.22) M/mm3 Hgb 8.5 L (11.2-15.7) gm/dl Hct 29.1 L (34.1-44.9) % MCV 82.9 (79.4-94.8) fl MCH 24.2 L (25.6-32.2) pg MCHC 29.2 L (32.2-35.5) g/dl RDW Std Deviation 56.6 H (36.4-46.3) fL Plt Count 323 (182-369) K/mm3 MPV 10.2 (9.4-12.3) fl Neut % (Auto) 85.8 H (34.0-71.1) % Lymph % (Auto) 8.7 L (19.3-51.7) % Drew % (Auto) 5.0 (4.7-12.5) % Eos % (Auto) 0 L (0.7-5.8) Baso % (Auto) 0.1 (0.1-1.2) % Neut # (Auto) 8.95 H (1.56-6.13) K/mm3 Lymph # (Auto) 0.91 L (1.18-3.74) K/mm3 Drew # (Auto) 0.52 H (0.24-0.36) K/mm3 Eos # (Auto) 0.00 L (0.04-0.36) K/mm3 Baso # (Auto) 0.01 (0.01-0.08) K/mm3 Neutrophils % (Manual) (40-60) % Band Neutrophils % (0-10) % Lymphocytes % (Manual) (20-40) % Atypical Lymphs % % Monocytes % (Manual) (2-10) % Eosinophils % (Manual) (0.7-5.8) % Basophils % (Manual) (0.1-1.2) Manual Slide Review Abnormal smear Toxic Granulation Platelet Estimate Hypochromasia Anisocytosis Ovalocytes RBC Morph Comment PT (9.7-12.0) SECONDS INR APTT (21.7-31.4) SECONDS Sodium 135 L (136-145) mEq/L Potassium 4.8 (3.5-5.1) mEq/L Chloride 100 (98-107) mEq/L Carbon Dioxide 29 (21-32) mEq/L Anion Gap 10.8 (5-15) BUN 17 (7-18) mg/dL Creatinine 1.0 (0.55-1.02) mg/dL Est Cr Clr Drug Dosing 37.45 mL/min Estimated GFR (MDRD) 53 (>60) mL/min BUN/Creatinine Ratio 17.0 (14-18) Glucose 117 H (70-99) mg/dL Calcium 8.1 L (8.5-10.1) mg/dL Phosphorus 4.6 (2.6-4.7) mg/dL Magnesium 2.1 (1.8-2.4) mg/dL Total Bilirubin (0.2-1.0) mg/dL AST (15-37) U/L ALT (14-59) U/L Alkaline Phosphatase (46-116) U/L C-Reactive Protein (<1.0) mg/dL NT-Pro-B Natriuret Pep (0-450) pg/mL Total Protein (6.4-8.2) g/dl Albumin (3.4-5.0) g/dl Globulin gm/dL Albumin/Globulin Ratio (1-2) Urine Color (Yellow) Urine Appearance (Clear) Urine pH (5.0-8.0) Ur Specific Rumely (1.005-1.030) Urine Protein (Negative) Urine Glucose (UA) (Negative) Urine Ketones (Negative) Urine Occult Blood (Negative) Urine Nitrite (Negative) Urine Bilirubin (Negative) Urine Urobilinogen (0.2-1.0) Ur Leukocyte Esterase (Negative) U Hyaline Cast (Auto) (0-5) /lpf Urine RBC (0-5) /hpf Urine WBC (0-5) /hpf Ur Squamous Epith Cells (0-5) /hpf Urine Bacteria (FEW) /hpf Urine Mucus (FEW) /hpf Digoxin (0.9-2.0) ng/mL SARS-CoV-2 RNA (JUANA) Negative (NEGATIVE) Result Diagrams: 03/24/21 05:00 03/24/21 05:00 Sepsis Event Note - Evaluation Sepsis Screening Result: No Definite Risk - Focused Exam Vital Signs: Vital Signs Temp Pulse Resp BP Pulse Ox Pulse Ox 03/24/21 11:29 98.1 F 77 20 138/92 H 96 03/24/21 08:54 89 119/55 L 03/24/21 08:53 119/55 L 03/24/21 08:16 98 03/24/21 07:31 87 90 L 03/24/21 07:27 97.9 F 96 20 136/49 L 87 L 03/24/21 04:37 97.9 F 95 158/55 H 90 L - Problem List Review Problem List Initiated/Reviewed/Updated: No - My Orders Last 24 Hours: My Active Orders 03/23/21 20:23 Patient Status [ADT] Routine Oxygen Therapy [RC] PRN Up With Assistance [RC] 10, VTE/DVT Education [RC] DAILY Vital Signs [RC] Q4H PT Evaluation and Treatment [CONS] Routine Acetaminophen/HYDROcodone [[facility] 325-5 MG] 1 tab PO Q4H PRN HYDROmorphone [Dilaudid] 0.5 mg IVPUSH Q2H PRN Ondansetron [Zofran ODT] 4 mg PO Q4H PRN polyethylene glycoL 3350 [MiraLAX] 17 gm PO DAILY PRN Resuscitation Status Routine 03/23/21 20:24 Intake and Output [RC] 04,16 03/23/21 20:25 Antiembolic Devices [RC] 10,22 Cardiac Monitoring [RC] CONTINUOUS Antiembolic Hose [OM.PC] Per Unit Routine 03/23/21 20:35 RT Aerosol Therapy [RC] ASDIRECTED 03/23/21 20:45 Sodium Chloride 0.9% [Normal Saline] 1,000 ml IV ASDIRECTED 03/23/21 21:00 Albuterol [Proventil Neb Soln] 2.5 mg INH BID Diltiazem [Cardizem CD] 240 mg PO BID 03/23/21 23:25 Chest Tube Management [RC] 04,10,16,22 03/24/21 07:00 Ketorolac [Toradol] 15 mg IVPUSH Q6H 03/24/21 07:35 Incentive Breathing [RT Incentive Spirometry] [RC] Q2HWA 03/24/21 09:00 Albuterol [Proventil HFA] 0 gm INH DAILY Digoxin [Lanoxin] 125 mcg PO DAILY Enoxaparin [Lovenox] 40 mg SUBCUT DAILY Furosemide [Lasix] 40 mg PO DAILY Losartan [Cozaar] 50 mg PO DAILY Meclizine [Antivert] 25 mg PO DAILY Pantoprazole [ProTONIX] 40 mg PO DAILY 03/24/21 Lunch Regular Diet [DIET] 03/25/21 05:11 Chest 1V Frontal [CR] AM 03/26/21 05:11 Chest 1V Frontal [CR] AM - Assessment Assessment:: HD1 s/p mechanical fall from standing. Right rib fxs and right pneumothorax - Plan Plan:: Fall from standing. Right 5th and 6th rib fxs and right sided pneumothorax. 1. Right pneumothorax - chest tube placed. Ptx resolved except for tiny air apically - keep chest tube to suction at -20 cm H2O (continuous low wall suction). Will likely place to [facility] overnight -Chest Xray in the AM 2. Right 5th and 6th rib fxs - pain control. Discussed with the patient importance of pain control, breathing, ambulating. She will try to get her pain under control. - Incentive spirometer - ambulation - PT/OT 3. Hematoma, right hip - expectant management, should resolve over time Other - reg diet now. decrease IVF - resume some home meds - keep siegel until ambulating
[2021-03-24] MEDS: Tiotropium Bromide 4 GM Inhalation Spray (2.5mcg/1 dose; 10 doses) INH SCH (13:20)
[2021-03-24] MEDS: Acetaminophen/HYDROcodone 325-5 MG Tab PO PRN (14:56)
[2021-03-24] MEDS: Pravastatin 20 MG Tab PO SCH (17:27)
--- NOTE | 2021-03-24 20:24 | PROC ---
DATE OF OPERATION: 03/23/2021 SURGEON: Freddy Munoz MD PREOPERATIVE DIAGNOSIS: Right pneumothorax. POSTOPERATIVE DIAGNOSIS: Right pneumothorax. PROCEDURE: Right thoracostomy with chest tube placement. ESTIMATED BLOOD LOSS: Minimal. ANESTHESIA: Monitored anesthesia care with local anesthetic. INDICATION AND CONSENT: Ms. Larson is an 80-year-old female who fell at home today from standing and the patient had immediate onset of acute right-sided chest pain. The patient presented to the emergency department, and workup including x-ray found large right-sided pneumothorax with 50% of the lung collapse. I was asked to see the patient. I evaluated the patient, confirmed the finding, and recommended placement of a chest tube to the right side. DESCRIPTION OF PROCEDURE: The patient was prepared, Anesthesia was called, and the patient was placed in monitored anesthesia care. The right chest was prepped and draped in the usual sterile fashion. The 5th intercostal space in the right anterior jugular line was marked. Area was anesthetized, and a 20-[place] chest tube was placed without any immediate complication. Chest tube was secured with 0 silk stitches and the chest tube was placed to suction at low wall suction. This concluded the procedure. Post procedure x-ray revealed re- expansion of the lung almost 95%. The patient to be admitted for chest tube management and trauma management. MMODAL /[id number]
[2021-03-25] MEDS: Ketorolac 15 MG/ML SDV IVPUSH SCH ×4 (00:34→18:00)
[2021-03-25] MEDS: Albuterol 0.083% 2.5 MG/3 ML Neb Soln INH PRN ×2 (04:13→16:43)
--- NOTE | 2021-03-25 08:56 | CR ---
Chest: Portable view of the chest was obtained. Comparison: Prior chest x-ray of 03/24/21. Right-sided chest tube is seen. Position appears stable from prior exam. Very minimal pleural air is noted within the right lung apex. Parenchymal density is noted within the left upper chest which is stable. Lungs otherwise are clear. Heart size and mediastinum are stable. Impression: 1. Right-sided chest tube. Very minimal pneumothorax within the right lung apex remains. 2. Other portions of the chest remain stable. Diagnostic code #3
[2021-03-25] MEDS ORDERED: Tiotropium Bromide 4 GM Inhalation Spray (2.5mcg/1 dose; 10 doses) INH SCH (09:00)
[2021-03-25] MEDS: Losartan 50 MG Tab PO SCH (09:08)
[2021-03-25] MEDS: Meclizine 12.5 MG Tab PO SCH (09:08)
[2021-03-25] MEDS: Diltiazem 120 MG Cap.CD PO SCH ×2 (09:08→20:19)
[2021-03-25] MEDS: Pravastatin 20 MG Tab PO SCH (09:09)
[2021-03-25] MEDS: Enoxaparin 40 MG/0.4 ML Syringe SUBCUT SCH (09:09)
[2021-03-25] MEDS: Pantoprazole 40 MG Tab.CR PO SCH (09:09)
[2021-03-25] MEDS: Furosemide 40 MG Tab PO SCH (09:09)
--- NOTE | 2021-03-25 10:12 | PCM.PN ---
- General Info Date of Service: 03/25/21 Admission Dx/Problem (Free Text): Trauma Subjective Update: Pain is better today. continues to breath and sit on a chair. tolerating diet Functional Status: Reports: Pain Controlled, Tolerating Diet, Ambulating - Review of Systems General: Reports: No Symptoms HEENT: Reports: No Symptoms Pulmonary: Reports: Pleuritic Chest Pain Cardiovascular: Reports: No Symptoms Gastrointestinal: Reports: No Symptoms Genitourinary: Reports: No Symptoms Musculoskeletal: Reports: No Symptoms - Patient Data Vitals - Most Recent: Last Vital Signs Temp 99.0 F 03/25/21 08:13 Pulse 76 03/25/21 09:08 Resp 20 03/25/21 08:13 BP 113/81 03/25/21 09:08 Pulse Ox 92 L 03/25/21 08:13 Weight - Most Recent: 67.948 kg I&O - Last 24 Hours: Intake & Output 03/24/21 03/25/21 03/25/21 22:59 06:59 14:59 Intake Total 1400 630 Output Total 621 485 Balance 779 145 Lab Results Last 24 Hours: Laboratory Results - last 24 hr 03/25/21 03/25/21 03/25/21 Range/Units 06:20 06:20 06:20 WBC 8.99 (3.98-10.04) K/mm3 RBC 3.02 L (3.98-5.22) M/mm3 Hgb 7.2 L* (11.2-15.7) gm/dl Hct 25.4 L (34.1-44.9) % MCV 84.1 (79.4-94.8) fl MCH 23.8 L (25.6-32.2) pg MCHC 28.3 L (32.2-35.5) g/dl RDW Std Deviation 57.5 H (36.4-46.3) fL Plt Count 284 (182-369) K/mm3 MPV 10.4 (9.4-12.3) fl Neut % (Auto) 84.5 H (34.0-71.1) % Lymph % (Auto) 9.7 L (19.3-51.7) % [place] % (Auto) 5.1 (4.7-12.5) % Eos % (Auto) 0 L (0.7-5.8) Baso % (Auto) 0.1 (0.1-1.2) % Neut # (Auto) 7.60 H (1.56-6.13) K/mm3 Lymph # (Auto) 0.87 L (1.18-3.74) K/mm3 [place] # (Auto) 0.46 H (0.24-0.36) K/mm3 Eos # (Auto) 0.00 L (0.04-0.36) K/mm3 Baso # (Auto) 0.01 (0.01-0.08) K/mm3 Manual Slide Review Abnormal smear Sodium 140 (136-145) mEq/L Potassium 4.9 (3.5-5.1) mEq/L Chloride 104 (98-107) mEq/L Carbon Dioxide 31 (21-32) mEq/L Anion Gap 9.9 (5-15) BUN 28 H (7-18) mg/dL Creatinine 1.2 H (0.55-1.02) mg/dL Est Cr Clr Drug Dosing 31.21 mL/min Estimated GFR (MDRD) 43 (>60) mL/min BUN/Creatinine Ratio 23.3 H (14-18) Glucose 129 H (70-99) mg/dL Calcium 8.3 L (8.5-10.1) mg/dL Phosphorus 3.9 (2.6-4.7) mg/dL Magnesium 2.1 (1.8-2.4) mg/dL Blood Type O POSITIVE Gel Antibody Screen Negative Med Orders - Current: Current Medications Hydrocodone Bitart/Acetaminophen (Acetaminophen/Hydrocodone 325-5 Mg Tab) 1 tab PO Q4H PRN PRN Reason: Pain (moderate 4-6) Last Admin: 03/24/21 14:56 Dose: 1 tab Documented by: Albuterol (Albuterol 0.083% 2.5 Mg/3 Ml Neb Soln) 2.5 mg INH Q4H PRN PRN Reason: shortness of breath Last Admin: 03/25/21 04:13 Dose: 2.5 mg Documented by: Digoxin (Digoxin 125 Mcg Tab) 125 mcg PO DAILY@1200 [facility] Diltiazem HCl (Diltiazem 120 Mg Cap.Cd) 240 mg PO BID [facility] Last Admin: 03/25/21 09:08 Dose: 240 mg Documented by: Enoxaparin Sodium (Enoxaparin 40 Mg/0.4 Ml Syringe) 40 mg SUBCUT DAILY [facility] Last Admin: 03/25/21 09:09 Dose: 40 mg Documented by: Furosemide (Furosemide 40 Mg Tab) 40 mg PO DAILY [facility] Last Admin: 03/25/21 09:09 Dose: 40 mg Documented by: Hydromorphone HCl (Hydromorphone 0.5 Mg/0.5 Ml Syringe) 0.5 mg IVPUSH Q2H PRN PRN Reason: Pain (severe 7-10) Last Admin: 03/24/21 04:48 Dose: 0.5 mg Documented by: Ketorolac Tromethamine (Ketorolac 15 Mg/Ml Sdv) 15 mg IVPUSH Q6H [facility] Last Admin: 03/25/21 06:29 Dose: 15 mg Documented by: Losartan Potassium (Losartan 50 Mg Tab) 50 mg PO DAILY [facility] Last Admin: 03/25/21 09:08 Dose: 50 mg Documented by: Meclizine HCl (Meclizine 12.5 Mg Tab) 25 mg PO DAILY [facility] Last Admin: 03/25/21 09:08 Dose: 25 mg Documented by: Ondansetron HCl (Ondansetron 4 Mg Tab.Dis) 4 mg PO Q4H PRN PRN Reason: nausea, able to take PO Last Admin: 03/24/21 23:38 Dose: 4 mg Documented by: Pantoprazole Sodium (Pantoprazole 40 Mg Tab.Cr) 40 mg PO DAILY [facility] Last Admin: 03/25/21 09:09 Dose: 40 mg Documented by: Polyethylene Glycol (Polyethylene Glycol 3350 Powder 17 Gm Packet) 17 gm PO DAILY PRN PRN Reason: Constipation Pravastatin Sodium (Pravastatin 20 Mg Tab) 10 mg PO DAILY [facility] Last Admin: 03/25/21 09:09 Dose: 10 mg Documented by: Tiotropium Panther (Tiotropium Panther 4 Gm Inhalation [place] (2.5mcg/1 Dose; 10 Doses)) 0 gm INH 1200 [facility] Last Admin: 03/24/21 13:20 Dose: 2 dose Documented by: Discontinued Medications Albuterol (Albuterol 0.083% 2.5 Mg/3 Ml Neb Soln) 2.5 mg INH BID [facility] Last Admin: 03/24/21 08:07 Dose: 2.5 mg Documented by: Albuterol (Albuterol 6.7 Gm Inhaler) 0 gm INH DAILY [facility] Last Admin: 03/24/21 08:14 Dose: Not Given Documented by: Albuterol (Albuterol 6.7 Gm Inhaler) 0 gm INH DAILY [facility] Digoxin (Digoxin 125 Mcg Tab) 125 mcg PO DAILY [facility] Last Admin: 03/24/21 08:54 Dose: 125 mcg Documented by: Enoxaparin Sodium (Enoxaparin 30 Mg/0.3 Ml Syringe) 30 mg SUBCUT DAILY [facility] Hydromorphone HCl (Hydromorphone 0.5 Mg/0.5 Ml Syringe) 0.5 mg IVPUSH ONETIME ONE Stop: 03/23/21 17:33 Last Admin: 03/23/21 17:46 Dose: 0.5 mg Documented by: Dextrose/Sodium Chloride (Dextrose 5%-Normal Saline) 1,000 mls @ 125 mls/hr IV ASDIRECTED [facility] Last Admin: 03/23/21 17:45 Dose: 125 mls/hr Documented by: Lactated Ringer's (Ringers, Lactated) 1,000 mls @ 50 mls/hr IV ASDIRECTED [facility] Sodium Chloride (Normal Saline) 1,000 mls @ 50 mls/hr IV ASDIRECTED [facility] Last Admin: 03/24/21 22:41 Dose: 50 mls/hr Documented by: Ketamine HCl (Ketamine 500 Mg/10 Ml Mdv) Confirm Administered Dose 500 mg .ROUTE .STK-MED ONE Stop: 03/23/21 19:33 Ketorolac Tromethamine (Ketorolac 30 Mg/Ml Sdv) 30 mg IM Q8H PRN PRN Reason: Pain (severe 7-10) Lidocaine HCl (Lidocaine 1% 10 Ml Mdv) Confirm Administered Dose 20 ml .ROUTE .STK-MED ONE Stop: 03/23/21 19:26 Last Admin: 03/23/21 21:51 Dose: Not Given Documented by: Ondansetron HCl (Ondansetron 4 Mg/2 Ml Sdv) 4 mg IVPUSH ONETIME ONE Stop: 03/23/21 17:34 Last Admin: 03/23/21 17:45 Dose: 4 mg Documented by: - Exam Quality Assessment: Supplemental Oxygen Urinary Catheter Total Time: 0Days 17Hours General: Alert, Oriented, Cooperative Lungs: Clear to Auscultation, Normal Respiratory Effort Cardiovascular: Regular Rate, Regular Rhythm, No Murmurs - Patient Data Lab Results Last 24 hrs: Laboratory Results - last 24 hr 03/25/21 03/25/21 03/25/21 Range/Units 06:20 06:20 06:20 WBC 8.99 (3.98-10.04) K/mm3 RBC 3.02 L (3.98-5.22) M/mm3 Hgb 7.2 L* (11.2-15.7) gm/dl Hct 25.4 L (34.1-44.9) % MCV 84.1 (79.4-94.8) fl MCH 23.8 L (25.6-32.2) pg MCHC 28.3 L (32.2-35.5) g/dl RDW Std Deviation 57.5 H (36.4-46.3) fL Plt Count 284 (182-369) K/mm3 MPV 10.4 (9.4-12.3) fl Neut % (Auto) 84.5 H (34.0-71.1) % Lymph % (Auto) 9.7 L (19.3-51.7) % [place] % (Auto) 5.1 (4.7-12.5) % Eos % (Auto) 0 L (0.7-5.8) Baso % (Auto) 0.1 (0.1-1.2) % Neut # (Auto) 7.60 H (1.56-6.13) K/mm3 Lymph # (Auto) 0.87 L (1.18-3.74) K/mm3 [place] # (Auto) 0.46 H (0.24-0.36) K/mm3 Eos # (Auto) 0.00 L (0.04-0.36) K/mm3 Baso # (Auto) 0.01 (0.01-0.08) K/mm3 Manual Slide Review Abnormal smear Sodium 140 (136-145) mEq/L Potassium 4.9 (3.5-5.1) mEq/L Chloride 104 (98-107) mEq/L Carbon Dioxide 31 (21-32) mEq/L Anion Gap 9.9 (5-15) BUN 28 H (7-18) mg/dL Creatinine 1.2 H (0.55-1.02) mg/dL Est Cr Clr Drug Dosing 31.21 mL/min Estimated GFR (MDRD) 43 (>60) mL/min BUN/Creatinine Ratio 23.3 H (14-18) Glucose 129 H (70-99) mg/dL Calcium 8.3 L (8.5-10.1) mg/dL Phosphorus 3.9 (2.6-4.7) mg/dL Magnesium 2.1 (1.8-2.4) mg/dL Blood Type O POSITIVE Gel Antibody Screen Negative Result Diagrams: 03/25/21 06:20 03/25/21 06:20 Sepsis Event Note - Evaluation Sepsis Screening Result: No Definite Risk - Focused Exam Vital Signs: Vital Signs Temp Pulse Resp BP Pulse Ox Pulse Ox Pulse Ox 03/25/21 09:08 76 113/81 03/25/21 08:13 99.0 F 76 20 113/81 92 L 03/25/21 04:42 95 03/25/21 04:18 92 L 03/25/21 04:09 97.5 F 75 16 125/49 L 83 L 03/24/21 23:42 99.0 F 77 18 115/95 H 90 L - Problem List Review Problem List Initiated/Reviewed/Updated: No - My Orders Last 24 Hours: My Active Orders 03/24/21 Lunch Regular Diet [DIET] 03/24/21 13:15 Albuterol [Proventil Neb Soln] 2.5 mg INH Q4H PRN Tiotropium Panther [Spiriva Respimat] 0 gm INH 1200 03/24/21 16:30 Pravastatin [Pravachol] 10 mg PO DAILY 03/25/21 09:21 Chest 1V Frontal [CR] Routine 03/25/21 12:00 Digoxin [Lanoxin] 125 mcg PO DAILY@1200 03/25/21 14:00 CBC WITH AUTO DIFF [HEME] Timed 03/26/21 05:11 Chest 1V Frontal [CR] AM BASIC METABOLIC PANEL,BMP [CHEM] AM CBC WITH AUTO DIFF [HEME] AM MAGNESIUM [CHEM] AM PHOSPHORUS [CHEM] AM 03/27/21 05:11 BASIC METABOLIC PANEL,BMP [CHEM] AM CBC WITH AUTO DIFF [HEME] AM MAGNESIUM [CHEM] AM PHOSPHORUS [CHEM] AM - Assessment Assessment:: HD2 s/p mechanical fall from standing. Right rib fxs and right pneumothorax - Plan Plan:: Fall from standing. Right 5th and 6th rib fxs and right sided pneumothorax. 1. Right pneumothorax - chest tube placed. PTx resolved except for tiny air apically - chest tube to waterseal this AM. Repeat Xray at 1400, if no change, remove ch est tube 2. Right 5th and 6th rib fxs - pain control. Discussed with the patient importance of pain control, breathing, ambulating. She will try to get her pain under control. - Incentive spirometer - ambulation - PT/OT 3. Hematoma, right hip - expectant management, should resolve over time Other - reg diet now. decrease IVF - resume some home meds - dc christal castorena
[2021-03-25] MEDS: Tiotropium Bromide 4 GM Inhalation Spray (2.5mcg/1 dose; 10 doses) INH SCH (11:02)
[2021-03-25] MEDS ORDERED: Albuterol 6.7 GM Inhaler INH SCH (12:00)
[2021-03-25] MEDS: Digoxin 125 MCG Tab PO SCH (12:32)
--- NOTE | 2021-03-25 15:05 | PCM.SN.2 ---
- Free Text/Narrative Note: Chest Xray done at 1400 shows tiny right apical pneumothorax. This is stable for the past 3 xrays. Chest tube is not able to clear this residual pneumothorax and will likely resolve over time. We will remove the chest tube this afternoon. Repeat chest Xray in the AM.
[2021-03-25] MEDS: Acetaminophen/HYDROcodone 325-5 MG Tab PO PRN (15:48)
[2021-03-26] MEDS: Ketorolac 15 MG/ML SDV IVPUSH SCH ×4 (00:09→18:00)
--- NOTE | 2021-03-26 08:19 | CR ---
Chest: Portable view of the chest was obtained. Comparison: Prior chest x-ray of 03/25/21. Prior right-sided chest tube has been removed in the interim. I do not see a discrete pneumothorax. Parenchymal density within left upper chest remains. Heart size and mediastinum are stable. Scoliosis is noted within the spine. Bony structures are osteopenic. Impression: 1. Removal of right-sided chest tube. No definite pneumothorax is seen. 2. Other portions of the chest are stable. Diagnostic code #2
[2021-03-26] MEDS: Furosemide 40 MG Tab PO SCH (08:28)
[2021-03-26] MEDS: Meclizine 12.5 MG Tab PO SCH (08:28)
[2021-03-26] MEDS: Pantoprazole 40 MG Tab.CR PO SCH (08:28)
[2021-03-26] MEDS: Pravastatin 20 MG Tab PO SCH (08:28)
[2021-03-26] MEDS: Losartan 50 MG Tab PO SCH (08:28)
[2021-03-26] MEDS: Diltiazem 120 MG Cap.CD PO SCH ×2 (08:28→20:12)
[2021-03-26] MEDS: Enoxaparin 40 MG/0.4 ML Syringe SUBCUT SCH (08:29)
[2021-03-26] MEDS: Tiotropium Bromide 4 GM Inhalation Spray (2.5mcg/1 dose; 10 doses) INH SCH (09:00)
[2021-03-26] MEDS: Albuterol 0.083% 2.5 MG/3 ML Neb Soln INH PRN (09:00)
--- NOTE | 2021-03-26 09:59 | PCM.PN ---
- General Info Date of Service: 03/26/21 Admission Dx/Problem (Free Text): Trauma Subjective Update: desaturating frequently due to shallow breathing. otherwise stable apart from the right chest pain. Functional Status: Reports: Tolerating Diet, Ambulating, Urinating - Review of Systems General: Reports: No Symptoms HEENT: Reports: No Symptoms Pulmonary: Reports: No Symptoms Cardiovascular: Reports: No Symptoms Gastrointestinal: Reports: No Symptoms Genitourinary: Reports: No Symptoms Musculoskeletal: Reports: No Symptoms - Patient Data Vitals - Most Recent: Last Vital Signs Temp 98.4 F 03/26/21 08:29 Pulse 85 03/26/21 08:29 Resp 14 03/26/21 08:29 BP 113/57 L 03/26/21 08:29 Pulse Ox 82 L 03/26/21 09:00 Weight - Most Recent: 68.402 kg I&O - Last 24 Hours: Intake & Output 03/25/21 03/26/21 03/26/21 22:59 06:59 14:59 Intake Total 1320 800 Output Total 1050 Balance 270 800 Lab Results Last 24 Hours: Laboratory Results - last 24 hr 03/25/21 03/26/21 03/26/21 Range/Units 14:17 05:53 05:53 WBC 10.36 H 9.75 (3.98-10.04) K/mm3 RBC 3.02 L 3.00 L (3.98-5.22) M/mm3 Hgb 7.2 L* 7.3 L* (11.2-15.7) gm/dl Hct 25.4 L 25.0 L (34.1-44.9) % MCV 84.1 83.3 (79.4-94.8) fl MCH 23.8 L 24.3 L (25.6-32.2) pg MCHC 28.3 L 29.2 L (32.2-35.5) g/dl RDW Std Deviation 57.2 H 55.6 H (36.4-46.3) fL Plt Count 295 292 (182-369) K/mm3 MPV 9.9 9.8 (9.4-12.3) fl Neut % (Auto) 81.3 H 80.6 H (34.0-71.1) % Lymph % (Auto) 10.4 L 10.5 L (19.3-51.7) % [place] % (Auto) 7.6 8.2 (4.7-12.5) % Eos % (Auto) 0 L 0 L (0.7-5.8) Baso % (Auto) 0.2 0.1 (0.1-1.2) % Neut # (Auto) 8.42 H 7.86 H (1.56-6.13) K/mm3 Lymph # (Auto) 1.08 L 1.02 L (1.18-3.74) K/mm3 [place] # (Auto) 0.79 H 0.80 H (0.24-0.36) K/mm3 Eos # (Auto) 0.00 L 0.00 L (0.04-0.36) K/mm3 Baso # (Auto) 0.02 0.01 (0.01-0.08) K/mm3 Manual Slide Review Abnormal smear Abnormal smear Sodium 137 (136-145) mEq/L Potassium 4.6 (3.5-5.1) mEq/L Chloride 101 (98-107) mEq/L Carbon Dioxide 29 (21-32) mEq/L Anion Gap 11.6 (5-15) BUN 30 H (7-18) mg/dL Creatinine 1.2 H (0.55-1.02) mg/dL Est Cr Clr Drug Dosing 31.21 mL/min Estimated GFR (MDRD) 43 (>60) mL/min BUN/Creatinine Ratio 25.0 H (14-18) Glucose 111 H (70-99) mg/dL Calcium 8.2 L (8.5-10.1) mg/dL Phosphorus 3.7 (2.6-4.7) mg/dL Magnesium 1.9 (1.8-2.4) mg/dL Med Orders - Current: Current Medications Hydrocodone Bitart/Acetaminophen (Acetaminophen/Hydrocodone 325-5 Mg Tab) 1 tab PO Q4H PRN PRN Reason: Pain (moderate 4-6) Last Admin: 03/25/21 15:48 Dose: 1 tab Documented by: Albuterol (Albuterol 0.083% 2.5 Mg/3 Ml Neb Soln) 2.5 mg INH Q4H [facility] Digoxin (Digoxin 125 Mcg Tab) 125 mcg PO DAILY@1200 [facility] Last Admin: 03/25/21 12:32 Dose: 125 mcg Documented by: Diltiazem HCl (Diltiazem 120 Mg Cap.Cd) 240 mg PO BID [facility] Last Admin: 03/26/21 08:28 Dose: 240 mg Documented by: Enoxaparin Sodium (Enoxaparin 40 Mg/0.4 Ml Syringe) 40 mg SUBCUT DAILY [facility] Last Admin: 03/26/21 08:29 Dose: 40 mg Documented by: Furosemide (Furosemide 40 Mg Tab) 40 mg PO DAILY [facility] Last Admin: 03/26/21 08:28 Dose: 40 mg Documented by: Hydromorphone HCl (Hydromorphone 0.5 Mg/0.5 Ml Syringe) 0.5 mg IVPUSH Q2H PRN PRN Reason: Pain (severe 7-10) Last Admin: 03/24/21 04:48 Dose: 0.5 mg Documented by: Ketorolac Tromethamine (Ketorolac 15 Mg/Ml Sdv) 15 mg IVPUSH Q6H [facility] Last Admin: 03/26/21 06:12 Dose: 15 mg Documented by: Losartan Potassium (Losartan 50 Mg Tab) 50 mg PO DAILY [facility] Last Admin: 03/26/21 08:28 Dose: 50 mg Documented by: Meclizine HCl (Meclizine 12.5 Mg Tab) 25 mg PO DAILY [facility] Last Admin: 03/26/21 08:28 Dose: 25 mg Documented by: Ondansetron HCl (Ondansetron 4 Mg Tab.Dis) 4 mg PO Q4H PRN PRN Reason: nausea, able to take PO Last Admin: 03/24/21 23:38 Dose: 4 mg Documented by: Pantoprazole Sodium (Pantoprazole 40 Mg Tab.Cr) 40 mg PO DAILY [facility] Last Admin: 03/26/21 08:28 Dose: 40 mg Documented by: Polyethylene Glycol (Polyethylene Glycol 3350 Powder 17 Gm Packet) 17 gm PO DAILY PRN PRN Reason: Constipation Pravastatin Sodium (Pravastatin 20 Mg Tab) 10 mg PO DAILY [facility] Last Admin: 03/26/21 08:28 Dose: 10 mg Documented by: Tiotropium [place] (Tiotropium [place] 4 Gm Inhalation [place] (2.5mcg/1 Dose; 10 Doses)) 0 gm INH DAILY [facility] Last Admin: 03/26/21 09:00 Dose: 2 puff Documented by: Discontinued Medications Albuterol (Albuterol 0.083% 2.5 Mg/3 Ml Neb Soln) 2.5 mg INH BID [facility] Last Admin: 03/24/21 08:07 Dose: 2.5 mg Documented by: Albuterol (Albuterol 6.7 Gm Inhaler) 0 gm INH DAILY [facility] Last Admin: 03/24/21 08:14 Dose: Not Given Documented by: Albuterol (Albuterol 6.7 Gm Inhaler) 0 gm INH DAILY [facility] Albuterol (Albuterol 0.083% 2.5 Mg/3 Ml Neb Soln) 2.5 mg INH Q4H PRN PRN Reason: shortness of breath Last Admin: 03/26/21 09:00 Dose: 2.5 mg Documented by: Digoxin (Digoxin 125 Mcg Tab) 125 mcg PO DAILY [facility] Last Admin: 03/24/21 08:54 Dose: 125 mcg Documented by: Enoxaparin Sodium (Enoxaparin 30 Mg/0.3 Ml Syringe) 30 mg SUBCUT DAILY [facility] Hydromorphone HCl (Hydromorphone 0.5 Mg/0.5 Ml Syringe) 0.5 mg IVPUSH ONETIME ONE Stop: 03/23/21 17:33 Last Admin: 03/23/21 17:46 Dose: 0.5 mg Documented by: Dextrose/Sodium Chloride (Dextrose 5%-Normal Saline) 1,000 mls @ 125 mls/hr IV ASDIRECTED [facility] Last Admin: 03/23/21 17:45 Dose: 125 mls/hr Documented by: Lactated Ringer's (Ringers, Lactated) 1,000 mls @ 50 mls/hr IV ASDIRECTED [facility] Sodium Chloride (Normal Saline) 1,000 mls @ 50 mls/hr IV ASDIRECTED [facility] Last Admin: 03/24/21 22:41 Dose: 50 mls/hr Documented by: Ketamine HCl (Ketamine 500 Mg/10 Ml Mdv) Confirm Administered Dose 500 mg .ROUTE .STK-MED ONE Stop: 03/23/21 19:33 Ketorolac Tromethamine (Ketorolac 30 Mg/Ml Sdv) 30 mg IM Q8H PRN PRN Reason: Pain (severe 7-10) Lidocaine HCl (Lidocaine 1% 10 Ml Mdv) Confirm Administered Dose 20 ml .ROUTE .STK-MED ONE Stop: 03/23/21 19:26 Last Admin: 03/23/21 21:51 Dose: Not Given Documented by: Ondansetron HCl (Ondansetron 4 Mg/2 Ml Sdv) 4 mg IVPUSH ONETIME ONE Stop: 03/23/21 17:34 Last Admin: 03/23/21 17:45 Dose: 4 mg Documented by: Tiotropium [place] (Tiotropium [place] 4 Gm Inhalation [place] (2.5mcg/1 Dose; 10 Doses)) 0 gm INH 1200 [facility] Last Admin: 03/25/21 11:02 Dose: 2 puff Documented by: - Exam Urinary Catheter Total Time: 1Days 16Hours General: Alert, Oriented, Cooperative Lungs: Crackles, Other (shallow breathing) Cardiovascular: Regular Rate, Irregular Rhythm GI/Abdominal Exam: Soft, Non-Tender, No Organomegaly, No Distention - Patient Data Lab Results Last 24 hrs: Laboratory Results - last 24 hr 03/25/21 03/26/21 03/26/21 Range/Units 14:17 05:53 05:53 WBC 10.36 H 9.75 (3.98-10.04) K/mm3 RBC 3.02 L 3.00 L (3.98-5.22) M/mm3 Hgb 7.2 L* 7.3 L* (11.2-15.7) gm/dl Hct 25.4 L 25.0 L (34.1-44.9) % MCV 84.1 83.3 (79.4-94.8) fl MCH 23.8 L 24.3 L (25.6-32.2) pg MCHC 28.3 L 29.2 L (32.2-35.5) g/dl RDW Std Deviation 57.2 H 55.6 H (36.4-46.3) fL Plt Count 295 292 (182-369) K/mm3 MPV 9.9 9.8 (9.4-12.3) fl Neut % (Auto) 81.3 H 80.6 H (34.0-71.1) % Lymph % (Auto) 10.4 L 10.5 L (19.3-51.7) % [place] % (Auto) 7.6 8.2 (4.7-12.5) % Eos % (Auto) 0 L 0 L (0.7-5.8) Baso % (Auto) 0.2 0.1 (0.1-1.2) % Neut # (Auto) 8.42 H 7.86 H (1.56-6.13) K/mm3 Lymph # (Auto) 1.08 L 1.02 L (1.18-3.74) K/mm3 [place] # (Auto) 0.79 H 0.80 H (0.24-0.36) K/mm3 Eos # (Auto) 0.00 L 0.00 L (0.04-0.36) K/mm3 Baso # (Auto) 0.02 0.01 (0.01-0.08) K/mm3 Manual Slide Review Abnormal smear Abnormal smear Sodium 137 (136-145) mEq/L Potassium 4.6 (3.5-5.1) mEq/L Chloride 101 (98-107) mEq/L Carbon Dioxide 29 (21-32) mEq/L Anion Gap 11.6 (5-15) BUN 30 H (7-18) mg/dL Creatinine 1.2 H (0.55-1.02) mg/dL Est Cr Clr Drug Dosing 31.21 mL/min Estimated GFR (MDRD) 43 (>60) mL/min BUN/Creatinine Ratio 25.0 H (14-18) Glucose 111 H (70-99) mg/dL Calcium 8.2 L (8.5-10.1) mg/dL Phosphorus 3.7 (2.6-4.7) mg/dL Magnesium 1.9 (1.8-2.4) mg/dL Result Diagrams: 03/26/21 05:53 03/26/21 05:53 Sepsis Event Note - Evaluation Sepsis Screening Result: No Definite Risk - Focused Exam Vital Signs: Vital Signs Temp Pulse Resp BP Pulse Ox Pulse Ox 03/26/21 09:00 82 L 03/26/21 08:29 98.4 F 85 14 113/57 L 96 03/26/21 08:28 86 113/57 L 03/26/21 04:59 98.4 F 72 18 117/62 90 L 03/25/21 23:07 98.4 F 65 18 121/40 L 91 L - Problem List Review Problem List Initiated/Reviewed/Updated: No - My Orders Last 24 Hours: My Active Orders 03/25/21 12:00 Digoxin [Lanoxin] 125 mcg PO DAILY@1200 03/25/21 14:00 Chest 1V Frontal [CR] Routine 03/26/21 08:48 EKG Documentation Completion [RC] ASDIRECTED EKG 12 Lead [EK] Stat 03/26/21 09:00 Tiotropium [place] [Spiriva Respimat] 0 gm INH DAILY 03/26/21 14:00 Albuterol [Proventil Neb Soln] 2.5 mg INH Q4H 03/27/21 05:11 BASIC METABOLIC PANEL,BMP [CHEM] AM CBC WITH AUTO DIFF [HEME] AM MAGNESIUM [CHEM] AM PHOSPHORUS [CHEM] AM - Assessment Assessment:: HD3 s/p mechanical fall from standing. Right rib fxs and right pneumothorax - Plan Plan:: Fall from standing. Right 5th and 6th rib fxs and right sided pneumothorax. 1. Right pneumothorax - Resolved per chest xrays this AM - chest tube removed 03/25 2. Right 5th and 6th rib fxs - pain control. Discussed with the patient importance of pain control, breathing, ambulating. She will try to get her pain under control. - Incentive spirometer - Nebulizers q4h [facility] starting today - intensive pulm toilet - ambulation - PT/OT 3. Hematoma, right hip - expectant management, should resolve over time Other - reg diet now. - resume some home meds - Dipso pending pulm stability
[2021-03-26] MEDS: Digoxin 125 MCG Tab PO SCH (12:49)
[2021-03-26] MEDS: Albuterol 0.083% 2.5 MG/3 ML Neb Soln INH SCH ×3 (13:01→21:38)
[2021-03-27] MEDS: Ketorolac 15 MG/ML SDV IVPUSH SCH ×3 (00:39→13:19)
[2021-03-27] MEDS: Albuterol 0.083% 2.5 MG/3 ML Neb Soln INH SCH ×6 (01:04→21:20)
[2021-03-27] MEDS: Pantoprazole 40 MG Tab.CR PO SCH (09:02)
[2021-03-27] MEDS: Enoxaparin 40 MG/0.4 ML Syringe SUBCUT SCH (09:02)
[2021-03-27] MEDS: Meclizine 12.5 MG Tab PO SCH (09:04)
[2021-03-27] MEDS: Acetaminophen/HYDROcodone 325-5 MG Tab PO PRN ×3 (09:09→23:21)
[2021-03-27] MEDS: Pravastatin 20 MG Tab PO SCH (09:10)
[2021-03-27] MEDS: Diltiazem 120 MG Cap.CD PO SCH ×2 (09:13→21:02)
[2021-03-27] MEDS: Furosemide 40 MG Tab PO SCH (09:13)
[2021-03-27] MEDS: Losartan 50 MG Tab PO SCH (09:13)
[2021-03-27] MEDS ORDERED: Sodium Chloride 0.9% 250 ML IV ONE (09:16)
[2021-03-27] MEDS: Tiotropium Bromide 4 GM Inhalation Spray (2.5mcg/1 dose; 10 doses) INH SCH (09:45)
--- NOTE | 2021-03-27 10:15 | PCM.PN ---
- General Info Date of Service: 03/27/21 Admission Dx/Problem (Free Text): Trauma Subjective Update: Still has right sided chest wall pain. on 5L oxygen now. was sitting on a chair this AM. Functional Status: Reports: Tolerating Diet, Ambulating, Urinating - Review of Systems General: Reports: No Symptoms HEENT: Reports: No Symptoms Pulmonary: Reports: Other (right chest wall pain) Cardiovascular: Reports: No Symptoms Gastrointestinal: Reports: No Symptoms Genitourinary: Reports: No Symptoms Musculoskeletal: Reports: No Symptoms - Patient Data Vitals - Most Recent: Last Vital Signs Temp 98.6 F 03/27/21 10:03 Pulse 79 03/27/21 10:03 Resp 24 H 03/27/21 10:03 BP 128/67 03/27/21 10:03 Pulse Ox 94 L 03/27/21 09:40 Weight - Most Recent: 68.039 kg I&O - Last 24 Hours: Intake & Output 03/26/21 03/27/21 03/27/21 22:59 06:59 14:59 Intake Total 660 0 Output Total 750 300 Balance -90 -300 0 Lab Results Last 24 Hours: Laboratory Results - last 24 hr 03/27/21 03/27/21 03/27/21 Range/Units 05:30 05:30 05:30 WBC 8.40 (3.98-10.04) K/mm3 RBC 2.77 L (3.98-5.22) M/mm3 Hgb 6.8 L* (11.2-15.7) gm/dl Hct 22.6 L (34.1-44.9) % MCV 81.6 (79.4-94.8) fl MCH 24.5 L (25.6-32.2) pg MCHC 30.1 L (32.2-35.5) g/dl RDW Std Deviation 52.7 H (36.4-46.3) fL Plt Count 288 (182-369) K/mm3 MPV 10.2 (9.4-12.3) fl Neut % (Auto) 78.6 H (34.0-71.1) % Lymph % (Auto) 11.9 L (19.3-51.7) % [place] % (Auto) 9.4 (4.7-12.5) % Eos % (Auto) 0 L (0.7-5.8) Baso % (Auto) 0.1 (0.1-1.2) % Neut # (Auto) 6.60 H (1.56-6.13) K/mm3 Lymph # (Auto) 1.00 L (1.18-3.74) K/mm3 [place] # (Auto) 0.79 H (0.24-0.36) K/mm3 Eos # (Auto) 0.00 L (0.04-0.36) K/mm3 Baso # (Auto) 0.01 (0.01-0.08) K/mm3 Manual Slide Review Abnormal smear Sodium 137 (136-145) mEq/L Potassium 4.1 (3.5-5.1) mEq/L Chloride 100 (98-107) mEq/L Carbon Dioxide 31 (21-32) mEq/L Anion Gap 10.1 (5-15) BUN 28 H (7-18) mg/dL Creatinine 1.1 H (0.55-1.02) mg/dL Est Cr Clr Drug Dosing 34.05 mL/min Estimated GFR (MDRD) 48 (>60) mL/min BUN/Creatinine Ratio 25.5 H (14-18) Glucose 113 H (70-99) mg/dL Calcium 7.8 L (8.5-10.1) mg/dL Phosphorus 3.4 (2.6-4.7) mg/dL Magnesium 2.0 (1.8-2.4) mg/dL Blood Type O POSITIVE Gel Antibody Screen Negative Crossmatch See Detail Med Orders - Current: Current Medications Hydrocodone Bitart/Acetaminophen (Acetaminophen/Hydrocodone 325-5 Mg Tab) 1 tab PO Q4H PRN PRN Reason: Pain (moderate 4-6) Last Admin: 03/27/21 09:09 Dose: 1 tab Documented by: Albuterol (Albuterol 0.083% 2.5 Mg/3 Ml Neb Soln) 2.5 mg INH Q4H [facility] Last Admin: 03/27/21 09:39 Dose: 2.5 mg Documented by: Digoxin (Digoxin 125 Mcg Tab) 125 mcg PO DAILY@1200 [facility] Last Admin: 03/26/21 12:49 Dose: 125 mcg Documented by: Diltiazem HCl (Diltiazem 120 Mg Cap.Cd) 240 mg PO BID [facility] Last Admin: 03/27/21 09:13 Dose: 240 mg Documented by: Enoxaparin Sodium (Enoxaparin 40 Mg/0.4 Ml Syringe) 40 mg SUBCUT DAILY [facility] Last Admin: 03/27/21 09:02 Dose: 40 mg Documented by: Furosemide (Furosemide 40 Mg Tab) 40 mg PO DAILY [facility] Last Admin: 03/27/21 09:13 Dose: 40 mg Documented by: Hydromorphone HCl (Hydromorphone 0.5 Mg/0.5 Ml Syringe) 0.5 mg IVPUSH Q2H PRN PRN Reason: Pain (severe 7-10) Last Admin: 03/24/21 04:48 Dose: 0.5 mg Documented by: Sodium Chloride (Normal Saline) 250 mls @ 50 mls/hr IV ONETIME ONE Stop: 03/27/21 13:59 Ketorolac Tromethamine (Ketorolac 15 Mg/Ml Sdv) 15 mg IVPUSH Q6H [facility] Last Admin: 03/27/21 06:18 Dose: 15 mg Documented by: Losartan Potassium (Losartan 50 Mg Tab) 50 mg PO DAILY [facility] Last Admin: 03/27/21 09:13 Dose: 50 mg Documented by: Meclizine HCl (Meclizine 12.5 Mg Tab) 25 mg PO DAILY [facility] Last Admin: 03/27/21 09:04 Dose: 25 mg Documented by: Ondansetron HCl (Ondansetron 4 Mg Tab.Dis) 4 mg PO Q4H PRN PRN Reason: nausea, able to take PO Last Admin: 03/24/21 23:38 Dose: 4 mg Documented by: Pantoprazole Sodium (Pantoprazole 40 Mg Tab.Cr) 40 mg PO DAILY [facility] Last Admin: 03/27/21 09:02 Dose: 40 mg Documented by: Polyethylene Glycol (Polyethylene Glycol 3350 Powder 17 Gm Packet) 17 gm PO DAILY PRN PRN Reason: Constipation Pravastatin Sodium (Pravastatin 20 Mg Tab) 10 mg PO DAILY [facility] Last Admin: 03/27/21 09:10 Dose: 10 mg Documented by: Tiotropium [place] (Tiotropium [place] 4 Gm Inhalation [place] (2.5mcg/1 Dose; 10 Doses)) 0 gm INH DAILY [facility] Last Admin: 03/27/21 09:45 Dose: 2 puff Documented by: Discontinued Medications Albuterol (Albuterol 0.083% 2.5 Mg/3 Ml Neb Soln) 2.5 mg INH BID [facility] Last Admin: 03/24/21 08:07 Dose: 2.5 mg Documented by: Albuterol (Albuterol 6.7 Gm Inhaler) 0 gm INH DAILY [facility] Last Admin: 03/24/21 08:14 Dose: Not Given Documented by: Albuterol (Albuterol 6.7 Gm Inhaler) 0 gm INH DAILY [facility] Albuterol (Albuterol 0.083% 2.5 Mg/3 Ml Neb Soln) 2.5 mg INH Q4H PRN PRN Reason: shortness of breath Last Admin: 03/26/21 09:00 Dose: 2.5 mg Documented by: Digoxin (Digoxin 125 Mcg Tab) 125 mcg PO DAILY [facility] Last Admin: 03/24/21 08:54 Dose: 125 mcg Documented by: Enoxaparin Sodium (Enoxaparin 30 Mg/0.3 Ml Syringe) 30 mg SUBCUT DAILY [facility] Hydromorphone HCl (Hydromorphone 0.5 Mg/0.5 Ml Syringe) 0.5 mg IVPUSH ONETIME ONE Stop: 03/23/21 17:33 Last Admin: 03/23/21 17:46 Dose: 0.5 mg Documented by: Dextrose/Sodium Chloride (Dextrose 5%-Normal Saline) 1,000 mls @ 125 mls/hr IV ASDIRECTED [facility] Last Admin: 03/23/21 17:45 Dose: 125 mls/hr Documented by: Lactated Ringer's (Ringers, Lactated) 1,000 mls @ 50 mls/hr IV ASDIRECTED [facility] Sodium Chloride (Normal Saline) 1,000 mls @ 50 mls/hr IV ASDIRECTED [facility] Last Admin: 03/24/21 22:41 Dose: 50 mls/hr Documented by: Sodium Chloride (Normal Saline) 150 mls @ 50 mls/hr IV ASDIRECTED ONE Stop: 03/27/21 09:37 Sodium Chloride (Normal Saline) 150 mls @ 50 mls/hr IV ONETIME ONE Stop: 03/27/21 11:59 Ketamine HCl (Ketamine 500 Mg/10 Ml Mdv) Confirm Administered Dose 500 mg .ROUTE .STK-MED ONE Stop: 03/23/21 19:33 Ketorolac Tromethamine (Ketorolac 30 Mg/Ml Sdv) 30 mg IM Q8H PRN PRN Reason: Pain (severe 7-10) Lidocaine HCl (Lidocaine 1% 10 Ml Mdv) Confirm Administered Dose 20 ml .ROUTE .STK-MED ONE Stop: 03/23/21 19:26 Last Admin: 03/23/21 21:51 Dose: Not Given Documented by: Ondansetron HCl (Ondansetron 4 Mg/2 Ml Sdv) 4 mg IVPUSH ONETIME ONE Stop: 03/23/21 17:34 Last Admin: 03/23/21 17:45 Dose: 4 mg Documented by: Tiotropium [place] (Tiotropium [place] 4 Gm Inhalation [place] (2.5mcg/1 Dose; 10 Doses)) 0 gm INH 1200 [facility] Last Admin: 03/25/21 11:02 Dose: 2 puff Documented by: - Exam Quality Assessment: Supplemental Oxygen Urinary Catheter Total Time: 1Days 16Hours General: Alert, Oriented, Cooperative Lungs: Normal Respiratory Effort, Crackles Cardiovascular: Regular Rate, Regular Rhythm GI/Abdominal Exam: Soft, Non-Tender, No Distention - Patient Data Lab Results Last 24 hrs: Laboratory Results - last 24 hr 03/27/21 03/27/21 03/27/21 Range/Units 05:30 05:30 05:30 WBC 8.40 (3.98-10.04) K/mm3 RBC 2.77 L (3.98-5.22) M/mm3 Hgb 6.8 L* (11.2-15.7) gm/dl Hct 22.6 L (34.1-44.9) % MCV 81.6 (79.4-94.8) fl MCH 24.5 L (25.6-32.2) pg MCHC 30.1 L (32.2-35.5) g/dl RDW Std Deviation 52.7 H (36.4-46.3) fL Plt Count 288 (182-369) K/mm3 MPV 10.2 (9.4-12.3) fl Neut % (Auto) 78.6 H (34.0-71.1) % Lymph % (Auto) 11.9 L (19.3-51.7) % [place] % (Auto) 9.4 (4.7-12.5) % Eos % (Auto) 0 L (0.7-5.8) Baso % (Auto) 0.1 (0.1-1.2) % Neut # (Auto) 6.60 H (1.56-6.13) K/mm3 Lymph # (Auto) 1.00 L (1.18-3.74) K/mm3 [place] # (Auto) 0.79 H (0.24-0.36) K/mm3 Eos # (Auto) 0.00 L (0.04-0.36) K/mm3 Baso # (Auto) 0.01 (0.01-0.08) K/mm3 Manual Slide Review Abnormal smear Sodium 137 (136-145) mEq/L Potassium 4.1 (3.5-5.1) mEq/L Chloride 100 (98-107) mEq/L Carbon Dioxide 31 (21-32) mEq/L Anion Gap 10.1 (5-15) BUN 28 H (7-18) mg/dL Creatinine 1.1 H (0.55-1.02) mg/dL Est Cr Clr Drug Dosing 34.05 mL/min Estimated GFR (MDRD) 48 (>60) mL/min BUN/Creatinine Ratio 25.5 H (14-18) Glucose 113 H (70-99) mg/dL Calcium 7.8 L (8.5-10.1) mg/dL Phosphorus 3.4 (2.6-4.7) mg/dL Magnesium 2.0 (1.8-2.4) mg/dL Blood Type O POSITIVE Gel Antibody Screen Negative Crossmatch See Detail Result Diagrams: 03/27/21 05:30 03/27/21 05:30 Sepsis Event Note - Evaluation Sepsis Screening Result: No Definite Risk - Focused Exam Vital Signs: Vital Signs Temp Pulse Pulse Resp BP BP Pulse Ox 03/27/21 10:03 98.6 F 79 24 H 128/67 03/27/21 09:40 03/27/21 09:13 81 128/45 L 03/27/21 07:25 98.2 F 79 16 123/45 L 95 03/27/21 06:10 03/27/21 04:50 98.8 F 80 22 H 106/65 92 L 03/27/21 01:09 03/27/21 00:44 98.4 F 74 18 116/87 90 L Pulse Ox 03/27/21 10:03 03/27/21 09:40 94 L 03/27/21 09:13 03/27/21 07:25 03/27/21 06:10 93 L 03/27/21 04:50 03/27/21 01:09 92 L 03/27/21 00:44 - Problem List Review Problem List Initiated/Reviewed/Updated: No - My Orders Last 24 Hours: My Active Orders 03/26/21 14:00 Albuterol [Proventil Neb Soln] 2.5 mg INH Q4H 03/27/21 06:35 Transfuse RBC [Transfuse Red Blood Cells] [COMM] Routine Transfuse Red Blood Cells [COMM] Routine 03/27/21 09:16 Sodium Chloride 0.9% [Normal Saline] 250 ml IV ONETIME - Assessment Assessment:: HD4 s/p mechanical fall from standing. Right rib fxs and right pneumothorax - Plan Plan:: Fall from standing. Right 5th and 6th rib fxs and right sided pneumothorax. 1. Right pneumothorax - Resolved - chest tube removed 03/25 2. Right 5th and 6th rib fxs - pain control. Discussed with the patient importance of pain control, breathing, ambulating. She will try to get her pain under control. - Incentive spirometer - Nebulizers q4h rosaura starting today - intensive pulm toilet - ambulation - PT/OT 3. Hematoma, right hip - expectant management, should resolve over time 4. Anemia - due to traumatic hematomas - Hgb now 6.8. - Will transfuse one unit of RBCs and recheck Hgb Other - reg diet now. - resume some home meds - Dipso pending pulm stability
--- NOTE | 2021-03-27 12:17 | CR ---
Chest: Portable view of the chest is now available for comparison. Comparison: Prior chest x-ray performed earlier on the same day (8:29 AM) Heart size and mediastinum are stable. Parenchymal density is noted within the left upper chest which is stable. Right-sided chest tube is seen and is normal in position. Minimal pneumothorax is seen within the right lung apex. No acute parenchymal change is otherwise seen. Bony structures are osteopenic. Impression: 1. Right-sided chest tube with minimal right apical pneumothorax. 2. Other portions of the chest appears similar to prior exam. Diagnostic code #2 I agree with preliminary report from [facility], finalized on 03/25/21, 3:25 PM CDT, code 1
[2021-03-27] MEDS: Digoxin 125 MCG Tab PO SCH (13:01)
[2021-03-28] MEDS: Albuterol 0.083% 2.5 MG/3 ML Neb Soln INH SCH ×6 (02:05→21:17)
[2021-03-28] MEDS: Acetaminophen/HYDROcodone 325-5 MG Tab PO PRN ×2 (04:38→09:28)
[2021-03-28] MEDS: Meclizine 12.5 MG Tab PO SCH (08:11)
[2021-03-28] MEDS: Furosemide 40 MG Tab PO SCH (08:12)
[2021-03-28] MEDS: Losartan 50 MG Tab PO SCH (08:12)
[2021-03-28] MEDS: Pantoprazole 40 MG Tab.CR PO SCH (08:13)
[2021-03-28] MEDS: Enoxaparin 40 MG/0.4 ML Syringe SUBCUT SCH (08:13)
[2021-03-28] MEDS: Diltiazem 120 MG Cap.CD PO SCH ×2 (08:13→21:40)
[2021-03-28] MEDS: Pravastatin 20 MG Tab PO SCH (08:25)
[2021-03-28] MEDS: Tiotropium Bromide 4 GM Inhalation Spray (2.5mcg/1 dose; 10 doses) INH SCH (09:51)
[2021-03-28] MEDS: Ibuprofen 600 MG Tab PO SCH ×3 (10:55→21:40)
[2021-03-28] MEDS: Gabapentin 300 MG Cap PO SCH ×2 (10:56→17:29)
--- NOTE | 2021-03-28 12:06 | PCM.PN ---
- General Info Date of Service: 03/28/21 Admission Dx/Problem (Free Text): Trauma Subjective Update: has spasms in the right chest and pain. otherwise feeling well. Functional Status: Reports: Tolerating Diet, Ambulating, Urinating - Review of Systems General: Reports: No Symptoms HEENT: Reports: No Symptoms Pulmonary: Reports: Other (chest pain) Cardiovascular: Reports: No Symptoms Gastrointestinal: Reports: No Symptoms Genitourinary: Reports: No Symptoms Musculoskeletal: Reports: No Symptoms Skin: Reports: No Symptoms Neurological: Reports: No Symptoms - Patient Data Vitals - Most Recent: Last Vital Signs Temp 98.1 F 03/28/21 07:52 Pulse 81 03/28/21 08:13 Resp 20 03/28/21 07:52 BP 150/55 H 03/28/21 08:13 Pulse Ox 97 03/28/21 09:51 Weight - Most Recent: 67.358 kg I&O - Last 24 Hours: Intake & Output 03/27/21 03/28/21 03/28/21 22:59 06:59 14:59 Intake Total 730 500 200 Output Total 650 800 Balance 80 -300 200 Lab Results Last 24 Hours: Laboratory Results - last 24 hr 03/27/21 03/27/21 03/28/21 Range/Units 05:30 14:16 05:05 Hgb 9.0 L D 8.8 L (11.2-15.7) gm/dl Crossmatch See Detail Med Orders - Current: Current Medications Hydrocodone Bitart/Acetaminophen (Acetaminophen/Hydrocodone 325-5 Mg Tab) 1 tab PO Q4H PRN PRN Reason: Pain (moderate 4-6) Last Admin: 03/28/21 09:28 Dose: 1 tab Documented by: Albuterol (Albuterol 0.083% 2.5 Mg/3 Ml Neb Soln) 2.5 mg INH Q4H [facility] Last Admin: 03/28/21 09:50 Dose: 2.5 mg Documented by: Digoxin (Digoxin 125 Mcg Tab) 125 mcg PO DAILY@1200 [facility] Last Admin: 03/27/21 13:01 Dose: 125 mcg Documented by: Diltiazem HCl (Diltiazem 120 Mg Cap.Cd) 240 mg PO BID [facility] Last Admin: 03/28/21 08:13 Dose: 240 mg Documented by: Enoxaparin Sodium (Enoxaparin 40 Mg/0.4 Ml Syringe) 40 mg SUBCUT DAILY [facility] Last Admin: 03/28/21 08:13 Dose: 40 mg Documented by: Furosemide (Furosemide 40 Mg Tab) 40 mg PO DAILY [facility] Last Admin: 03/28/21 08:12 Dose: 40 mg Documented by: Gabapentin (Gabapentin 300 Mg Cap) 300 mg PO Q8H [facility] Last Admin: 03/28/21 10:56 Dose: 300 mg Documented by: Hydromorphone HCl (Hydromorphone 0.5 Mg/0.5 Ml Syringe) 0.5 mg IVPUSH Q2H PRN PRN Reason: Pain (severe 7-10) Last Admin: 03/24/21 04:48 Dose: 0.5 mg Documented by: Ibuprofen (Ibuprofen 600 Mg Tab) 600 mg PO Q6H [facility] Last Admin: 03/28/21 10:55 Dose: 600 mg Documented by: Losartan Potassium (Losartan 50 Mg Tab) 50 mg PO DAILY [facility] Last Admin: 03/28/21 08:12 Dose: 50 mg Documented by: Meclizine HCl (Meclizine 12.5 Mg Tab) 25 mg PO DAILY [facility] Last Admin: 03/28/21 08:11 Dose: 25 mg Documented by: Ondansetron HCl (Ondansetron 4 Mg Tab.Dis) 4 mg PO Q4H PRN PRN Reason: nausea, able to take PO Last Admin: 03/24/21 23:38 Dose: 4 mg Documented by: Pantoprazole Sodium (Pantoprazole 40 Mg Tab.Cr) 40 mg PO DAILY [facility] Last Admin: 03/28/21 08:13 Dose: 40 mg Documented by: Polyethylene Glycol (Polyethylene Glycol 3350 Powder 17 Gm Packet) 17 gm PO DAILY PRN PRN Reason: Constipation Pravastatin Sodium (Pravastatin 20 Mg Tab) 10 mg PO DAILY [facility] Last Admin: 03/28/21 08:25 Dose: 10 mg Documented by: Tiotropium [place] (Tiotropium [place] 4 Gm Inhalation [place]pp (2.5mcg/1 Dose; 10 Doses)) 0 gm INH DAILY [facility] Last Admin: 03/28/21 09:51 Dose: 2 puff Documented by: Discontinued Medications Albuterol (Albuterol 0.083% 2.5 Mg/3 Ml Neb Soln) 2.5 mg INH BID [facility] Last Admin: 03/24/21 08:07 Dose: 2.5 mg Documented by: Albuterol (Albuterol 6.7 Gm Inhaler) 0 gm INH DAILY [facility] Last Admin: 03/24/21 08:14 Dose: Not Given Documented by: Albuterol (Albuterol 6.7 Gm Inhaler) 0 gm INH DAILY [facility] Albuterol (Albuterol 0.083% 2.5 Mg/3 Ml Neb Soln) 2.5 mg INH Q4H PRN PRN Reason: shortness of breath Last Admin: 03/26/21 09:00 Dose: 2.5 mg Documented by: Digoxin (Digoxin 125 Mcg Tab) 125 mcg PO DAILY [facility] Last Admin: 03/24/21 08:54 Dose: 125 mcg Documented by: Enoxaparin Sodium (Enoxaparin 30 Mg/0.3 Ml Syringe) 30 mg SUBCUT DAILY [facility] Hydromorphone HCl (Hydromorphone 0.5 Mg/0.5 Ml Syringe) 0.5 mg IVPUSH ONETIME ONE Stop: 03/23/21 17:33 Last Admin: 03/23/21 17:46 Dose: 0.5 mg Documented by: Dextrose/Sodium Chloride (Dextrose 5%-Normal Saline) 1,000 mls @ 125 mls/hr IV ASDIRECTED [facility] Last Admin: 03/23/21 17:45 Dose: 125 mls/hr Documented by: Lactated Ringer's (Ringers, Lactated) 1,000 mls @ 50 mls/hr IV ASDIRECTED [facility] Sodium Chloride (Normal Saline) 1,000 mls @ 50 mls/hr IV ASDIRECTED [facility] Last Admin: 03/24/21 22:41 Dose: 50 mls/hr Documented by: Sodium Chloride (Normal Saline) 150 mls @ 50 mls/hr IV ASDIRECTED ONE Stop: 03/27/21 09:37 Last Admin: 03/27/21 14:19 Dose: Not Given Documented by: Sodium Chloride (Normal Saline) 150 mls @ 50 mls/hr IV ONETIME ONE Stop: 03/27/21 11:59 Last Admin: 03/27/21 14:19 Dose: Not Given Documented by: Sodium Chloride (Normal Saline) 250 mls @ 50 mls/hr IV ONETIME ONE Stop: 03/27/21 13:59 Last Admin: 03/27/21 10:15 Dose: 50 mls/hr Documented by: Ketamine HCl (Ketamine 500 Mg/10 Ml Mdv) Confirm Administered Dose 500 mg .ROUTE .STK-MED ONE Stop: 03/23/21 19:33 Ketorolac Tromethamine (Ketorolac 30 Mg/Ml Sdv) 30 mg IM Q8H PRN PRN Reason: Pain (severe 7-10) Ketorolac Tromethamine (Ketorolac 15 Mg/Ml Sdv) 15 mg IVPUSH Q6H [facility] Last Admin: 03/27/21 13:19 Dose: 15 mg Documented by: Lidocaine HCl (Lidocaine 1% 10 Ml Mdv) Confirm Administered Dose 20 ml .ROUTE .STK-MED ONE Stop: 03/23/21 19:26 Last Admin: 03/23/21 21:51 Dose: Not Given Documented by: Ondansetron HCl (Ondansetron 4 Mg/2 Ml Sdv) 4 mg IVPUSH ONETIME ONE Stop: 03/23/21 17:34 Last Admin: 03/23/21 17:45 Dose: 4 mg Documented by: Tiotropium Ignacio (Tiotropium [place] 4 Gm Inhalation Tripp (2.5mcg/1 Dose; 10 Doses)) 0 gm INH 1200 [facility] Last Admin: 03/25/21 11:02 Dose: 2 puff Documented by: - Exam Urinary Catheter Total Time: 1Days 16Hours General: Alert, Oriented Lungs: Normal Respiratory Effort, Crackles Cardiovascular: Regular Rate, Irregular Rhythm GI/Abdominal Exam: Soft, Non-Tender, No Organomegaly, No Distention - Patient Data Lab Results Last 24 hrs: Laboratory Results - last 24 hr 03/27/21 03/27/21 03/28/21 Range/Units 05:30 14:16 05:05 Hgb 9.0 L D 8.8 L (11.2-15.7) gm/dl Crossmatch See Detail Result Diagrams: 03/28/21 05:05 03/27/21 05:30 Sepsis Event Note - Evaluation Sepsis Screening Result: No Definite Risk - Focused Exam Vital Signs: Vital Signs Temp Pulse Resp BP Pulse Ox Pulse Ox 03/28/21 09:51 97 03/28/21 08:13 81 150/55 H 03/28/21 08:12 150/55 H 03/28/21 07:52 98.1 F 81 20 150/55 H 91 L 03/28/21 06:12 98 03/28/21 04:30 65 24 H 122/98 H 94 L 03/28/21 02:06 96 - Problem List Review Problem List Initiated/Reviewed/Updated: No - My Orders Last 24 Hours: My Active Orders 03/28/21 10:30 Gabapentin [Neurontin] 300 mg PO Q8H Ibuprofen [Motrin] 600 mg PO Q6H 03/28/21 11:08 Patient Status [ADT] Routine - Assessment Assessment:: HD5 s/p mechanical fall from standing. Right rib fxs and right pneumothorax - Plan Plan:: Fall from standing. Right 5th and 6th rib fxs and right sided pneumothorax. 1. Right pneumothorax - Resolved - chest tube removed 03/25 2. Right 5th and 6th rib fxs - Po pain control. NSAIDs, Gabapentin, [place] - Incentive spirometer - Nebulizers q4h rosaura starting today - intensive pulm toilet - ambulation - PT/OT 3. Hematoma, right hip - expectant management, should resolve over time 4. Anemia - due to traumatic hematomas - Hgb wet down to 6.8, got 1 unit PRBCs yesterday now Hgb 8.8 Other - reg diet now. - resume some home meds - Dipso pending pulm stability and SNF placement
[2021-03-28] MEDS: Digoxin 125 MCG Tab PO SCH (12:45)
[2021-03-29] MEDS: Albuterol 0.083% 2.5 MG/3 ML Neb Soln INH SCH ×3 (02:08→09:26)
[2021-03-29] MEDS: Gabapentin 300 MG Cap PO SCH ×2 (03:36→10:24)
[2021-03-29] MEDS: Ibuprofen 600 MG Tab PO SCH ×2 (03:36→10:24)
[2021-03-29] MEDS: Losartan 50 MG Tab PO SCH (09:15)
[2021-03-29] MEDS: Pravastatin 20 MG Tab PO SCH (09:15)
[2021-03-29] MEDS: Diltiazem 120 MG Cap.CD PO SCH (09:15)
[2021-03-29] MEDS: Meclizine 12.5 MG Tab PO SCH (09:16)
[2021-03-29] MEDS: Furosemide 40 MG Tab PO SCH (09:16)
[2021-03-29] MEDS: Pantoprazole 40 MG Tab.CR PO SCH (09:16)
[2021-03-29] MEDS: Enoxaparin 40 MG/0.4 ML Syringe SUBCUT SCH (09:16)
[2021-03-29] MEDS: Tiotropium Bromide 4 GM Inhalation Spray (2.5mcg/1 dose; 10 doses) INH SCH (09:27)
--- NOTE | 2021-03-29 11:43 | PCM.PN ---
- General Info Date of Service: 03/29/21 Admission Dx/Problem (Free Text): Trauma Subjective Update: No issues. continues to do well. pain is controlled Functional Status: Reports: Pain Controlled, Tolerating Diet, Ambulating, Urinating - Review of Systems General: Reports: No Symptoms HEENT: Reports: No Symptoms Pulmonary: Reports: No Symptoms Cardiovascular: Reports: No Symptoms Gastrointestinal: Reports: No Symptoms Genitourinary: Reports: No Symptoms Musculoskeletal: Reports: No Symptoms Skin: Reports: No Symptoms Neurological: Reports: No Symptoms - Patient Data Vitals - Most Recent: Last Vital Signs Temp 97.9 F 03/29/21 08:20 Pulse 64 03/29/21 09:15 Resp 20 03/29/21 08:20 BP 144/77 H 03/29/21 09:15 Pulse Ox 94 L 03/29/21 09:29 Weight - Most Recent: 67.177 kg I&O - Last 24 Hours: Intake & Output 03/28/21 03/29/21 03/29/21 22:59 06:59 14:59 Intake Total 1040 200 Output Total 400 800 Balance 640 -600 Med Orders - Current: Current Medications Hydrocodone Bitart/Acetaminophen (Acetaminophen/Hydrocodone 325-5 Mg Tab) 1 tab PO Q4H PRN PRN Reason: Pain (moderate 4-6) Last Admin: 03/28/21 09:28 Dose: 1 tab Documented by: Albuterol (Albuterol 0.083% 2.5 Mg/3 Ml Neb Soln) 2.5 mg INH Q4H [facility] Last Admin: 03/29/21 09:26 Dose: 2.5 mg Documented by: Digoxin (Digoxin 125 Mcg Tab) 125 mcg PO DAILY@1200 [facility] Last Admin: 03/28/21 12:45 Dose: 125 mcg Documented by: Diltiazem HCl (Diltiazem 120 Mg Cap.Cd) 240 mg PO BID [facility] Last Admin: 03/29/21 09:15 Dose: 240 mg Documented by: Enoxaparin Sodium (Enoxaparin 40 Mg/0.4 Ml Syringe) 40 mg SUBCUT DAILY [facility] Last Admin: 03/29/21 09:16 Dose: 40 mg Documented by: Furosemide (Furosemide 40 Mg Tab) 40 mg PO DAILY [facility] Last Admin: 03/29/21 09:16 Dose: 40 mg Documented by: Gabapentin (Gabapentin 300 Mg Cap) 300 mg PO Q8H [facility] Last Admin: 03/29/21 10:24 Dose: 300 mg Documented by: Hydromorphone HCl (Hydromorphone 0.5 Mg/0.5 Ml Syringe) 0.5 mg IVPUSH Q2H PRN PRN Reason: Pain (severe 7-10) Last Admin: 03/24/21 04:48 Dose: 0.5 mg Documented by: Ibuprofen (Ibuprofen 600 Mg Tab) 600 mg PO Q6H [facility] Last Admin: 03/29/21 10:24 Dose: 600 mg Documented by: Losartan Potassium (Losartan 50 Mg Tab) 50 mg PO DAILY [facility] Last Admin: 03/29/21 09:15 Dose: 50 mg Documented by: Meclizine HCl (Meclizine 12.5 Mg Tab) 25 mg PO DAILY [facility] Last Admin: 03/29/21 09:16 Dose: 25 mg Documented by: Ondansetron HCl (Ondansetron 4 Mg Tab.Dis) 4 mg PO Q4H PRN PRN Reason: nausea, able to take PO Last Admin: 03/24/21 23:38 Dose: 4 mg Documented by: Pantoprazole Sodium (Pantoprazole 40 Mg Tab.Cr) 40 mg PO DAILY [facility] Last Admin: 03/29/21 09:16 Dose: 40 mg Documented by: Polyethylene Glycol (Polyethylene Glycol 3350 Powder 17 Gm Packet) 17 gm PO DAILY PRN PRN Reason: Constipation Last Admin: 03/29/21 09:17 Dose: 17 gm Documented by: Pravastatin Sodium (Pravastatin 20 Mg Tab) 10 mg PO DAILY [facility] Last Admin: 03/29/21 09:15 Dose: 10 mg Documented by: Tiotropium [place] (Tiotropium [place] 4 Gm Inhalation [place] (2.5mcg/1 Dose; 10 Doses)) 0 gm INH DAILY [facility] Last Admin: 03/29/21 09:27 Dose: 2 puff Documented by: Discontinued Medications Albuterol (Albuterol 0.083% 2.5 Mg/3 Ml Neb Soln) 2.5 mg INH BID [facility] Last Admin: 03/24/21 08:07 Dose: 2.5 mg Documented by: Albuterol (Albuterol 6.7 Gm Inhaler) 0 gm INH DAILY [facility] Last Admin: 03/24/21 08:14 Dose: Not Given Documented by: Albuterol (Albuterol 6.7 Gm Inhaler) 0 gm INH DAILY [facility] Albuterol (Albuterol 0.083% 2.5 Mg/3 Ml Neb Soln) 2.5 mg INH Q4H PRN PRN Reason: shortness of breath Last Admin: 03/26/21 09:00 Dose: 2.5 mg Documented by: Digoxin (Digoxin 125 Mcg Tab) 125 mcg PO DAILY [facility] Last Admin: 03/24/21 08:54 Dose: 125 mcg Documented by: Enoxaparin Sodium (Enoxaparin 30 Mg/0.3 Ml Syringe) 30 mg SUBCUT DAILY [facility] Hydromorphone HCl (Hydromorphone 0.5 Mg/0.5 Ml Syringe) 0.5 mg IVPUSH ONETIME ONE Stop: 03/23/21 17:33 Last Admin: 03/23/21 17:46 Dose: 0.5 mg Documented by: Dextrose/Sodium Chloride (Dextrose 5%-Normal Saline) 1,000 mls @ 125 mls/hr IV ASDIRECTED [facility] Last Admin: 03/23/21 17:45 Dose: 125 mls/hr Documented by: Lactated Ringer's (Ringers, Lactated) 1,000 mls @ 50 mls/hr IV ASDIRECTED [facility] Sodium Chloride (Normal Saline) 1,000 mls @ 50 mls/hr IV ASDIRECTED [facility] Last Admin: 03/24/21 22:41 Dose: 50 mls/hr Documented by: Sodium Chloride (Normal Saline) 150 mls @ 50 mls/hr IV ASDIRECTED ONE Stop: 03/27/21 09:37 Last Admin: 03/27/21 14:19 Dose: Not Given Documented by: Sodium Chloride (Normal Saline) 150 mls @ 50 mls/hr IV ONETIME ONE Stop: 03/27/21 11:59 Last Admin: 03/27/21 14:19 Dose: Not Given Documented by: Sodium Chloride (Normal Saline) 250 mls @ 50 mls/hr IV ONETIME ONE Stop: 03/27/21 13:59 Last Admin: 03/27/21 10:15 Dose: 50 mls/hr Documented by: Ketamine HCl (Ketamine 500 Mg/10 Ml Mdv) Confirm Administered Dose 500 mg .ROUTE .STK-MED ONE Stop: 03/23/21 19:33 Ketorolac Tromethamine (Ketorolac 30 Mg/Ml Sdv) 30 mg IM Q8H PRN PRN Reason: Pain (severe 7-10) Ketorolac Tromethamine (Ketorolac 15 Mg/Ml Sdv) 15 mg IVPUSH Q6H [facility] Last Admin: 03/27/21 13:19 Dose: 15 mg Documented by: Lidocaine HCl (Lidocaine 1% 10 Ml Mdv) Confirm Administered Dose 20 ml .ROUTE .STK-MED ONE Stop: 03/23/21 19:26 Last Admin: 03/23/21 21:51 Dose: Not Given Documented by: Ondansetron HCl (Ondansetron 4 Mg/2 Ml Sdv) 4 mg IVPUSH ONETIME ONE Stop: 03/23/21 17:34 Last Admin: 03/23/21 17:45 Dose: 4 mg Documented by: Tiotropium [place] (Tiotropium [place] 4 Gm Inhalation [place] (2.5mcg/1 Dose; 10 Doses)) 0 gm INH 1200 [facility] Last Admin: 03/25/21 11:02 Dose: 2 puff Documented by: - Exam Quality Assessment: Supplemental Oxygen Urinary Catheter Total Time: 1Days 16Hours General: Alert, Oriented Lungs: Clear to Auscultation, Normal Respiratory Effort Cardiovascular: Regular Rate, Irregular Rhythm GI/Abdominal Exam: Soft, Non-Tender, No Distention - Patient Data Result Diagrams: 03/28/21 05:05 03/27/21 05:30 Sepsis Event Note - Evaluation Sepsis Screening Result: No Definite Risk - Focused Exam Vital Signs: Vital Signs Temp Pulse Resp BP Pulse Ox Pulse Ox 03/29/21 09:29 94 L 03/29/21 09:15 64 144/77 H 03/29/21 08:20 97.9 F 64 20 141/77 H 98 03/29/21 06:03 99 03/29/21 03:39 97.9 F 64 20 125/41 L 96 03/29/21 02:09 98 - Problem List Review Problem List Initiated/Reviewed/Updated: No - My Orders Last 24 Hours: My Active Orders 03/28/21 11:08 Patient Status [ADT] Routine 03/29/21 10:28 CORONAVIRUS COVID-19 [facility] [MOLEC] Routine 03/29/21 11:41 Ready for Discharge [RC] PER UNIT ROUTINE - Assessment Assessment:: HD6 s/p mechanical fall from standing. Right rib fxs and right pneumothorax - Plan Plan:: Fall from standing. Right 5th and 6th rib fxs and right sided pneumothorax. 1. Right pneumothorax - Resolved - chest tube removed 03/25 2. Right 5th and 6th rib fxs - Po pain control. NSAIDs, Gabapentin, [place] - Incentive spirometer - Nebulizers q4h rosaura starting today - intensive pulm toilet - ambulation - PT/OT 3. Hematoma, right hip - expectant management, should resolve over time 4. Anemia - due to traumatic hematomas - Hgb wet down to 6.8, got 1 unit PRBCs 03/27, Hgb a day later was 8.8 Other - reg diet now. - resume some home meds - Dipso to SNF today
--- NOTE | 2021-03-29 11:46 | PCM.DCSUM1 ---
Discharge Summary - Hospital Course Free Text/Narrative:: patient fell and sustained a right sided rib fracture and pneumothorax. Pneumothorax was treated with chest tube for 2 days. Patient is currently stable and doing well. Rin fractures will heal with time. SHe needs pain control, pulmonary toilet, incentive spiromenter and PT/OT. She will get these services at the rehab facility until ready to go home. Diagnosis: Stroke: No - Discharge Data Discharge Date: 03/29/21 Discharge Disposition: DC/Tfer to SNF 03 Condition: Good - Referral to Home Health Date of Face to Face Encounter: 03/29/21 Primary Care Physician: Ismael North MD - Patient Summary/Data Consults: Consultations 03/23/21 20:23 PT Evaluation and Treatment [CONS] Routine - Patient Instructions Diet: Heart Healthy Diet Activity: As Tolerated Activity, Other: Use Incentive spirometer to maintain deep breathing. Ambulate Showering/Bathing: May Shower Wound/Incision Care: Keep Operative Site/Wound Site Clean and Dry Other/Special Instructions: - Take Tylenol/Motrin for pain. If pain becomes severe use prescribed [place]. - While using [place], take Miralax to avoid constipation. - Discharge Plan *PRESCRIPTION DRUG MONITORING PROGRAM REVIEWED*: Not Applicable *COPY OF PRESCRIPTION DRUG MONITORING REPORT IN PATIENT APPLE: Not Applicable Prescriptions/Med Rec: Acetaminophen [8 Hour Pain Relief] 650 mg PO Q6H 30 Days #120 tablet.er polyethylene glycoL 3350 [Miralax] 17 gm PO DAILY 15 Days #15 powd.pack Gabapentin [Neurontin] 300 mg PO Q8H 10 Days #30 cap Home Medications: Home Meds Furosemide 40 mg PO DAILY 06/20/16 [History] Losartan [Cozaar] 50 mg PO DAILY 06/20/16 [History] Lutein/Minerals/Vit A,C & E [Ocuvite] 1 tab PO DAILY 06/20/16 [History] Omeprazole 20 mg PO DAILY 06/20/16 [History] Meclizine [Antivert] 25 mg PO DAILY 08/14/17 [History] Pravastatin Sodium 10 mg PO DAILY 08/14/17 [History] Albuterol [Proventil Neb Soln] 2.5 mg INH Q4H PRN 01/06/18 [History] Digoxin [Digox] 125 mcg PO DAILY 01/06/18 [History] dilTIAZem HCL [Cardizem Cd] 240 mg PO BID 01/06/18 [History] Cyanocobalamin (Vitamin B-12) [B-12] 500 mcg PO ASDIRECTED 08/22/20 [History] Aspirin 325 mg PO DAILY 03/23/21 [History] Non-Formulary Medication [NF Drug] 1 inh PO DAILY 03/24/21 [History] Acetaminophen [8 Hour Pain Relief] 650 mg PO Q6H 30 Days #120 tablet.er 03/29/21 [Rx] Gabapentin [Neurontin] 300 mg PO Q8H 10 Days #30 cap 03/29/21 [Rx] Tiotropium [place] [Spiriva Respimat] 0 gm INH DAILY inhaler 03/29/21 [Rx] polyethylene glycoL 3350 [MiraLAX] 17 gm PO DAILY PRN #0 packet 03/29/21 [Rx] polyethylene glycoL 3350 [Miralax] 17 gm PO DAILY 15 Days #15 powd.pack 03/29/21 [Rx] Oxygen Therapy Mode: Nasal Cannula (3L at all times) Maintain SpO2% greater than: 90 Patient Handouts: Home Oxygen Use, Adult, Pneumothorax, Rib Fracture, [id number] Referrals: Ismael North MD [Primary Care Provider] - 03/31/21 9:30 am (This your clinic arrival time.) Freddy Munoz MD [Physician] - (PRN) - Discharge Summary/Plan Comment DC Time >30 min.: Yes - General Info Date of Service: 03/29/21 Admission Dx/Problem (Free Text: Trauma Subjective Update: No issues. continues to do well. pain is controlled Functional Status: Reports: Pain Controlled, Tolerating Diet, Ambulating, Urinating - Review of Systems General: Reports: No Symptoms HEENT: Reports: No Symptoms Pulmonary: Reports: Pleuritic Chest Pain (right) Cardiovascular: Reports: No Symptoms Gastrointestinal: Reports: No Symptoms Genitourinary: Reports: No Symptoms Musculoskeletal: Reports: No Symptoms Skin: Reports: No Symptoms - Patient Data Vitals - Most Recent: Last Vital Signs Temp 97.9 F 03/29/21 08:20 Pulse 64 03/29/21 09:15 Resp 20 03/29/21 08:20 BP 144/77 H 03/29/21 09:15 Pulse Ox 94 L 03/29/21 09:29 Weight - Most Recent: 67.177 kg I&O - Last 24 hours: Intake & Output 03/28/21 03/29/21 03/29/21 22:59 06:59 14:59 Intake Total 1040 200 Output Total 400 800 Balance 640 -600 Lab Results - Last 24 hrs: Laboratory Results - last 24 hr 03/29/21 Range/Units 10:28 SARS-CoV-2 RNA (JUANA) Negative (NEGATIVE) Med Orders - Current: Current Medications Hydrocodone Bitart/Acetaminophen (Acetaminophen/Hydrocodone 325-5 Mg Tab) 1 tab PO Q4H PRN PRN Reason: Pain (moderate 4-6) Last Admin: 03/28/21 09:28 Dose: 1 tab Documented by: Albuterol (Albuterol 0.083% 2.5 Mg/3 Ml Neb Soln) 2.5 mg INH Q4H [facility] Last Admin: 03/29/21 09:26 Dose: 2.5 mg Documented by: Digoxin (Digoxin 125 Mcg Tab) 125 mcg PO DAILY@1200 [facility] Last Admin: 03/28/21 12:45 Dose: 125 mcg Documented by: Diltiazem HCl (Diltiazem 120 Mg Cap.Cd) 240 mg PO BID [facility] Last Admin: 03/29/21 09:15 Dose: 240 mg Documented by: Enoxaparin Sodium (Enoxaparin 40 Mg/0.4 Ml Syringe) 40 mg SUBCUT DAILY [facility] Last Admin: 03/29/21 09:16 Dose: 40 mg Documented by: Furosemide (Furosemide 40 Mg Tab) 40 mg PO DAILY [facility] Last Admin: 03/29/21 09:16 Dose: 40 mg Documented by: Gabapentin (Gabapentin 300 Mg Cap) 300 mg PO Q8H [facility] Last Admin: 03/29/21 10:24 Dose: 300 mg Documented by: Hydromorphone HCl (Hydromorphone 0.5 Mg/0.5 Ml Syringe) 0.5 mg IVPUSH Q2H PRN PRN Reason: Pain (severe 7-10) Last Admin: 03/24/21 04:48 Dose: 0.5 mg Documented by: Ibuprofen (Ibuprofen 600 Mg Tab) 600 mg PO Q6H [facility] Last Admin: 03/29/21 10:24 Dose: 600 mg Documented by: Losartan Potassium (Losartan 50 Mg Tab) 50 mg PO DAILY [facility] Last Admin: 03/29/21 09:15 Dose: 50 mg Documented by: Meclizine HCl (Meclizine 12.5 Mg Tab) 25 mg PO DAILY [facility] Last Admin: 03/29/21 09:16 Dose: 25 mg Documented by: Ondansetron HCl (Ondansetron 4 Mg Tab.Dis) 4 mg PO Q4H PRN PRN Reason: nausea, able to take PO Last Admin: 03/24/21 23:38 Dose: 4 mg Documented by: Pantoprazole Sodium (Pantoprazole 40 Mg Tab.Cr) 40 mg PO DAILY [facility] Last Admin: 03/29/21 09:16 Dose: 40 mg Documented by: Polyethylene Glycol (Polyethylene Glycol 3350 Powder 17 Gm Packet) 17 gm PO DAILY PRN PRN Reason: Constipation Last Admin: 03/29/21 09:17 Dose: 17 gm Documented by: Pravastatin Sodium (Pravastatin 20 Mg Tab) 10 mg PO DAILY [facility] Last Admin: 03/29/21 09:15 Dose: 10 mg Documented by: Tiotropium [place] (Tiotropium [place] 4 Gm Inhalation [place] (2.5mcg/1 Dose; 10 Doses)) 0 gm INH DAILY [facility] Last Admin: 03/29/21 09:27 Dose: 2 puff Documented by: Discontinued Medications Albuterol (Albuterol 0.083% 2.5 Mg/3 Ml Neb Soln) 2.5 mg INH BID [facility] Last Admin: 03/24/21 08:07 Dose: 2.5 mg Documented by: Albuterol (Albuterol 6.7 Gm Inhaler) 0 gm INH DAILY [facility] Last Admin: 03/24/21 08:14 Dose: Not Given Documented by: Albuterol (Albuterol 6.7 Gm Inhaler) 0 gm INH DAILY [facility] Albuterol (Albuterol 0.083% 2.5 Mg/3 Ml Neb Soln) 2.5 mg INH Q4H PRN PRN Reason: shortness of breath Last Admin: 03/26/21 09:00 Dose: 2.5 mg Documented by: Digoxin (Digoxin 125 Mcg Tab) 125 mcg PO DAILY [facility] Last Admin: 03/24/21 08:54 Dose: 125 mcg Documented by: Enoxaparin Sodium (Enoxaparin 30 Mg/0.3 Ml Syringe) 30 mg SUBCUT DAILY [facility] Hydromorphone HCl (Hydromorphone 0.5 Mg/0.5 Ml Syringe) 0.5 mg IVPUSH ONETIME ONE Stop: 03/23/21 17:33 Last Admin: 03/23/21 17:46 Dose: 0.5 mg Documented by: Dextrose/Sodium Chloride (Dextrose 5%-Normal Saline) 1,000 mls @ 125 mls/hr IV ASDIRECTED [facility] Last Admin: 03/23/21 17:45 Dose: 125 mls/hr Documented by: Lactated Ringer's (Ringers, Lactated) 1,000 mls @ 50 mls/hr IV ASDIRECTED [facility] Sodium Chloride (Normal Saline) 1,000 mls @ 50 mls/hr IV ASDIRECTED [facility] Last Admin: 03/24/21 22:41 Dose: 50 mls/hr Documented by: Sodium Chloride (Normal Saline) 150 mls @ 50 mls/hr IV ASDIRECTED ONE Stop: 03/27/21 09:37 Last Admin: 03/27/21 14:19 Dose: Not Given Documented by: Sodium Chloride (Normal Saline) 150 mls @ 50 mls/hr IV ONETIME ONE Stop: 03/27/21 11:59 Last Admin: 03/27/21 14:19 Dose: Not Given Documented by: Sodium Chloride (Normal Saline) 250 mls @ 50 mls/hr IV ONETIME ONE Stop: 03/27/21 13:59 Last Admin: 03/27/21 10:15 Dose: 50 mls/hr Documented by: Ketamine HCl (Ketamine 500 Mg/10 Ml Mdv) Confirm Administered Dose 500 mg .ROUTE .STK-MED ONE Stop: 03/23/21 19:33 Ketorolac Tromethamine (Ketorolac 30 Mg/Ml Sdv) 30 mg IM Q8H PRN PRN Reason: Pain (severe 7-10) Ketorolac Tromethamine (Ketorolac 15 Mg/Ml Sdv) 15 mg IVPUSH Q6H [facility] Last Admin: 03/27/21 13:19 Dose: 15 mg Documented by: Lidocaine HCl (Lidocaine 1% 10 Ml Mdv) Confirm Administered Dose 20 ml .ROUTE .STK-MED ONE Stop: 03/23/21 19:26 Last Admin: 03/23/21 21:51 Dose: Not Given Documented by: Ondansetron HCl (Ondansetron 4 Mg/2 Ml Sdv) 4 mg IVPUSH ONETIME ONE Stop: 03/23/21 17:34 Last Admin: 03/23/21 17:45 Dose: 4 mg Documented by: Tiotropium [place] (Tiotropium [place] 4 Gm Inhalation [place] (2.5mcg/1 Dose; 10 Doses)) 0 gm INH 1200 [facility] Last Admin: 03/25/21 11:02 Dose: 2 puff Documented by: - Exam Quality Assessment: Reports: Supplemental Oxygen General: Reports: Alert, Oriented Lungs: Reports: Normal Respiratory Effort, Crackles, Other (chest wall pain) Cardiovascular: Reports: Regular Rate, Irregular Rhythm GI/Abdominal Exam: Soft, Non-Tender, No Organomegaly
[2021-03-29 11:51] VITALS: BP 123/39; PULSE 65
[2021-03-29] MEDS: Digoxin 125 MCG Tab PO SCH (12:19)
== END 2021-03-29 14:40 | DRG 200 ==
LOC: JD.ED 17:07 → JD.MS 20:25
PROVIDERS: ADMIT Internal Medicine; ATTEND Surgery
PROC: 0W9900Z Drainage of Right Pleural Cavity with Drainage Device, Open Approach (ICD-10-PCS; principal; 2021-03-23)
DX: S27.0XXA Traumatic pneumothorax, initial encounter (principal); S22.41XA Multiple fractures of ribs, right side, initial encounter for closed fracture; D84.9 Immunodeficiency, unspecified; C34.92 Malignant neoplasm of unspecified part of left bronchus or lung; S70.01XA Contusion of right hip, initial encounter; D64.9 Anemia, unspecified; Z20.822 Contact with and (suspected) exposure to COVID-19; H91.90 Unspecified hearing loss, unspecified ear; H54.7 Unspecified visual loss; I48.91 Unspecified atrial fibrillation; S01.112A Laceration without foreign body of left eyelid and periocular area, initial encounter; E78.00 Pure hypercholesterolemia, unspecified; I10 Essential (primary) hypertension; I73.9 Peripheral vascular disease, unspecified; K21.9 Gastro-esophageal reflux disease without esophagitis; R32 Unspecified urinary incontinence; M19.90 Unspecified osteoarthritis, unspecified site; H81.09 Meniere's disease, unspecified ear; Z86.16 Personal history of COVID-19; M51.36 Other intervertebral disc degeneration, lumbar region; H91.93 Unspecified hearing loss, bilateral; J44.9 Chronic obstructive pulmonary disease, unspecified; Z86.12 Personal history of poliomyelitis; Z99.81 Dependence on supplemental oxygen; Z87.891 Personal history of nicotine dependence; Z98.49 Cataract extraction status, unspecified eye; Z98.890 Other specified postprocedural states; Z90.49 Acquired absence of other specified parts of digestive tract; Z88.5 Allergy status to narcotic agent; Z91.013 Allergy to seafood; Z79.82 Long term (current) use of aspirin; Z79.899 Other long term (current) drug therapy; W19.XXXA Unspecified fall, initial encounter; Y92.009 Unspecified place in unspecified non-institutional (private) residence as the place of occurrence of the external cause
CPT/HCPCS: 32551; 36415; 51702; 71250; 72128; 72170; 80053; 80162; 81001; 83735; 83880; 85007; 85027; 85610; 85730; 86140; 96374; 96375; 99284; J1170; J2405; J7042; U0002; 36430; 71045; 71045-26; 80048; 84100; 85018; 85025; 86850; 86900; 86901; 86922; 93005; 93010; 94640; 94761; 97110-GP; 97162-GP; 97530-GP; 99100; 99140; 99285; A9270-GY; J1650; J1885; J7030; J7050; P9016

== ENCOUNTER 2022-02-22 04:31 | Inpatient (IN) | payer MEDICARE, BC ==
[2022-02-22] MEDS ORDERED: Albuterol/Ipratropium 3.0-0.5 MG/3 ML Neb Soln NEB ONE (04:39)
[2022-02-22] MEDS ORDERED: methylPREDNISolone Sodium Succinate 125 MG/2 ML SDV IVPUSH ONE (04:39)
[2022-02-22] MEDS ORDERED: Albuterol 0.083% 2.5 MG/3 ML Neb Soln NEB ONE (05:28)
[2022-02-22 05:44] LABS: ESTIMATED GFR 39 mL/min (>60)
[2022-02-22] MEDS ORDERED: Nitroglycerin/D5W 25 MG/250 ML BOTTLE IV SCH (05:45)
[2022-02-22] MEDS ORDERED: Cefepime 2 GM in Sodium Chloride 0.9% 50 ML IV ONE (05:52)
[2022-02-22] MEDS ORDERED: Furosemide 40 MG/4 ML VIAL IVPUSH ONE ×2 (05:52→14:00)
[2022-02-22] MEDS ORDERED: Acetaminophen 325 MG Tab PO PRN (12:30)
[2022-02-22] MEDS ORDERED: Albuterol 0.083% 2.5 MG/3 ML Neb Soln NEB PRN (12:47)
[2022-02-22] MEDS ORDERED: Gabapentin 300 MG Cap PO SCH (13:15)
[2022-02-22] MEDS: Albuterol/Ipratropium 3.0-0.5 MG/3 ML Neb Soln NEB SCH ×2 (15:04→21:24)
[2022-02-22] MEDS: Diltiazem 240 MG Cap.ER PO SCH (20:05)
[2022-02-22] MEDS: Doxycycline 100 MG Cap PO SCH (20:05)
[2022-02-23] MEDS: Albuterol/Ipratropium 3.0-0.5 MG/3 ML Neb Soln NEB SCH ×4 (02:29→20:06)
[2022-02-23] MEDS ORDERED: SODIUM CHLORIDE 0.9% IV ONE (06:00)
[2022-02-23] MEDS ORDERED: METHYLPREDNISOLONE SOD SUCC IV ONE (06:00)
[2022-02-23] MEDS: Pantoprazole 40 MG Tab.CR PO SCH (06:31)
[2022-02-23] MEDS: Doxycycline 100 MG Cap PO SCH ×2 (08:42→21:37)
[2022-02-23] MEDS: Pravastatin 20 MG Tab PO SCH (08:42)
[2022-02-23] MEDS: methylPREDNISolone Sodium Succinate 125 MG/2 ML SDV IVPUSH SCH (08:42)
[2022-02-23] MEDS: Enoxaparin 40 MG/0.4 ML Syringe SUBCUT SCH (08:42)
[2022-02-23] MEDS: Diltiazem 240 MG Cap.ER PO SCH ×2 (08:43→21:37)
[2022-02-23] MEDS: Losartan 50 MG Tab PO SCH (08:43)
[2022-02-23] MEDS ORDERED: Furosemide 40 MG/4 ML VIAL IVPUSH ONE ×2 (09:03→15:00)
[2022-02-23] MEDS ORDERED: Polyethylene Glycol 3350 Powder 17 GM Packet PO PRN (11:16)
[2022-02-23] MEDS ORDERED: Docusate Sodium 100 MG Cap PO PRN (11:17)
[2022-02-23] MEDS ORDERED: Potassium Chloride 20 MEQ Tab.ER PO ONE (12:28)
[2022-02-23] MEDS: Digoxin 125 MCG Tab PO SCH (13:24)
[2022-02-24] MEDS: Albuterol/Ipratropium 3.0-0.5 MG/3 ML Neb Soln NEB SCH ×4 (02:39→20:58)
[2022-02-24] MEDS: Pantoprazole 40 MG Tab.CR PO SCH (06:22)
[2022-02-24] MEDS ORDERED: Furosemide 40 MG/4 ML VIAL IVPUSH ONE (08:18)
[2022-02-24] MEDS ORDERED: Potassium Chloride 20 MEQ Tab.ER PO ONE (08:42)
[2022-02-24] MEDS ORDERED: methylPREDNISolone Sod Succ 125 MG in Sodium Chloride 0.9% 250 ML IV SCH (09:00)
[2022-02-24] MEDS ORDERED: Digoxin 125 MCG Tab PO SCH (09:00)
[2022-02-24] MEDS ORDERED: Non-Formulary Medication 1 Each (Omeprazole Magnesium [Prilosec Otc] 20 MG Tablet.Dr) PO SCH (09:00)
[2022-02-24] MEDS ORDERED: methylPREDNISolone Sodium Succinate 125 MG/2 ML SDV IV SCH (09:00)
[2022-02-24] MEDS: Doxycycline 100 MG Cap PO SCH ×2 (09:16→21:46)
[2022-02-24] MEDS: Pravastatin 20 MG Tab PO SCH (09:16)
[2022-02-24] MEDS: methylPREDNISolone Sodium Succinate 125 MG/2 ML SDV IVPUSH SCH (09:16)
[2022-02-24] MEDS: Enoxaparin 40 MG/0.4 ML Syringe SUBCUT SCH (09:16)
[2022-02-24] MEDS: Diltiazem 240 MG Cap.ER PO SCH ×2 (09:26→21:46)
[2022-02-24] MEDS: Losartan 50 MG Tab PO SCH (09:36)
[2022-02-24] MEDS: Digoxin 125 MCG Tab PO SCH (11:52)
[2022-02-25] MEDS: Albuterol/Ipratropium 3.0-0.5 MG/3 ML Neb Soln NEB SCH ×4 (02:22→20:22)
[2022-02-25] MEDS: Pantoprazole 40 MG Tab.CR PO SCH (06:10)
[2022-02-25] MEDS: Doxycycline 100 MG Cap PO SCH ×2 (09:18→20:03)
[2022-02-25] MEDS: Furosemide 40 MG Tab PO SCH (09:18)
[2022-02-25] MEDS: Diltiazem 240 MG Cap.ER PO SCH ×2 (09:18→20:03)
[2022-02-25] MEDS: Enoxaparin 40 MG/0.4 ML Syringe SUBCUT SCH (09:18)
[2022-02-25] MEDS: Pravastatin 20 MG Tab PO SCH (09:19)
[2022-02-25] MEDS: methylPREDNISolone Sodium Succinate 125 MG/2 ML SDV IVPUSH SCH (09:19)
[2022-02-25] MEDS: Digoxin 125 MCG Tab PO SCH (12:45)
[2022-02-26] MEDS: Albuterol/Ipratropium 3.0-0.5 MG/3 ML Neb Soln NEB SCH ×4 (02:49→20:27)
[2022-02-26] MEDS: Pantoprazole 40 MG Tab.CR PO SCH (06:18)
[2022-02-26] MEDS: methylPREDNISolone Sodium Succinate 125 MG/2 ML SDV IVPUSH SCH (08:54)
[2022-02-26] MEDS: Enoxaparin 40 MG/0.4 ML Syringe SUBCUT SCH (08:54)
[2022-02-26] MEDS: Doxycycline 100 MG Cap PO SCH ×2 (08:55→20:10)
[2022-02-26] MEDS: Pravastatin 20 MG Tab PO SCH (08:55)
[2022-02-26] MEDS: Furosemide 40 MG Tab PO SCH (08:55)
[2022-02-26] MEDS: Diltiazem 240 MG Cap.ER PO SCH ×2 (08:55→20:11)
[2022-02-26] MEDS: Digoxin 125 MCG Tab PO SCH (12:43)
[2022-02-26] MEDS ORDERED: Furosemide 40 MG/4 ML VIAL IVPUSH ONE (15:00)
[2022-02-26] MEDS ORDERED: Losartan 50 MG Tab PO ONE (15:00)
[2022-02-27] MEDS: Albuterol/Ipratropium 3.0-0.5 MG/3 ML Neb Soln NEB SCH ×4 (04:05→20:15)
[2022-02-27] MEDS: predniSONE 10 MG Tab PO SCH ×2 (05:44→08:11)
[2022-02-27] MEDS: Pantoprazole 40 MG Tab.CR PO SCH ×2 (05:44→08:11)
[2022-02-27] MEDS: Pravastatin 20 MG Tab PO SCH (08:23)
[2022-02-27] MEDS: Furosemide 40 MG Tab PO SCH (08:24)
[2022-02-27] MEDS: Enoxaparin 40 MG/0.4 ML Syringe SUBCUT SCH (08:24)
[2022-02-27] MEDS: Doxycycline 100 MG Cap PO SCH ×2 (08:24→20:58)
[2022-02-27] MEDS: Diltiazem 240 MG Cap.ER PO SCH ×2 (08:24→20:58)
[2022-02-27] MEDS: Digoxin 125 MCG Tab PO SCH (14:20)
[2022-02-28] MEDS: Albuterol/Ipratropium 3.0-0.5 MG/3 ML Neb Soln NEB SCH ×2 (03:20→09:28)
[2022-02-28] MEDS: Pantoprazole 40 MG Tab.CR PO SCH ×2 (05:55→06:01)
[2022-02-28] MEDS: predniSONE 10 MG Tab PO SCH ×2 (05:55→06:01)
[2022-02-28] MEDS: Doxycycline 100 MG Cap PO SCH (08:30)
[2022-02-28] MEDS: Diltiazem 240 MG Cap.ER PO SCH (08:30)
[2022-02-28] MEDS: Pravastatin 20 MG Tab PO SCH (08:30)
[2022-02-28] MEDS: Furosemide 40 MG Tab PO SCH (08:31)
[2022-02-28] MEDS: Enoxaparin 40 MG/0.4 ML Syringe SUBCUT SCH (08:31)
[2022-02-28] MEDS: Digoxin 125 MCG Tab PO SCH (11:45)
[2022-02-28 13:19] VITALS: BP 121/70; PULSE 91
[2022-02-28] MEDS ORDERED: Budesonide 0.5 MG/2 ML Neb Susp NEB SCH (21:00)
== END 2022-02-28 14:20 | DRG 280 ==
LOC: JD.ED 04:31 → JD.MS 12:19
PROVIDERS: ADMIT Internal Medicine; ATTEND Internal Medicine
PROC: 5A09457 Assistance with Respiratory Ventilation, 24-96 Consecutive Hours, Continuous Positive Airway Pressure (ICD-10-PCS; principal; 2022-02-22)
DX: I11.0 Hypertensive heart disease with heart failure (principal); J96.01 Acute respiratory failure with hypoxia; I50.9 Heart failure, unspecified; I48.91 Unspecified atrial fibrillation; I21.4 Non-ST elevation (NSTEMI) myocardial infarction; I50.33 Acute on chronic diastolic (congestive) heart failure; J96.02 Acute respiratory failure with hypercapnia; C34.92 Malignant neoplasm of unspecified part of left bronchus or lung; E44.0 Moderate protein-calorie malnutrition; D84.9 Immunodeficiency, unspecified; Z20.822 Contact with and (suspected) exposure to COVID-19; Z66 Do not resuscitate; D50.9 Iron deficiency anemia, unspecified; E78.00 Pure hypercholesterolemia, unspecified; K21.9 Gastro-esophageal reflux disease without esophagitis; Z96.649 Presence of unspecified artificial hip joint; H54.7 Unspecified visual loss; H91.90 Unspecified hearing loss, unspecified ear; R32 Unspecified urinary incontinence; M19.90 Unspecified osteoarthritis, unspecified site; I73.9 Peripheral vascular disease, unspecified; J43.9 Emphysema, unspecified; Z87.891 Personal history of nicotine dependence; Z90.49 Acquired absence of other specified parts of digestive tract; Z88.5 Allergy status to narcotic agent; Z91.013 Allergy to seafood; Z79.82 Long term (current) use of aspirin; Z79.899 Other long term (current) drug therapy; Z86.16 Personal history of COVID-19; Z99.81 Dependence on supplemental oxygen; Z79.01 Long term (current) use of anticoagulants; Z85.118 Personal history of other malignant neoplasm of bronchus and lung; Z92.3 Personal history of irradiation
CPT/HCPCS: 36415; 71045; 80053; 82803 ×2; 83605; 83880; 84145; 84484; 85025; 86140; 87040 ×2; 93005; 94640 ×2; 94660; 96365; 96366; 96367; 96375; 99285; J0692; J1940; J2930; J3490; U0002; 71046; 71046-26; 80048; 80162; 83735; 85027; 93306; 94760; 94761; 96376; 97110-GP; 97163-GP; 97530-GP; A9270-GY; J1650; J7512; J7620-GY

== ENCOUNTER 2022-03-07 21:44 | Emergency (ER) | payer MEDICARE, BC ==
[~2022-03-07 21:44] MED LIST changes: -Lactated Ringers 1,000 ML IV SCH; -Lidocaine 1% 4 ML ONE; -Lidocaine 1%/Sod Bicarbonate in NS 8.4% 1 ML Syringe IDERM PRN; +Midazolam 1 MG/ML 5 ML SDV IV ONE; -Propofol 200 MG/20 ML SDV ONE; -Sodium Chloride 0.9% 10 ML Syringe FLUSH PRN; -fentaNYL 100 MCG/2 ML SDV ONE
[2022-03-07] MEDS ORDERED: Midazolam 5 MG/ML 10 ML MDV IV ONE (22:06)
[2022-03-07] MEDS ORDERED: Albuterol/Ipratropium 3.0-0.5 MG/3 ML Neb Soln NEB ONE (22:07)
[2022-03-07] MEDS ORDERED: propofoL 100 ML IV SCH (22:15)
[2022-03-07] MEDS ORDERED: fentaNYL 2,500 MCG in Sodium Chloride 0.9% 200 ML IV SCH (22:15)
[2022-03-07] MEDS ORDERED: Midazolam 1 MG/ML 2 ML SDV IVPUSH SCH (22:30)
[2022-03-07] MEDS ORDERED: Morphine 2 MG/ML SYRINGE IVPUSH SCH (22:30)
[2022-03-07 22:59] LABS: ESTIMATED GFR 39 mL/min (>60)
[2022-03-08 03:41] VITALS: BP 83/43; PULSE 98
== END 2022-03-08 01:25 | disposition expired ==
LOC: JD.ED 21:44
DX: J96.01 Acute respiratory failure with hypoxia (principal); J44.9 Chronic obstructive pulmonary disease, unspecified; I48.91 Unspecified atrial fibrillation; E78.00 Pure hypercholesterolemia, unspecified; I10 Essential (primary) hypertension; K21.9 Gastro-esophageal reflux disease without esophagitis; Z86.16 Personal history of COVID-19; Z79.899 Other long term (current) drug therapy; Z88.6 Allergy status to analgesic agent; Z88.5 Allergy status to narcotic agent; Z91.013 Allergy to seafood
CPT/HCPCS: 31500; 36415; 36600; 71045; 80053; 82803; 83605; 83735; 83880; 85025; 87040; 94640; 99285; J2250; J2270; J2704; J3010; J7050; 99291; J7620-GY